=== PATIENT | male | born 1945 | race Caucasian/White ===

== ENCOUNTER 2023-10-05 12:25 | Inpatient (IN) | payer MEDICARE, OTHER, SELFPAY ==
[2023-10-05] VITALS (8 sets, daily range): BP systolic 108–151; BP diastolic 45–80; BMI 32.2; BMI 31.5
--- NOTE | 2023-10-05 08:31 | ED.GENMED ---
History of Present Illness
General
Chief Complaint: Change in Mental Status
Time Seen by Provider: 10/05/23 08:31
Travel History
Have you had any contact with someone who has COVID-19?: No
Do you have any symptoms of coronavirus? Fever > 100 degrees, chills, cough, shortness of breath, sore throat, loss of taste or smell, muscle aches, or headache?: No
Past History
Past History
ED Past Medical History: HTN and Other ( Aortic stenosis)
ED Past Surgical History: None
Social History
Tobacco: Non-smoker
Alcohol: Chronic alcoholic
Drug: None
Personal:
Living: with family
Course
Vital Signs
Initial and Last Documented VS:
Initial Vital Signs
Temp Pulse Resp BP Pulse Ox
99.5 F 107 20 137/71 95
10/05/23 08:26 10/05/23 08:26 10/05/23 08:26 10/05/23 08:26 10/05/23 08:26
Last Documented Vital Signs
Temp Pulse Resp BP Pulse Ox
99.5 F 107 20 137/71 95
10/05/23 08:26 10/05/23 08:26 10/05/23 08:26 10/05/23 08:26 10/05/23 08:26
ED Attending Note
-
Portions of this chart may have been created with voice recognition software.� Occasional wrong word or��sound alike� substitutions may have occurred due to the inherent limitations of voice recognition software.
Discharge Plan
Departure
Prescriptions:
No Action
multivitamin 1 EACH tablet
1 ea PO DAILY
amlodipine 10 MG tablet
10 mg PO DAILY
triamcinolone acetonide [Nasacort] 10.8 ML aerosol,spray
10.8 ml NS PRN PRN (Reason: allergies)
aspirin 81 MG tablet,chewable
81 mg PO DAILY
loratadine 10 MG tablet
10 mg PO PRN PRN (Reason: allergies)
guaifenesin [Mucinex] 1,200 MG tablet extended release 12hr
1,200 mg PO PRN PRN (Reason: congestion)
acetaminophen 325 MG tablet
650 mg PO Q6HPRN PRN (Reason: mild pain, fever, headache) 0RF
clopidogrel 75 MG tablet
75 mg PO DAILY Qty: 30 6RF
ibuprofen 200 MG tablet
200 mg PO Q6HPRN PRN (Reason: joint pain) Qty: 0 0RF
Interventions
Interventions:
*Risk Screen - Suicide Last Done: 10/05/23 08:26
*General Assessment Last Done: 10/05/23 08:26
*Neglect/Abuse Screening Last Done: 10/05/23 08:26
Discharge Date and Time
Print Language: FAROESE
--- NOTE | 2023-10-05 08:51 | ED.GENMED ---
History of Present Illness
General
Chief Complaint: Change in Mental Status
Source: patient and spouse
Exam Limitations: none
Time Seen by Provider: 10/05/23 08:31
Nursing documentation reviewed up to this point in time: agreed with
Travel History
Have you had any contact with someone who has COVID-19?: No
Do you have any symptoms of coronavirus? Fever > 100 degrees, chills, cough, shortness of breath, sore throat, loss of taste or smell, muscle aches, or headache?: No
History of Present Illness
History of Present Illness:
78-year-old male with past medical history of hypertension, hyperlipidemia, aortic stenosis status post TAVR, alcohol abuse who presents to the emergency room with his for evaluation of confusion/speech difficulty. Patient is unable to
meaningfully participate in history as he is having expressive aphasia. His says that he was in his normal state of health, last seen normal at around 3 PM yesterday afternoon. She says that later on the evening while he was watching TV she
noticed that he was having confused speech. She thought that perhaps he had been drinking alcohol but this morning his speech issues continued and he indicated that he had not had a drink in about 2 days; was concerned for an acute stroke and
brought him to the emergency room to be assessed. No reported falls or trauma. No weakness in the extremities. No loss of vision. No headache. No similar symptoms in the past.
Past History
Past History
ED Past Medical History: HTN and Other ( Aortic stenosis)
ED Past Surgical History: None
Social History
Tobacco: Non-smoker
Alcohol: Chronic alcoholic
Drug: None
Personal:
Living: with family
Review of Systems
Review of Systems
Unable to obtain full review of systems at this time due to: other (Aphasia)
All Other Systems: Not applicable
Phy Exam
Physical Exam
Physical Exam:
General: Awake, alert; no acute distress
Head: Normocephalic, atraumatic
Eyes: Conjunctiva normal, EOMI, pupils equal round and reactive to light bilaterally
Throat: Airway intact, handling secretions
Neck: Trachea midline, supple without meningismus
Lungs: Clear to auscultation bilaterally, no wheezing, rales, rhonchi
Heart: Regular rate and rhythm, systolic murmur
Abd: Soft, non distended, nontender
Neuro: Cranial nerves grossly intact 2 through 12, patient is having Warnicke's aphasia with fluent speech no dysarthria but 'word salad,' motor and sensory function intact upper and lower extremities, no limb ataxia
Skin: no rash
Extremities: No edema in extremities, equal pulses in all extremities
Scores
NIH Stroke Score
Level of Consciousness: 0 - Alert
LOC Questions: 0-Answers both correctly
LOC Commands: 0-Performs both correctly
Best Horizontal Gaze: 0-Normal
Visual Bautista: 0=Normal, no visual loss
Facial Palsy: 0=Normal, symmetrical
Motor - Right Arm: 0=No drift 10 seconds
Motor - Left Arm: 0=No drift 10 seconds
Motor - Right Le-No drift 5 seconds
Motor - Left Le-No drift 5 seconds
Limb Ataxia: 0-Absent
Sensation: 0-Normal
Best Language: 2-Severe aphasia
Dysarthria: 0-Normal
Extinction and Inattention: 0-No abnormality
Total Score:: 2
Heart Failure Risk
Heart Failure Risk Score: Not Applicable
Heart Score for Chest Pain Patients
STEMI patient?: Not applicable
Withdrawal Assessment of Alcohol
Withdrawal Assessment Completed?: Not applicable
Course
Orders/Labs/Results
Orders:
Orders
10/05/23 08:37
Alcohol Urgent
Ammonia Urgent
Complete Blood Count/With Diff Urgent
Comprehensive Metabolic Panel Urgent
Magnesium Urgent
10/05/23 08:44
CT Head W/o Cont STROKE ALERT Urgent
Comment:
Reason For Exam: expressive aphasia
Bedside Glucose- Treatment ONCE
Cardiac Monitoring- Treatment ONCE
IV Insert/Care/Rem.- Treatment PRN
Vital Signs- Treatment ONCE
Frequency: Hourly
Thiamine Injection 200 mg IV NOW STA
Pulse Ox/cont/shift [RESP] Stat
Quantity: 1
10/05/23 08:45
Electrocardiogram (*1) Stat
Reason for Study: Other
Other Reason for Exam: neuro symptoms
EKG- Treatment ONCE
Drug Screen, Urine [Urine Drug Abuse Screen] Urgent
10/05/23 08:46
Consult Neurology [NEUROLOGY CONSULT] Urgent
Consulting Provider: Justen Stiles
Was physician already notified: Yes
10/05/23 08:50
CT Head & Neck Angio W/wo IV Urgent
Comment:
Reason For Exam: expressive aphasia
10/05/23 09:28
Aspirin 325 mg PO NOW STA
10/05/23 10:00
FOLic ACID [Folvite] 1 mg 0.9% Sodium Chloride 50 ml [Nss] 50 ml IV ONCE
Abnormal Lab Results
10/05/23
08:37
RBC 3.52 L 10^6/uL
(4.70-6.10)
Hgb 11.5 L g/dL
(13.0-18.0)
Hct 33.0 L %
(39.0-52.0)
MCH 32.7 H pg
(27.0-31.0)
RDW 14.6 H %
(11.5-14.5)
MPV 10.5 H fL
(7.4-10.4)
Absolute Lymphs (auto) 0.7 L 10^3/uL
(1.2-3.4)
Absolute Monos (auto) 0.8 H 10^3/uL
(0.1-0.6)
Neutrophils % 75.7 H %
(42.2-75.2)
Lymphocytes % 10.1 L %
(20.5-51.1)
Monocytes % 12.0 H %
(1.7-9.3)
Creatinine 0.6 L mg/dL
(0.7-1.3)
Glucose 123 H mg/dl
(70-99)
Ammonia < 9 L umol/L
(9-30)
10/05/23 08:37
10/05/23 08:37
Vital Signs
Initial and Last Documented VS:
Initial Vital Signs
Temp Pulse Resp BP Pulse Ox
37.5 C 107 20 137/71 95
10/05/23 08:26 10/05/23 08:26 10/05/23 08:26 10/05/23 08:26 10/05/23 08:26
Last Documented Vital Signs
Temp Pulse Resp BP Pulse Ox
37.5 C 107 20 137/71 95
10/05/23 08:26 10/05/23 08:26 10/05/23 08:26 10/05/23 08:26 10/05/23 08:26
MDM/Problems Addressed
Differential Diagnosis Includes:
Acute CVA, Warnicke's encephalopathy, complex migraine, seizure, brain mass, hemorrhage
MDM/Problems Addressed:
78-year-old male with history as above presents for evaluation of speech difficulty/confused speech�he is exhibiting Warnicke's aphasia here. No other neurologic deficits. Tachycardic but otherwise normal vitals. Exam as above. NIH stroke scale
2. Last normal was 3 PM yesterday�would not be thrombolysis candidate. No stroke alert called for this reason. Will plan to place IV check labs including a CBC and CMP. Can check an ammonia level. Will check an alcohol level and UDS. Sent for
a CT head. Will dose with high-dose thiamine as well as folate. Case discussed with neurology also recommended CTA head and neck. They will evaluate at bedside. Agreed with high-dose thiamine. Reassess after the above.
Labs reviewed: CBC shows mild anemia otherwise unremarkable, CMP no clinically significant abnormalities. Alcohol level negative. CT head negative. Will dose with aspirin. Already treated with high-dose thiamine also gave folate. Case discussed
with hospitalist for admission.
Chronic conditions affecting care:
Alcohol abuse, hypertension, hyperlipidemia
*Radiology
Radiology exam reviewed: radiology read reviewed
*Pulse Oximetry
Patient hypoxic: no
*Critical Care Note
Total Time (30-74mins, 75-104mins- exclusive of procedures): Not Applicable
Data Reviewed
Review of Other/Old Records Reveals: Labs and Records
Source: patient and spouse
Patient Management
Discussion with other providers: Hospitalist (Discussed with hospitalist), Environmental Services Coordinator (Discussed with neurologist) and Radiologist (Discussed with radiologist)
Escalation/DeEscalation of care consider admission/obs:
Admission indicated
ED Attending Note
-
Portions of this chart may have been created with voice recognition software.� Occasional wrong word or��sound alike� substitutions may have occurred due to the inherent limitations of voice recognition software.
Discharge Plan
Departure
Patient Disposition: Admit
Date of Disposition: 10/05/23
Time of Disposition: 09:25
Admit to doctor: Brandon
Presentation/result/management discussed w/ accepting MD/DO: Hospitalist
Discharge Problem:
Wernicke's aphasia
Prescriptions:
No Action
multivitamin 1 EACH tablet
1 ea PO DAILY
amlodipine 10 MG tablet
10 mg PO DAILY
triamcinolone acetonide [Nasacort] 10.8 ML aerosol,spray
10.8 ml NS PRN PRN (Reason: allergies)
aspirin 81 MG tablet,chewable
81 mg PO DAILY
loratadine 10 MG tablet
10 mg PO PRN PRN (Reason: allergies)
guaifenesin [Mucinex] 1,200 MG tablet extended release 12hr
1,200 mg PO PRN PRN (Reason: congestion)
acetaminophen 325 MG tablet
650 mg PO Q6HPRN PRN (Reason: mild pain, fever, headache) 0RF
clopidogrel 75 MG tablet
75 mg PO DAILY Qty: 30 6RF
ibuprofen 200 MG tablet
200 mg PO Q6HPRN PRN (Reason: joint pain) Qty: 0 0RF
Interventions
Interventions:
*Risk Screen - Suicide Last Done: 10/05/23 08:26
*General Assessment Last Done: 10/05/23 08:26
*Neglect/Abuse Screening Last Done: 10/05/23 08:26
ED- Neurological Assessment Last Done: 10/05/23 09:00
Discharge Date and Time
Print Language: GERMAN
[2023-10-05 08:58] LABS: % Basophils 0.8 % (0-2); % Eosinophils 1.1 % (0-6); % Immature Granulocytes 0.3 % (0-0.5); % Lymphocytes 10.1 % (20.5-51.1); % Neutrophils 75.7 % (42.2-75.2); Absolute Basophils 0.1 10^3/uL (0-0.2); Absolute Eosinophils 0.1 10^3/uL (0-0.7); Absolute Lymphocytes 0.7 10^3/uL (1.2-3.4); Absolute Monocytes 0.8 10^3/uL (0.1-0.6); Absolute Neutrophils 4.9 10^3/uL (1.4-6.5); Hemoglobin 11.5 g/dL (13.0-18.0); Mean Corp Hgb Conc. 34.8 g/dL (33.0-37.0); Mean Corpuscular Hgb 32.7 pg (27.0-31.0); Mean Corpuscular Volume 93.8 fL (80.0-94.0); Mean Platelet Volume 10.5 fL (7.4-10.4); Nucleated Red Blood Cells % 0 % (-); Platelet Count 197 10^3/uL (130-400); Red Blood Cell Count 3.52 10^6/uL (4.70-6.10); Red Cell Dist. Width 14.6 % (11.5-14.5); White Blood Cell Count 6.5 10^3/uL (4.8-10.8)
[2023-10-05 09:21] LABS: ALT (SGPT) 11 U/L (0-50); AST (SGOT) 28 U/L (17-59); Albumin 4.5 g/dl (3.5-5.0); Alkaline Phosphatase 103 U/L (38-126); Ammonia < 9 umol/L (9-30); Blood Urea Nitrogen 10 mg/dl (9-20); Calcium 9.4 mg/dl (8.4-10.2); Carbon Dioxide 24 mmol/L (22-30); Chloride 106 mmol/L (98-107); Estimated Creatinine Clearance 118 ml/min; Glucose 123 mg/dl (70-99); Magnesium 1.9 mg/dl (1.6-2.3); Potassium 4.2 mmol/L (3.5-5.1); Sodium 138 mmol/L (135-145); Total Bilirubin 1.1 mg/dl (0.2-1.3); Total Protein 7.4 g/dl (6.3-8.2); eGFR > 60.00
[2023-10-05 09:22] LABS: Alcohol None Detected
[2023-10-05] MEDS: THIAMINE INJECTION 200 MG IV (09:26)
[2023-10-05] MEDS: FOLVITE 50.2 MG IV (09:27)
--- NOTE | 2023-10-05 09:32 | HPS.HSE ---
Family Physician
-
Family Physician: Torito Mccracken
Chief Complaint
-
Slurred speech
History of Present Illness
Patient is 78 years old with this of hypertension, hyperlipidemia, aortic stenosis status post TAVR, alcohol abuse (last use 2 days) who came to the ER with his
With confusion/speech difficult, patient denies any other neurological symptoms, patient seen and examined at bedside, denies any chest pain or shortness of breath, no abdominal pain, no nausea, no vomiting, no diarrhea or constipation.
Patient awake and oriented, no slurred speech on exam but based on the family at bedside has mild confusion not at baseline yet.
Medical History
Past Medical History
Past Medical History: Reports HTN and Hypercholesterolemia
Past Surgical History: Reports Cardiac (TAVR)
Social History
Tobacco: Non-smoker
Alcohol: Daily
Personal:
Living: With Family
Family History
Family History: Not pertinent
Allergies / Home Medications
Allergies reflects when Allergies were last updated in [employer].
Home Medications with original date entered in [employer]
Allergy/Medication List:
Allergies
Allergy/AdvReac Type Severity Reaction Status Date / Time
ENVIRONMENTAL Allergy Intermediate RUNNY NOSE Uncoded 10/05/23 08:26
AND
SNEEZING
Home Medications
amlodipine 10 mg tablet 10 mg PO DAILY 02/13/19
aspirin 81 mg chewable tablet 81 mg PO DAILY 02/13/19
triamcinolone acetonide 55 mcg nasal spray aerosol (Nasacort) 10.8 ml NS DAILYPRN PRN allergies 02/13/19
atorvastatin 10 mg tablet 10 mg PO DAILY 10/05/23
naproxen sodium 220 mg tablet (Aleve) 440 mg PO BIDPRN PRN mild pain 10/05/23
Review of Systems
-
A 12 point ROS was completed and negative except as noted: Yes
Constitutional: Reports See HPI (Confusion); Denies Fever, Weight Gain, Weight Loss, Fatigue or Sleep Disturbance
EENT: Denies Tearing, Sore Throat, Mouth Pain, Mouth Swelling or Runny Nose
Respiratory: Denies Cough, Hemoptysis or Trouble Breathing
Cardiac: Denies Chest Pain, Diaphoresis, Palpitations or Syncope
Abdomen/GI: Denies Abdominal Pain, Nausea, Vomiting, Diarrhea, Constipated, Bloody Stools or Black Stools
: Denies Dysuria, Frequency, Flank Pain, Incontinence, Difficulty Voiding, Urgency, Bleeding or Dark Urine
Musculoskeletal: Denies Joint Pain, Joint Swelling, Muscle Pain, Muscle Stiffness or Edema
Skin: Denies Itching or Rash
Neurological: Reports See HPI and Other (Slurred speech); Denies Dizzy, Headache, Weakness or Numbness
Endocrine: Denies Polyuria, Polydipsia or Temp Intolerance
Hematologic/Lymphatic: Denies Bleeding, Swollen Glands or Bruising
Psych: Reports Calm; Denies Depression, Anxiety or Panic Disorder
Physical Exam
Vital Signs
Vital Signs
Temp Pulse Resp BP Pulse Ox
99.5 F 107 20 137/71 95
10/05/23 08:26 10/05/23 08:26 10/05/23 08:26 10/05/23 08:26 10/05/23 08:26
Physical Exam
General: Well Developed, Well Nourished, No Apparent Distress, Comfortable and Good Appetite; No Pain, Chills or Sweats
HEENT: NormoCephalic, Moist mucous membranes, Atraumatic, Good Dentition, PERRLA, Nose Appears Normal and Ears Appear Normal
Respiratory: Clear
Cardiac: S1/S2 and Regular Rhythm
Breast: Deferred by me
GI: Soft, Non Tender, Non Distended and Normal Bowel Sounds
Genito-urinary: Deferred by me
Musculoskeletal: No Clubbing, No Cyanosis and No Edema
Skin: Warm; No Rash, Jaundice, Ulcers, Lesions or Decubitus Ulcers
Neuro: Awake, Alert, Oriented, AO x 3, No Motor Deficits, Nonfocal/grossly intact and Cranial Nerves Intact
Hematologic/Lymphatic: No Lymphadenopathy
Psych: Calm
Laboratory Results
-
10/05/23 08:37
10/05/23 08:37
Laboratory Results
Total Bilirubin 1.1 mg/dl (0.2-1.3) 10/05/23 08:37
AST 28 U/L (17-59) 10/05/23 08:37
ALT 11 U/L (0-50) 10/05/23 08:37
Alkaline Phosphatase 103 U/L (38-126) 10/05/23 08:37
Data Reviewed
-
Diagnostic Radiology: Report Reviewed by me
CT Scan: Report Reviewed by me
Medical Tests (Nuc Med, Echo, EKG etc): Report Reviewed by me
Lab Data: Labs Reviewed by me
Old Records: Reviewed
Impression/Plan
-
IMPRESSION:
78 years old with a history of hypertension, hyperlipidemia, aortic stenosis status post TAVR presented with mild confusion and slurred speech which resolved, admitted to rule out CVA, MRI brain and neurology consult.
PLAN:
Slurred speech, rule out CVA/TIA. (Wernicke's aphasia)
CT head done in the ER shows:
No acute intracranial abnormalities.
Findings compatible with diffuse cortical atrophy with nonspecific white matter changes as described above.
CTA head and neck shows:
Bilateral carotid bulb and proximal internal carotid artery atherosclerosis, left greater than right, without hemodynamically significant proximal internal carotid artery stenosis.
No findings to suggest internal carotid artery or vertebral artery dissection bilaterally. Dominant right vertebral artery.
No findings to suggest proximal intracranial arterial stenosis bilaterally.
Patient has no other neurological deficit.
Admit under observation status to telemetry bed.
Frequent neurocheck.
Allow permissive hypertension.
Aspirin/Plavix/atorvastatin,
Neurology consult (ordered in the ER).
MRI brain without contrast.
Echocardiogram.
Check hemoglobin A1c, fasting lipid panel.
PT/OT consult.
Social service for discharge.
Alcohol abuse.
Daily alcohol use.
Last used 2 days ago
Patient given thiamine IV in the ER, will continue while in the hospital, then discharge on oral thiamine
Folic acid
No symptoms of withdrawal currently but will order Ativan as needed for withdrawal.
History of hypertension
Hold home amlodipine for now, to allow permissive hypertension.
CODE STATUS: Full code
DVT prophylaxis: Lovenox
Diet: cardiac diet (speech for swallow eval)
[2023-10-05] MEDS: ASPIRIN 325 MG PO (09:35)
[2023-10-05 09:38] LABS: Glucose - Point of Care 108 mg/dl (70-99)
--- NOTE | 2023-10-05 09:43 | CON.NEURO4 ---
Addendum entered and electronically signed by Justen Stiles MD 10/05/23 11:30:
I saw and evaluated the patient reviewed the note by Porsha rooney agree with the findings with following comments:
78 year old man with alcohol abuse, s/p TAVR, hypertension, hyperlipidemia presenting with speech abnormalities, confused nonsensical speech starting yesterday afternoon around 3 PM. No history of stroke, takes aspirin at home. No observation by
patient or family of unilateral weakness. His comprehension is impaired and his words don't make sense. No headache. Last alcoholic drink about 1-2 days ago.
Neurologic examination shows fluent/receptive aphasia (Wernicke's type aphasia) with impaired comprehension to all but the most simple 1 step commands, repetition impaired. Fully awake and alert and attempts communication. No cranial nerve or
motor deficits.
CT head non contrast reviewed no infarcts or ischemic seen, no hemorrhage
CTA head and neck shows no large vessel occlusions in the brain, plaque and calcification at carotids bilaterally with 50% or less stenosis bilaterally.
MRI brain with expected infarcs in the left hemisphere, in the insula and left parietal lobes.
Assessment: Embolic ischemic stroke to left sided hemisphere producing Wernicke's/receptive aphasia. Sources could be a non-hemodynamicalyl severe left carotid artery atherosclerosis, decent possibility of cardiac embolism given severe left atrial
dilation on previous TTE signifying left atriopathy.
Recommendations
-Thiamine and folate supplementation, would not require a Wernicke Encephalopathy type dosing
-Speech, physical occupational therapies
-DAPT therapy, aspirin/clopidogrel plan for 21 days
-Small increase in Atorvastatin to 20 mg daily even though LDL is low would want more aggressive management of atherosclerosis
-Recheck TTE although low yield
-Cardiac telemetry
-Low threshold for cardiac monitoring in outpatient setting
-Monitor for alcohol withdrawal
-Neuro checks and NIH scales
-Can pursue goal normotension at this point
Will follow
Original Note:
Consultation - Neurology 4
-
CONSULTING PHYSICIAN: Gokul Stiles MD
REFERRING PHYSICIAN: Hospitalists/Dr. Jimenez
DICTATED BY: LENARD Chapman
DATE/TIME OF REQUEST: 10/05/23
DATE/TIME OF CONSULTATION: 10/05/23
Reason for Consultation: Aphasia
History of Present Illness:
This is a 78-year-old left-handed male who has presented to the hospital with report of aphasia starting at 1500 on 10/04/23. Patient does not recognize any speech disturbance. Per his family at bedside, he was in his usual state yesterday until
1500 while sitting on the couch watching TV his speech became nonsensical. They initially attributed the speech change to him drinking alcohol that morning, but the patient reports he hasn't had a drink in two days. This morning (10/05/23), his
speech was still abnormal, prompting them to bring him to the ER for evaluation. NIHSS is 5 on our evaluation for inability to answer orientation questions, severe aphasia, and slight RLE drift. CT head and CTA head/neck were obtained and are
negative for any acute abnormalities. He is not a candidate for TNK/IAT due to being outside of the time window and no LVO on imaging. Patient offers no complaints but a complete ROS is challenging to obtain due to aphasia. He is taking aspirin 81mg
daily for cardiac purposes. He denies any history of TIA or stroke in the past. He drinks alcohol daily, last drink was possibly two days ago.
Past Medical History: HTN, aortic stenosis, chronic daily alcohol use, depression, squamous/basal cell carcinoma, diverticulosis
Surgical History: TAVR, b/l cataract removal, eyelid lift
Family History: Reviewed and noncontributory.
Social History: Chronic daily alcohol use. Denies tobacco and illicit drug use.
Allergies: Environmental.
Home Medications: See below.
Review of Symptoms:
Patient denies any fever, headache, chest pain, shortness of breath, GI or symptoms. Unreliable due to aphasia
�Per the HPI.�All systems are reviewed negative except above.
Physical Exam:
The patient is afebrile, abdomen is nondistended, breathing is unlabored, skin is warm and dry, no edema.
NIH Stroke Scale:
I performed the NIH stroke scale on the patient on 10/05/23 at 1015. The patient scored 5 points on the NIH stroke scale assessment, which were assigned as follows: See below.
Neurologic Examination:
The patient is awake, alert and oriented to name. He is able to follow some one-step commands, often repeats the same commands. Can answer some questions appropriately, frequent word salad. There is severe aphasia, receptive>expressive. No
dysarthria. On cranial nerve assessment, pupils are 3 mm bilateral, round and reactive to light and accommodation. Visual bautista are full. Extraocular movements are intact. Facial sensations are intact and bilaterally symmetrical, there is no facial
asymmetry. Hearing is intact bilaterally to normal conversation volume. Tongue palate and uvula are midline. Sternocleidomastoid strengths are full bilaterally. Motor strengths are 5/5 bilateral upper and lower extremities on medical research
[place] scale. There is slight RLE drift. Low amplitude semi rhythmic tremor noted in distal LUE on exertion. SULAIMAN sensation due to aphasia. Coordination is intact by finger to nose bilaterally.
Lab Results: See below.
Neuro Imaging:
1. CT Head 10/05/23: No acute intracranial abnormalities. Findings compatible with diffuse cortical atrophy with nonspecific white matter changes as described above. ASPECTS score: 10.
2. CTA Head/Neck 10/05/23: Bilateral carotid bulb and proximal internal carotid artery atherosclerosis, left greater than right, without hemodynamically significant proximal internal carotid artery stenosis. No findings to suggest internal carotid
artery or vertebral artery dissection bilaterally. Dominant right vertebral artery. No findings to suggest proximal intracranial arterial stenosis bilaterally.
Differentials for the patient's presentation include:
1. Likely a left hemisphere, possibly right hemisphere given left-handedness, ischemic stroke producing receptive>expressive aphasia.
2. Nutritional deficiency associated with alcohol abuse possibly contributing to symptoms.
Patient has the following risk factors for their symptoms: HTN, HLD, age
IV Tenecteplase/IAT candidacy: Not a candidate for TNK/IAT due to outside of time window/no LVO.
Recommendations:
-Continue DAPT with aspirin 81mg and Plavix 75mg daily for 21 days. After 21 days, discontinue Plavix and continue aspirin 81mg daily only, indefinitely.
-Permissive hypertension until 1500 today, then goal normotension.
-MRI brain noncontrast pending.
-Will order TTE if MRI is positive for stroke.
-LDL goal <70. LDL is 36. Continue home atorvastatin 10mg daily as LDL is at goal.
-Goal normoglycemia, hbA1c is pending.
-MSAS protocol. Thiamine/folate replacement.
-NIHSS and neurological checks per unit guidelines.
-Provide patient with a [employer] education packet.
-PT/OT/St evaluations.
-DVT prophylaxis.
-Will follow.
Discussed patient care with: Dr. Stiles, the patient
Vital Signs and Labs
-
Vital Signs and Labs:
Vital Signs
Temp Pulse Resp BP Pulse Ox
99.5 F 107 20 137/71 95
10/05/23 08:26 10/05/23 08:26 10/05/23 08:26 10/05/23 08:26 10/05/23 08:26
Lab Results
10/05/23 08:37
10/05/23 08:37
Sodium 138 mmol/L (135-145) 10/05/23 08:37
Potassium 4.2 mmol/L (3.5-5.1) 10/05/23 08:37
BUN 10 mg/dl (9-20) 10/05/23 08:37
Glucose 123 mg/dl (70-99) H 10/05/23 08:37
Calcium 9.4 mg/dl (8.4-10.2) 10/05/23 08:37
Medications
-
Active Medications
Generic Name Dose Route Start Last Admin
Trade Name Freq PRN Reason Stop Dose Admin
Folic Acid 1 mg/ Sodium 50.2 mls @ 200.8 mls/hr 10/05/23 10:00 10/05/23 09:27
Chloride IV 10/05/23 10:14 50.2 mls
ONCE ONE Administration
Home Medications
�Medication �Instructions �Recorded
amlodipine 10 mg tablet 10 mg PO DAILY 02/13/19
aspirin 81 mg chewable tablet 81 mg PO DAILY 02/13/19
triamcinolone acetonide 55 mcg 10.8 ml NS DAILYPRN PRN allergies 02/13/19
nasal spray aerosol (Nasacort)
atorvastatin 10 mg tablet 10 mg PO DAILY 10/05/23
naproxen sodium 220 mg tablet 440 mg PO BIDPRN PRN mild pain 10/05/23
(Aleve)
NIH Stroke Score
Subsequent NIH Scale
Date of Subsequent NIH Scale: 10/05/23
Time of Subsequent NIH Scale: 10:15
NIH Stroke Score
Level of Consciousness: 0 - Alert
LOC Questions: 2-Neither correct
LOC Commands: 0-Performs both correctly
Best Horizontal Gaze: 0-Normal
Visual Bautista: 0=Normal, no visual loss
Facial Palsy: 0=Normal, symmetrical
Motor - Right Arm: 0=No drift 10 seconds
Motor - Left Arm: 0=No drift 10 seconds
Motor - Right Le-Drift < 5 seconds
Motor - Left Le-No drift 5 seconds
Limb Ataxia: 0-Absent
Sensation: 0-Normal
Best Language: 2-Severe aphasia
Dysarthria: 0-Normal
Extinction and Inattention: 0-No abnormality
Total Score:: 5
Modified Hanson (mRS) Score
Modified Lit Scale (mRS): Moderate disability. Requires some help, able to walk unassisted.
Score: 3
Alteplase Contraindication
Inclusion and Exclusion criteria reviewed: Yes
Reasons for NON-Tx with Thrombolytics ABSOLUTE Exclusions: Greater than 4.5 hrs from onset of sxs
[2023-10-05 10:29] LABS: Amphetamines Negative (Negative); Barbiturates Negative (Negative); Benzodiazepines Negative (Negative); Buprenorphine Negative (Negative); Cocaine Negative (Negative); Marijuana Negative (Negative); Methadone Negative (Negative); Methamphetamines Negative (Negative); Opiates Negative (Negative); Phencyclidine Negative (Negative); Tricyclic Antidepressants Negative (Negative)
[2023-10-05 11:17] LABS: Glycohemoglobin (HgbA1c) 5.3 % (4.0-5.6)
[2023-10-05 11:24] LABS: Urine Albumin Negative (Neg - Trace); Urine Bilirubin Negative (Negative); Urine Character Clear (Clear); Urine Color Yellow; Urine Glucose Negative (Negative); Urine Ketone Negative (Negative); Urine Leukocyte Negative (Negative); Urine Nitrite Negative (Negative); Urine Occult Blood Negative (Negative); Urine Specific Gravity 1.005 (<1.030); Urine Urobilinogen Negative (Neg - 1+)
--- NOTE | 2023-10-05 12:03 | CARDSERVLU ---
Echocardiogram with Lumason completed after protocol screening completed. Allergies verified.
Patent IV site: _Right arm 20 G PC, site clear____
IV site flushed with 0.9% NaCl pre and post administration.
Diluted bolus method utilized to enhance visualization of ventricular nicholson.
Total volume given: __4__ mL
Patient tolerated all procedures well without complications.
--- NOTE | 2023-10-05 14:13 | CON.CAR ---
Addendum entered and electronically signed by Bob Prescott MD 10/05/23 15:48:
Correction to below . aortic regurgitation was difficult to assess on most recent echo and was reported as moderate to severe.
Will assess TAVR and degree of AR with DANYA.
Addendum entered and electronically signed by Bob Prescott MD 10/05/23 15:30:
echo with estimated EF 55% but there appears to be new wall motion abnormalities ( lateral hypokinesis and focal mid inferior). ECG suggest prior IMI and q waves more notable than prior ECGs. Echo also notable for modearate AR, increased TAVR
gradients peak 54 and mean 32mmHg. Prior echo with mean 22mmHG. No chest pain
- check troponins
Original Note:
Consultation
Consultation Request
Date/Time Consultation Requested: 10/05/2023 1230
Date/Time Consultation Performed: 10/05/2023 1230
Requesting Provider: Macario Kline
Performing Provider: Dr. Prescott
Reason for Consultation: CVA
Medical History
-
History of Present Illness:
78-year-old male with a history of TAVR 2019, moderate paravalvular AR, hypertension, alcoholism and nonobstructive coronary disease who is admitted with a CVA
On 10/03/2023 patient was noted to be speaking oddly and not quite making sense but could not discern if this was just related to alcohol the following day it was more clear that this was different than speech issues related to alcohol. Patient
was admitted to [facility] felt to have receptive aphasia with impaired comprehension . Patient has been in sinus rhythm with no evidence of atrial fibrillation. No other recent illness or other symptoms. helps provide history. 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
Patient has a history of alcohol abuse. says he is drinking and he will drink as much as a bottle of vodka in a day and then he will go a couple days without drinking anything. Last alcohol consumption was 2 days ago
No fever or other recent illness. He gets routine dental work including cleanings and takes antibiotic prophylaxis.
Past medical history
TAVR 2019, #[address] JULIANNE S3
Moderate paravalvular AR
Hypertension
Alcohol abuse nonobstructive coronary disease
Diverticulosis
. 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
Family history possible history of coronary disease question whether mother had myocardial infarction based on prior outpatient records.
MRI of brain 10/05/2023 Cluster of small acute, nonhemorrhagic infarcts in the left insula. There is also a tiny acute nonhemorrhagic infarct in the left parietal lobe posteriorly.
Head and neck CTA 10/05/2023 Bilateral carotid bulb and proximal internal carotid artery atherosclerosis, left greater than right, without hemodynamically significant proximal internal carotid artery stenosis.No findings to suggest internal carotid
artery or vertebral artery dissection bilaterally. Dominant right vertebral artery.
No findings to suggest proximal intracranial arterial stenosis bilaterally.
Family History
Family History: Reviewed & Not Pertinent (Patient unable to provide history. History obtained from )
Allergies / Home Medications
Allergy/AdvReac Type Severity Reaction Status Date / Time
ENVIRONMENTAL Allergy Intermediate RUNNY NOSE Uncoded 10/05/23 08:26
AND
SNEEZING
�Medication �Instructions �Recorded �Confirmed �Type
amlodipine 10 mg tablet 10 mg PO DAILY Blood Pressure 02/13/19 10/05/23 History
aspirin 81 mg chewable tablet 81 mg PO DAILY Blood Clot 02/13/19 10/05/23 History
Prevention/Tx
triamcinolone acetonide 55 mcg 10.8 ml NS DAILYPRN PRN allergies 02/13/19 10/05/23 History
nasal spray aerosol (Nasacort)
atorvastatin 10 mg tablet 10 mg PO DAILY High Cholesterol 10/05/23 10/05/23 History
naproxen sodium 220 mg tablet 440 mg PO BIDPRN PRN mild pain 10/05/23 10/05/23 History
(Aleve)
Review of Systems
-
All other systems: Negative unless noted
Physical Exam
Vital Signs
Temp Pulse Resp BP Pulse Ox
99.1 F 105 18 151/80 96
10/05/23 12:31 10/05/23 12:31 10/05/23 12:31 10/05/23 12:31 10/05/23 12:31
Lab Results
10/05/23 08:37
10/05/23 08:37
Physical Exam
General: Well Developed, Well Nourished and No Apparent Distress
HEENT: Normocephalic, Anicteric and Other (Extraocular wounds are intact pupils are equal external ear and oral exam unremarkable)
Respiratory: Clear (Clear with no wheezes rales or rhonchi)
Cardiac: Regular Rhythm (2/6 systolic murmur)
GI: Soft, Non Tender and Normal Bowel Sounds
Genito-urinary: No Costovertebral Tender
Musculoskeletal: No Clubbing, No Cyanosis and No Edema
Skin: Warm, Dry and Rash
Neuro: Awake, Alert and Other (Issues with comprehension asked him to first put arms at his sides and he seemed to do it but then I asked him to lift his right hand and he closed his right eye I asked him to look at me but he looked to the left
side. Periodically would speak and state words that did not make sense.)
Psych: Calm
Impression / Plan
-
.
CVA.Patient with initial symptoms yesterday. He has receptive aphasia and impaired comprehension with brain MRI showing cluster of small acute nonhemorrhagic infarcts in the left insula and also tiny acute nonhemorrhagic infarct in the left
parietal lobe. Exact etiology unclear. Patient currently maintained in sinus rhythm. Neurology following.
Since suspected embolic CVA would evaluate for cardiac causes of CVA
-Telemetry
-Echocardiogram
-If the above are unremarkable then would proceed with DANYA and possible implantable loop monitor tomorrow.
-These issues were reviewed with the patient's who is at the bedside. Patient currently unable to consent. Procedure and risk were reviewed with the patient's who is consented for both DANYA and implantable loop
.
TAVR. History of TAVR with paravalvular AR. Reassess with echo
Data Reviewed
-
EKG: Report Reviewed by me
Radiology: Report Reviewed by me
Medical Tests (Nuc Med, Echo etc): Report Reviewed by me
Labs: Labs Reviewed by me
[2023-10-05 16:54] LABS: Troponin I 0.017 ng/ml
[2023-10-05] MEDS: LIPITOR 40 MG PO (17:09)
[2023-10-05] MEDS: LOVENOX 40 MG SC (17:09)
[2023-10-05 21:51] LABS: Troponin I 0.028 ng/ml
[2023-10-06] VITALS (33 sets, daily range): BP systolic 75–130; BP diastolic 40–86; BMI 31.4
[2023-10-06 06:47] LABS: Hematocrit 32.9 % (39.0-52.0); Hemoglobin 11.2 g/dL (13.0-18.0); Mean Corpuscular Hgb 32.8 pg (27.0-31.0); Mean Corpuscular Volume 96.5 fL (80.0-94.0); Mean Platelet Volume 10.3 fL (7.4-10.4); Platelet Count 182 10^3/uL (130-400); Red Blood Cell Count 3.41 10^6/uL (4.70-6.10); Red Cell Dist. Width 14.4 % (11.5-14.5); White Blood Cell Count 7.2 10^3/uL (4.8-10.8)
[2023-10-06 06:57] LABS: Troponin I 0.026 ng/ml
[2023-10-06 07:24] LABS: Blood Urea Nitrogen 9 mg/dl (9-20); Calcium 9.2 mg/dl (8.4-10.2); Carbon Dioxide 21 mmol/L (22-30); Chloride 106 mmol/L (98-107); Estimated Creatinine Clearance 116 ml/min; Glucose 98 mg/dl (70-99); HDL Cholesterol 38 mg/dl; LDL Cholesterol, Calculated 40 mg/dl; Sodium 138 mmol/L (135-145); Total Cholesterol 93 mg/dl (50-199); Triglyceride 79 mg/dl (10-149); Very Low Density Lipoprotein 15 mg/dl (0-30); eGFR > 60.00
--- NOTE | 2023-10-06 07:59 | W.PN.NEURO.1 ---
Today's Communication / Plan
-
-Continue aspirin and clopidogrel, plan for 21 days total with transition to clopidogrel afterwards
-Atorvastatin
-Planning for transesophageal echocardiogram
-Continue cardiac telemetry monitoring
-Speech therapy evaluations
-Goal normotension
-Continue thiamine and folate monitor for alcohol withdrawal
Neuro Assessment/Plan
Assessment
70-year-old male with a past ministry of hypertension, hyperlipidemia, alcohol abuse, obesity, coronary artery disease presented to hospital with Wernicke's/receptive aphasia.
Brain MRI demonstrated acute infarct in the left temporal/insular lobe as well as left parietal lobe which were embolic appearing.
There is left-sided common carotid and proximal internal carotid artery calcification without severe stenosis.
Transthoracic echocardiogram shows some changes with new regional wall abnormalities and changes in the gradients of the TAVR, aortic regurgitation also seen.
Potential sources of stroke are nonsevere carotid atherosclerosis on the left carotid versus cardiac embolism.
Subjective/Objective
Subjective Data
Date of Service: October 06, 2023
No acute events, unchanged aphasia, patient calm and comfortable with no complaints
Objective Data
Vital Signs
Temp Pulse Resp BP Pulse Ox
98.7 F 81 18 120/53 93
10/06/23 03:05 10/06/23 03:05 10/06/23 03:05 10/06/23 03:05 10/06/23 03:05
Lab Results
10/06/23 06:24
10/06/23 06:24
Sodium 138 mmol/L (135-145) 10/06/23 06:24
Potassium 4.0 mmol/L (3.5-5.1) 10/06/23 06:24
BUN 9 mg/dl (9-20) 10/06/23 06:24
Glucose 98 mg/dl (70-99) 10/06/23 06:24
Calcium 9.2 mg/dl (8.4-10.2) 10/06/23 06:24
LDL Cholesterol, Calc 40 mg/dl 10/06/23 06:24
Ur Buprenorphine Negative (Negative) 10/05/23 09:34
Patient Allergies
ENVIRONMENTAL Allergy (Intermediate, Uncoded 10/05/23 08:26)
RUNNY NOSE AND SNEEZING
Review of Systems
-
Unable to obtain full review of systems at this time due to: Aphasia
Physical Exam
-
General: Well Developed and Well Nourished
Eyes: No Ptosis
HEENT: Normocephalic
Neck: No Bruits Bilaterally
Respiratory: Clear to Auscultation
Cardiac: Regular Rhythm
GI: Normal Bowel Sounds
Skin: Unremarkable
Extremities: No Clubbing
Psych: Unremarkable
Extended Neurological Exam
Mood & Affect: Mood Unremarkable and Affect Unremarkable
Attention Span & Concentration: Awake, Alert, Interactive and Unable to Perform 2 Step Request
Memory: Unable to Assess
Tremor: Hand Tremor Absent
Involuntary Movement: None
Speech: Receptive Aphasia; Negative Dysarthric
Cranial Nerve II: Left Eye: Pupillary Reactivity Unremarkable and Pupillary Size Unremarkable
Cranial Nerve II: Right Eye: Pupillary Reactivity Unremarkable and Pupillary Size Unremarkable
Cranial Nerves III, IV, : Extraocular Movement: Extraocular Movement Full in all Directions
Cranial Nerve VII: Facial Symmetry: Normal Facial Symmetry
Pronator Drift: No Drift in Upper Extremities
Babinski Sign: Absent Bilaterally
Data Reviewed
-
CT-A: Report Reviewed and Image Reviewed
CT Head: Report Reviewed and Image Reviewed
MRI Head: Report Reviewed and Image Reviewed
Labs: Report Reviewed
[2023-10-06] MEDS: THIAMINE INJECTION 100 MG IV (08:00)
[2023-10-06] MEDS: FOLVITE 1 MG PO (08:00)
[2023-10-06] MEDS: PLAVIX 75 MG PO (08:00)
[2023-10-06] MEDS: ASPIR LOW (ENTERIC COATED) 81 MG PO (08:00)
--- NOTE | 2023-10-06 08:06 | PTOTSP ---
Please order Occupational Therapy eval as part of Stroke Order set. Thank you.
--- NOTE | 2023-10-06 08:32 | W.PN.CD ---
Today's Communication / Plan
-
blood cx
ct surgery eval
no ILR today
Impression / Plan
-
.
CVA.Patient with initial symptoms yesterday. He has receptive aphasia and impaired comprehension with brain MRI showing cluster of small acute nonhemorrhagic infarcts in the left insula and also tiny acute nonhemorrhagic infarct in the left
parietal lobe. Exact etiology unclear. Patient currently maintained in sinus rhythm. Neurology following.
Since suspected embolic CVA would evaluate for cardiac causes of CVA
-need to rule out endocarditis as a source of embolism
-will hold off on LINQ today
-continue tele
.
s/p TAVR. History of TAVR with paravalvular AR.
DANYA today with severe paravalvular regurgitation, and c/f aortic root abscess possble small mv veg
will get blood cultures
will c/s CT surgery
Physical Exam
Vital Signs/Labs
Vital Signs
Temp Pulse Resp BP Pulse Ox
98.7 F 81 18 120/53 93
10/06/23 03:05 10/06/23 03:05 10/06/23 03:05 10/06/23 03:05 10/06/23 03:05
10/05/23 10/06/23 10/07/23
06:59 06:59 06:59
Actual Weight 96.797 kg
10/06/23 06:24
10/06/23 06:24
Magnesium 1.9 mg/dl (1.6-2.3) 10/05/23 08:37
Triglycerides 79 mg/dl (10-149) 10/06/23 06:24
LDL Cholesterol, Calc 40 mg/dl 10/06/23 06:24
VLDL Cholesterol, Calc 15 mg/dl (0-30) 10/06/23 06:24
HDL Cholesterol 38 mg/dl 10/06/23 06:24
LAB Results
10/05/23 10/05/23 10/06/23
16:16 21:23 06:24
Troponin I 0.017 0.028 D 0.026
Physical Exam
Constitutional: No acute distress
Cardiovascular: Rhythm & rate is regular, Systolic murmur absent and S1S2 is normal
Respiratory: Respiratory effort normal, Lungs clear to auscul., Wheeze Absent, Crackles Absent and Rhonchi Absent
Neuro/Psych: AO x 3
Data Reviewed
-
Date of Service: October 06, 2023
--- NOTE | 2023-10-06 10:39 | W.PN.HOSP.TC ---
Today's Communication/Plan
-
DANYA today
Assessment / Plan
Assessment / Plan
IMPRESSION:
78 years old with a history of hypertension, hyperlipidemia, aortic stenosis status post TAVR presented with mild confusion and slurred speech which resolved, MRI brain shows acute CVA neurology consulted, vision consulted and plan for DANYA today.
PLAN:
Acute CVA (Wernicke's aphasia)
CT head done in the ER showed:
No acute intracranial abnormalities.
Findings compatible with diffuse cortical atrophy with nonspecific white matter changes as described above.
CTA head and neck showed:
Bilateral carotid bulb and proximal internal carotid artery atherosclerosis, left greater than right, without hemodynamically significant proximal internal carotid artery stenosis.
No findings to suggest internal carotid artery or vertebral artery dissection bilaterally. Dominant right vertebral artery.
No findings to suggest proximal intracranial arterial stenosis bilaterally.
MRI brain showed:
Cluster of small acute, nonhemorrhagic infarcts in the left insula. There is also a tiny acute nonhemorrhagic infarct in the left parietal lobe posteriorly.
Cerebral atrophy along with chronic small vessel ischemia in cerebral white matter
Old lacunar infarcts in the centrum semiovale bilaterally and right frontal subcortical white matter.
Echocardiogram showed:
Overall preserved left ventricular function.
Estimated LV ejection fraction is 55% .
Lateral hypokinesis.
Cardiology consulted, plan for DANYA today
Continue monitoring analyst
Frequent neurocheck.
Allowed permissive hypertension.
continue with Aspirin/Plavix/atorvastatin,
Hemoglobin A1c 5.3, LDL 40.
PT/OT consulted.
Social service for discharge.
Alcohol abuse.
Daily alcohol use.
Last used 2 days ago
Patient given thiamine IV in the ER, will continue while in the hospital, then discharge on oral thiamine
Folic acid
No symptoms of withdrawal currently but ordered Ativan as needed for withdrawal.
History of hypertension
Cont to Hold home amlodipine for now, to allow permissive hypertension.
CODE STATUS: Full code
DVT prophylaxis: Lovenox
Diet: cardiac diet (speech for swallow eval)
Anticipated Discharge: 24 - 48 hours
Subjective/Interval History
-
Date of Service: October 06, 2023
Patient seen and examined at bedside, denies any chest pain or shortness of breath, no abdominal pain, no nausea, no vomiting, no diarrhea or constipation.
Overnight patient was wandering in the hallway requires sitter, plan for DANYA today.
Objective Data
-
Labs:
Laboratory Results
10/06/23
06:24
WBC 7.2
Hgb 11.2 L
Hct 32.9 L
Plt Count 182
Sodium 138
Potassium 4.0
Chloride 106
Carbon Dioxide 21 L
BUN 9
Creatinine 0.6 L
Glucose 98
Calcium 9.2
Vital Signs:
Vital Signs
Temp Pulse Resp BP Pulse Ox
99.8 F 85 16 130/69 94
10/06/23 07:00 10/06/23 07:00 10/06/23 07:00 10/06/23 07:00 10/06/23 08:30
I&O
10/05/23 10/06/23 10/07/23
06:59 06:59 06:59
Intake Total 780 / 780
Balance 780 / 780
Physical Exam
-
General: Well Developed and No Apparent Distress
HEENT: Normocephalic, Atraumatic and Moist Mucous Membranes
Respiratory: Clear to Auscultation
Cardiac: Regular Rhythm and S1/S2; Negative Murmur, Rub or Gallop
GI: Soft, Nontender, Nondistended and Normal Bowel Sounds; Negative Organomegaly
Rectal: Deferred by Provider
Musculoskeletal: No Clubbing, No Cyanosis and No Edema
Skin: Negative Rash
Neuro: Nonfocal/Grossly Intact
Psych: Confused
[2023-10-06] MEDS: ATIVAN 1 MG IV ×2 (11:46→20:34)
--- NOTE | 2023-10-06 13:01 | PTOTSP ---
Speech Therapy Language Assessment
Patient presents with a severe fluent aphasia with both expressive and receptive language deficits that impacts functional communication. His yes/no responses are unreliable due to perseverations and reduced comprehension at sentence level. Verbal
expression is impaired beyond simple automatic responses such as in social greetings.
Recommend
1. Intensive speech therapy at next level of care with initial goal of identifying a reliable means of functional communication.
2. ST will follow in acute care as able.
3. Swallowing assessment if needed - patient currently on diet after passing nursing level swallow screening.
[2023-10-06] MEDS: HALDOL 2 MG IM (13:19)
[2023-10-06] MEDS: ATIVAN 2 MG IV ×2 (13:40→13:53)
--- NOTE | 2023-10-06 13:55 | CON.INTV ---
Consultation
Consultation Request
Date/Time Consultation Requested: 10-06-23
Date/Time Consultation Performed: 10-06-23
Requesting Provider: Hospitalist Jase
Performing Provider: Dr Choudhary
Reason for Consultation: DTs
Medical History
-
Chief Complaint: DTs
History of Present Illness:
Mr Margarito Addison is a 78/M adm 10-04 with acute aphasia starting at 15:00 on d IT DATA ARCHITECT when family noticed nonsensical speech.
As symptom persisted, brought to ER - AM
CT head and CTA H/N negative for acute findings, MRI with cluster of small acute nonhemorrhagic infarct in L insula and tiny nonhem infarct in L parietal lobe. Seen by Neurology, not candidate for TNK/IAT due to being outside of the time window,
continued on outpatient baby ASA/atorvastatin, started clopidogrel, started on ETOH withdrawal protocol.
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
Transferred to ICU early afternoon 10-05 due to worsening agitation requiring 4 point restrains
Past Medical History
Past Medical History: Other (see A&P for PMH/PSH)
Social History
Tobacco: Non-smoker
Alcohol: Chronic Alcoholic
Drug: None
Personal:
Living: With Family
Family History
Family History: Reviewed & Not Pertinent
Allergies / Home Medications
Allergies
Allergy/AdvReac Type Severity Reaction Status Date / Time
ENVIRONMENTAL Allergy Intermediate RUNNY NOSE Uncoded 10/05/23 08:26
AND
SNEEZING
Home Medications
�Medication �Instructions �Recorded �Confirmed �Last Taken �Type
amlodipine 10 mg tablet 10 mg PO DAILY Blood Pressure 02/13/19 10/05/23 03/27/19 07:00 History
aspirin 81 mg chewable tablet 81 mg PO DAILY Blood Clot 02/13/19 10/05/23 03/28/19 04:30 History
Prevention/Tx
triamcinolone acetonide 55 mcg 10.8 ml NS DAILYPRN PRN allergies 02/13/19 10/05/23 03/26/19 17:00 History
nasal spray aerosol (Nasacort)
atorvastatin 10 mg tablet 10 mg PO DAILY High Cholesterol 10/05/23 10/05/23 Unknown History
naproxen sodium 220 mg tablet 440 mg PO BIDPRN PRN mild pain 10/05/23 10/05/23 10/04/23 History
(Aleve)
Review of Systems
-
Unable to Obtain full review of systems at this time due to: Acuity (DTs)
Vitals / Labs / Diagnostic Testing
Vital Signs
Temp Pulse Resp BP Pulse Ox
99.8 F 85 16 130/69 94
10/06/23 07:00 10/06/23 07:00 10/06/23 07:00 10/06/23 07:00 10/06/23 08:30
Lab Data
10/06/23 06:24
10/06/23 06:24
Diagnostic Testing:
Physical Exam
-
HEENT: Normocephalic and Moist Mucous Membranes
Cardiovascular: Regular Rhythm, Peripheral Edema (n) and JVD (n)
Respiratory: Clear and Accessory Resp Muscle Use (mild)
GI: Soft, Non Distended and Tender
Neurology: Other (agitated, on 4 point locked restrains)
Skin: Warm
General: Other (agitated)
Assessment
-
Assessment:
Mr Margarito Addison is a 78/M adm 10-04 with acute aphasia starting at 15:00 on d IT DATA ARCHITECT when family noticed nonsensical speech. Chronic alcoholism, last drink 2 d IT DATA ARCHITECT. As aphasia persisted, brought to ER - AM, CT head and CTA H/N negative for acute
findings, MRI with cluster of small acute nonhemorrhagic infarct in L insula and tiny nonhem infarct in L parietal lobe. Seen by Neurology, not candidate for TNK/IAT due to being outside of the time window, continued on outpatient baby
ASA/atorvastatin, started clopidogrel, started on ETOH withdrawal protocol. 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
severe paravalvular regurgitation, could not rule Ao root abscess or small sessile vegetation at anterior AV leaflet, did not see evidence of LA/KASEY, RA/RAA appendage thrombus. CTSx consulted 10-05, blood cxs ordered, clopidogrel held, following
Transferred to ICU early afternoon 10-05 due to worsening agitation requiring 4 point restrains
Impression:
ETOH withdrawal
Mild anemia
UDS negative
ETOH level not detected on adm
Conditions IT DATA ARCHITECT:
Chronic alcoholism
HTN
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
Depression
Sq/basal cell ca
Diverticulosis
Bilateral cataract surgery, eyelid lift
Nonsmoker
Morbid obesity
Plan:
Adm 10-04 with acute dysphagia
Acute nonhemorrhagic infarcts (L insula, L parietal lobe) on MRI
No candidate for thrombolysis
Neurology following
Cards consulted, TTE with bioprosthetic AV (h/o R-TF-TAVR September 2018) showed severe paravalvular regurgitation, could not rule Ao root abscess or small sessile vegetation at anterior AV leaflet
CTSx consulted 10-05, pending attending recs
Transferred to ICU 10-05 with worsening alcohol withdrawal syndrome, requiring 4 point locked restrains
Supplemental oxygen as needed
Aspiration precautions, keep HOB>=30 degrees
Incentive spirometry when able
Follow MSAS
Alcohol withdrawal treatment protocol will continue
Supplements glucose and thiamine to prevent Wernicke's encephalopathy
Supplement multivitamins and folate
Replete deficiencies and glucose, potassium, magnesium and phosphorus
Benzodiazepines as needed- IV lorazepam
Precedex drip started at ICU, continue
Started phenobarbital taper protocol
Alcohol cessation counseling
Consider psychiatry evaluation
Consider rehabilitation
DVT prophylaxis
GI prophylaxis
Early nutrition
Early mobilization
Critical care time: 35 min
--- NOTE | 2023-10-06 13:59 | CONSULT.CT ---
Documented by User: LENARD Levin 10/06/23 14:35
Consultation
-
Date/Time Consultation Requested: 10/06/23
Date/Time Consultation Performed: 10/06/23
Performing Provider: Becca Feng for Dr Bashir Perry
Patient History
History of Present Illness
78-year-old male was admitted 10/05/2023 with confusion and unintelligible speech noted per . CT of the head was negative for mass or hemorrhage. Neurology evaluated patient and ordered MRI which identified a left parietal ischemic
CVA. Patient with PMH significant for TAVR 2019, moderate paravalvular AR, hypertension, alcoholism (last drink 2 days prior to admission) and nonobstructive coronary disease. TTE on 10/04 reported EF of 55% and mid inferior wall motion
abnormality. ECG consistent with prior inferior wall FL. A DANYA on 10/05 reported a bioprosthetic aortic valve replacement with severe valvular leak. The study was unable to rule out a small vegetation on anterior valve leaflet. There was mild to
moderate mitral regurgitation. Patient became combative and thrashing in bed following procedure. Patient was upgraded to ICU level of care for alcohol withdrawal protocol and close monitoring. All history was gleaned from chart. Review of
systems unable to be completed due to patient confusion. Last cardiac catheterization (02/13/2019) reported 30-40% mid LAD stenosis and 40-50% mid RCA stenosis. Last Plavix dose was 10/06/2023.
Past Medical History
Past Medical History: CAD, HTN, Valvular Disease and Other (ETOH abuse)
Past Surgical History
Past Surgical History: Valve (R TF TAVR #26mm Almaz 3 (09/26/18))
Dental History
patient unable to state
Family History
Mother: N/A
Father: N/A
Social History
Alcohol: Chronic Alcoholic
Drug: None
Tobacco: Non-Smoker
Personal:
Living: With Spouse
Employment: Retired
Allergies
Allergy/AdvReac Type Severity Reaction Status Date / Time
ENVIRONMENTAL Allergy Intermediate RUNNY NOSE Uncoded 10/05/23 08:26
AND
SNEEZING
Home Medications
�Medication �Instructions �Recorded �Confirmed �Type
amlodipine 10 mg tablet 10 mg PO DAILY Blood Pressure 02/13/19 10/05/23 History
aspirin 81 mg chewable tablet 81 mg PO DAILY Blood Clot 02/13/19 10/05/23 History
Prevention/Tx
triamcinolone acetonide 55 mcg 10.8 ml NS DAILYPRN PRN allergies 02/13/19 10/05/23 History
nasal spray aerosol (Nasacort)
atorvastatin 10 mg tablet 10 mg PO DAILY High Cholesterol 10/05/23 10/05/23 History
naproxen sodium 220 mg tablet 440 mg PO BIDPRN PRN mild pain 10/05/23 10/05/23 History
(Aleve)
Review of Systems
-
Unable to obtain full review of systems at this time due to: Other (confused, agitated and combative)
History Source: Other (medical records)
Physical Exam
Vital Signs
Temp 99.8 F 10/06/23 07:00
Temp route: Oral 10/06/23 07:00
Pulse 85 10/06/23 07:00
Rhythm: Normal sinus rhythm 10/06/23 08:30
Resp Rate 16 10/06/23 07:00
Blood pressure 130/69 10/06/23 07:00
Blood pressure extremity used: Left upper arm 10/06/23 07:00
Position: Lying 10/06/23 07:00
MAP ([place] Monitor) 88 10/05/23 10:14
SaO2 94 10/06/23 08:30
Oxygen Mode of Delivery Room air 10/06/23 08:30
Acceptable pain level during hospitalization? 0 10/05/23 08:26
Can the patient verbally communicate their pain? Yes 10/06/23 08:30
Actual Weight 96.797 kg 10/05/23 12:30
Body Mass Index (BMI) 31.5 10/05/23 12:30
Labs
10/06/23 06:24
10/06/23 06:24
Hemoglobin A1c 5.3 % (4.0-5.6) 10/05/23 08:37
Troponin I 0.026 ng/ml 10/06/23 06:24
Urinalysis
Urine Color Cancelled 10/05/23 14:57
Urine Clarity Cancelled 10/05/23 14:57
Urine pH Cancelled 10/05/23 14:57
Ur Specific [place] Cancelled 10/05/23 14:57
Urine Ketones Cancelled 10/05/23 14:57
Ur Occult Blood Reflex Cancelled 10/05/23 14:57
Urine Bilirubin Cancelled 10/05/23 14:57
Leukocyte Esterase Rfl Cancelled 10/05/23 14:57
Urine RBC Cancelled 10/05/23 14:57
Urine WBC (Reflex) Cancelled 10/05/23 14:57
Ur Squamous Epith Cells Cancelled 10/05/23 14:57
Amorphous Crystals Cancelled 10/05/23 14:57
Urine Bacteria (Reflex) Cancelled 10/05/23 14:57
Urine Mucus Cancelled 10/05/23 14:57
Urine Glucose Cancelled 10/05/23 14:57
Urine Albumin (Reflex) Cancelled 10/05/23 14:57
Exam
General: Well Developed, Well Nourished and Other (agitated, thrashing in bed)
HEENT: Normocephalic
Neck: Trachea Midline
Respiratory: Clear
Cardiac: S1/S2 and Regular Rhythm
GI: Normal Bowel Sounds
Rectal: Deferred by Provider
Skin: Warm and Dry
Neuro: Other (oriented to self, agitated)
Lymph: No Lymphadenopathy
Psych: Agitated
Assessment / Plan
-
78-year-old male with prostatic aortic paravalvular leak with possible root abscess and possible aortic valve vegetation with preserved left ventricular ejection fraction, in setting of acute left temporal/insular lobe left parietal lobe infarcts
and acute confusion (ETOH withdrawl vs hospital delirium?)
- blood cultures x 2 ordered
- Plavix discontinued
- Haldol and restraint management per primary team
- will determine last dental exam when patient oriented and conversant
- CT Surgery following
Data Reviewed
-
EKG: Report Reviewed by me and Discussed with Physician
Echo: Report Reviewed by me and Discussed with Physician
Radiology: Report Reviewed by me and Discussed with Physician
CT Scan: Report Reviewed by me and Discussed with Physician
MRI: Report Reviewed by me and Discussed with Physician
Labs: Labs Reviewed by me and Discussed with Physician

Documented by User: Michael Aj PA-C 10/06/23 21:56
Assessment / Plan
-
78-year-old male with prostatic aortic paravalvular leak with possible root abscess and possible aortic valve vegetation with preserved left ventricular ejection fraction, in setting of acute left temporal/insular lobe left parietal lobe infarcts
and acute confusion (ETOH withdrawl vs hospital delirium?)
-Per Dr. Perry, given pt's medical complexity (Acute stroke, ETOH withdrawal, Suspected Endocarditis, etc.) will recommend tertiary facility ([facility])
[2023-10-06] MEDS: NSS (PRESERVATIVE FREE) 1 ML IV ×2 (14:07)
--- NOTE | 2023-10-06 14:45 | PTCARENOTE ---
pt received from previous rn- thrashing in bed, agitated, combative toward staff, unable to orient, leather restraints applied for violence and mitts for protective intervention pulling at nurses scrubs, ivs and wires. ativan given see jun, precedex
initiated. dr. calero at bedside. aware of inability to complete proper neuro assessment and stroke scale. nsr on monitor. on room air. all neurovasc checks wnl. condom cath applied. updated. all education provided to , verbalized
understanding. all safety precautions in place. pt on 1:1.
[2023-10-06] MEDS: PHENOBARBITAL 104 MG IV (15:15)
[2023-10-06] MEDS: THIAMINE INJECTION 200 MG IV (15:20)
[2023-10-06] MEDS: ATIVAN IV (15:20)
[2023-10-06] MEDS: NSS 250 IV (15:40)
[2023-10-06] MEDS: NSS 1000 IV (15:41)
--- NOTE | 2023-10-06 15:50 | PTCARENOTE ---
bp dropped- map 59-62, ivfb infusing, maintenance ivf initiated. pt restless at times, remains on precedex. all safety precautions in place
--- NOTE | 2023-10-06 15:53 | PTCARENOTE ---
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 In [employer] patient was a code purple for being disruptive after waking up from anesthesia IV Ativan given. Patient came back to the [facility] and was very agitated and aggressive towards staff. Pt. would not sit
down in bed or in a chair and would only walk in hallway. Code purple was called. Pt. repeatedly got aggressive towards staff, kicking and punching. Pt. was put into bed and four point restraints were applied. Pt. continuously was aggressive, and
broke two restraints and continuously tried to grab at staff. IM Haldol given and pt, continued to become aggressive. made aware an orders to be transferred to ICU with leather restraints were given. Wheeled pt. up to ICU and gave report to RN
Minal.
[2023-10-06] MEDS: LIPITOR PO (16:05)
[2023-10-06] MEDS: LOVENOX 40 MG SC (16:29)
[2023-10-06] MEDS: PRECEDEX 100 IV (18:06)
--- NOTE | 2023-10-06 18:07 | PTCARENOTE ---
dr. calero updated on pt bp- no further orders at this time
[2023-10-06] MEDS: NSS 500 IV (18:41)
--- NOTE | 2023-10-06 18:53 | W.PN.UPDATE ---
Update Note
Progress Note Update
Cross Coverage Update:
Contacted by nurse staff concern for hypotension MAP 60-65 despite recent IVF bolus 250 cc. Recent precedex gtt, ordered as per ICU for ETOH withdrawal delirium tremens, since placed on hold.
Patient here for stroke complicated with ETOH withdrawal and DANYA concerning for possible Endocarditis/Aortic Root abscess. Afebrile, no leukocytosis, blood cultures drawn results pending. Cardio and CTS on board.
Discussed case with primary attending Dr Jimenez and as per discussion:
-addition IVF bolus 500 cc ordered
-Levophed prn ordered goal MAP 65, if bolus is insufficient
-Empiric abx vanc and zosyn ordered
-ID eval requested
[2023-10-06] MEDS: ZOSYN 50 IV (19:13)
--- NOTE | 2023-10-06 19:45 | PTCARENOTE ---
Received patient at 1900. Pt. being treated for CVA/TIA. Pt. also began experiencing ETOH withdrawal today. Unable to accurately perform NIHSS while patient is having withdrawal symptoms. Following MSAS protocol. Pt. was violent with staff member
earlier today. 1:1 observation is ordered, PCT currently at bedside. Heart rhythm currently sinus kenn. Precedex turned off at 18:20 per previous RN. Blood pressure running on lower side. Patient received a total of 750ml in fluid boluses. Levophed
infusion ordered if MAP falls below 65. Currently on 2L nasal cannula. Lungs sound diminished. Pt. currently NPO. IV fluids infusing. Condom catheter in place, draining without issue. Skin as documented. Vital signs stable at this time.
[2023-10-06] MEDS: VANCOCIN 300 MG IV (19:51)
[2023-10-06] MEDS: VANCOCIN 300 ML IV (19:51)
[2023-10-06] MEDS: PHENOBARBITAL 97.5 MG IV (22:05)
[2023-10-06] MEDS: LEVOPHED 250 IV (22:22)
[2023-10-07] VITALS (47 sets, daily range): BP systolic 92–143; BP diastolic 40–80; BMI 31.6
--- NOTE | 2023-10-07 | PTCARENOTE ---
Pt. started on Levophed infusion to maintain MAP >65. Neuro assessment unchanged. 1:1 remains at bedside per order. Vital signs stable at this time.
[2023-10-07] MEDS: THIAMINE INJECTION 200 MG IV ×3 (00:56→15:38)
[2023-10-07] MEDS: NSS 1000 IV ×2 (01:57→15:38)
[2023-10-07] MEDS: ZOSYN 50 IV ×2 (01:57→07:59)
[2023-10-07 03:54] LABS: % Basophils 0.6 % (0-2); % Eosinophils 1.6 % (0-6); % Immature Granulocytes 0.3 % (0-0.5); % Monocytes 12.6 % (1.7-9.3); % Neutrophils 73.9 % (42.2-75.2); Absolute Basophils 0.1 10^3/uL (0-0.2); Absolute Eosinophils 0.1 10^3/uL (0-0.7); Absolute Lymphocytes 0.9 10^3/uL (1.2-3.4); Absolute Monocytes 1.1 10^3/uL (0.1-0.6); Absolute Neutrophils 6.3 10^3/uL (1.4-6.5); Hematocrit 30.5 % (39.0-52.0); Hemoglobin 10.4 g/dL (13.0-18.0); Mean Corp Hgb Conc. 34.1 g/dL (33.0-37.0); Mean Corpuscular Hgb 32.5 pg (27.0-31.0); Mean Corpuscular Volume 95.3 fL (80.0-94.0); Mean Platelet Volume 10.5 fL (7.4-10.4); Nucleated Red Blood Cells % 0 % (-); Platelet Count 170 10^3/uL (130-400); Red Cell Dist. Width 14.7 % (11.5-14.5); White Blood Cell Count 8.6 10^3/uL (4.8-10.8)
--- NOTE | 2023-10-07 04:00 | PTCARENOTE ---
Pt. assessment unchanged. AM labs drawn. Vital signs stable at this time.
[2023-10-07 04:06] LABS: INR 1.23; PT 15.3 Sec (11.4-14.6)
[2023-10-07 04:07] LABS: APTT 29.9 Sec (23.4-35.0)
[2023-10-07 04:15] LABS: Blood Urea Nitrogen 13 mg/dl (9-20); Calcium 8.8 mg/dl (8.4-10.2); Carbon Dioxide 16 mmol/L (22-30); Chloride 110 mmol/L (98-107); Estimated Creatinine Clearance 116 ml/min; Glucose 96 mg/dl (70-99); Magnesium 2.1 mg/dl (1.6-2.3); Phosphorus 4.5 mg/dl (2.5-4.5); Potassium 4.2 mmol/L (3.5-5.1); Sodium 138 mmol/L (135-145); eGFR > 60.00
[2023-10-07] MEDS: ATIVAN 1 MG IV ×4 (04:36→21:01)
[2023-10-07] MEDS: VANCOCIN 300 ML IV ×2 (05:04→17:03)
[2023-10-07] MEDS: VANCOCIN 300 MG IV ×2 (05:04→17:03)
[2023-10-07] MEDS: PRECEDEX 100 IV ×3 (05:43→22:38)
[2023-10-07] MEDS: PHENOBARBITAL 97.5 MG IV (07:58)
--- NOTE | 2023-10-07 08:00 | W.PN.INTV ---
Today's Communication / Plan
Recommendations
Asp precs
IVFs
Pressor
Precedex
MSAS protocol
Assessment
-
Assessment:
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 As did not see evidence of LA/KASEY, RA/RAA appendage thrombus. CTSx consulted 10-05,
blood cxs ordered, clopidogrel held, following
Transferred to ICU early afternoon 10-05 due to worsening agitation requiring 4 point restrains
Impression:
ETOH withdrawal
Aphasia, stroke
MRI brain 10-04 with cluster of small acute nonhemorrhagic infarct in L insula and tiny nonhem infarct in L parietal lobe
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
Mild anemia
UDS negative
ETOH level not detected on adm
Hypotension
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
Chronic alcoholism
HTN
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
Depression
Sq/basal cell ca
Diverticulosis
Bilateral cataract surgery, eyelid lift
Nonsmoker
Morbid obesity
Plan:
Adm 10-04 with acute dysphagia
Acute nonhemorrhagic infarcts (L insula, L parietal lobe) on MRI
No candidate for thrombolysis
Neurology following
Cards consulted, TTE with bioprosthetic AV (h/o R-TF-TAVR September 2018) showed severe paravalvular regurgitation, could not rule Ao root abscess or small sessile vegetation at anterior AV leaflet
CTSx consulted 10-05
Transferred to ICU 10-05 with worsening alcohol withdrawal syndrome, requiring 4 point locked restrains
Supplemental oxygen as needed
Aspiration precautions, keep HOB>=30 degrees
Incentive spirometry when able
Follow MSAS
Alcohol withdrawal treatment protocol will continue
Supplements glucose and thiamine to prevent Wernicke's encephalopathy
Supplement multivitamins and folate
Replete deficiencies and glucose, potassium, magnesium and phosphorus
Benzodiazepines as needed- IV lorazepam
Precedex drip started at ICU, continue
Started phenobarbital taper protocol
Alcohol cessation counseling
Consider psychiatry evaluation
Consider rehabilitation
Hypotension 10-05
Started IVFs
Blood cxs 10-05 pending
Empiric vanco/zosyn and NE gtt since evening 10-05 by adm svce
CXR 10-06: portable, no gross infiltrates
DVT prophylaxis
GI prophylaxis
Early nutrition
Early mobilization
Critical care time: 35 min
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
Subjective Dataa
Subjective Data
Date of Service:
Date of Service: October 07, 2023
Chief Complaint: Punch Finisher Follow Up
Subjective:
Events noted, transferred to ICU yesterday due to worsening DTs requiring 4 point restraints
Hypotension yesterday afternoon, requiring IVF boluses, this was followed by administration of empiric antibiotics and initiation of pressor
Review of Systems
General: Unobtainable - Sedation
Objective Data
Data Reviewed
Vital Signs / I&O / Oxygen:
Vital Signs
Temp Pulse Resp BP Pulse Ox
98.4 F 60 21 114/52 98
10/07/23 03:06 10/07/23 06:30 10/07/23 06:30 10/07/23 06:30 10/07/23 06:30
Intake and Output
10/06/23 10/07/23 10/08/23
06:59 06:59 06:59
Intake Total 780 / 780 2549.9 / 2549.9
Output Total 150 / 150
Balance 780 / 780 2399.9 / 2399.9
SaO2 98
Nasal Cannula flow liters per 2
minute
Physical Exam
General: Respiratory Distress (trace)
HEENT: Normocephalic
Cardiovascular: Regular Rhythm and Peripheral Edema (n)
Respiratory: Clear, Accessory Resp Muscle Use (trace) and Stridor (n)
GI: Soft and Non Distended
Neurology: Lethargic (4 point restrains)
Skin: Warm
Labs/Micro/Reports
Lab Data
10/07/23 03:46
10/07/23 03:46
Laboratory Results
10/06/23 10/07/23
13:52 03:46
PT Cancelled 15.3 H
INR Cancelled 1.23
APTT Cancelled 29.9
--- NOTE | 2023-10-07 08:24 | W.PN.NEURO.1 ---
Today's Communication / Plan
-
-Recommend blood pressure range in the normotensive range between 120-180 systolic
-Would recommend coming off phenobarbital
-Wean from Precedex
-Remain off clopidogrel given some concern for endocarditis continue on aspirin 81 mg daily
-Should continue NIH and neurologic checks although his sedation will interfere with this currently
-Follow blood cultures
-When off sedation will need emphasis on speech therapy
Will follow
Neuro Assessment/Plan
Assessment
70-year-old male with a past ministry of hypertension, hyperlipidemia, alcohol abuse, obesity, coronary artery disease presented to hospital with Wernicke's/receptive aphasia.
Brain MRI demonstrated acute infarct in the left temporal/insular lobe as well as left parietal lobe which were embolic appearing.
There is left-sided common carotid and proximal internal carotid artery calcification without severe stenosis.
Transthoracic echocardiogram shows some changes with new regional wall abnormalities and changes in the gradients of the TAVR, aortic regurgitation also seen.
Transesophageal echocardiogram raised concern for potential aortic root abscess or aortic valve vegetation
MRI brain showed ischemic stroke to the left insular area which is what is causing the Wernicke's encephalopathy, also small infarct in the left parietal lobe areas of stroke are overall small
Potential sources of stroke are nonsevere carotid atherosclerosis on the left carotid versus cardiac embolism.
Transesophageal echocardiogram raised concern for potential aortic root abscess or aortic valve vegetation
I would feel confident that the patient will show improvement from the aphasia with time probably will show the most improvement in the first 1 to 3 months after the initial stroke, areas of stroke in the brain are overall small so I do not see any
reason that weakness should not be helpful for improvement from the stroke.
Patient with Wernicke's aphasia undergoing procedure is not entirely surprising to me that he would have significant agitation as a Wernicke's aphasia means that the patient cannot comprehend language in any significant way. Additionally a stroke
to the insula could also produce behavioral abnormalities as a post stroke side effect.
Seems less likely that he would have had a paradoxical reaction to benzodiazepines as he had had these medications before presumably from previous cardiac procedures of cardiac catheterization and TAVR.
My suspicion for alcohol withdrawal is significant contributor here is low given patient did not have any signs of tremor or diaphoresis or hypertension.
Subjective/Objective
Subjective Data
Date of Service: October 07, 2023
Agitated yesterday with procedure, code mack called, started on phenobarbital, Precedex, this morning non verbal as sedated on precedex
Objective Data
Vital Signs
Temp Pulse Resp BP Pulse Ox
98.9 F 60 23 124/45 97
10/07/23 08:03 10/07/23 08:00 10/07/23 08:00 10/07/23 08:00 10/07/23 08:03
Lab Results
10/07/23 03:46
10/07/23 03:46
PT 15.3 Sec (11.4-14.6) H 10/07/23 03:46
INR 1.23 10/07/23 03:46
APTT 29.9 Sec (23.4-35.0) 10/07/23 03:46
Sodium 138 mmol/L (135-145) 10/07/23 03:46
Potassium 4.2 mmol/L (3.5-5.1) 10/07/23 03:46
BUN 13 mg/dl (9-20) 10/07/23 03:46
Glucose 96 mg/dl (70-99) 10/07/23 03:46
Calcium 8.8 mg/dl (8.4-10.2) 10/07/23 03:46
Phosphorus 4.5 mg/dl (2.5-4.5) 10/07/23 03:46
LDL Cholesterol, Calc 40 mg/dl 10/06/23 06:24
Ur Buprenorphine Negative (Negative) 10/05/23 09:34
Patient Allergies
pollen extracts Allergy (Verified 10/06/23 18:39)
RUNNY NOSE AND SNEEZING
Review of Systems
-
Unable to obtain full review of systems at this time due to: Lethargy
Physical Exam
-
General: Other (Sedated )
HEENT: Atraumatic
Respiratory: No Dyspnea
GI: Soft
Skin: Warm and Dry; Negative Rash
Extremities: No Edema
Extended Neurological Exam
Mood & Affect: Unable to Assess
Attention Span & Concentration: Other (Sedated, withdraws to pain, no words, grimaces to pain)
Memory: Unable to Assess
Tremor: Hand Tremor Absent
Involuntary Movement: None
Speech: Mute
Cranial Nerve II: Left Eye: Other
Cranial Nerve II: Right Eye: Other (Pupils miotic 2 mm with no appreciable reaction to light)
Cranial Nerves III, IV, : Extraocular Movement: Other ( resting gaze midline, Vestibular ocular reflex intact)
Muscle Strength, Overall: Other (Withdraws and symmetric manner 3/5 in both arms and legs bilaterally some)
Data Reviewed
-
CT-A: Report Reviewed and Image Reviewed
CT Head: Report Reviewed and Image Reviewed
MRI Head: Report Reviewed and Image Reviewed
Labs: Report Reviewed
--- NOTE | 2023-10-07 08:37 | PHA.VAN.IN ---
Assessment
- Assessment
Renal Function: Unknown baseline
Renal Function may be Overestimated due to: Obesity. BMI = 31.6
Maximum Temperature: 98.9
Minimum Temperature: 97.9
Concomitant Antimicrobials: Piperacillin-tazobactam
AUC Dosing Plan
- Dosing Variables
Dosing Weight (kg): 97
Dosing CrCl (ml/min): 116
Vd coefficient (L/kg): 0.6
- Empiric Dosing
Initial / Loading Dose: Vanc 1500mg 10/05 at 1951
Maintenance Regimen: Vanc 1500mg IV q12H
Estimated AUC (mcg*h/mL): 551
Estimated Peak (mcg*h/mL): 36.8
Estimated Trough (mcg/ml): 12.8
Estimated Half Life (H): 6.9
- Monitoring
No levels ordered at this time: Consider levels after 10/07 1800 dose
Pharmacokinetics Vancomycin I
- -
Patient Age: 78
Patient Sex: Male
Vancomycin Day #: 1
Indication: Endocarditis
Requesting Provider: Katharina
Height / Weight:
Height 5 ft 9 in
Actual Weight 96.978 kg
IBW in k.7
Adjusted BW in k.2
Pertinent Past Medical History: BMI = 31.6
- Vital Signs / Lab Results
Temp Pulse Resp BP Pulse Ox
98.9 F 60 23 124/45 97
10/07/23 08:03 10/07/23 08:00 10/07/23 08:00 10/07/23 08:00 10/07/23 08:03
Lab Results - Hematology
10/05/23 10/06/23 10/07/23
08:37 06:24 03:46
WBC 6.5 7.2 8.6
Lab Results - Chemistry
10/05/23 10/06/23 10/07/23
08:37 06:24 03:46
BUN 10 9 13
Creatinine 0.6 L 0.6 L 0.6 L
Estimated Creat Clear 118 116 116
Albumin 4.5
Lab Results - Urine
10/05/23 10/05/23
09:34 14:57
Urine Nitrite (Reflex) Negative Cancelled
Leukocyte Esterase Rfl Negative Cancelled
Urine WBC (Reflex) Cancelled
Ur Squamous Epith Cells Cancelled
Urine Bacteria (Reflex) Cancelled
[2023-10-07] MEDS: MIRALAX TUBE (08:50)
[2023-10-07] MEDS: FOLVITE PO (08:50)
[2023-10-07] MEDS: ASPIR LOW (ENTERIC COATED) PO (08:50)
--- NOTE | 2023-10-07 09:09 | CON.ID ---
Consultation
-
Date/Time Consultation Requested: 10/06/23 19:07
Date/Time Consultation Performed: 10/07/23 9:09
Requesting Provider: Dr Posadas
Performing Provider: Dr Mayes
Reason for Consultation: suspected aortic root abscess, endocarditis
Chief Complaint / Past History
Chief Complaint
Slurred speech
History of Present Illness
Mr Addison is a 78 year old male with history of s/p TAVR, etoch abuse who presented here 10/04 for confusion and aphasia. No chest pain, shortness of breath, abdominal pain, nausea, vomiting, diarrhea or constipation. Last drink was two days
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 History obtained from chart review.
Since arrival here Tmax 100.4 - x1 orally, hypotensive requiring pressors to norepi at 4 mcg/min, wbc on arrival 6.5 now 8.6, hgb 10.4, plt 170, L shift was noted on arrival and is not present today, cr 0.6, t bili 1.1, ast 28, alt 11, alk phos 103,
ammonia <9, troponing normal, 10/04 UA no pyuria and no evidence of glomerulonephritis, on arrival no EtOH detected, UDS neg, CXR today my read: suggestion of slight volume overload, small possible new infiltrate - probable aspiration pneumonitis,
10/04 Brain MRI: small acute, nonhemorrhagic infarcts in the left insula. There is also a tiny acute nonhemorrhagic infarct in the left parietal lobe posteriorly. head/neck CTA: PAD, CT head no acute abnormalities. Currently on vancomycin/zosyn.
blood cultures x2 done at the same time 10/05 15:19, both were prior to first doses of vancomycin and zosyn. He has developed withdrawal and started on MSAS protocol. ID is consulted for assistance with management.
Past History
Additional Past Medical History:
HTN and Hypercholesterolemia
Depression
Sq/basal cell ca
Diverticulosis
obesity
Additional Past Surgical History:
as per hpi
Bilateral cataract surgery, eyelid lift
Allergy History:
pollen extracts Allergy (Verified 10/06/23 18:39)
RUNNY NOSE AND SNEEZING
Medications Reviewed: Yes
Social History
Tobacco: Non-Smoker
Alcohol: Daily
Personal:
Family History
Family History: Not Pertinent
Review of Systems
Review of Systems
General: Negative Fever or Chills
Unable to obtain ROS due to the condition of the patient.
Vital Signs
Temp Pulse Resp BP Pulse Ox
98.9 F 60 23 124/45 97
10/07/23 08:03 10/07/23 08:00 10/07/23 08:00 10/07/23 08:00 10/07/23 08:03
Physical Exam
Physical Exam
Constitutional: No Acute Distress
Cardiovascular: Regular Rate, S1/S2 and Murmur (RUSB); Negative Rub
Pulmonary: Clear and Symmetric; Negative Wheezes, Rales or Rhonchi
Gastrointestinal: Soft, Non Tender, Non Distended and Normal Bowel Sounds
Skin: Warm and Dry; Negative Rash or Jaundice
Neurological: Negative Awake
Lab / Diagnostic Study Results
10/07/23 03:46
10/07/23 03:46
Abs Immat Gran (auto) 0.0 10^3/uL (0-0.05) 10/07/23 03:46
Absolute Neuts (auto) 6.3 10^3/uL (1.4-6.5) 10/07/23 03:46
Absolute Lymphs (auto) 0.9 10^3/uL (1.2-3.4) L 10/07/23 03:46
Absolute Monos (auto) 1.1 10^3/uL (0.1-0.6) H 10/07/23 03:46
Absolute Basos (auto) 0.1 10^3/uL (0-0.2) 10/07/23 03:46
Immature Gran % 0.3 % (0-0.5) 10/07/23 03:46
Neutrophils % 73.9 % (42.2-75.2) 10/07/23 03:46
Lymphocytes % 11.0 % (20.5-51.1) L 10/07/23 03:46
Monocytes % 12.6 % (1.7-9.3) H 10/07/23 03:46
Eosinophils % 1.6 % (0-6) 10/07/23 03:46
Basophils % 0.6 % (0-2) 10/07/23 03:46
PT 15.3 Sec (11.4-14.6) H 10/07/23 03:46
INR 1.23 10/07/23 03:46
Ur Squamous Epith Cells Cancelled 10/05/23 14:57
Microbiology Results
Micro:
10/06/23 15:19 Blood Culture - Pending
Blood/Venous
10/06/23 15:19 Blood Culture - Pending
Blood/Venous
Assessment / Plan
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
AVR - bioprosthetic
CVA: L partietal - ischemic
Chronic Alcoholism
- DANYA 10/05: AVR with severe valvular leak, could not rule out small vegetation on anterior leaflet, mild-mod MR
- blood cultures x2 are obtained prior to antibiotics. Note that these were done at the same time - cannot confirm separate draw.
- first line empiric Rx for PV endocarditis is vancomycin
- stop zosyn - gram negative endocarditis quite unusual especially outside of IVDU
- follow clinically; patient is critically ill
Possible Aspiration Pneumonitis
- I appreciate small new infiltrate on CXR today; most likely aspiration pneumonitis which would not require treatment at this time
- follow clinically, if patient develops signs of pneumonia antibiotics can be broadened.
Transfer to tertiary care center recommended by CT surgery service and I would agree.
--- NOTE | 2023-10-07 09:10 | PTCARENOTE ---
Rec'd pt at 0700, pt sedate on Precedex gtts, difficult to assess NIHSS. Speech garbled, sleeps when undisturbed. Monitor SBR/SR. Levophed gtts to keep MAP >65. Lungs CTA, pox 97% 3LNC. +BS, abd soft/round/nt. Incont for urine, friedman placed per
orders. 1:1 at bedside, safe environment maintained.
--- NOTE | 2023-10-07 11:22 | W.PN.CD ---
Today's Communication / Plan
-
- await cultures. abx per ID
- would favor reducing sedation ( reviewed with both neurolgoy and industrial hygiene engineer)
- aspiration precautions
Impression / Plan
-
.
CVA.Patient with initial symptoms yesterday. He has receptive aphasia and impaired comprehension with brain MRI showing cluster of small acute nonhemorrhagic infarcts in the left insula and also tiny acute nonhemorrhagic infarct in the left
parietal lobe. Exact etiology unclear. Patient currently maintained in sinus rhythm. Neurology following.
Patient was trying to wander halls and was difficult to redirect and then apparently became more physical 10/06/23 requiring sedationa dn transfer to [facility].
BP running lower so placed on levophed
- etiolgy unclear but with TAVR, increased AR and one temp of 100 patient cover for endocarditis
- await cultures. abx per ID
- would favor reducing sedation ( reviewed with both neurolgoy and industrial hygiene engineer)
- aspiration precautions
- avoid hypotension. As sedation weaned I think levo can be weaned as well.
.
TAVR- severe AR . History of TAVR with paravalvular AR.
- severe AR now
- - increased AR and one temp of 100 patient cover for endocarditis
- - await cultures. abx per ID
- moniror foor signs of HF
-Ct surgery consulted
Physical Exam
Vital Signs/Labs
Vital Signs
Temp Pulse Resp BP Pulse Ox
98.1 F 60 23 124/45 97
10/07/23 11:03 10/07/23 08:00 10/07/23 08:00 10/07/23 08:00 10/07/23 08:03
10/06/23 10/07/23 10/08/23
06:59 06:59 06:59
Actual Weight 96.797 kg 96.978 kg
10/07/23 03:46
10/07/23 03:46
PT 15.3 Sec (11.4-14.6) H 10/07/23 03:46
INR 1.23 10/07/23 03:46
APTT 29.9 Sec (23.4-35.0) 10/07/23 03:46
Magnesium 2.1 mg/dl (1.6-2.3) 10/07/23 03:46
Triglycerides 79 mg/dl (10-149) 10/06/23 06:24
LDL Cholesterol, Calc 40 mg/dl 10/06/23 06:24
VLDL Cholesterol, Calc 15 mg/dl (0-30) 10/06/23 06:24
HDL Cholesterol 38 mg/dl 10/06/23 06:24
LAB Results
10/05/23 10/05/23 10/06/23
16:16 21:23 06:24
Troponin I 0.017 0.028 D 0.026
Physical Exam
EENT: Anicteric
Cardiovascular: Rhythm & rate is regular
Respiratory: Wheeze Absent and Other (transmitted upper airway sounds)
GI: Soft
Neuro/Psych: Alert
Data Reviewed
-
Date of Service: October 07, 2023
Medical Decision Making: Reviewed Test Results
Medical Tests (PFT, Pathology etc): Report Reviewed by me
Labs: Labs Reviewed by me
--- NOTE | 2023-10-07 12:00 | PTCARENOTE ---
at bedside updated by RN and multiple physicians. Titrating Precedex gtts down, pt waking up more, restless and confused when awake. Repositioned, 1:1 sitter at bedside.
--- NOTE | 2023-10-07 13:19 | W.PN.HOSP.TC ---
Today's Communication/Plan
-
IV vancomycin
stop phenobarb
Continue Precedex
IVF Started
Assessment / Plan
Assessment / Plan
CTA head and neck showed:
Bilateral carotid bulb and proximal internal carotid artery atherosclerosis, left greater than right, without hemodynamically significant proximal internal carotid artery stenosis.
No findings to suggest internal carotid artery or vertebral artery dissection bilaterally. Dominant right vertebral artery.
No findings to suggest proximal intracranial arterial stenosis bilaterally.
MRI brain showed:
Cluster of small acute, nonhemorrhagic infarcts in the left insula. There is also a tiny acute nonhemorrhagic infarct in the left parietal lobe posteriorly.
Cerebral atrophy along with chronic small vessel ischemia in cerebral white matter
Old lacunar infarcts in the centrum semiovale bilaterally and right frontal subcortical white matter.
IMPRESSION:
78 years old with a history of hypertension, hyperlipidemia, aortic stenosis status post TAVR presented with mild confusion and slurred speech which resolved, MRI brain shows acute CVA neurology consulted, vision consulted and plan for DANYA today.
PLAN:
Acute CVA (Wernicke's aphasia)
CT head done in the ER showed: No acute abnormality.
MRI of the brain was positive for acute infarcts
CTA was negative for acute stenosis
Echo was performed Overall preserved left ventricular function. Estimated LV ejection fraction is 55% . Lateral hypokinesis.
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
Frequent neurocheck.
continue with Aspirin/Plavix/atorvastatin,
Hemoglobin A1c 5.3, LDL 40.
PT/OT consulted.
DANYA with normal biventricular size and systolic function without regional wall motion abnormality. Bioprosthetic aortic valve with severe paravalvular regurgitation. Aortic root thickening cannot rule out aortic root abscess. Cannot rule out the
presence of small sessile vegetation on the anterior leaflet. Mild to moderate regurgitation mitral. No evidence of left atrial appendage, right atrial appendage thrombus.
TAVR with severe AI
Suspected endocarditis
Await culture data
Antibiotics as per infectious disease
Continue vancomycin. Zosyn discontinued.
May eventually need intervention for aortic valve pending stabilization of mentation. Cardiology recs.
Appreciate ID recs.
Hypotension likely secondary to sedation and decreased p.o. intake
Discontinue phenobarbital
Hopefully will able to wean off Levophed
Toxic metabolic encephalopathy likely multifactorial due to acute CVA, alcohol withdrawals and suspected delirium with behavioral disturbances
Alcohol abuse.
Daily alcohol use.
Last used 2 days ago prior to arrival
Patient given thiamine IV in the ER, will continue while in the hospital, then discharge on oral thiamine
Folic acid
No symptoms of withdrawal currently but ordered Ativan as needed for withdrawal.
Continue with Precedex drip
If needed additional severe agitation may need additional antipsychotic meds
Discussed with neurology commissions analyst will plan to DC phenobarbital
History of hypertension
Cont to Hold home amlodipine for now
CODE STATUS: Full code
DVT prophylaxis: Lovenox
Diet: cardiac diet (speech for swallow eval)
Discussed with cardiology, neurology and commissions analyst
Cussed with patient spouse at bedside in details for prolonged period of time.
Anticipated Discharge: > 48 hours
Subjective/Interval History
-
Date of Service: October 07, 2023
Events of yesterday noted
Patient currently in restraints on one-to-one
Patient is currently in deep sleep
Received phenobarbital earlier today
Objective Data
-
Labs:
Laboratory Results
10/07/23
03:46
WBC 8.6
Hgb 10.4 L
Hct 30.5 L
Plt Count 170
PT 15.3 H
INR 1.23
APTT 29.9
Sodium 138
Potassium 4.2
Chloride 110 H
Carbon Dioxide 16 L
BUN 13
Creatinine 0.6 L
Glucose 96
Calcium 8.8
Vital Signs:
Vital Signs
Temp Pulse Resp BP Pulse Ox
98.6 F 59 27 121/45 99
10/07/23 12:31 10/07/23 12:00 10/07/23 12:00 10/07/23 12:00 10/07/23 12:00
I&O
10/06/23 10/07/23 10/08/23
06:59 06:59 06:59
Intake Total 780 / 780 2549.9 / 2657.0 521.1 / 521.1
Output Total 150 / 150 700 / 700
Balance 780 / 780 2399.9 / 2507.0 -178.9 / -178.9
[2023-10-07] MEDS: NSS (PRESERVATIVE FREE) 1 ML IV (15:51)
--- NOTE | 2023-10-07 16:05 | PTCARENOTE ---
Pt with increased agitation, kicking legs in bed and pulling at friedman. MSAS-7, PRN Ativan given.
[2023-10-07] MEDS: LOVENOX 40 MG SC (17:03)
[2023-10-07] MEDS: LIPITOR PO (18:14)
--- NOTE | 2023-10-07 19:15 | PTCARENOTE ---
Received patient at 1900. Pt. currently in bed. Pt. goes between periods of restlessness to periods of lethargy. Arousable but confused. Unable to accurately perform NIHSS due to patient ETOH withdrawal. Afebrile. Heart rhythm sinus. Levophed gtt
infusing per order. Pt. currently on 2L nasal cannula. Lungs sound diminished. Currently NPO. Maintenance IV fluids infusing. Boyd catheter in place per order, draining without issue. Skin as documented. Discussed plan of care with patient. Vital
signs stable at this time.
[2023-10-07] MEDS: LEVOPHED 250 IV (22:41)
[2023-10-08] VITALS (42 sets, daily range): BP systolic 98–135; BP diastolic 44–112; BMI 32.0
--- NOTE | 2023-10-08 | PTCARENOTE ---
Pt. assessment unchanged. Remains on Precedex gtt. IV Ativan only given once so far this shift per MSAS. Pt. with periods of restlessness and impulsiveness, verbally redirected. Vital signs stable at this time.
[2023-10-08] MEDS: ATIVAN 1 MG IV ×8 (00:29→18:10)
[2023-10-08] MEDS: THIAMINE INJECTION 200 MG IV ×3 (00:30→15:11)
[2023-10-08 03:49] LABS: Hematocrit 30.8 % (39.0-52.0); Hemoglobin 10.8 g/dL (13.0-18.0); Mean Corp Hgb Conc. 35.1 g/dL (33.0-37.0); Mean Corpuscular Hgb 33.2 pg (27.0-31.0); Mean Corpuscular Volume 94.8 fL (80.0-94.0); Mean Platelet Volume 10.4 fL (7.4-10.4); Platelet Count 169 10^3/uL (130-400); Red Blood Cell Count 3.25 10^6/uL (4.70-6.10); Red Cell Dist. Width 14.4 % (11.5-14.5); White Blood Cell Count 7.6 10^3/uL (4.8-10.8)
[2023-10-08 04:22] LABS: ALT (SGPT) < 10 U/L (0-50); AST (SGOT) 32 U/L (17-59); Albumin 3.3 g/dl (3.5-5.0); Alkaline Phosphatase 62 U/L (38-126); Blood Urea Nitrogen 8 mg/dl (9-20); Calcium 8.3 mg/dl (8.4-10.2); Carbon Dioxide 20 mmol/L (22-30); Chloride 111 mmol/L (98-107); Estimated Creatinine Clearance 117 ml/min; Glucose 84 mg/dl (70-99); Potassium 4.5 mmol/L (3.5-5.1); Sodium 139 mmol/L (135-145); Total Bilirubin 0.9 mg/dl (0.2-1.3); Total Protein 5.8 g/dl (6.3-8.2); eGFR > 60.00
[2023-10-08] MEDS: NSS 1000 IV ×2 (04:42→17:12)
[2023-10-08] MEDS: VANCOCIN 300 MG IV ×2 (05:19→17:12)
[2023-10-08] MEDS: VANCOCIN 300 ML IV ×2 (05:19→17:12)
--- NOTE | 2023-10-08 07:58 | W.PN.INTV ---
Today's Communication / Plan
Recommendations
Asp precs
Precedex gtt as needed
prn ativan IV
Vanco IV
Assessment
-
Assessment:
Mr Margarito Addison is a 78/M adm 10-04 with acute aphasia starting at 15:00 on d COSMETICS PRESSER when family noticed nonsensical speech. Chronic alcoholism, last drink 2 d [employer] PRESSER. As did not see evidence of LA/KASEY, RA/RAA appendage thrombus. CTSx consulted 10-05,
blood cxs ordered, clopidogrel held, following
Transferred to ICU early afternoon 10-05 due to worsening agitation requiring 4 point restrains
Impression:
Aphasia, stroke
Symptoms started on d COSMETICS PRESSER
MRI brain 10-04 with cluster of small acute nonhemorrhagic infarct in L insula and tiny nonhem infarct in L parietal lobe
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
Low level of suspicion for ETOH withdrawal per Cards and Neurology
Mild anemia
UDS negative
ETOH level not detected on adm
Hypotension
Conditions COSMETICS PRESSER:
Chronic alcoholism
HTN
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
Depression
Sq/basal cell ca
Diverticulosis
Bilateral cataract surgery, eyelid lift
Nonsmoker
Morbid obesity
Plan:
Adm 10-04 with acute dysphagia
Acute nonhemorrhagic infarcts (L insula, L parietal lobe) on MRI
No candidate for thrombolysis
Neurology following
Transferred to ICU 10-05 with worsening alcohol withdrawal syndrome, requiring 4 point locked restrains
Cards consulted, TTE with bioprosthetic AV (h/o R-TF-TAVR September 2018) showed severe paravalvular regurgitation, could not rule Ao root abscess or small sessile vegetation at anterior AV leaflet
Per Dr Prescott who knows the patient well, low suspicion for ETOH w/d, agreed by Neurology obiee consultant
CTSx consulted 10-05. D/w Dr Perry 10-06, rec continue med mgmt to stabilize and then transfer to [facility] for cardiac surgery
Supplemental oxygen as needed
Aspiration precautions, keep HOB>=30 degrees
Incentive spirometry when able
Low level of suspicion for ETOH withdrawal by Cards (Dr Prescott knows the patient well) and Neurology
Continue benzodiazepine as needed- IV lorazepam
Precedex drip started at ICU, continue as needed
D/c'ed phenobarbital taper protocol on 10-06
Continue FA, thiamine
Hypotension 10-05
IVFs
Blood cxs 10-05 so far negative
Empiric vanco/zosyn and NE gtt since evening 10-05 by adm svce
CXR 10-06: portable, no gross infiltrates
Seen by ID 10-06, low level of suspicion for asp pneumonia
Continue vancomycin for suspected IE, d/c zosyn
DVT prophylaxis
GI prophylaxis
Early nutrition
Early mobilization
Critical care time: 35 min
D/w [employer] WORKER
Subjective Dataa
Subjective Data
Date of Service:
Date of Service: October 08, 2023
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
Subjective:
No major events reported overnight
Continues on dexmedetomidine
Less agitated than at time of transfer to ICU
Remains on restraints
Review of Systems
General: Unobtainable - Sedation
Objective Data
Data Reviewed
Vital Signs / I&O / Oxygen:
Vital Signs
Temp Pulse Resp BP Pulse Ox
98 F 75 22 117/55 96
10/08/23 07:32 10/08/23 06:30 10/08/23 06:30 10/08/23 06:30 10/08/23 06:30
Intake and Output
06/22/24 06/23/24 06/24/24
06:59 06:59 06:59
Intake Total 2549.9 / 2657.0 2303.0 / 2303.0
Output Total 150 / 150 1750 / 1750
Balance 2399.9 / 2507.0 553.0 / 553.0
SaO2 96
Nasal Cannula flow liters per 2
minute
Physical Exam
General: Respiratory Distress (trace)
HEENT: Normocephalic
Cardiovascular: Regular Rhythm and Peripheral Edema (n)
Respiratory: Clear, Accessory Resp Muscle Use (trace) and Stridor (n)
GI: Soft and Non Distended
Neurology: Lethargic (4 point restrains)
Skin: Warm
Labs/Micro/Reports
Lab Data
10/08/23 03:31
10/08/23 03:31
Microbiology
10/06/23 15:19 Blood/Venous Blood Culture - Preliminary
No Growth in 24 hours- Final report to follow
10/06/23 15:19 Blood/Venous Blood Culture - Preliminary
No Growth in 24 hours- Final report to follow
[2023-10-08] MEDS: MIRALAX TUBE (08:03)
[2023-10-08] MEDS: ASPIR LOW (ENTERIC COATED) 81 MG PO (08:18)
[2023-10-08] MEDS: FOLVITE 1 MG PO (08:18)
--- NOTE | 2023-10-08 08:19 | W.PN.CD ---
Today's Communication / Plan
-
More awake today. Blood pressure improved and off Levophed.
Continue post stroke management directed by neurology and primary team
Await blood cultures
Impression / Plan
-
.
CVA.Patient with initial symptoms yesterday. He has receptive aphasia and impaired comprehension with brain MRI showing cluster of small acute nonhemorrhagic infarcts in the left insula and also tiny acute nonhemorrhagic infarct in the left
parietal lobe. Exact etiology unclear. Patient currently maintained in sinus rhythm. Neurology following.
Patient was trying to wander halls and was difficult to redirect and then apparently became more physical 10/06/23 requiring sedationa dn transfer to [facility].
BP running lower so placed on levophed which has since been weaned. Patient now off phenobarbital and Precedex. Just getting as needed Ativan. More awake. Still with aphasia and cognitive impairment.
-Continued management directed by neurology and primary team
.
Hypotension. Resolved
.
TAVR- severe AR . History of TAVR with paravalvular AR.
- severe AR now
- - increased AR and one temp of 100 patient cover for endocarditis
- - await cultures. abx per ID
- moniror foor signs of HF
-Ct surgery consulted
Physical Exam
Vital Signs/Labs
Vital Signs
Temp Pulse Resp BP Pulse Ox
98 F 75 22 117/55 96
10/08/23 07:32 10/08/23 06:30 10/08/23 06:30 10/08/23 06:30 10/08/23 06:30
10/07/23 10/08/23 10/09/23
06:59 06:59 06:59
Actual Weight 96.978 kg 98.3 kg
10/08/23 03:31
10/08/23 03:31
PT 15.3 Sec (11.4-14.6) H 10/07/23 03:46
INR 1.23 10/07/23 03:46
APTT 29.9 Sec (23.4-35.0) 10/07/23 03:46
Magnesium 2.1 mg/dl (1.6-2.3) 10/07/23 03:46
Triglycerides 79 mg/dl (10-149) 10/06/23 06:24
LDL Cholesterol, Calc 40 mg/dl 10/06/23 06:24
VLDL Cholesterol, Calc 15 mg/dl (0-30) 10/06/23 06:24
HDL Cholesterol 38 mg/dl 10/06/23 06:24
LAB Results
10/05/23 10/05/23 10/06/23
16:16 21:23 06:24
Troponin I 0.017 0.028 D 0.026
Physical Exam
Constitutional: No acute distress
Cardiovascular: Rhythm & rate is regular
Respiratory: Wheeze Absent and Rhonchi Absent
GI: Soft
Neuro/Psych: Other (Awake. Periodically trying to say words but not making sense. Not currently following commands)
Data Reviewed
-
Date of Service: October 08, 2023
Medical Decision Making: Reviewed Test Results
Medical Tests (PFT, Pathology etc): Report Reviewed by me
Labs: Labs Reviewed by me
--- NOTE | 2023-10-08 08:19 | W.PN.ID1 ---
Date of Service
Date of Service: October 08, 2023
Today's Communication
- culture negative endocarditis also a possibility, follow blood cultures another day and if negative will broaden workup
- first line empiric Rx for PV endocarditis is vancomycin - continue
- follow clinically
Assessment / Plan
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
AVR - bioprosthetic
CVA: L partietal - ischemic
Chronic Alcoholism
- DANYA 10/05: AVR with severe valvular leak, could not rule out small vegetation on anterior leaflet, mild-mod MR
- blood cultures x2 are obtained prior to antibiotics. Note that these were done at the same time - cannot confirm separate draw.
- culture negative endocarditis also a possibility, follow blood cultures to 72 hours and if negative will broaden workup
- first line empiric Rx for PV endocarditis is vancomycin - continue
- follow clinically
Transfer to tertiary care center recommended by CT surgery service and I would agree.
Chief Complaint
-: Other (endocarditis - possible)
Subjective / Review of Systems
no further fevers
bp remains stable now off of pressors
without leukocytosis
cr 0.5
blood cultures x2 no growth at 24 hours
CXR 10/06 radiology read: no ashtyn infiltrates
Vital Signs / Physical Exam
Vital Signs
Vital Signs
Temp Pulse Resp BP Pulse Ox
98 F 75 22 117/55 96
10/08/23 07:32 10/08/23 06:30 10/08/23 06:30 10/08/23 06:30 10/08/23 06:30
Physical Exam
Constitutional: No Acute Distress and Chronically Ill
Cardiovascular: Regular Rate and S1/S2; Negative Murmur or Rub
Pulmonary: Clear and Symmetric; Negative Wheezes or Rales
Gastrointestinal: Soft, Non Tender, Non Distended and Normal Bowel Sounds
Skin: Warm and Dry; Negative Rash or Jaundice
Objective Data
Lab Data
Lab Results
10/08/23 03:31
10/08/23 03:31
PT 15.3 Sec (11.4-14.6) H 10/07/23 03:46
INR 1.23 10/07/23 03:46
APTT 29.9 Sec (23.4-35.0) 10/07/23 03:46
Estimated Creat Clear 117 ml/min 10/08/23 03:31
Total Bilirubin 0.9 mg/dl (0.2-1.3) 10/08/23 03:31
AST 32 U/L (17-59) 10/08/23 03:31
ALT < 10 U/L (0-50) 10/08/23 03:31
Alkaline Phosphatase 62 U/L (38-126) 10/08/23 03:31
Most recent labs reviewed.
Micro Results:
10/06/23 15:19 Blood Culture - Preliminary
Blood/Venous No Growth in 24 hours- Final report to follow
10/06/23 15:19 Blood Culture - Preliminary
Blood/Venous No Growth in 24 hours- Final report to follow
Care Review
Plan reviewed with: Physician (Dr Taylor and Dr Perry - transfer)
--- NOTE | 2023-10-08 08:23 | W.PN.NEURO.1 ---
Today's Communication / Plan
-
-As needed lorazepam monitoring for alcohol withdrawal
-Continue aspirin alone for ischemic stroke
-Follow blood cultures
-Continue cardiac telemetry
-Neurologic checks NIH stroke scale
-Goal normotensive range between 05/07/1979 acceptable post stroke
-Thiamine and folate
Neuro Assessment/Plan
Assessment
70-year-old male with a past ministry of hypertension, hyperlipidemia, alcohol abuse, obesity, coronary artery disease presented to hospital with Wernicke's/receptive aphasia.
Brain MRI demonstrated acute infarct in the left temporal/insular lobe as well as left parietal lobe which were embolic appearing.
There is left-sided common carotid and proximal internal carotid artery calcification without severe stenosis.
Transthoracic echocardiogram shows some changes with new regional wall abnormalities and changes in the gradients of the TAVR, aortic regurgitation also seen.
Transesophageal echocardiogram raised concern for potential aortic root abscess or aortic valve vegetation
MRI brain showed ischemic stroke to the left insular area which is what is causing the Wernicke's encephalopathy, also small infarct in the left parietal lobe areas of stroke are overall small
Potential sources of stroke are nonsevere carotid atherosclerosis on the left carotid versus cardiac embolism.
Transesophageal echocardiogram raised concern for potential aortic root abscess or aortic valve vegetation
I would feel confident that the patient will show improvement from the aphasia with time probably will show the most improvement in the first 1 to 3 months after the initial stroke, areas of stroke in the brain are overall small so I do not see any
reason that weakness should not be helpful for improvement from the stroke.
Patient with Wernicke's aphasia undergoing procedure is not entirely surprising to me that he would have significant agitation as a Wernicke's aphasia means that the patient cannot comprehend language in any significant way. Additionally a stroke
to the insula could also produce behavioral abnormalities as a post stroke side effect.
Seems less likely that he would have had a paradoxical reaction to benzodiazepines as he had had these medications before presumably from previous cardiac procedures of cardiac catheterization and TAVR.
Possibility for alcohol withdrawal exists although patient did not have any significant vital sign change diaphoresis or tremor on the morning of my examination from on 6/21
Subjective/Objective
Subjective Data
Date of Service: October 08, 2023
No acute events, has been getting IV lorazepam PRN, patient awake, aphasic, in restraints
Objective Data
Vital Signs
Temp Pulse Resp BP Pulse Ox
98 F 82 27 129/58 96
10/08/23 07:32 10/08/23 08:00 10/08/23 08:00 10/08/23 08:00 10/08/23 06:30
Lab Results
10/08/23 03:31
10/08/23 03:31
PT 15.3 Sec (11.4-14.6) H 10/07/23 03:46
INR 1.23 10/07/23 03:46
APTT 29.9 Sec (23.4-35.0) 10/07/23 03:46
Sodium 139 mmol/L (135-145) 10/08/23 03:31
Potassium 4.5 mmol/L (3.5-5.1) 10/08/23 03:31
BUN 8 mg/dl (9-20) L 10/08/23 03:31
Glucose 84 mg/dl (70-99) 10/08/23 03:31
Calcium 8.3 mg/dl (8.4-10.2) L 10/08/23 03:31
Phosphorus 4.5 mg/dl (2.5-4.5) 10/07/23 03:46
LDL Cholesterol, Calc 40 mg/dl 10/06/23 06:24
Ur Buprenorphine Negative (Negative) 10/05/23 09:34
Patient Allergies
pollen extracts Allergy (Verified 10/06/23 18:39)
RUNNY NOSE AND SNEEZING
Review of Systems
-
Unable to obtain full review of systems at this time due to: Aphasia
Physical Exam
-
General: No Apparent Distress and Comfortable
Eyes: No Ptosis
HEENT: Normocephalic
Neck: No Bruits Bilaterally
Respiratory: Clear to Auscultation
Cardiac: Regular Rhythm
GI: Normal Bowel Sounds
Extremities: No Clubbing
Psych: Negative Agitated or Intact Judgement/Insight
Extended Neurological Exam
Attention Span & Concentration: Awake, Alert and Interactive
Memory: Unable to Assess
Tremor: Hand Tremor Absent
Involuntary Movement: None
Speech: Receptive Aphasia
Cranial Nerve II: Left Eye: Pupillary Reactivity Unremarkable and Pupillary Size Unremarkable
Cranial Nerve II: Right Eye: Pupillary Reactivity Unremarkable and Pupillary Size Unremarkable
Cranial Nerves III, IV, : Extraocular Movement: Extraocular Movement Full in all Directions
Muscle Strength, Overall: Full Throughout
--- NOTE | 2023-10-08 08:52 | PHA.VAN.FU ---
Addendum entered and electronically signed by Jolene Acuña [facility] 10/08/23 23:20:
Nursing called regarding peak that was not drawn.
Accuracy of calculations would be significantly decreased if drawn now. Will cancel both peak and trough and can consider re-ordering the levels following tomorrow evening dose.
Original Note:
Vancomycin Assessment / Plan
- Assessment
Renal Function: Stable
WBC's are: Stable
In the past 24 hrs, patient has been: Afebrile
- Dosing Plan
Continue: Vanc 1500mg IV q12H
- Monitoring Plan
Peak Level: 10/07 at 2100
Trough Level: 10/08 at 0530
- Follow Up
Pharmacy will continue to follow.
Vancomycin Follow UP
- -
Patient Age: 78
Patient Sex: Male
Vancomycin Day #: 2
Indication: Endocarditis
Requesting Provider: Katharina
Height / Weight:
Height 5 ft 9 in
Actual Weight 98.3 kg
IBW in k.7
Adjusted BW in k.2
Pertinent Past Medical History: BMI = 31.6
- Vital Signs / Lab Results
Temp Pulse Resp BP Pulse Ox
98 F 82 27 129/58 96
10/08/23 07:32 10/08/23 08:00 10/08/23 08:00 10/08/23 08:00 10/08/23 06:30
Lab Results - Hematology
10/05/23 10/06/23 10/07/23
08:37 06:24 03:46
WBC 6.5 7.2 8.6
10/08/23
03:31
WBC 7.6
Lab Results - Chemistry
10/05/23 10/06/23 10/07/23
08:37 06:24 03:46
BUN 10 9 13
Creatinine 0.6 L 0.6 L 0.6 L
Estimated Creat Clear 118 116 116
Albumin 4.5
10/08/23
03:31
BUN 8 L
Creatinine 0.5 L
Estimated Creat Clear 117
Albumin 3.3 L
Microbiology Results
10/06/23 15:19 Blood Culture - Preliminary
Blood/Venous No Growth in 24 hours- Final report to follow
10/06/23 15:19 Blood Culture - Preliminary
Blood/Venous No Growth in 24 hours- Final report to follow
[2023-10-08] MEDS: NSS (PRESERVATIVE FREE) 1 ML IV ×7 (09:05→15:11)
--- NOTE | 2023-10-08 10:27 | PTCARENOTE ---
Rec'd pt at 0700. Pt alert and awake, garbled speech. Inappropriate words or confused conversation to questions, talking to himself at times. CHAPA with equal strength. Pt calm at times, other times restless and kicking around in bed. Unable to
redirect pt, MSAS 7-8, PRN Ativan utilized. Monitor SR. Lungs dim, O2 removed, pox 96% RA. +BS, abd soft/round. Boyd draining yellow urine. CHG bath completed. in to visit, updated.
--- NOTE | 2023-10-08 11:21 | W.PN.HOSP.TC ---
Today's Communication/Plan
-
Psych recs
IVF
Speech eval as awake
Assessment / Plan
Assessment / Plan
CTA head and neck showed:
Bilateral carotid bulb and proximal internal carotid artery atherosclerosis, left greater than right, without hemodynamically significant proximal internal carotid artery stenosis.
No findings to suggest internal carotid artery or vertebral artery dissection bilaterally. Dominant right vertebral artery.
No findings to suggest proximal intracranial arterial stenosis bilaterally.
MRI brain showed:
Cluster of small acute, nonhemorrhagic infarcts in the left insula. There is also a tiny acute nonhemorrhagic infarct in the left parietal lobe posteriorly.
Cerebral atrophy along with chronic small vessel ischemia in cerebral white matter
Old lacunar infarcts in the centrum semiovale bilaterally and right frontal subcortical white matter.
IMPRESSION:
78 years old with a history of hypertension, hyperlipidemia, aortic stenosis status post TAVR presented with mild confusion and slurred speech which resolved, MRI brain shows acute CVA neurology consulted, vision consulted and plan for DANYA today.
PLAN:
Acute CVA (Wernicke's aphasia)
CT head done in the ER showed: No acute abnormality.
MRI of the brain was positive for acute infarcts
CTA was negative for acute stenosis
Echo was performed Overall preserved left ventricular function. Estimated LV ejection fraction is 55% . Lateral hypokinesis.
Continue laboratory monitor
Frequent neurocheck.
continue with Aspirin/Plavix/atorvastatin,
Hemoglobin A1c 5.3, LDL 40.
PT/OT consulted.
DANYA with normal biventricular size and systolic function without regional wall motion abnormality. Bioprosthetic aortic valve with severe paravalvular regurgitation. Aortic root thickening cannot rule out aortic root abscess. Cannot rule out the
presence of small sessile vegetation on the anterior leaflet. Mild to moderate regurgitation mitral. No evidence of left atrial appendage, right atrial appendage thrombus.
Toxic metabolic encephalopathy likely multifactorial due to acute CVA, alcohol withdrawals and suspected delirium with behavioral disturbances
Alcohol abuse.
Daily alcohol use.
Last used 2 days ago prior to arrival
Patient given thiamine IV in the ER, will continue while in the hospital, then discharge on oral thiamine
Folic acid
No symptoms of withdrawal currently but ordered Ativan as needed for withdrawal.
Continue with Precedex drip
If needed additional severe agitation may need additional antipsychotic meds
Discussed with neurology vice president of software engineering will plan to DC phenobarbital
Can consider low dose librium for withdrawal
Will ask psych for further input
TAVR with severe AI
Suspected endocarditis
Await culture data
Antibiotics as per infectious disease
Continue vancomycin. Zosyn discontinued.
May eventually need intervention for aortic valve pending stabilization of mentation. Cardiology recs.
Would appreciate [facility] recs for counterpart at [facility] surgical service for assistance if and when transfer needed.
Appreciate ID recs.
Hypotension likely secondary to sedation and decreased p.o. intake
Discontinue phenobarbital
BP improved
History of hypertension
Cont to Hold home amlodipine for now
CODE STATUS: Full code
DVT prophylaxis: Lovenox
Diet: cardiac diet (speech for swallow eval)
Discussed with cardiology
Cussed with patient spouse at bedside in details for prolonged period of time.
Anticipated Discharge: > 48 hours
Subjective/Interval History
-
Date of Service: October 08, 2023
awake off levophed
intermittent need of precedex
remains confused and trying to get oob
Objective Data
-
Labs:
Laboratory Results
10/08/23
03:31
WBC 7.6
Hgb 10.8 L
Hct 30.8 L
Plt Count 169
Sodium 139
Potassium 4.5
Chloride 111 H
Carbon Dioxide 20 L
BUN 8 L
Creatinine 0.5 L
Glucose 84
Calcium 8.3 L
Total Bilirubin 0.9
AST 32
ALT < 10
Alkaline Phosphatase 62
Vital Signs:
Vital Signs
Temp Pulse Resp BP Pulse Ox
99.8 F 100 29 121/87 95
10/08/23 11:05 10/08/23 10:30 10/08/23 10:30 10/08/23 10:30 10/08/23 10:30
I&O
10/07/23 10/08/23 10/09/23
06:59 06:59 06:59
Intake Total 2549.9 / 2657.0 2303.0 / 2383.0 240 / 240
Output Total 150 / 150 1750 / 1825 150 / 150
Balance 2399.9 / 2507.0 553.0 / 558.0 90 / 90
Physical Exam
-
General: Well Developed and No Apparent Distress
HEENT: Normocephalic, Atraumatic and Moist Mucous Membranes
Respiratory: Clear to Auscultation
Cardiac: Regular Rhythm and S1/S2; Negative Rub or Gallop
GI: Soft, Nontender, Nondistended and Normal Bowel Sounds; Negative Organomegaly
Rectal: Deferred by Provider
Musculoskeletal: No Clubbing, No Cyanosis, No Edema and Edema, Right Upper Extrem
Skin: Negative Rash
Neuro: Awake and Nonfocal/Grossly Intact
Psych: Confused and Agitated
Data Reviewed
-
Total Time Spent with Patient (in minutes): 55
--- NOTE | 2023-10-08 12:06 | CS.PSYCHR ---
Consult Summary - Psychiatry
-
Psychiatry consult for severe agitation/delirium and alcohol withdrawal. too sedated yesterday on phenobarbital so it was discontinued per primary team. Chart reviewed. 78 yo male with severe alcohol use disorder admitted 10/04 for slurred speech and
determined to have had ischemic stroke causing Wernicke's aphasia. Last drink two days prior to admission. At this time patient has been receiving Ativan regularly per MSAS protocol and presents agitated, confused and restless. BP/HR has been
elevated.
CT head showed diffuse cortical atrophy; MRI showed ischemic stroke
Qtc 440 on 10/04
UDS negative
PMH- HTN, HLD, aortic stenosis s/p TAVR, acute CVA causing wernicke's aphasia
Social- , lives with
D&A- daily alcohol use up to 1/5 vodka a day. last drink two days prior to admission. UDS negative
Past psych- none per chart
A/P- 78 yo male with severe alcohol use disorder admitted with Wernicke's aphasia after ischemic stroke, now agitated with presentation consistent with alcohol withdrawal. He needs something standing to control withdrawal. Since phenobarb was
stopped, will start trial of standing Ativan 2mg IV q4 hours (hold for sedation) and continue MSAS. Once vitals are stable for 24 hours can reduce ativan by 20% and so forth until taper is complete. Case discussed with nursing. Psychiatry will
follow.
--- NOTE | 2023-10-08 12:32 | PTCARENOTE ---
Pt with increased agitation throughout morning, receiving PRN Ativan hourly. MSAS-10, Precedex gtts restarted.
[2023-10-08] MEDS: ATIVAN 2 MG IV ×2 (13:57→17:55)
--- NOTE | 2023-10-08 14:06 | PTCARENOTE ---
MSAS remains 9-10, standing dose of 2mg IV Ativan given at this time. Precedex titrated. at bedside, updated on pt condition and plan of care.
[2023-10-08] MEDS: PRECEDEX 100 IV ×2 (14:53→21:16)
[2023-10-08] MEDS: LOVENOX 40 MG SC (17:11)
[2023-10-08] MEDS: LIPITOR PO (17:11)
--- NOTE | 2023-10-08 18:58 | PTCARENOTE ---
175-IV team in to place midline, standing dose of 2mg IV Ativan given prior to starting procedure. 1809-Pt with increased agitation, PRN 1mg Ativan given for MSAS-7. Precedex infusing at 0.7mcg/kg/hr. Pt remained agitated, kicking legs in bed
requiring additional staff to restraint pt for safety while midline completed. Midline in place at this time, pt resting quietly at this time.
--- NOTE | 2023-10-08 20:40 | PTCARENOTE ---
assumed care of patient approx. 1900.
On precedex, iv fluids.
Sinus kenn, sleeping, BP stable, see vitals flowsheet/assessment for further details.
--- NOTE | 2023-10-08 22:49 | PTCARENOTE ---
presenting difficulty to assess NIH scale objectively due to sedation effects of precedex resulting in inability to perform commands.
Precedex gtt weaned down, ativan dose held.
[2023-10-08] MEDS: ATIVAN IV (22:56)
[2023-10-09] VITALS (22 sets, daily range): BP systolic 124–149; BP diastolic 42–88; BMI 31.9
[2023-10-09] MEDS: THIAMINE INJECTION 200 MG IV ×2 (00:40→08:26)
--- NOTE | 2023-10-09 00:45 | PTCARENOTE ---
Pt remains lethargic, able to open eyes upon light sternal rub and follow simple commands.
Expressive aphasia limiting to neuro/nih assessment.
Remaining sinus kenn w/o ectopy, normotensive, normothermic, adequate urine output.
[2023-10-09] MEDS: ATIVAN IV (02:48)
--- NOTE | 2023-10-09 04:04 | PTCARENOTE ---
Precedex titrated, off due to low RASS parameters. Pt. still lethargic, bradycardic w/o ectopy.
Ativan doses held due to sedation.
Assessment unchanged, see flowsheet for further details.
[2023-10-09 04:48] LABS: % Basophils 0.6 % (0-2); % Eosinophils 3.9 % (0-6); % Immature Granulocytes 0.3 % (0-0.5); % Lymphocytes 14.8 % (20.5-51.1); % Monocytes 15.8 % (1.7-9.3); % Neutrophils 64.6 % (42.2-75.2); Absolute Eosinophils 0.3 10^3/uL (0-0.7); Absolute Neutrophils 4.1 10^3/uL (1.4-6.5); Hematocrit 31.4 % (39.0-52.0); Hemoglobin 10.5 g/dL (13.0-18.0); Mean Corp Hgb Conc. 33.4 g/dL (33.0-37.0); Mean Corpuscular Hgb 32.7 pg (27.0-31.0); Mean Corpuscular Volume 97.8 fL (80.0-94.0); Mean Platelet Volume 11.1 fL (7.4-10.4); Nucleated Red Blood Cells % 0 % (-); Platelet Count 135 10^3/uL (130-400); Red Blood Cell Count 3.21 10^6/uL (4.70-6.10); Red Cell Dist. Width 14.1 % (11.5-14.5); White Blood Cell Count 6.4 10^3/uL (4.8-10.8)
[2023-10-09 04:58] LABS: ALT (SGPT) < 10 U/L (0-50); AST (SGOT) 29 U/L (17-59); Albumin 3.2 g/dl (3.5-5.0); Alkaline Phosphatase 75 U/L (38-126); Blood Urea Nitrogen 7 mg/dl (9-20); Calcium 8.3 mg/dl (8.4-10.2); Carbon Dioxide 16 mmol/L (22-30); Chloride 113 mmol/L (98-107); Estimated Creatinine Clearance 117 ml/min; Glucose 69 mg/dl (70-99); Sodium 139 mmol/L (135-145); Total Bilirubin 0.8 mg/dl (0.2-1.3); Total Protein 5.5 g/dl (6.3-8.2); eGFR > 60.00
[2023-10-09] MEDS: ATIVAN 2 MG IV (05:04)
[2023-10-09 05:52] LABS: Glucose - Point of Care 71 mg/dl (70-99)
[2023-10-09] MEDS: NSS 1000 IV ×2 (06:19→18:29)
[2023-10-09] MEDS: VANCOCIN 300 ML IV ×2 (06:20→18:21)
[2023-10-09] MEDS: VANCOCIN 300 MG IV ×2 (06:20→18:21)
--- NOTE | 2023-10-09 06:27 | W.PN.NEURO.1 ---
Today's Communication / Plan
-
-Continue on aspirin 81 mg daily alone
-Goal BP between 120-160 post stroke
-Neuro checks and NIH scales
-Cardiac telemetry
-Monitoring and treating for alcohol withdrawal, PRN ativan, thiamine and folate,
-Following blood cultures
-Speech therapy when cooperative for the aphasia
Neuro Assessment/Plan
Assessment
70-year-old male with a past ministry of hypertension, hyperlipidemia, alcohol abuse, obesity, coronary artery disease presented to hospital with Wernicke's/receptive aphasia.
Brain MRI demonstrated acute infarct in the left temporal/insular lobe as well as left parietal lobe which were embolic appearing.
There is left-sided common carotid and proximal internal carotid artery calcification without severe stenosis.
Transthoracic echocardiogram shows some changes with new regional wall abnormalities and changes in the gradients of the TAVR, aortic regurgitation also seen.
Transesophageal echocardiogram raised concern for potential aortic root abscess or aortic valve vegetation
MRI brain showed ischemic stroke to the left insular area which is what is causing the Wernicke's encephalopathy, also small infarct in the left parietal lobe areas of stroke are overall small
Potential sources of stroke are nonsevere carotid atherosclerosis on the left carotid versus cardiac embolism.
Transesophageal echocardiogram raised concern for potential aortic root abscess or aortic valve vegetation
I would feel confident that the patient will show improvement from the aphasia with time probably will show the most improvement in the first 1 to 3 months after the initial stroke, areas of stroke in the brain are overall small so I do not see any
reason that weakness should not be helpful for improvement from the stroke.
Patient with Wernicke's aphasia undergoing procedure is not entirely surprising to me that he would have significant agitation as a Wernicke's aphasia means that the patient cannot comprehend language in any significant way. Additionally a stroke
to the insula could also produce behavioral abnormalities as a post stroke side effect.
Seems less likely that he would have had a paradoxical reaction to benzodiazepines as he had had these medications before presumably from previous cardiac procedures of cardiac catheterization and TAVR.
Possibility for alcohol withdrawal exists although patient did not have any significant vital sign change diaphoresis or tremor on the morning of my examination from on 10/05
Subjective/Objective
Subjective Data
Date of Service: October 09, 2023
No acute events, patient remains aphasic, restrained, calm currently
Objective Data
Vital Signs
Temp Pulse Resp BP Pulse Ox
98.8 F 69 29 140/60 97
10/09/23 03:12 10/09/23 04:30 10/09/23 04:30 10/09/23 04:00 10/09/23 04:30
Lab Results
10/09/23 04:21
10/09/23 04:21
PT 15.3 Sec (11.4-14.6) H 10/07/23 03:46
INR 1.23 10/07/23 03:46
APTT 29.9 Sec (23.4-35.0) 10/07/23 03:46
Sodium 139 mmol/L (135-145) 10/09/23 04:21
Potassium 4.0 mmol/L (3.5-5.1) 10/09/23 04:21
BUN 7 mg/dl (9-20) L 10/09/23 04:21
Glucose 69 mg/dl (70-99) L 10/09/23 04:21
Calcium 8.3 mg/dl (8.4-10.2) L 10/09/23 04:21
Phosphorus 4.5 mg/dl (2.5-4.5) 10/07/23 03:46
LDL Cholesterol, Calc 40 mg/dl 10/06/23 06:24
Ur Buprenorphine Negative (Negative) 10/05/23 09:34
Patient Allergies
pollen extracts Allergy (Verified 10/06/23 18:39)
RUNNY NOSE AND SNEEZING
Review of Systems
-
Unable to obtain full review of systems at this time due to: Aphasia
Physical Exam
-
General: No Apparent Distress and Obese
Eyes: No Ptosis
HEENT: Atraumatic
Respiratory: No Dyspnea
Cardiac: No Murmur
GI: Soft and Non-tender
Skin: Warm and Dry; Negative Rash
Extremities: No Cyanosis
Psych: Negative Agitated or Intact Judgement/Insight
Extended Neurological Exam
Attention Span & Concentration: Other (Awake, tracks interacts, speaks with me but limited with aphasia, obeys simple commands with repeated prompting)
Memory: Unable to Assess
Speech: Receptive Aphasia and Dysarthric
Cranial Nerve II: Left Eye: Pupillary Reactivity Unremarkable and Pupillary Size Unremarkable
Cranial Nerve II: Right Eye: Pupillary Reactivity Unremarkable and Pupillary Size Unremarkable
Cranial Nerves III, IV, : Extraocular Movement: Extraocular Movement Full in all Directions
Muscle Strength, Overall: Full Throughout
--- NOTE | 2023-10-09 07:09 | W.PN.INTV ---
Addendum entered and electronically signed by Jacque Bone, DO 10/09/23 15:39:
Doing well, ok with team for transfer
Will transfer to IMU, we will sign off
Original Note:
Today's Communication / Plan
Recommendations
Off precedex, continue MSAS PRN
Ongoing confusion, wernicke's encephalopathy, continue thiamine/folate
Neuro following
Speech eval
If remains calm off sedation, can evaluate transfer to floors later today
Assessment
-
Mr Margarito Addison is a 78/M adm 10-04 with acute aphasia starting at 15:00 on d [place] when family noticed nonsensical speech. Chronic alcoholism, last drink 2 d [place]. As did not see evidence of LA/KASEY, RA/RAA appendage thrombus. CTSx consulted 10-05,
blood cxs ordered, clopidogrel held, following
Transferred to ICU early afternoon 10-05 due to worsening agitation requiring 4 point restrains
Impression:
Aphasia, stroke
Symptoms started on d [place]
MRI brain 10-04 with cluster of small acute nonhemorrhagic infarct in L insula and tiny nonhem infarct in L parietal lobe
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
Low level of suspicion for ETOH withdrawal per Cards and Neurology
Mild anemia
UDS negative
ETOH level not detected on adm
Hypotension
Conditions [place] [place]:
Chronic alcoholism
HTN
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
Depression
Sq/basal cell ca
Diverticulosis
Bilateral cataract surgery, eyelid lift
Nonsmoker
Morbid obesity
Plan:
Adm 10-04 with acute dysphagia
Acute nonhemorrhagic infarcts (L insula, L parietal lobe) on MRI
No candidate for thrombolysis
Neurology following
Transferred to ICU 10-05 with worsening alcohol withdrawal syndrome, requiring 4 point locked restraints
Improved, now off precedex
Continue MSAS
Cards consulted, TTE with bioprosthetic AV (h/o R-TF-TAVR September 2018) showed severe paravalvular regurgitation, could not rule Ao root abscess or small sessile vegetation at anterior AV leaflet
Per Dr Prescott who knows the patient well, low suspicion for ETOH w/d, agreed by Neurology leasing sales consultant
CTSx consulted 10-05. D/w Dr Perry 10-06, rec continue med mgmt to stabilize and then transfer to [facility] for cardiac surgery
Supplemental oxygen as needed
Aspiration precautions, keep HOB>=30 degrees
Incentive spirometry when able
Low level of suspicion for ETOH withdrawal by Cards (Dr Prescott knows the patient well) and Neurology
Continue benzodiazepine as needed- IV lorazepam
Precedex drip started at ICU, continue as needed
D/c'ed phenobarbital taper protocol on 10-06
Continue FA, thiamine
Hypotension 10-05
IVFs
Blood cxs 10-05 so far negative
Empiric vanco/zosyn and NE gtt since evening 10-05 by adm svce
CXR 10-06: portable, no gross infiltrates
Seen by ID 10-06, low level of suspicion for asp pneumonia
Continue vancomycin for suspected IE, d/c zosyn
DVT prophylaxis
GI prophylaxis
Early nutrition
Early mobilization
-----
Critical Care time 35 mins -- The patient is admitted for acute critical illness for the treatment of vital organ failure and/or prevention of further life-threatening conditions. Total care includes time spent in review of history, physical exam,
medications, hemodynamic/ventilator parameters, laboratory data, imaging and discussion with house staff, pharmacy, respiratory therapy, metal solderer, and nursing.
Subjective Dataa
Subjective Data
Date of Service:
Date of Service: October 09, 2023
Chief Complaint: Marketing Communications Associate Follow Up
Subjective:
Stable, remains confused
Off precedex
Objective Data
Data Reviewed
Vital Signs / I&O / Oxygen:
Vital Signs
Temp Pulse Resp BP Pulse Ox
98.8 F 69 29 140/60 97
10/09/23 03:12 10/09/23 04:30 10/09/23 04:30 10/09/23 04:00 10/09/23 04:30
Intake and Output
10/08/23 10/09/23 10/10/23
06:59 06:59 06:59
Intake Total 2303.0 / 2383.0 2153.4 / 2153.4
Output Total 1750 / 1825 1747 / 1747
Balance 553.0 / 558.0 406.4 / 406.4
SaO2 97
Nasal Cannula flow liters per 2
minute
Physical Exam
General: Comfortable, Poor Appetite and Other (NAD)
HEENT: Normocephalic, Anicteric and Moist Mucous Membranes
Cardiovascular: S1-S2, Regular Rhythm and Peripheral Edema (n)
Respiratory: Clear, Non-Labored Respirations, Accessory Resp Muscle Use (trace) and Stridor (n)
GI: Soft, Non Distended and Non Tender
Neurology: Awake, Alert and Other (confused, not answering appropriately, not oriented to self/place)
Skin: Warm and Dry
Labs/Micro/Reports
Lab Data
10/09/23 04:21
10/09/23 04:21
Microbiology
10/06/23 15:19 Blood/Venous Blood Culture - Preliminary
No Growth in 48 hours- Final report to follow
10/06/23 15:19 Blood/Venous Blood Culture - Preliminary
No Growth in 48 hours- Final report to follow
[2023-10-09] MEDS: MIRALAX TUBE (08:27)
--- NOTE | 2023-10-09 08:51 | W.PN.ID1 ---
Date of Service
Date of Service: October 09, 2023
Today's Communication
see plan
Assessment / Plan
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
AVR - bioprosthetic
CVA: L partietal - ischemic
Chronic Alcoholism
- spoke with Jun Monahan - family, other contacts were not answering the phone
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
- fevers via core route defined as over 101.0 - has not had ashtyn fevers so far this admission; note borderline level of 100.4 in the context of acute stroke which was not persistent
- with stroke and possible root abscess patient would be possible endocarditis
- coxiella, bartonella, serologies to be sent today
- RF
- noninfectious causes of progression of paravalvular leak (IE mechanical) also possible
- DANYA 10/05: AVR with severe valvular leak, could not rule out small vegetation on anterior leaflet, mild-mod MR
- blood cultures x2 are obtained prior to antibiotics - follow to completion. Note that these were done at the same time - cannot confirm separate draw.
- continue vancomycin at this time
- follow clinically
Transfer to tertiary care center recommended by CT surgery service and I would agree.
Chief Complaint
-: Other (endocarditis - possible)
Subjective / Review of Systems
Ts 100.6 on core T overnight
bp stable off of pressors
without leukocytosis
cr 0.4
blood cultures remain no growth
Vital Signs / Physical Exam
Vital Signs
Vital Signs
Temp Pulse Resp BP Pulse Ox
98.4 F 69 29 140/60 97
10/09/23 07:00 10/09/23 04:30 10/09/23 04:30 10/09/23 04:00 10/09/23 04:30
Physical Exam
Constitutional: No Acute Distress
Cardiovascular: Regular Rate and S1/S2; Negative Murmur or Rub
Pulmonary: Clear and Symmetric; Negative Wheezes or Rales
Gastrointestinal: Soft, Non Tender, Non Distended and Normal Bowel Sounds
Skin: Warm and Dry; Negative Rash or Jaundice
Psychological: Confused
Objective Data
Lab Data
Lab Results
10/09/23 04:21
10/09/23 04:21
PT 15.3 Sec (11.4-14.6) H 10/07/23 03:46
INR 1.23 10/07/23 03:46
APTT 29.9 Sec (23.4-35.0) 10/07/23 03:46
Estimated Creat Clear 117 ml/min 10/09/23 04:21
Total Bilirubin 0.8 mg/dl (0.2-1.3) 10/09/23 04:21
AST 29 U/L (17-59) 10/09/23 04:21
ALT < 10 U/L (0-50) 10/09/23 04:21
Alkaline Phosphatase 75 U/L (38-126) 10/09/23 04:21
Most recent labs reviewed.
Micro Results:
10/06/23 15:19 Blood Culture - Preliminary
Blood/Venous No Growth in 48 hours- Final report to follow
10/06/23 15:19 Blood Culture - Preliminary
Blood/Venous No Growth in 48 hours- Final report to follow
[2023-10-09] MEDS: ASPIR LOW (ENTERIC COATED) 81 MG PO (09:01)
[2023-10-09] MEDS: FOLVITE 1 MG PO (09:02)
--- NOTE | 2023-10-09 09:16 | W.PN.CD ---
Today's Communication / Plan
-
continue efforts to wean off sedatives
tx of CVA per neuro
await final BC
abx per primary team
Impression / Plan
-
.
CVA.Patient with initial symptoms yesterday. He has receptive aphasia and impaired comprehension with brain MRI showing cluster of small acute nonhemorrhagic infarcts in the left insula and also tiny acute nonhemorrhagic infarct in the left
parietal lobe. Exact etiology unclear. Patient currently maintained in sinus rhythm. Neurology following.
Patient was trying to wander halls earlier this admit and was difficult to redirect and then apparently became more physical 10/06/23 requiring sedation aand transfer to [facility].
BP running lower so placed on levophed which has since been weaned. Patient now off phenobarbital and Precedex. Just getting as needed Ativan. More awake. Still with aphasia and cognitive impairment.
-Continued management directed by neurology and primary team
.
TAVR- severe AR . History of TAVR with paravalvular AR. Despite severe AR he has not had issues with heart failure at this point. Patient had previously been known to have moderate paravalvular AR unclear of the exact time course of progression
to severe.
-Considering all the issues she has had this admission patient's been covered with antibiotics to cover endocarditis. Awaiting final cultures.
- - await cultures. abx per ID
- monitor for signs of HF
-Ct surgery consulted
Physical Exam
Vital Signs/Labs
Vital Signs
Temp Pulse Resp BP Pulse Ox
98.4 F 69 29 140/60 97
10/09/23 07:00 10/09/23 04:30 10/09/23 04:30 10/09/23 04:00 10/09/23 04:30
10/08/23 10/09/23 10/10/23
06:59 06:59 06:59
Actual Weight 98.3 kg 98 kg
10/09/23 04:21
10/09/23 04:21
PT 15.3 Sec (11.4-14.6) H 10/07/23 03:46
INR 1.23 10/07/23 03:46
APTT 29.9 Sec (23.4-35.0) 10/07/23 03:46
Magnesium 2.1 mg/dl (1.6-2.3) 10/07/23 03:46
Triglycerides 79 mg/dl (10-149) 10/06/23 06:24
LDL Cholesterol, Calc 40 mg/dl 10/06/23 06:24
VLDL Cholesterol, Calc 15 mg/dl (0-30) 10/06/23 06:24
HDL Cholesterol 38 mg/dl 10/06/23 06:24
Physical Exam
Constitutional: No acute distress
Cardiovascular: Rhythm & rate is regular
Respiratory: Respiratory effort normal
GI: Soft
Neuro/Psych: Other (aphasia. not properly following commands )
Data Reviewed
-
Date of Service: October 09, 2023
Medical Decision Making: Reviewed Test Results
EKG: Report Reviewed by me
Medical Tests (PFT, Pathology etc): Report Reviewed by me
--- NOTE | 2023-10-09 10:04 | PHA.VAN.FU ---
Vancomycin Assessment / Plan
- Assessment
Renal Function: Stable
WBC's are: WNL
In the past 24 hrs, patient has been: Febrile
- Monitoring Plan
Peak Level: 10/08 @2100
Trough Level: 10/09 @0530
- Follow Up
Pharmacy will continue to follow.
Vancomycin Follow UP
- -
Patient Age: 78
Patient Sex: Male
Vancomycin Day #: 3
Indication: Endocarditis
Requesting Provider: Katharina
Height / Weight:
Height 5 ft 9 in
Actual Weight 98 kg
IBW in k.7
Adjusted BW in k.2
Pertinent Past Medical History: BMI = 31.6
- Vital Signs / Lab Results
Temp Pulse Resp BP Pulse Ox
98.4 F 69 29 140/60 97
10/09/23 07:00 10/09/23 04:30 10/09/23 04:30 10/09/23 04:00 10/09/23 04:30
Lab Results - Hematology
10/07/23 10/08/23 10/09/23
03:46 03:31 04:21
WBC 8.6 7.6 6.4
Lab Results - Chemistry
10/07/23 10/08/23 10/09/23
03:46 03:31 04:21
BUN 13 8 L 7 L
Creatinine 0.6 L 0.5 L 0.4 L
Estimated Creat Clear 116 117 117
Albumin 3.3 L 3.2 L
Microbiology Results
10/06/23 15:19 Blood Culture - Preliminary
Blood/Venous No Growth in 48 hours- Final report to follow
10/06/23 15:19 Blood Culture - Preliminary
Blood/Venous No Growth in 48 hours- Final report to follow
Therapeutic Drug Monitoring
Vancomycin Peak Cancelled 10/08/23 21:00
--- NOTE | 2023-10-09 10:12 | W.PN.CT ---
Today's Communication / Plan
-
Per Dr. amezquita, patient's continued medical complexity we are recommending transfer to a tertiary center, like [facility] / [facility]. Transfer to be coordinated by primary team and [facility] transfer center.
Assessment / Plan
-
CVA
S/p TAVR with paravalvar AR
possible Endocarditis and aortic root abscess
>cont Abx per ID
Rest of care per primary team
Subjective
-
Date of Service: October 09, 2023
Objective Data
-
Lab Results
10/09/23 04:21
10/09/23 04:21
PT 15.3 Sec (11.4-14.6) H 10/07/23 03:46
INR 1.23 10/07/23 03:46
APTT 29.9 Sec (23.4-35.0) 10/07/23 03:46
Vital Signs
Vital Signs
Temp Pulse Resp BP Pulse Ox
98.4 F 69 29 140/60 97
10/09/23 07:00 10/09/23 04:30 10/09/23 04:30 10/09/23 04:00 10/09/23 04:30
CT Intake/Output/Weight
10/08/23 10/09/23 10/09/23
18:59 06:59 18:59
Intake Total 1047.0 / 2233.4 1106.4 / 2233.4 160 / 160
Output Total 1060 / 1747 687 / 1747 350 / 350
Balance -13.0 / 486.4 419.4 / 486.4 -190 / -190
SaO2: 97
--- NOTE | 2023-10-09 10:26 | PTOTSP ---
Dysphagia Evaluation
Patient is a 78 year old male with TME (alcohol withdrawal) and CVA who presents with acute at least mild oral/pharyngeal dysphagia.
Recommend:
1. IDDSI Level 4 Puree, IDDSI Level 0 Thin Liquids
2. Medications - as best tolerated
3. Full supervision/assistance
4. Strategies: PO only when awake/alert and upright, small single sips/bites, check for oral residue
5. Dysphagia tx at the acute care level. Video swallow study not appropriate at this time.
--- NOTE | 2023-10-09 10:51 | PN.CDI ---
CDI
- -
CDI:
Physician Documentation Request
Admit Date: 10/05/23 12:25
Dear Doctor Brandon,
Please review the following and provide your response in the progress notes.
Current documentation includes a diagnosis of hypotension.
Clinical Indicators:
- Patient admit for CVA with suspected endocarditis and aortic root abscess
- 10/07 PN 'Hypotension likely secondary to sedation and decreased p.o. intake'
- MAPs 50-60's, systolic BP 70-80's
- 10/06-10/07 Levophed
- 10/07 Tmax 100.6, HR 100's, RR 20-30's
- IV abx and IVF given
Please clarify which of the following is the most likely etiology of the above symptoms and treatment rendered:
Septic shock
Cardiogenic shock
Hypovolemic shock - indicate if due to surgery, trauma or other etiology
Hypotension - indicate type/etiology, such as idiopathic, neurogenic or orthostatic, post-procedural, postoperative, due to hemodialysis, chronic, drug induced (indicate drug), etc.
Other
Use of terms such as suspected, likely, concern for, or probable (associated with a specific diagnosis that is being evaluated, monitored, or treated as if it exists) are acceptable and can be coded in the inpatient setting, when documented at the
time of discharge.
Thank you,
Corina Polanco RN
CDI Specialist
Please use your independent medical judgment in providing your response.
--- NOTE | 2023-10-09 11:27 | PTCARENOTE ---
Assumed care of patient. VSS. Following some simple commands. Oriented to self only. Word salad, visual hallucinations. Restraints continue due to pulling at friedman cath and ECG leads. Non violent but restlessness continues. Precedex remains off.
MSAS 5. NIHSS 11. Assessment as noted.
--- NOTE | 2023-10-09 11:42 | W.PN.HOSP.TC ---
Addendum entered and electronically signed by Stan Taylor MD 10/09/23 15:06:
RUE with superficial vein thrombosis
Original Note:
Today's Communication/Plan
-
Start pur�ed diet
Psych recommendation
Monitor off Precedex
IV antibiotics
IVF
Assessment / Plan
Assessment / Plan
CTA head and neck showed:
Bilateral carotid bulb and proximal internal carotid artery atherosclerosis, left greater than right, without hemodynamically significant proximal internal carotid artery stenosis.
No findings to suggest internal carotid artery or vertebral artery dissection bilaterally. Dominant right vertebral artery.
No findings to suggest proximal intracranial arterial stenosis bilaterally.
MRI brain showed:
Cluster of small acute, nonhemorrhagic infarcts in the left insula. There is also a tiny acute nonhemorrhagic infarct in the left parietal lobe posteriorly.
Cerebral atrophy along with chronic small vessel ischemia in cerebral white matter
Old lacunar infarcts in the centrum semiovale bilaterally and right frontal subcortical white matter.
IMPRESSION:
78 years old with a history of hypertension, hyperlipidemia, aortic stenosis status post TAVR presented with mild confusion and slurred speech which resolved, MRI brain shows acute CVA neurology consulted, vision consulted and plan for DANYA today.
PLAN:
Acute CVA (Wernicke's aphasia)
CT head done in the ER showed: No acute abnormality.
MRI of the brain was positive for acute infarcts
CTA was negative for acute stenosis
Echo was performed Overall preserved left ventricular function. Estimated LV ejection fraction is 55% . Lateral hypokinesis.
Continue environmental monitoring technician
Frequent neurocheck.
continue with Aspirin/atorvastatin,
Hemoglobin A1c 5.3, LDL 40.
PT/OT consulted.
DANYA with normal biventricular size and systolic function without regional wall motion abnormality. Bioprosthetic aortic valve with severe paravalvular regurgitation. Aortic root thickening cannot rule out aortic root abscess. Cannot rule out the
presence of small sessile vegetation on the anterior leaflet. Mild to moderate regurgitation mitral. No evidence of left atrial appendage, right atrial appendage thrombus.
Toxic metabolic encephalopathy likely multifactorial due to acute CVA, alcohol withdrawals and suspected delirium with behavioral disturbances
Alcohol abuse.
Daily alcohol use.
Last used 2 days ago prior to arrival
Patient given thiamine IV in the ER, will continue while in the hospital, then discharge on oral thiamine
Folic acid
No symptoms of withdrawal currently but ordered Ativan as needed for withdrawal.
Precedex drip intermittent use for agitation.
Discussed with neurology auto transmission technician will plan to DC phenobarbital
Ativan standing was started on 10/07 and discontinued further
Continue with prn ativan
Psych recs
TAVR with severe AI was moderate before unclear timeline
Suspected endocarditis
Await culture data blood cultures are negative x 48 hours
Antibiotics as per infectious disease
Continue vancomycin. Zosyn discontinued.
Additional blood work ordered with Bartonella and Q fever and rheumatoid
May eventually need intervention for aortic valve pending stabilization of mentation. Cardiology recs.
Difficult situation as patient with significant confusion/agitation and with suspected endocarditis blood cultures remain negative. Discussed with Dr. Prescott in details about timing of surgery requirement. Prefer patient mentation to
significantly improve. Cardiology to discuss with CT surgery further.
Appreciate ID recs.
Dysphagia
Started on pur�ed diet
Cont with IVF in the interim
Shock likely secondary to sedation and decreased p.o. intake versus low likelihood of related to infection/sepsis
Discontinue phenobarbital
BP improved
See individual problem as above
Off Levophed
History of hypertension
Cont to Hold home amlodipine for now
CODE STATUS: Full code
DVT prophylaxis: Lovenox
Diet: cardiac diet (speech for swallow eval)
Discussed with cardiology
Anticipated Discharge: > 48 hours
Subjective/Interval History
-
Date of Service: October 09, 2023
Remains agitated
Remains confused
Blood pressure stable
Was eval by speech earlier today
Objective Data
-
Labs:
Laboratory Results
10/09/23
04:21
WBC 6.4
Hgb 10.5 L
Hct 31.4 L
Plt Count 135 D
Sodium 139
Potassium 4.0
Chloride 113 H
Carbon Dioxide 16 L
BUN 7 L
Creatinine 0.4 L
Glucose 69 L
Calcium 8.3 L
Total Bilirubin 0.8
AST 29
ALT < 10
Alkaline Phosphatase 75
Vital Signs:
Vital Signs
Temp Pulse Resp BP Pulse Ox
99.2 F 81 29 134/59 95
10/09/23 11:00 10/09/23 11:00 10/09/23 11:00 10/09/23 11:00 10/09/23 11:00
I&O
10/08/23 10/09/23 10/10/23
06:59 06:59 06:59
Intake Total 2303.0 / 2383.0 2153.4 / 2233.4 400 / 400
Output Total 1750 / 1825 1747 / 1747 550 / 550
Balance 553.0 / 558.0 406.4 / 486.4 -150 / -150
Physical Exam
-
General: Well Developed and Appears Chronically Ill
HEENT: Normocephalic, Atraumatic and Moist Mucous Membranes
Respiratory: Clear to Auscultation (Continue healthy)
Cardiac: Regular Rhythm and S1/S2; Negative Rub or Gallop
GI: Soft, Nontender, Nondistended and Normal Bowel Sounds; Negative Organomegaly
Rectal: Deferred by Provider
Musculoskeletal: No Clubbing, No Cyanosis, No Edema and Edema, Right Upper Extrem
Skin: Negative Rash
Neuro: Awake and Nonfocal/Grossly Intact
Psych: Confused and Agitated
Data Reviewed
-
Total Time Spent with Patient (in minutes): 60
--- NOTE | 2023-10-09 12:14 | PTCARENOTE ---
Assessment unchanged. Speech Tx consulted and okayed purred diet. Remains calm but pulling at gown, leads.
--- NOTE | 2023-10-09 13:43 | CM ---
CM following re: discharge planning.
Discussed in rounds, reviewed pt's chart, met with pt and pt's spouse at beside.
Pt is a 78 year old male, admitted with primary dx of Acute CVA.
Pt is not a great historian, lethargic, drowsy, requires 2 points restraints, information obtained from pt's spouse. Pt lives with spouse in a 2SH, 2 steps to enter, has supportive daughter. Pt's spouse described the pt as independent in al, areas
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 No DME, VN or SNF history.
PT and OT will evaluate the pt when clinically appropriate. ST recommends skilled services.
CM discussed a next level of care with pt's spouse and pt's spouse stated she hopes to get the pt to [facility] acute rehab or [facility] acute rehab. CM explained criteria for an acute level of rehab and an alternative SNF level of care has been discussed.
Pt's spouse stated if acute rehab will not be an options then she preferred as an alternative following SNFs: [facility], [facility] or [facility].
CM will make a referral to requested acte ads sub acute facilities when appropriate.
PCP: Torito Mccracken
Pharmacy: [facility]
d/C hedrick: Plan A: Acute rehab - [facility] or [facility]. Plan B: preferred SNF.
CM will follow with discharge plan updates as hospitalization progresses
--- NOTE | 2023-10-09 14:35 | W.PN.UPDATE ---
Update Note
Progress Note Update
Pt seen, resting calmly in soft wrist restraints. Pt tries to answer when spoken to, continues to evidence significant aphasia due to Left temporal and parietal CVA's. Pt also disoriented, stated date is July 15. Pt unable to name the facility,
stated 'buzz...' Phenobarb and routinge Ativan 2mg were stopped due to excess sedation and lack of signs of acute alcohol withdrawal. Pt is on Ativan 1 mg prn, received doses yesterday, not thus far today. Pt given one dose of Haldol 2 mg IM on
09/29, not since. Pt has no known psychiatric history, not on psychotropic medications.
Imp/Rec- Alcohol use disorder, severe; Wernicke's aphasia after Left temporal and parietal strokes
Agree with Ativan on prn basis/MSAS protocol. Will follow peripherally
[2023-10-09 15:09] LABS: Rheumatoid Agglutinin Less Than 10 IU (<10 IU)
[2023-10-09] MEDS: LOVENOX 40 MG SC (18:21)
[2023-10-09] MEDS: LIPITOR 40 MG PO (18:21)
[2023-10-09] MEDS: VITAMIN B1 100 MG PO (19:50)
[2023-10-09] MEDS: ATIVAN 1 MG IV ×2 (19:50→22:03)
--- NOTE | 2023-10-09 20:30 | PTCARENOTE ---
rec'd patient. Following some simple commands. Word salad, visual hallucinations. b/l soft wrist Restraints continue due to pulling leads/IV. Non violent but restlessness continues. MSAS 8, PRN ativan given, see MAR. NIHSS 11. Assessment as
documented. SR/ST on monitor. on RA. CHG bath, moderate BM noted, linens changed, brief placed. IVF infusing. IMU level of care. care ongoing.
[2023-10-09 21:38] LABS: Vancomycin Peak 23.2 ug/ml (18-26)
[2023-10-10] VITALS (12 sets, daily range): BP systolic 121–145; BP diastolic 56–71; BMI 31.7
[2023-10-10] MEDS: ATIVAN 1 MG IV ×2 (01:02→03:38)
[2023-10-10 04:40] LABS: % Basophils 0.8 % (0-2); % Eosinophils 5.6 % (0-6); % Immature Granulocytes 1.2 % (0-0.5); % Lymphocytes 15.8 % (20.5-51.1); % Monocytes 18.9 % (1.7-9.3); % Neutrophils 57.7 % (42.2-75.2); Absolute Eosinophils 0.3 10^3/uL (0-0.7); Absolute Immature Granulocytes 0.1 10^3/uL (0-0.05); Absolute Lymphocytes 0.8 10^3/uL (1.2-3.4); Absolute Monocytes 0.9 10^3/uL (0.1-0.6); Absolute Neutrophils 2.8 10^3/uL (1.4-6.5); Hemoglobin 10.6 g/dL (13.0-18.0); Mean Corp Hgb Conc. 34.2 g/dL (33.0-37.0); Mean Corpuscular Hgb 32.6 pg (27.0-31.0); Mean Corpuscular Volume 95.4 fL (80.0-94.0); Mean Platelet Volume 10.1 fL (7.4-10.4); Nucleated Red Blood Cells % 0 % (-); Platelet Count 166 10^3/uL (130-400); Red Blood Cell Count 3.25 10^6/uL (4.70-6.10); Red Cell Dist. Width 14.1 % (11.5-14.5); White Blood Cell Count 4.8 10^3/uL (4.8-10.8)
--- NOTE | 2023-10-10 04:43 | PTCARENOTE ---
AM labs sent. b/l soft wrist restraints continue. PRN ativan given overnight per MSAS protocol, see MAR. pt changed multiple times due to incontinence. care ongoing.
[2023-10-10 05:11] LABS: Vancomycin Trough 12.8 ug/ml (5-20)
[2023-10-10 05:15] LABS: ALT (SGPT) 11 U/L (0-50); AST (SGOT) 39 U/L (17-59); Albumin 3.6 g/dl (3.5-5.0); Alkaline Phosphatase 80 U/L (38-126); Blood Urea Nitrogen 4 mg/dl (9-20); Calcium 8.6 mg/dl (8.4-10.2); Carbon Dioxide 21 mmol/L (22-30); Chloride 109 mmol/L (98-107); Estimated Creatinine Clearance 117 ml/min; Glucose 87 mg/dl (70-99); Potassium 3.5 mmol/L (3.5-5.1); Sodium 139 mmol/L (135-145); Total Bilirubin 1.1 mg/dl (0.2-1.3); eGFR > 60.00
[2023-10-10] MEDS: VANCOCIN 300 MG IV ×2 (05:26→17:28)
[2023-10-10] MEDS: VANCOCIN 300 ML IV ×2 (05:26→17:28)
[2023-10-10] MEDS: NSS 1000 IV ×2 (05:27→17:28)
[2023-10-10] MEDS: MIRALAX TUBE (08:34)
[2023-10-10] MEDS: ASPIR LOW (ENTERIC COATED) 81 MG PO (08:34)
[2023-10-10] MEDS: FOLVITE 1 MG PO (08:34)
[2023-10-10] MEDS: VITAMIN B1 100 MG PO ×2 (08:34→19:59)
--- NOTE | 2023-10-10 09:18 | W.PN.ID1 ---
Date of Service
Date of Service: October 10, 2023
Today's Communication
- continue vancomycin until blood cultures finalized
Assessment / Plan
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
AVR - bioprosthetic
CVA: L partietal - ischemic
Chronic Alcoholism
- fevers via core route defined as over 101.0 - has not had ashtyn fevers so far this admission; note borderline level of 100.4 in the context of acute stroke which was not persistent
- with stroke and possible root abscess patient would be possible endocarditis
- coxiella, bartonella, serologies pending
- RF negative
- noninfectious causes of progression of paravalvular leak (IE mechanical) also possible
- DANYA 10/05: AVR with severe valvular leak, could not rule out small vegetation on anterior leaflet, mild-mod MR
- blood cultures x2 are obtained prior to antibiotics - follow to completion. Note that these were done at the same time - cannot confirm separate draw.
- continue vancomycin until blood cultures finalized
- follow clinically
Transfer to tertiary care center recommended by CT surgery service and I would agree.
Chief Complaint
-: Other (endocarditis - possible)
Subjective / Review of Systems
remains afebrile
bp stable
without leukocytosis
cr 0.5
blood cultures remain ngtd
SVT RUE in context of needed restrain use for several days
confirmed yesterday not typically consuming soft/imported cheeses
Vital Signs / Physical Exam
Vital Signs
Vital Signs
Temp Pulse Resp BP Pulse Ox
99.3 F 93 29 141/60 97
10/10/23 07:29 10/10/23 06:00 10/10/23 06:00 10/10/23 06:00 10/10/23 06:00
Physical Exam
Constitutional: No Acute Distress and Chronically Ill
Cardiovascular: Regular Rate and S1/S2; Negative Murmur or Rub
Pulmonary: Clear and Symmetric; Negative Wheezes or Rales
Gastrointestinal: Soft, Non Tender, Non Distended and Normal Bowel Sounds
Skin: Warm and Dry; Negative Rash or Jaundice
Objective Data
Lab Data
Lab Results
10/10/23 04:25
10/10/23 04:25
PT 15.3 Sec (11.4-14.6) H 10/07/23 03:46
INR 1.23 10/07/23 03:46
APTT 29.9 Sec (23.4-35.0) 10/07/23 03:46
Estimated Creat Clear 117 ml/min 10/10/23 04:25
Total Bilirubin 1.1 mg/dl (0.2-1.3) 10/10/23 04:25
AST 39 U/L (17-59) 10/10/23 04:25
ALT 11 U/L (0-50) 10/10/23 04:25
Alkaline Phosphatase 80 U/L (38-126) 10/10/23 04:25
Most recent labs reviewed.
Micro Results:
10/06/23 15:19 Blood Culture - Preliminary
Blood/Venous No Growth in 72 hours- Final report to follow
10/06/23 15:19 Blood Culture - Preliminary
Blood/Venous No Growth in 72 hours- Final report to follow
--- NOTE | 2023-10-10 09:49 | PHA.VAN.FU ---
Vancomycin Assessment / Plan
- Assessment
Renal Function: Stable
WBC's are: WNL
In the past 24 hrs, patient has been: Afebrile
- Assessment - Therapeutic Drug Monitoring
Extrapolated Cmax (mcg/mL): 26
Peak level was drawn: Appropriately (drawn ~1.4H after end of previous infusion)
Extrapolated Cmin (mcg/mL): 10.9
Trough Drawn: Appropriately
Levels were drawn: At steady state (levels drawn after 5th maintenance dose)
Calculated AUC (mcg*h/mL): 420
Calculated ke: 0.0826
Calculated half life (H): 8.4
Calculated Vd (L): 86 (~0.89 L/kg)
Calculated Vanc CL (ml/min): 119
- Dosing Plan
Continue: Vanc 1500mg Q12H
- Monitoring Plan
Level(s) appropriate: Recheck trough at minimum of weekly intervals, Repeat sooner for changes in renal function or clinical status
Next Level Due (Date): ~10/16, may consider sooner
- Follow Up
Pharmacy will continue to follow.
Vancomycin Follow UP
- -
Patient Age: 78
Patient Sex: Male
Vancomycin Day #: 4
Indication: Endocarditis
Requesting Provider: Dr Posadas / Sugey
Pertinent Antimicrobial Allergies:
no pertinent antibiotic allergies
Height / Weight:
Height 5 ft 9 in
Actual Weight 97.4 kg
IBW in k.7
Adjusted BW in k.2
Pertinent Past Medical History: BMI ~32
- Vital Signs / Lab Results
Temp Pulse Resp BP Pulse Ox
99.3 F 93 29 141/60 97
10/10/23 07:29 10/10/23 06:00 10/10/23 06:00 10/10/23 06:00 10/10/23 06:00
Lab Results - Hematology
10/08/23 10/09/23 10/10/23
03:31 04:21 04:25
WBC 7.6 6.4 4.8
Lab Results - Chemistry
10/08/23 10/09/23 10/10/23
03:31 04:21 04:25
BUN 8 L 7 L 4 L
Creatinine 0.5 L 0.4 L 0.5 L
Estimated Creat Clear 117 117 117
Albumin 3.3 L 3.2 L 3.6
Microbiology Results
10/06/23 15:19 Blood Culture - Preliminary
Blood/Venous No Growth in 72 hours- Final report to follow
10/06/23 15:19 Blood Culture - Preliminary
Blood/Venous No Growth in 72 hours- Final report to follow
Therapeutic Drug Monitoring
Vancomycin Peak 23.2 ug/ml (18-26) 10/09/23 21:13
Vancomycin Trough 12.8 ug/ml (5-20) 10/10/23 04:25
--- NOTE | 2023-10-10 10:51 | PTCARENOTE ---
rec'd patient. Following some simple commands. Word salad. b/l soft wrist Restraints continue due to pulling leads/IV. Non violent but restlessness continues. MSAS 5. NIHSS 11 but difficult to assess r/t DTs. Assessment as documented. SR on
monitor. on RA. brief in place. IVF infusing. IMU level of care. care ongoing.
--- NOTE | 2023-10-10 11:47 | W.PN.HOSP.TC ---
Today's Communication/Plan
-
Monitor mentation
Continue with MSAS protocol
Encourage p.o. intake
Continue with IV fluids
Transfer to telemetry
Assessment / Plan
Assessment / Plan
CTA head and neck showed:
Bilateral carotid bulb and proximal internal carotid artery atherosclerosis, left greater than right, without hemodynamically significant proximal internal carotid artery stenosis.
No findings to suggest internal carotid artery or vertebral artery dissection bilaterally. Dominant right vertebral artery.
No findings to suggest proximal intracranial arterial stenosis bilaterally.
MRI brain showed:
Cluster of small acute, nonhemorrhagic infarcts in the left insula. There is also a tiny acute nonhemorrhagic infarct in the left parietal lobe posteriorly.
Cerebral atrophy along with chronic small vessel ischemia in cerebral white matter
Old lacunar infarcts in the centrum semiovale bilaterally and right frontal subcortical white matter.
IMPRESSION:
78 years old with a history of hypertension, hyperlipidemia, aortic stenosis status post TAVR presented with mild confusion and slurred speech which resolved, MRI brain shows acute CVA neurology consulted, vision consulted and plan for DANYA today.
PLAN:
Acute CVA (Wernicke's aphasia)
CT head done in the ER showed: No acute abnormality.
MRI of the brain was positive for acute infarcts
CTA was negative for acute stenosis
Echo was performed Overall preserved left ventricular function. Estimated LV ejection fraction is 55% . Lateral hypokinesis.
Continue social media assistant
Frequent neurocheck.
continue with Aspirin/atorvastatin,
Hemoglobin A1c 5.3, LDL 40.
PT/OT consulted.
DANYA with normal biventricular size and systolic function without regional wall motion abnormality. Bioprosthetic aortic valve with severe paravalvular regurgitation. Aortic root thickening cannot rule out aortic root abscess. Cannot rule out the
presence of small sessile vegetation on the anterior leaflet. Mild to moderate regurgitation mitral. No evidence of left atrial appendage, right atrial appendage thrombus.
Toxic metabolic encephalopathy likely multifactorial due to acute CVA, alcohol withdrawals and suspected delirium with behavioral disturbances
Alcohol abuse.
Daily alcohol use.
Last used 2 days ago prior to arrival
Patient given thiamine IV in the ER, will continue while in the hospital, then discharge on oral thiamine
Folic acid
Precedex drip intermittent use for agitation. Now off.
Discussed with neurology merchandising manager will plan to DC phenobarbital
Ativan standing was started on 10/07 and discontinued further
Continue with prn ativan
Psych recs
TAVR with severe AI was moderate before unclear timeline
Suspected endocarditis
blood cultures are negative x 72hours
Antibiotics as per infectious disease
Continue vancomycin. Zosyn discontinued.
Additional blood work ordered with Bartonella and Q fever and rheumatoid
May eventually need intervention for aortic valve pending stabilization of mentation. Cardiology recs.
Difficult situation as patient with significant confusion/agitation and with suspected endocarditis/aortic root abscess blood cultures remain negative. Discussed with Dr. Prescott in details about timing of surgery requirement on 10/08. Prefer
patient mentation to significantly improve. Cardiology to discuss with CT surgery further. This was also discussed with patient's spouse who is a RN and she also verbalized understanding that mentation needs to be significantly improve
Appreciate ID recs.
Dysphagia
Started on pur�ed diet
Cont with IVF in the interim
Shock likely secondary to sedation and decreased p.o. intake versus low likelihood of related to infection/sepsis
Discontinue phenobarbital
BP improved
See individual problem as above
Off Levophed
RUE with superficial vein thrombosis
IV removed
History of hypertension
Cont to Hold home amlodipine for now
CODE STATUS: Full code
DVT prophylaxis: Lovenox
Diet: cardiac diet (speech for swallow eval)
Discussed with patient's spouse in details.
Anticipated Discharge: > 48 hours
Subjective/Interval History
-
Date of Service: October 10, 2023
remains confused/agitated
speaking but not coherently
BP stable
on room air
Objective Data
-
Labs:
Laboratory Results
10/10/23
04:25
WBC 4.8
Hgb 10.6 L
Hct 31.0 L
Plt Count 166 D
Sodium 139
Potassium 3.5
Chloride 109 H
Carbon Dioxide 21 L
BUN 4 L
Creatinine 0.5 L
Glucose 87
Calcium 8.6
Total Bilirubin 1.1
AST 39
ALT 11
Alkaline Phosphatase 80
Vital Signs:
Vital Signs
Temp Pulse Resp BP Pulse Ox
98.9 F 86 24 125/57 97
10/10/23 11:21 10/10/23 10:00 10/10/23 10:00 10/10/23 10:00 10/10/23 10:00
I&O
10/09/23 10/10/23 10/11/23
06:59 06:59 06:59
Intake Total 2153.4 / 2233.4 2540 / 2540 640 / 640
Output Total 1747 / 1747 550 / 550
Balance 406.4 / 486.4 1989 640 / 640
Data Reviewed
-
Total Time Spent with Patient (in minutes): 55
--- NOTE | 2023-10-10 13:07 | W.PN.CD ---
Today's Communication / Plan
-
-Acute CVA with receptive aphasia and impaired comprehension with brain MRI showing cluster of small acute nonhemorrhagic infarcts in the left insula and also tiny acute nonhemorrhagic infarct in the left parietal lobe.
-History of TAVR, now with severe paravalvular AR.
-Possible endocarditis; will need surgical replacement, if deemed an appropriate candidate.
-ID following; on vancomycin.
Impression / Plan
-
.
Acute CVA.
-Acute CVA with receptive aphasia and impaired comprehension with brain MRI showing cluster of small acute nonhemorrhagic infarcts in the left insula and also tiny acute nonhemorrhagic infarct in the left parietal lobe.
-Patient currently maintained in sinus rhythm.
-Neurology following.
-Patient was trying to wander halls earlier this admit and was difficult to redirect and then apparently became more physical 10/06/23 requiring sedation and transfer to [facility].
-BP running lower so placed on levophed which has since been weaned. Just getting as needed Ativan.
-Still with aphasia and cognitive impairment.
-Continued management directed by Neurology and primary team.
- and son-in-law at bedside today.
.
TAVR/Possible endocarditis with severe AR .
-History of TAVR, now with severe paravalvular AR.
-Possible endocarditis; will need surgical replacement, if deemed an appropriate candidate.
-ID following; on vancomycin.
Physical Exam
Vital Signs/Labs
Vital Signs
Temp Pulse Resp BP Pulse Ox
98.9 F 86 24 125/57 97
10/10/23 11:21 10/10/23 10:00 10/10/23 10:00 10/10/23 10:00 10/10/23 10:00
10/09/23 10/10/23 10/11/23
06:59 06:59 06:59
Actual Weight 98 kg 97.4 kg
06/25/24 04:25
10/10/23 04:25
PT 15.3 Sec (11.4-14.6) H 10/07/23 03:46
INR 1.23 10/07/23 03:46
APTT 29.9 Sec (23.4-35.0) 10/07/23 03:46
Magnesium 2.1 mg/dl (1.6-2.3) 10/07/23 03:46
Triglycerides 79 mg/dl (10-149) 10/06/23 06:24
LDL Cholesterol, Calc 40 mg/dl 10/06/23 06:24
VLDL Cholesterol, Calc 15 mg/dl (0-30) 10/06/23 06:24
HDL Cholesterol 38 mg/dl 10/06/23 06:24
Physical Exam
Constitutional: No acute distress and Confusion
EENT: Anicteric
Cardiovascular: Rhythm & rate is regular, Pedal edema is absent, Systolic murmur present (2-3/6), Diastolic murmur present (2/4) and S1S2 is normal
Respiratory: Respiratory effort normal and Lungs clear to auscul.
GI: Soft
Neuro/Psych: Other (Incoherent/somnolent)
Other: Skin (Warm, dry)
Data Reviewed
-
Date of Service: October 10, 2023
EKG: Tracing Personally Visualized and interpreted (EKG: Sinus rhythm)
Medical Tests (PFT, Pathology etc): Discussed with Physician (Cardiology team) and Discussed with Family ( and son-in-law at bedside)
Labs: Labs Reviewed by me
Critical Care Time (in minutes): 46
--- NOTE | 2023-10-10 13:25 | W.PN.UPDATE ---
Addendum entered and electronically signed by Bashir Perry MD 10/10/23 17:20:
I saw and examined the patient.
The FOREIGN LANGUAGE INTERPRETER's note was reviewed and I agree with the note.
Comment:
I met with Mrs. Addison and her son-in-law. We discussed his situation as well as the possible treatment options. I also discussed his case with Dr. Prescott. He does not appear to be in heart failure. I suspect his AI has been going on for quite
some time. Cultures remain negative for now. His neurological status is most concerning at this time. If he is safe for discharge in the near future to rehab, ideally he would have some time to recover from his acute CVA and ETOH withdrawal,
followed but work up outpt for elective TAVR explant and likely root replacement. However, should he fail to progress or decompensates, would advise transferring him to a tertiary care center for both medical and surgical management. For now, there
are no plans for surgery on this admission with me.
Thank you for involving me in the care of this patient. Please feel free to contact me with any questions or concerns.
Bashir Perry MD, MS
Cardiothoracic Surgeon
[facility]
This dictation was created using the [employer] management dictation system. Please excuse any grammatical, typographical, or 'sound alike' errors.
Original Note:
Update Note
Progress Note Update
Patient was seen this afternoon with Dr. Perry. His and son-in-law were at bedside. He discussed at length about the disease process and the risk of a procedure in his current state with his family. Patient at that time was minimally
interactive. It was emphasized during this conversation that in his current state Mr. Addison will be at extremely high risk for a prolonged hospitalization. Therefore, we recommended that if he began to decompensate or had another stoke, we
would continue to recommend transfer to [facility] for his surgical needs. However, it was also discussed that if the patient was able to recover from his acute phase and regain strength while in rehab he can follow-up with
Dr. Perry outpatient, where he can be a part of the conversation to have another surgery. It was also stressed that the patient should discontinue his alcohol consumption. The family expressed understanding.
[2023-10-10] MEDS: LIPITOR 40 MG PO (17:28)
[2023-10-10] MEDS: LOVENOX 40 MG SC (17:28)
--- NOTE | 2023-10-10 18:23 | TRANSFER ---
pt arrives in hospital bed with b/l soft wrist restraints and side rails up x 4 from ICU accompanied by spouse, daughter and LINING SEWER x 2 with fluids and vanco infusing into left arm PIV without issue. pt is awake and alert however is with confused
conversation, waxes and wanes per spouse and reports from ICU R; at times following directions and responding appropriately while at other instances the conversation does not make sense or follow the subject matter. Vitals stable upon arrival. pt
is on RA. pt repositioned, family updated, pt connected to this floors threat monitoring analyst. care plan continues to be followed.
[2023-10-10] MEDS: TYLENOL 650 MG PO (20:12)
[2023-10-11] VITALS (8 sets, daily range): BP systolic 123–160; BP diastolic 61–82; PULSE 96; O2SAT 93; BMI 31.4
[2023-10-11] MEDS: VANCOCIN 300 MG IV (05:32)
[2023-10-11] MEDS: VANCOCIN 300 ML IV (05:32)
[2023-10-11] MEDS: NSS 1000 IV (05:36)
[2023-10-11 06:15] LABS: % Basophils 0.7 % (0-2); % Immature Granulocytes 0.2 % (0-0.5); % Lymphocytes 14.8 % (20.5-51.1); % Monocytes 17.6 % (1.7-9.3); % Neutrophils 59.7 % (42.2-75.2); Absolute Eosinophils 0.3 10^3/uL (0-0.7); Absolute Lymphocytes 0.6 10^3/uL (1.2-3.4); Absolute Monocytes 0.8 10^3/uL (0.1-0.6); Absolute Neutrophils 2.6 10^3/uL (1.4-6.5); Hematocrit 27.9 % (39.0-52.0); Hemoglobin 9.8 g/dL (13.0-18.0); Mean Corp Hgb Conc. 35.1 g/dL (33.0-37.0); Mean Corpuscular Hgb 32.6 pg (27.0-31.0); Mean Corpuscular Volume 92.7 fL (80.0-94.0); Mean Platelet Volume 10.1 fL (7.4-10.4); Nucleated Red Blood Cells % 0 % (-); Platelet Count 179 10^3/uL (130-400); Red Blood Cell Count 3.01 10^6/uL (4.70-6.10); Red Cell Dist. Width 14.2 % (11.5-14.5); White Blood Cell Count 4.3 10^3/uL (4.8-10.8)
[2023-10-11 06:47] LABS: ALT (SGPT) < 10 U/L (0-50); AST (SGOT) 29 U/L (17-59); Albumin 2.8 g/dl (3.5-5.0); Alkaline Phosphatase 64 U/L (38-126); Blood Urea Nitrogen 3 mg/dl (9-20); Calcium 7.4 mg/dl (8.4-10.2); Carbon Dioxide 20 mmol/L (22-30); Chloride 113 mmol/L (98-107); Estimated Creatinine Clearance 116 ml/min; Glucose 89 mg/dl (70-99); Sodium 138 mmol/L (135-145); Total Bilirubin 0.9 mg/dl (0.2-1.3); eGFR > 60.00
[2023-10-11] MEDS: FOLVITE 1 MG PO (07:45)
[2023-10-11] MEDS: MIRALAX 17 GRAMS TUBE (07:45)
[2023-10-11] MEDS: VITAMIN B1 100 MG PO ×2 (07:45→19:46)
[2023-10-11] MEDS: ASPIR LOW (ENTERIC COATED) 81 MG PO (07:45)
--- NOTE | 2023-10-11 08:45 | PHA.VAN.FU ---
Vancomycin Assessment / Plan
- Assessment
Renal Function: Stable
WBC's are: WNL
In the past 24 hrs, patient has been: Afebrile
- Dosing Plan
Continue: Vanc 1500mg Q12H
- Monitoring Plan
Level(s) appropriate: Recheck trough at minimum of weekly intervals, Repeat sooner for changes in renal function or clinical status
Next Level Due (Date): ~10/16, may consider sooner
- Follow Up
Pharmacy will continue to follow.
Vancomycin Follow UP
- -
Patient Age: 78
Patient Sex: Male
Vancomycin Day #: 5
Indication: Endocarditis
Requesting Provider: Dr Posadas / Sugey
Pertinent Antimicrobial Allergies:
no pertinent antibiotic allergies
Height / Weight:
Height 5 ft 9 in
Actual Weight 96.3 kg
IBW in k.7
Adjusted BW in k.2
Pertinent Past Medical History: BMI ~32
- Vital Signs / Lab Results
Temp Pulse Resp BP Pulse Ox
98.6 F 92 16 144/69 95
10/11/23 07:36 10/11/23 07:36 10/11/23 07:36 10/11/23 07:36 10/11/23 07:36
Lab Results - Hematology
10/09/23 10/10/23 10/11/23
04:21 04:25 05:59
WBC 6.4 4.8 4.3 L
Lab Results - Chemistry
10/09/23 10/10/23 10/11/23
04:21 04:25 05:59
BUN 7 L 4 L 3 L
Creatinine 0.4 L 0.5 L 0.4 L
Estimated Creat Clear 117 117 116
Albumin 3.2 L 3.6 2.8 L
Microbiology Results
10/06/23 15:19 Blood Culture - Preliminary
Blood/Venous No Growth in 4 days- Final report to follow
10/06/23 15:19 Blood Culture - Preliminary
Blood/Venous No Growth in 4 days- Final report to follow
Therapeutic Drug Monitoring
Vancomycin Peak 23.2 ug/ml (18-26) 10/09/23 21:13
Vancomycin Trough 12.8 ug/ml (5-20) 10/10/23 04:25
--- NOTE | 2023-10-11 08:58 | PTOTSP ---
Speech Therapy
Language: Patient remains with no reliable means of communication, with jargon speech, occasional appropriate automatic phrases and unreliable yes/no responses.
Swallowing: Patient tolerated solid trials today, but given fluctuating level of alertness day to day, will not advance diet just yet.
Recommend
1. Continuation of IDDSI 4 (pureed) diet
2. If level of alertness is maintained would then recommend advancing to regular solids.
3. Continue thin liquids
4. Meds administered as best tolerated.
--- NOTE | 2023-10-11 12:26 | W.PN.UPDATE ---
Update Note
Progress Note Update
patient seen chart reviewed. discussed w nursing. at bedside. the patient remains confused but he has been generally cooperative. he is not in restraints. told nursing she would be at bedside and hopefully that would keep him cooperative.
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 she said he would be horrified to see himself. empathized with the sadness of this situation. offered support. is trying to also take care of herself.
no changes made in meds. there has been concern patient over sedated. he did not appear sedated today . he is using ativan as per amsas.
--- NOTE | 2023-10-11 12:40 | W.PN.CD ---
Today's Communication / Plan
-
Continue IV abx
Follow up with CTS as outpatient
Impression / Plan
-
.
Acute CVA.
-Acute CVA with receptive aphasia and impaired comprehension with brain MRI showing cluster of small acute nonhemorrhagic infarcts in the left insula and also tiny acute nonhemorrhagic infarct in the left parietal lobe.
-Patient currently maintained in sinus rhythm.
-Neurology following.
-Patient was trying to wander halls earlier this admit and was difficult to redirect and then apparently became more physical 10/06/23 requiring sedation and transfer to ICU.
-Now off Levophed and Ativan
-Still with aphasia and cognitive impairment.
-Continued management directed by Neurology and primary team.
- and son-in-law at bedside today.
.
TAVR/Possible endocarditis with severe AR .
-History of TAVR, now with severe paravalvular AR.
-Possible endocarditis; will need surgical replacement, if deemed an appropriate candidate.
-ID following; on vancomycin.
- DANYA below
Subjective: sleeping this AM
DANYA:
CONCLUSIONS
Normal biventricular size and systolic function without regional wall motion
abnormality.
Bioprosthetic aortic valve (history of TAVR) with severe paravalvular
regurgitation.
Aortic root thickening, cannot rule out aortic root abscess.
Cannot rule out the presence of a small sessile vegetation (view 37) on the
anterior leaflet.
Mild to moderate mitral regurgitation.
No evidence of left atrial, left atrial appendage, right atrial right atrial
appendage thrombus.
No prior study available for comparison.
Physical Exam
Vital Signs/Labs
Vital Signs
Temp Pulse Resp BP Pulse Ox
98.8 F 101 18 129/71 95
10/11/23 11:43 10/11/23 11:43 10/11/23 11:43 10/11/23 11:43 10/11/23 11:43
10/10/23 10/11/23 10/12/23
06:59 06:59 06:59
Actual Weight 214 lb 11.684 oz 212 lb 4.882 oz
10/11/23 05:59
10/11/23 05:59
PT 15.3 Sec (11.4-14.6) H 10/07/23 03:46
INR 1.23 10/07/23 03:46
APTT 29.9 Sec (23.4-35.0) 10/07/23 03:46
Magnesium 2.1 mg/dl (1.6-2.3) 10/07/23 03:46
Triglycerides 79 mg/dl (10-149) 10/06/23 06:24
LDL Cholesterol, Calc 40 mg/dl 10/06/23 06:24
VLDL Cholesterol, Calc 15 mg/dl (0-30) 10/06/23 06:24
HDL Cholesterol 38 mg/dl 10/06/23 06:24
Physical Exam
Constitutional: No acute distress and Comfortable
Cardiovascular: Rhythm & rate is regular and Pedal edema is absent
Respiratory: Respiratory effort normal and Lungs clear to auscul.
GI: Soft
Neuro/Psych: Alert and Oriented
Data Reviewed
-
Date of Service: October 11, 2023
Echo: Report Reviewed by me
Labs: Labs Reviewed by me
[2023-10-11] MEDS: TYLENOL 650 MG PO (15:28)
--- NOTE | 2023-10-11 16:28 | W.PN.ID1 ---
Date of Service
Date of Service: October 11, 2023
Today's Communication
stopped vancomycin
avoid further core (rectal) Ts
will follow up serologies (low suspicion)
Assessment / Plan
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
AVR - bioprosthetic
CVA: L partietal - ischemic
Chronic Alcoholism
- fevers via core route defined as over 101.0 - has not had ashtyn fevers so far this admission; note borderline level of 100.4 in the context of acute stroke which was not persistent; no further core Ts (IE rectal Ts)
- with stroke and possible root abscess patient would be possible endocarditis
- coxiella, bartonella, serologies pending - unlikely
- RF negative
- noninfectious causes of progression of paravalvular leak (IE mechanical) also possible
- DANYA 10/05: AVR with severe valvular leak, could not rule out small vegetation on anterior leaflet, mild-mod MR
- blood cultures x2 are obtained prior to antibiotics - follow to completion - no typical causes of bacterial endocarditis identified
- blood cultures finalized stopped vancomycin
- follow clinically
Transfer to tertiary care center recommended by CT surgery service and I would agree.
Chief Complaint
-: Other (endocarditis - possible)
Subjective / Review of Systems
remains afebrile
bp stable
minimal leukopenia today
hgb 9.8
plt 119
cr 0.4
blood cultures finalized negative
Vital Signs / Physical Exam
Vital Signs
Vital Signs
Temp Pulse Resp BP Pulse Ox
99.9 F 106 16 160/82 96
10/11/23 15:39 10/11/23 15:39 10/11/23 15:39 10/11/23 15:39 10/11/23 15:39
Physical Exam
Constitutional: No Acute Distress
Cardiovascular: Regular Rate and S1/S2; Negative Murmur or Rub
Pulmonary: Clear and Symmetric; Negative Wheezes or Rales
Gastrointestinal: Soft, Non Tender, Non Distended and Normal Bowel Sounds
Skin: Warm and Dry; Negative Rash or Jaundice
Objective Data
Lab Data
Lab Results
10/11/23 05:59
10/11/23 05:59
PT 15.3 Sec (11.4-14.6) H 10/07/23 03:46
INR 1.23 10/07/23 03:46
APTT 29.9 Sec (23.4-35.0) 10/07/23 03:46
Estimated Creat Clear 116 ml/min 10/11/23 05:59
Total Bilirubin 0.9 mg/dl (0.2-1.3) 10/11/23 05:59
AST 29 U/L (17-59) 10/11/23 05:59
ALT < 10 U/L (0-50) 10/11/23 05:59
Alkaline Phosphatase 64 U/L (38-126) 10/11/23 05:59
Most recent labs reviewed.
Micro Results:
10/06/23 15:19 Blood Culture - Final
Blood/Venous No Growth - Final Report
10/06/23 15:19 Blood Culture - Final
Blood/Venous No Growth - Final Report
Care Review
Plan reviewed with: Physician (Dr Gold - stopped antibiotics)
--- NOTE | 2023-10-11 17:54 | W.PN.HOSP.TC ---
Today's Communication/Plan
-
Observe off antibiotics
Continue neurological assessment.
Haldol/lorazepam as needed for agitation
Monitor oral intake
Observe off IV fluids
Assessment / Plan
Assessment / Plan
CTA head and neck showed:
Bilateral carotid bulb and proximal internal carotid artery atherosclerosis, left greater than right, without hemodynamically significant proximal internal carotid artery stenosis.
No findings to suggest internal carotid artery or vertebral artery dissection bilaterally. Dominant right vertebral artery.
No findings to suggest proximal intracranial arterial stenosis bilaterally.
MRI brain showed:
Cluster of small acute, nonhemorrhagic infarcts in the left insula. There is also a tiny acute nonhemorrhagic infarct in the left parietal lobe posteriorly.
Cerebral atrophy along with chronic small vessel ischemia in cerebral white matter
Old lacunar infarcts in the centrum semiovale bilaterally and right frontal subcortical white matter.
IMPRESSION:
78 years old with a history of hypertension, hyperlipidemia, aortic stenosis status post TAVR presented with mild confusion and slurred speech which resolved, MRI brain shows acute CVA neurology consulted, vision consulted and plan for DANYA today.
PLAN:
Acute CVA (Wernicke's aphasia)
CT head done in the ER showed: No acute abnormality.
MRI of the brain was positive for acute infarcts
CTA was negative for acute stenosis
Echo was performed Overall preserved left ventricular function. Estimated LV ejection fraction is 55% . Lateral hypokinesis.
Continue laboratory monitor
Frequent neurocheck.
continue with Aspirin/atorvastatin,
Hemoglobin A1c 5.3, LDL 40.
PT/OT consulted.
DANYA with normal biventricular size and systolic function without regional wall motion abnormality. Bioprosthetic aortic valve with severe paravalvular regurgitation. Aortic root thickening cannot rule out aortic root abscess. Cannot rule out the
presence of small sessile vegetation on the anterior leaflet. Mild to moderate regurgitation mitral. No evidence of left atrial appendage, right atrial appendage thrombus.
Toxic metabolic encephalopathy likely multifactorial due to acute CVA, alcohol withdrawals and suspected delirium with behavioral disturbances
Alcohol abuse.
Daily alcohol use.
Last used 2 days ago prior to arrival
Patient given thiamine IV in the ER, will continue while in the hospital, then discharge on oral thiamine
Folic acid
Precedex drip intermittent use for agitation. Now off.
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
Ativan standing was started on 10/07 and discontinued further
Continue with prn ativan
Psych recs
TAVR with severe AI was moderate before unclear timeline
Suspected endocarditis
blood cultures are negative x 72hours
Antibiotics as per infectious disease
Continue vancomycin. Zosyn discontinued.
Additional blood work ordered with Bartonella and Q fever and rheumatoid
Discussed with infectious service
Given negative cultures, and patient being afebrile antibiotic/vancomycin has been discontinued on 10/10. Monitor closely.
Dysphagia
Started on pur�ed diet
Cont with IVF in the interim
Shock likely secondary to sedation and decreased p.o. intake versus low likelihood of related to infection/sepsis
Discontinue phenobarbital
BP improved
See individual problem as above
Off Levophed
RUE with superficial vein thrombosis
IV removed
History of hypertension
Cont to Hold home amlodipine for now
CODE STATUS: Full code
DVT prophylaxis: Lovenox
Diet: cardiac diet (speech for swallow eval)
Discussed with patient's spouse in details.
Anticipated Discharge: 24 - 48 hours
Subjective/Interval History
-
Date of Service: October 11, 2023
Objective Data
-
Labs:
Laboratory Results
10/11/23
05:59
WBC 4.3 L
Hgb 9.8 L
Hct 27.9 L
Plt Count 179
Sodium 138
Potassium 3.0 L
Chloride 113 H
Carbon Dioxide 20 L
BUN 3 L
Creatinine 0.4 L
Glucose 89
Calcium 7.4 L
Total Bilirubin 0.9
AST 29
ALT < 10
Alkaline Phosphatase 64
Vital Signs:
Vital Signs
Temp Pulse Resp BP Pulse Ox
99.9 F 106 16 160/82 96
10/11/23 15:39 10/11/23 15:39 10/11/23 15:39 10/11/23 15:39 10/11/23 15:39
I&O
10/10/23 10/11/23 10/12/23
06:59 06:59 06:59
Intake Total 2540 / 2540 2290 / 2290
Output Total 550 / 550
Balance 1989 2290 / 2290
Physical Exam
-
General: Well Developed and Appears Chronically Ill
HEENT: Normocephalic, Atraumatic and Moist Mucous Membranes
Respiratory: Clear to Auscultation (Continue healthy)
Cardiac: Regular Rhythm and S1/S2; Negative Rub or Gallop
GI: Soft, Nontender, Nondistended and Normal Bowel Sounds; Negative Organomegaly
Rectal: Deferred by Provider
Musculoskeletal: No Clubbing, No Cyanosis, No Edema and Edema, Right Upper Extrem
Skin: Negative Rash
Neuro: Awake and Nonfocal/Grossly Intact
Psych: Confused and Agitated
[2023-10-11] MEDS: LOVENOX 40 MG SC (18:34)
[2023-10-11] MEDS: LIPITOR 40 MG PO (18:35)
[2023-10-12] VITALS (8 sets, daily range): BP systolic 113–155; BP diastolic 52–89; PULSE 115; O2SAT 94; BMI 31.1
[2023-10-12] MEDS: TYLENOL 650 MG PO (00:16)
[2023-10-12] MEDS: ATIVAN 1 MG IV (00:57)
--- NOTE | 2023-10-12 01:00 | PTCARENOTE ---
msas 6. pt attempting to get oob despite redirection. 1mg Ativan given. will monitor.
[2023-10-12 03:20] LABS: Bartonella henselae IgG <1:64; Bartonella henselae IgM < 1:16
[2023-10-12 06:26] LABS: % Basophils 0.9 % (0-2); % Eosinophils 6.2 % (0-6); % Immature Granulocytes 0.5 % (0-0.5); % Lymphocytes 15.1 % (20.5-51.1); % Monocytes 17.4 % (1.7-9.3); % Neutrophils 59.9 % (42.2-75.2); Absolute Eosinophils 0.3 10^3/uL (0-0.7); Absolute Lymphocytes 0.7 10^3/uL (1.2-3.4); Absolute Monocytes 0.8 10^3/uL (0.1-0.6); Absolute Neutrophils 2.6 10^3/uL (1.4-6.5); Hematocrit 30.2 % (39.0-52.0); Hemoglobin 10.1 g/dL (13.0-18.0); Mean Corp Hgb Conc. 33.4 g/dL (33.0-37.0); Mean Corpuscular Hgb 32.1 pg (27.0-31.0); Mean Corpuscular Volume 95.9 fL (80.0-94.0); Mean Platelet Volume 10.5 fL (7.4-10.4); Nucleated Red Blood Cells % 0 % (-); Platelet Count 192 10^3/uL (130-400); Red Blood Cell Count 3.15 10^6/uL (4.70-6.10); Red Cell Dist. Width 14.4 % (11.5-14.5); White Blood Cell Count 4.4 10^3/uL (4.8-10.8)
[2023-10-12 07:20] LABS: ALT (SGPT) 13 U/L (0-50); AST (SGOT) 35 U/L (17-59); Albumin 3.5 g/dl (3.5-5.0); Alkaline Phosphatase 77 U/L (38-126); Blood Urea Nitrogen 5 mg/dl (9-20); Calcium 8.9 mg/dl (8.4-10.2); Carbon Dioxide 25 mmol/L (22-30); Chloride 107 mmol/L (98-107); Estimated Creatinine Clearance 116 ml/min; Glucose 92 mg/dl (70-99); Potassium 3.5 mmol/L (3.5-5.1); Sodium 139 mmol/L (135-145); Total Bilirubin 0.9 mg/dl (0.2-1.3); Total Protein 5.8 g/dl (6.3-8.2); eGFR > 60.00
[2023-10-12] MEDS: MIRALAX 17 GRAMS TUBE (07:39)
[2023-10-12] MEDS: ASPIR LOW (ENTERIC COATED) 81 MG PO (07:39)
[2023-10-12] MEDS: FOLVITE 1 MG PO (07:39)
[2023-10-12] MEDS: VITAMIN B1 100 MG PO ×2 (07:39→20:13)
--- NOTE | 2023-10-12 08:50 | W.PN.UPDATE ---
Update Note
Progress Note Update
Discussed with Dr. Perry and CT Surgery office
Patient scheduled for follow up on 11/29/23 at 1:[address] Vicky MD.
Patient is working toward being medically cleared for discharge, +/- but will ideally need placement in rehab.
CT Surgery will sign off
Follow up appointment placed in discharge instructions
Please call with any questions or concerns
--- NOTE | 2023-10-12 09:17 | CM ---
PT recommended [facility] when stable for discharge
Contacted Attending and requested PM&R; and sent referrals to [facility] and [facility]
--- NOTE | 2023-10-12 09:50 | W.PN.CD ---
Today's Communication / Plan
-
Patient sitting up and getting therapy. patient is calm still with speech and cognitive issues.
Continue current therapy
See updated CT surgery note form Dr Perry
Impression / Plan
-
.
Acute CVA.
-Acute CVA with receptive aphasia and impaired comprehension with brain MRI showing cluster of small acute nonhemorrhagic infarcts in the left insula and also tiny acute nonhemorrhagic infarct in the left parietal lobe.
-Patient currently maintained in sinus rhythm.
-Neurology following.
-Patient was trying to wander halls earlier this admit and was difficult to redirect and then apparently became more physical 10/06/23 requiring sedation and transfer to ICU.
-Now off Levophed and Ativan
-Still with aphasia and cognitive impairment.
-Continued management directed by Neurology and primary team.
.
TAVR/Possible endocarditis with severe AR .
-History of TAVR, and history of moderate paravalvular AR. now with severe paravalvular AR.
-Possible endocarditis; . CT surgery consulted and assessing need and timing of surgery.
-ID following; on vancomycin.
-- CT surgery has seen in consultation
Subjective: sleeping this AM
DANYA:
CONCLUSIONS
Normal biventricular size and systolic function without regional wall motion
abnormality.
Bioprosthetic aortic valve (history of TAVR) with severe paravalvular
regurgitation.
Aortic root thickening, cannot rule out aortic root abscess.
Cannot rule out the presence of a small sessile vegetation (view 37) on the
anterior leaflet.
Mild to moderate mitral regurgitation.
No evidence of left atrial, left atrial appendage, right atrial right atrial
appendage thrombus.
No prior study available for comparison.
Physical Exam
Vital Signs/Labs
Vital Signs
Temp Pulse Resp BP Pulse Ox
98.2 F 94 18 143/73 94
10/12/23 07:00 10/12/23 07:00 10/12/23 07:00 10/12/23 07:00 10/12/23 07:00
10/11/23 10/12/23 10/13/23
06:59 06:59 06:59
Actual Weight 96.3 kg 95.436 kg
10/12/23 06:12
10/12/23 06:12
PT 15.3 Sec (11.4-14.6) H 10/07/23 03:46
INR 1.23 10/07/23 03:46
APTT 29.9 Sec (23.4-35.0) 10/07/23 03:46
Magnesium 2.1 mg/dl (1.6-2.3) 10/07/23 03:46
Triglycerides 79 mg/dl (10-149) 10/06/23 06:24
LDL Cholesterol, Calc 40 mg/dl 10/06/23 06:24
VLDL Cholesterol, Calc 15 mg/dl (0-30) 10/06/23 06:24
HDL Cholesterol 38 mg/dl 10/06/23 06:24
Physical Exam
Constitutional: No acute distress
Cardiovascular: Rhythm & rate is regular
Respiratory: Respiratory effort normal
GI: Soft
Neuro/Psych: Alert and Other (still with aphasia. Still with issues with cognition. asked to lift arms and he atlease was trying to do something with ars in response. asked to wiggle fingers and did not do it. )
Data Reviewed
-
Date of Service: October 12, 2023
Medical Decision Making: Reviewed Test Results
Medical Tests (PFT, Pathology etc): Report Reviewed by me
Labs: Labs Reviewed by me
--- NOTE | 2023-10-12 12:48 | W.PN.UPDATE ---
Update Note
Progress Note Update
patient seen chart reviewed. discussed with nursing. at bedside. the patient was resting quietly. i could not really carry on a conversation with him as he appeared to be rather sedated and of course he is aphasic. . reports she sees
him as improving although he has not really communicated with her either. suggested to nursing that perhaps a letter board could help . he did receive ativan today. will dc the msas order as wd unlikely to be an issue at this point and rewrite
the prn of lorazepam for anxiety /agitation and reduce to o.5 mg he came in on 10.05. psych will sign off at this point. please call us if you need us to return.
--- NOTE | 2023-10-12 14:26 | W.PN.HOSP.TC ---
Today's Communication/Plan
-
Mental status slowly improving, patient with less agitation, oriented to name but not place and time.
Continue physical therapy
Physiatry consultation.
Disposition efforts hopefully to acute rehab.
Monitor off antibiotics
Patient's updated over the phone.
Assessment / Plan
Assessment / Plan
CTA head and neck showed:
Bilateral carotid bulb and proximal internal carotid artery atherosclerosis, left greater than right, without hemodynamically significant proximal internal carotid artery stenosis.
No findings to suggest internal carotid artery or vertebral artery dissection bilaterally. Dominant right vertebral artery.
No findings to suggest proximal intracranial arterial stenosis bilaterally.
MRI brain showed:
Cluster of small acute, nonhemorrhagic infarcts in the left insula. There is also a tiny acute nonhemorrhagic infarct in the left parietal lobe posteriorly.
Cerebral atrophy along with chronic small vessel ischemia in cerebral white matter
Old lacunar infarcts in the centrum semiovale bilaterally and right frontal subcortical white matter.
IMPRESSION:
78 years old with a history of hypertension, hyperlipidemia, aortic stenosis status post TAVR presented with mild confusion and slurred speech which resolved, MRI brain shows acute CVA neurology consulted, vision consulted and plan for DANYA today.
PLAN:
Acute CVA (Wernicke's aphasia)
CT head done in the ER showed: No acute abnormality.
MRI of the brain was positive for acute infarcts
CTA was negative for acute stenosis
Echo was performed Overall preserved left ventricular function. Estimated LV ejection fraction is 55% . Lateral hypokinesis.
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
Frequent neurocheck.
continue with Aspirin/atorvastatin,
Hemoglobin A1c 5.3, LDL 40.
PT/OT consulted.
DANYA with normal biventricular size and systolic function without regional wall motion abnormality. Bioprosthetic aortic valve with severe paravalvular regurgitation. Aortic root thickening cannot rule out aortic root abscess. Cannot rule out the
presence of small sessile vegetation on the anterior leaflet. Mild to moderate regurgitation mitral. No evidence of left atrial appendage, right atrial appendage thrombus.
Toxic metabolic encephalopathy likely multifactorial due to acute CVA, alcohol withdrawals and suspected delirium with behavioral disturbances
Alcohol abuse.
Daily alcohol use.
Last used 2 days ago prior to arrival
Patient given thiamine IV in the ER, will continue while in the hospital, then discharge on oral thiamine
Folic acid
Precedex drip intermittent use for agitation. Now off.
Discussed with neurology medical staffing coordinator will plan to DC phenobarbital
Ativan standing was started on 10/07 and discontinued further
Continue with prn ativan
Psych recs
TAVR with severe AI was moderate before unclear timeline
Suspected endocarditis
blood cultures are negative x 72hours
Antibiotics as per infectious disease
Continue vancomycin. Zosyn discontinued.
Additional blood work ordered with Bartonella and Q fever and rheumatoid
Discussed with infectious service
Given negative cultures, and patient being afebrile antibiotic/vancomycin has been discontinued on 10/10. Monitor closely.
Dysphagia
Started on pur�ed diet
Cont with IVF in the interim
Shock likely secondary to sedation and decreased p.o. intake versus low likelihood of related to infection/sepsis
Discontinue phenobarbital
BP improved
See individual problem as above
Off Levophed
RUE with superficial vein thrombosis
IV removed
History of hypertension
Cont to Hold home amlodipine for now
CODE STATUS: Full code
DVT prophylaxis: Lovenox
Diet: cardiac diet (speech for swallow eval)
Discussed with patient's spouse in details.
Anticipated Discharge: 24 - 48 hours
Subjective/Interval History
-
Date of Service: October 12, 2023
Objective Data
-
Labs:
Laboratory Results
10/12/23
06:12
WBC 4.4 L
Hgb 10.1 L
Hct 30.2 L
Plt Count 192
Sodium 139
Potassium 3.5
Chloride 107
Carbon Dioxide 25
BUN 5 L
Creatinine 0.5 L
Glucose 92
Calcium 8.9 D
Total Bilirubin 0.9
AST 35
ALT 13
Alkaline Phosphatase 77
Vital Signs:
Vital Signs
Temp Pulse Resp BP Pulse Ox
98.1 F 98 18 113/52 95
10/12/23 11:00 10/12/23 11:00 10/12/23 11:00 10/12/23 11:00 10/12/23 11:50
I&O
10/11/23 10/12/23 10/13/23
06:59 06:59 06:59
Intake Total 2290 / 2290 480 / 480
Balance 2290 / 2290 480 / 480
Physical Exam
-
General: Well Developed and Appears Chronically Ill
HEENT: Normocephalic, Atraumatic and Moist Mucous Membranes
Respiratory: Clear to Auscultation (Continue healthy)
Cardiac: Regular Rhythm and S1/S2; Negative Rub or Gallop
GI: Soft, Nontender, Nondistended and Normal Bowel Sounds; Negative Organomegaly
Rectal: Deferred by Provider
Musculoskeletal: No Clubbing, No Cyanosis, No Edema and Edema, Right Upper Extrem
Skin: Negative Rash
Neuro: Awake, Alert, Oriented (Name only.) and Nonfocal/Grossly Intact
Psych: Confused
--- NOTE | 2023-10-12 15:14 | CON.MD ---
Documented by User: Sera Stewart PA-C 10/12/23 17:04
Consultation - Medical
-
Referring Provider: Leonidas Hernandez
Chief Complaint: CVA
History of Present Illness: 78 years old with a history of hypertension, hyperlipidemia, aortic stenosis status post TAVR presented to the ED on 10/05/2023 with mild confusion and slurred speech,CT head done in the ER with no acute abnormality. CTA
negative for acute stenosis. He is with receptive aphasia and impaired comprehension with brain MRI showing cluster of small acute nonhemorrhagic infarcts in the left insula and also tiny acute nonhemorrhagic infarct in the left parietal lobe. DANYA
with normal biventricular size and systolic function without regional wall motion abnormality. Bioprosthetic aortic valve with severe paravalvular regurgitation. Aortic root thickening cannot rule out aortic root abscess. Cannot rule out the
presence of small sessile vegetation on the anterior leaflet. Mild to moderate regurgitation mitral. Blood cultures - were negative and vancomycin was stopped.
CT surgery consulted and assessing need and timing of surgery. Per CY surgery- Ideally he would have some time to recover from his acute CVA and ETOH withdrawal, followed but work up outpatient for elective TAVR explant and likely root replacement.
However, should he fail to progress or decompensates, would advise transferring him to a tertiary care center for both medical and surgical management. For now, there are no plans for surgery on this admission.
Patient was transferred to ICU due to agitation and alcohol withdraw on 10/05 then [facility] Seen by psychiatry this morning but was too sedated.
CT head done in the ER: No acute abnormality.
MRI of the brain was positive for acute infarcts
CTA was negative for acute stenosis
Echo was performed Overall preserved left ventricular function. Estimated LV ejection fraction is 55% . Lateral hypokinesis.
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
CTA head and neck showed:
Bilateral carotid bulb and proximal internal carotid artery atherosclerosis, left greater than right, without hemodynamically significant proximal internal carotid artery stenosis.
No findings to suggest internal carotid artery or vertebral artery dissection bilaterally. Dominant right vertebral artery.
No findings to suggest proximal intracranial arterial stenosis bilaterally.
MRI brain showed:
Cluster of small acute, nonhemorrhagic infarcts in the left insula. There is also a tiny acute nonhemorrhagic infarct in the left parietal lobe posteriorly.
Cerebral atrophy along with chronic small vessel ischemia in cerebral white matter
Old lacunar infarcts in the centrum semiovale bilaterally and right frontal subcortical white matter.
DANYA with normal biventricular size and systolic function without regional wall motion abnormality. Bioprosthetic aortic valve with severe paravalvular regurgitation. Aortic root thickening cannot rule out aortic root abscess. Cannot rule out the
presence of small sessile vegetation on the anterior leaflet. Mild to moderate regurgitation mitral. No evidence of left atrial appendage, right atrial appendage thrombus.
Past Medical History: hypertension, hyperlipidemia, aortic stenosis status post TAVR
Procedure History: TAVR,
Family History: not contributory
Social History:
Functional Level Premorbidly: Independent with all activities
Functional Level Currently: bed mobility- Max assist, Transfer-dependent, ambulation- attempted few times with patient screaming out loud and unable to put weight on leg.
Tobacco: Denies
Alcohol: daily use. Last one day of admit
Drug use: Denies
Lives with: spouse
24-hour assistance available:
Number of floors: multi-level
# steps to enter: 2
# steps to second floor:
Potential First floor set up:
Driving: ?
Occupation: retired
�
Allergies:
Allergy/AdvReac Type Severity Reaction Status Date / Time
pollen extracts Allergy RUNNY NOSE Verified 10/06/23 18:39
AND
SNEEZING
Review of Systems:
Constitutional: (x) Normal _
Eye: (x) Normal _
Ear/Nose/Throat: (x) Normal _
Respiratory: (x) Normal _
Cardiovascular: (x) AR, tavr
Gastrointestinal: (x) Normal _
Genitourinary: (x) Normal _
Musculoskeletal: (x) Normal _
Integumentary: (x) Normal _
Neurologic: (x) cva, receptive aphasia
Psychiatric: (x) delirium, agitation
Endocrine: (x) Normal _
Hematologic/Lymphatic: (x) Normal _
Allergic/Immunologic: (x) Normal _
Medications:
Active Current Visit Medication List
Category Date Time Status
0.9% Sodium Chloride [Nss (Preservative Free)] Med 10/06/23 14:00 Active
See Protocol IV PRN PRN
Acetaminophen [Tylenol] Med 10/05/23 12:24 Active
650 mg PO Q4HPRN PRN
Aspirin Low Dose EC [Aspir Low (Enteric Coated)] Med 10/06/23 08:00 Active
81 mg PO DAILY
Atorvastatin [Lipitor] Med 10/05/23 18:00 Active
40 mg PO QPM
Bisacodyl [Dulcolax] Med 10/05/23 12:24 Active
10 mg RECTAL [id number] PRN
Docusate W/Senna [Senokot-S] Med 10/05/23 12:24 Active
1 tablet PO BIDPRN PRN
Enoxaparin Sodium [Lovenox] Med 10/05/23 18:00 Active
40 mg SC QPM
FOLic ACID [Folvite] Med 10/06/23 08:00 Active
1 mg PO DAILY
FOLic ACID [Folvite] 1 mg Med 10/06/23 14:00 Active
0.9% Sodium Chloride 50 ml [Nss] 50 ml
IV DAILYPRN
Flush (0.9% Sodium Chloride) [Flush (Nss)] Med 10/05/23 11:00 Active
See Dose Instructions IV PER PROTOCOL
Haloperidol Lactate [Haldol] Med 10/06/23 12:43 Active
2 mg IM Q4HPRN PRN
Lorazepam [Ativan] Med 10/12/23 12:53 Active
0.5 mg IV Q8HPRN PRN
Polyethylene Glycol Powder [Miralax] Med 10/05/23 12:24 Active
17 grams PO DAILYPRN PRN
Polyethylene Glycol Powder [Miralax] Med 10/07/23 08:00 Active
17 grams TUBE DAILY
Thiamine HCl [Vitamin B1] Med 10/09/23 20:00 Active
100 mg PO BID
Vitals:
Temp Pulse Resp BP Pulse Ox
98.1 F 98 18 113/52 95
10/12/23 11:00 10/12/23 11:00 10/12/23 11:00 10/12/23 11:00 10/12/23 11:50
Height 5 ft 9 in
Actual Weight 95.436 kg
Body Mass Index (BMI) 31.1
Physical Exam:
General Appearance/Observation: Well-developed, well-nourished individual in no apparent distress, but starting to get agitated.
Pain/Comfort Assessment: unable to assess. Patient starting to get agitated, delirious,
Mood/Affect: Appropriate
Integumentary/Operative Site:
�� Pressure Ulcer Evaluation: not visualized
��
�� Other Type of Wound: ecchymosis
��
��
Eyes: Conjunctiva/Lids: ptosis more on right than left ��� Pupils: pupils equal round and reactive to light and Accommodation
Ears/Nose/Throat: oral mucosa moist,� throat clear.������������ Lips/Teeth/Gums: normal
Neck: No muscle spasm or tenderness
Cardiovascular: Heart: regular, murmur
Pulses: dorsalis pedis
Respiratory: Respiratory Effort/Chest Expansion: normal ������� Auscultation: Clear to auscultation bilaterally
Gastrointestinal: abdomen not tender, no distension, normal abdominal bowel sounds
Genitourinary: No Boyd
Extremities: Edema: None Cyanosis: None Trophic changes: None
Neurology Exam:
Orientation: starting to get agitated, talking but does not make sense
Memory: impaired
Higher cortical function
Repetition: impaired
Comprehension: Impaired
Two step command: impaired
Naming: impaired
Cranial Nerves:
�� CNII: Pupillary light reflex: Intact��� Visual Field: Intact
�� CN III, IV, : Extraocular muscles: unable to assess due to receptive ahasia and mentation
�� CN V: Facial Sensation at Forehead:, Maxilla: , Mandible: unable to assess
�� CN VII: Facial movement: some asymmetry
�� CN VIII: Hearing: Normal
�� CN IX/X: Speech & swallow: dysarthric Position of Uvula: Midline
�� CN XI: Shoulder shrug: unable to assess
�� CN XII: Tongue protrusion:
Sensory:
�� Light touch: not assess
��
Reflexes:not assess
��
�� Bárbara: Negative bilaterally
Cerebellar: Dysmetria/Ataxia: unable to assess
Musculoskeletal:
Motor: unable to assess getting agitated . Able to move all four limbs
Tone: Normal in all extremities
Lab Results
Labs
WBC 4.4 10^3/uL (4.8-10.8) L 10/12/23 06:12
RBC 3.15 10^6/uL (4.70-6.10) L 10/12/23 06:12
Hgb 10.1 g/dL (13.0-18.0) L 10/12/23 06:12
Hct 30.2 % (39.0-52.0) L 10/12/23 06:12
MCV 95.9 fL (80.0-94.0) H 10/12/23 06:12
MCH 32.1 pg (27.0-31.0) H 10/12/23 06:12
MCHC 33.4 g/dL (33.0-37.0) 10/12/23 06:12
RDW 14.4 % (11.5-14.5) 10/12/23 06:12
Plt Count 192 10^3/uL (130-400) 10/12/23 06:12
MPV 10.5 fL (7.4-10.4) H 10/12/23 06:12
Abs Immat Gran (auto) 0.0 10^3/uL (0-0.05) 10/12/23 06:12
Absolute Neuts (auto) 2.6 10^3/uL (1.4-6.5) 10/12/23 06:12
Absolute Lymphs (auto) 0.7 10^3/uL (1.2-3.4) L 10/12/23 06:12
Absolute Monos (auto) 0.8 10^3/uL (0.1-0.6) H 10/12/23 06:12
Absolute Eos (auto) 0.3 10^3/uL (0-0.7) 10/12/23 06:12
Absolute Basos (auto) 0.0 10^3/uL (0-0.2) 10/12/23 06:12
Immature Gran % 0.5 % (0-0.5) 10/12/23 06:12
Neutrophils % 59.9 % (42.2-75.2) 10/12/23 06:12
Lymphocytes % 15.1 % (20.5-51.1) L 10/12/23 06:12
Monocytes % 17.4 % (1.7-9.3) H 10/12/23 06:12
Eosinophils % 6.2 % (0-6) H 10/12/23 06:12
Basophils % 0.9 % (0-2) 10/12/23 06:12
Nucleated RBC % 0 % (-) 10/12/23 06:12
PT 15.3 Sec (11.4-14.6) H 10/07/23 03:46
INR 1.23 10/07/23 03:46
APTT 29.9 Sec (23.4-35.0) 10/07/23 03:46
Sodium 139 mmol/L (135-145) 10/12/23 06:12
Potassium 3.5 mmol/L (3.5-5.1) 10/12/23 06:12
Chloride 107 mmol/L (98-107) 10/12/23 06:12
Carbon Dioxide 25 mmol/L (22-30) 10/12/23 06:12
BUN 5 mg/dl (9-20) L 10/12/23 06:12
Creatinine 0.5 mg/dL (0.7-1.3) L 10/12/23 06:12
Estimated Creat Clear 116 ml/min 10/12/23 06:12
eGFR > 60.00 10/12/23 06:12
Glucose 92 mg/dl (70-99) 10/12/23 06:12
Hemoglobin A1c 5.3 % (4.0-5.6) 10/05/23 08:37
Calcium 8.9 mg/dl (8.4-10.2) D 10/12/23 06:12
Phosphorus 4.5 mg/dl (2.5-4.5) 10/07/23 03:46
Magnesium 2.1 mg/dl (1.6-2.3) 10/07/23 03:46
Total Bilirubin 0.9 mg/dl (0.2-1.3) 10/12/23 06:12
AST 35 U/L (17-59) 10/12/23 06:12
ALT 13 U/L (0-50) 10/12/23 06:12
Alkaline Phosphatase 77 U/L (38-126) 10/12/23 06:12
Ammonia < 9 umol/L (9-30) L 10/05/23 08:37
Troponin I 0.026 ng/ml 10/06/23 06:24
Total Protein 5.8 g/dl (6.3-8.2) L 10/12/23 06:12
Albumin 3.5 g/dl (3.5-5.0) 10/12/23 06:12
Triglycerides 79 mg/dl (10-149) 10/06/23 06:24
Total Cholesterol 93 mg/dl (50-199) 10/06/23 06:24
LDL Cholesterol, Calc 40 mg/dl 10/06/23 06:24
VLDL Cholesterol, Calc 15 mg/dl (0-30) 10/06/23 06:24
HDL Cholesterol 38 mg/dl 10/06/23 06:24
Urine Color Cancelled 10/05/23 14:57
Urine Clarity Cancelled 10/05/23 14:57
Urine pH Cancelled 10/05/23 14:57
Ur Specific [place] Cancelled 10/05/23 14:57
Urine Ketones Cancelled 10/05/23 14:57
Ur Occult Blood Reflex Cancelled 10/05/23 14:57
Urine Nitrite (Reflex) Cancelled 10/05/23 14:57
Urine Bilirubin Cancelled 10/05/23 14:57
Urine Urobilinogen Cancelled 10/05/23 14:57
Leukocyte Esterase Rfl Cancelled 10/05/23 14:57
Urine RBC Cancelled 10/05/23 14:57
Urine WBC (Reflex) Cancelled 10/05/23 14:57
Ur Squamous Epith Cells Cancelled 10/05/23 14:57
Ur Urothelial Cells Cancelled 10/05/23 14:57
Calcium Oxalate Crystal Cancelled 10/05/23 14:57
Cystine Crystals Cancelled 10/05/23 14:57
Uric Acid Crystals Cancelled 10/05/23 14:57
Triple Phos Crystals Cancelled 10/05/23 14:57
Amorphous Crystals Cancelled 10/05/23 14:57
Urine Bacteria (Reflex) Cancelled 10/05/23 14:57
Epithelial Casts Cancelled 10/05/23 14:57
Fatty Casts Cancelled 10/05/23 14:57
Hyaline Casts Cancelled 10/05/23 14:57
Granular Casts Cancelled 10/05/23 14:57
Waxy Casts Cancelled 10/05/23 14:57
RBC Casts Cancelled 10/05/23 14:57
WBC Casts Cancelled 10/05/23 14:57
Urine Mucus Cancelled 10/05/23 14:57
Urine Trichomonas Cancelled 10/05/23 14:57
Urine Yeast Cancelled 10/05/23 14:57
Urine Sperm Cancelled 10/05/23 14:57
Urinalysis Comment Cancelled 10/05/23 14:57
Urine Glucose Cancelled 10/05/23 14:57
Urine Albumin (Reflex) Cancelled 10/05/23 14:57
Vancomycin Peak 23.2 ug/ml (18-26) 10/09/23 21:13
Vancomycin Trough 12.8 ug/ml (5-20) 10/10/23 04:25
Urine Opiates Screen Negative (Negative) 10/05/23 09:34
Ur Buprenorphine Negative (Negative) 10/05/23 09:34
Ur Oxycodone Screen Negative (Negative) 10/05/23 09:34
Urine Methadone Screen Negative (Negative) 10/05/23 09:34
Ur Barbiturates Screen Negative (Negative) 10/05/23 09:34
Ur Tricyclics Screen Negative (Negative) 10/05/23 09:34
Ur Phencyclidine Scrn Negative (Negative) 10/05/23 09:34
Ur Amphetamines Screen Negative (Negative) 10/05/23 09:34
U Methamphetamines Scrn Negative (Negative) 10/05/23 09:34
U Benzodiazepines Scrn Negative (Negative) 10/05/23 09:34
Urine Cocaine Screen Negative (Negative) 10/05/23 09:34
U Marijuana (THC) Screen Negative (Negative) 10/05/23 09:34
Alcohol, Quantitative Cancelled 10/05/23 08:45
Rheumatoid Factor Less than 10 iu (<10 IU) 10/09/23 04:21
Bartonella henselae IgG <1:64 10/09/23 11:39
Bartonella henselae IgM < 1:16 10/09/23 11:39
Q Fever Phase I IgG Ab Negative (Negative) 10/09/23 11:39
Q Fever Phase II IgG Ab Negative (Negative) 10/09/23 11:39
POC Glucose 71 mg/dl (70-99) 10/09/23 05:41
�
Diagnostic Results: as per HPI
Assessment 78 years old with a history of hypertension, hyperlipidemia, aortic stenosis status post TAVR presented to the ED on 10/05/2023 with mild confusion and slurred speech.brain MRI showing cluster of small acute nonhemorrhagic infarcts in the
left insula and also tiny acute nonhemorrhagic infarct in the left parietal lobe.
Plan
PT/OT to increase independence with ADLs, improve balance, coordination, endurance, strength, mobility, community reintegration, decreased burden of care on others and family education.
CVA: Secondary prophylaxis with aspirin, statin, and blood pressure control (SBP less than 180 and diastolic less than 100 to participate with therapy for ischemic stroke). Continue to monitor neurologic status.
Toxic metabolic encephalopathy : multifactorial due to acute CVA, alcohol withdrawals and suspected delirium with behavioral disturbances. Daily alcohol use. Last used 2 days ago prior to arrival. Given thiamine IV in the ER, will continue while in
the hospital, then discharge on oral thiamine. Folic acid
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 blood cultures and Bartonella, Q fever and rheumatoid -negative Vancomycin d/zbigniew 10/10
RUE with superficial vein thrombosis :IV removed
Hypertension: Cont to Hold home amlodipine for now
Dysphagia: speech evaluation, oral care protocol, aspiration precautions.�Started on pur�ed diet. Cont with IVF in the interim. Advance diet as tolerated.
Dysarthria: speech evaluation
Aphasia: Receptive. speech evaluation
HLD: Atorvastatin 20mg qd
Psych/delirium/agitation/: Psychology consult.� Haloperidol 2mg IM q 4 prn, Lorazepam IV
Skin: monitor for pressure sores/rashes/lesions.
Pain: acetaminophen as needed.
Bowel: Senna, Miralax
Bladder: Time void, PVRs, PRN straight cath.
Alcohol Abuse: Alcohol cessation education, offering of outpatient alcohol abuse program
GI Prophylaxis: Pantoprazole 40mg
DVT Prophylaxis: Lovenox SC
Pulmonary: Incentive spirometry
Safety: Continue to reinforce assistance with all transfers.
Code Status:� Full code
Functional and Medical Goals: Modified Independent with ADL�s, ambulation, transfers
- Discharge Destination: SNF or shelter - unable to participate in Acute inpatient rehab at this time. Patient too agitated and delirious. May reconsult when mentation, encephalopathy improves
Summary of recommendations: Patient with CVA and questionable receptive aphasia complicated by alcohol withdraw, and ongoing agitation and mental status change on Haloperidol and Lorazepam. Currently not ideal for acute inpatient rehabilitation. He
would benefit from Skilled Nurse Facility for PT/OT/Speech of 1-2 hours with medical management. Currently not able to follow commands, or fully participate in therapy. May reconsult when mentation is much improved.
CVA: Secondary prophylaxis with aspirin, statin, and blood pressure control (SBP less than 180 and diastolic less than 100 to participate with therapy for ischemic stroke). Continue to monitor neurologic status.
Hypertension: Home amlodipine on hold.
Dysphagia: speech evaluation, oral care protocol, aspiration precautions.�Started on pur�ed diet. Cont with IVF in the interim. Advance diet as tolerated.
Aphasia: Receptive. speech evaluation
Skin: monitor for pressure sores/rashes/lesions.
Pain: acetaminophen as needed.
Bowel: Senna, Miralax
Bladder: Time void, PVRs, PRN straight cath.
Alcohol Abuse: Alcohol cessation education, offering of outpatient alcohol abuse program
GI Prophylaxis: would recommend Pantoprazole 40mg
DVT Prophylaxis: mechanical and Lovenox SC
Pulmonary: Incentive spirometry
Safety: Continue to reinforce assistance with all transfers.
Thank you for allowing me to care for your patient. Please contact me with any questions or concerns.
This note was dictated using a voice recognition system. Please excuse any typographical errors from lurer. If you believe there are any discrepancies, please notify our office.

Documented by User: Torito Valle MD 10/12/23 17:09
Consultation - Medical
-
Referring Provider: Leonidas Hernandez
Chief Complaint: CVA
History of Present Illness: 78 years old with a history of hypertension, hyperlipidemia, aortic stenosis status post TAVR presented to the ED on 10/05/2023 with mild confusion and slurred speech,CT head done in the ER with no acute abnormality. CTA
negative for acute stenosis. He is with receptive aphasia and impaired comprehension with brain MRI showing cluster of small acute nonhemorrhagic infarcts in the left insula and also tiny acute nonhemorrhagic infarct in the left parietal lobe. DANYA
with normal biventricular size and systolic function without regional wall motion abnormality. Bioprosthetic aortic valve with severe paravalvular regurgitation. Aortic root thickening cannot rule out aortic root abscess. Cannot rule out the
presence of small sessile vegetation on the anterior leaflet. Mild to moderate regurgitation mitral. Blood cultures - were negative and vancomycin was stopped.
CT surgery consulted and assessing need and timing of surgery. Per CY surgery- Ideally he would have some time to recover from his acute CVA and ETOH withdrawal, followed but work up outpatient for elective TAVR explant and likely root replacement.
However, should he fail to progress or decompensates, would advise transferring him to a tertiary care center for both medical and surgical management. For now, there are no plans for surgery on this admission.
Patient was transferred to ICU due to agitation and alcohol withdraw on 10/05 then [facility] Seen by psychiatry this morning but was too sedated.
CT head done in the ER: No acute abnormality.
MRI of the brain was positive for acute infarcts
CTA was negative for acute stenosis
Echo was performed Overall preserved left ventricular function. Estimated LV ejection fraction is 55% . Lateral hypokinesis.
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
CTA head and neck showed:
Bilateral carotid bulb and proximal internal carotid artery atherosclerosis, left greater than right, without hemodynamically significant proximal internal carotid artery stenosis.
No findings to suggest internal carotid artery or vertebral artery dissection bilaterally. Dominant right vertebral artery.
No findings to suggest proximal intracranial arterial stenosis bilaterally.
MRI brain showed:
Cluster of small acute, nonhemorrhagic infarcts in the left insula. There is also a tiny acute nonhemorrhagic infarct in the left parietal lobe posteriorly.
Cerebral atrophy along with chronic small vessel ischemia in cerebral white matter
Old lacunar infarcts in the centrum semiovale bilaterally and right frontal subcortical white matter.
DANYA with normal biventricular size and systolic function without regional wall motion abnormality. Bioprosthetic aortic valve with severe paravalvular regurgitation. Aortic root thickening cannot rule out aortic root abscess. Cannot rule out the
presence of small sessile vegetation on the anterior leaflet. Mild to moderate regurgitation mitral. No evidence of left atrial appendage, right atrial appendage thrombus.
Past Medical History: hypertension, hyperlipidemia, aortic stenosis status post TAVR
Procedure History: TAVR,
Family History: not contributory
Social History:
Functional Level Premorbidly: Independent with all activities
Functional Level Currently: bed mobility- Max assist, Transfer-dependent, ambulation- attempted few times with patient screaming out loud and unable to put weight on leg.
Tobacco: Denies
Alcohol: daily use. Last one day of admit
Drug use: Denies
Lives with: spouse
24-hour assistance available:
Number of floors: multi-level
# steps to enter: 2
# steps to second floor:
Potential First floor set up:
Driving: ?
Occupation: retired
�
Allergies:
Allergy/AdvReac Type Severity Reaction Status Date / Time
pollen extracts Allergy RUNNY NOSE Verified 10/06/23 18:39
AND
SNEEZING
Review of Systems:
Constitutional: (x) Normal _
Eye: (x) Normal _
Ear/Nose/Throat: (x) Normal _
Respiratory: (x) Normal _
Cardiovascular: (x) AR, tavr
Gastrointestinal: (x) Normal _
Genitourinary: (x) Normal _
Musculoskeletal: (x) Normal _
Integumentary: (x) Normal _
Neurologic: (x) cva, receptive aphasia
Psychiatric: (x) delirium, agitation
Endocrine: (x) Normal _
Hematologic/Lymphatic: (x) Normal _
Allergic/Immunologic: (x) Normal _
Medications:
Active Current Visit Medication List
Category Date Time Status
0.9% Sodium Chloride [Nss (Preservative Free)] Med 10/06/23 14:00 Active
See Protocol IV PRN PRN
Acetaminophen [Tylenol] Med 10/05/23 12:24 Active
650 mg PO Q4HPRN PRN
Aspirin Low Dose EC [Aspir Low (Enteric Coated)] Med 10/06/23 08:00 Active
81 mg PO DAILY
Atorvastatin [Lipitor] Med 10/05/23 18:00 Active
40 mg PO QPM
Bisacodyl [Dulcolax] Med 10/05/23 12:24 Active
10 mg RECTAL [id number] PRN
Docusate W/Senna [Senokot-S] Med 10/05/23 12:24 Active
1 tablet PO BIDPRN PRN
Enoxaparin Sodium [Lovenox] Med 10/05/23 18:00 Active
40 mg SC QPM
FOLic ACID [Folvite] Med 10/06/23 08:00 Active
1 mg PO DAILY
FOLic ACID [Folvite] 1 mg Med 10/06/23 14:00 Active
0.9% Sodium Chloride 50 ml [Nss] 50 ml
IV DAILYPRN
Flush (0.9% Sodium Chloride) [Flush (Nss)] Med 10/05/23 11:00 Active
See Dose Instructions IV PER PROTOCOL
Haloperidol Lactate [Haldol] Med 10/06/23 12:43 Active
2 mg IM Q4HPRN PRN
Lorazepam [Ativan] Med 10/12/23 12:53 Active
0.5 mg IV Q8HPRN PRN
Polyethylene Glycol Powder [Miralax] Med 10/05/23 12:24 Active
17 grams PO DAILYPRN PRN
Polyethylene Glycol Powder [Miralax] Med 10/07/23 08:00 Active
17 grams TUBE DAILY
Thiamine HCl [Vitamin B1] Med 10/09/23 20:00 Active
100 mg PO BID
Vitals:
Temp Pulse Resp BP Pulse Ox
98.1 F 98 18 113/52 95
10/12/23 11:00 10/12/23 11:00 10/12/23 11:00 10/12/23 11:00 10/12/23 11:50
Height 5 ft 9 in
Actual Weight 95.436 kg
Body Mass Index (BMI) 31.1
Physical Exam:
General Appearance/Observation: Well-developed, well-nourished individual in no apparent distress, but starting to get agitated.
Pain/Comfort Assessment: unable to assess. Patient starting to get agitated, delirious,
Mood/Affect: Appropriate
Integumentary/Operative Site:
�� Pressure Ulcer Evaluation: not visualized
��
�� Other Type of Wound: ecchymosis
��
��
Eyes: Conjunctiva/Lids: ptosis more on right than left ��� Pupils: pupils equal round and reactive to light and Accommodation
Ears/Nose/Throat: oral mucosa moist,� throat clear.������������ Lips/Teeth/Gums: normal
Neck: No muscle spasm or tenderness
Cardiovascular: Heart: regular, murmur
Pulses: dorsalis pedis
Respiratory: Respiratory Effort/Chest Expansion: normal ������� Auscultation: Clear to auscultation bilaterally
Gastrointestinal: abdomen not tender, no distension, normal abdominal bowel sounds
Genitourinary: No Boyd
Extremities: Edema: None Cyanosis: None Trophic changes: None
Neurology Exam:
Orientation: starting to get agitated, talking but does not make sense
Memory: impaired
Higher cortical function
Repetition: impaired
Comprehension: Impaired
Two step command: impaired
Naming: impaired
Cranial Nerves:
�� CNII: Pupillary light reflex: Intact��� Visual Field: Intact
�� CN III, IV, : Extraocular muscles: unable to assess due to receptive ahasia and mentation
�� CN V: Facial Sensation at Forehead:, Maxilla: , Mandible: unable to assess
�� CN VII: Facial movement: some asymmetry
�� CN VIII: Hearing: Normal
�� CN IX/X: Speech & swallow: dysarthric Position of Uvula: Midline
�� CN XI: Shoulder shrug: unable to assess
�� CN XII: Tongue protrusion:
Sensory:
�� Light touch: not assess
��
Reflexes:not assess
��
�� Bárbara: Negative bilaterally
Cerebellar: Dysmetria/Ataxia: unable to assess
Musculoskeletal:
Motor: unable to assess getting agitated . Able to move all four limbs
Tone: Normal in all extremities
Lab Results
Labs
WBC 4.4 10^3/uL (4.8-10.8) L 10/12/23 06:12
RBC 3.15 10^6/uL (4.70-6.10) L 10/12/23 06:12
Hgb 10.1 g/dL (13.0-18.0) L 10/12/23 06:12
Hct 30.2 % (39.0-52.0) L 10/12/23 06:12
MCV 95.9 fL (80.0-94.0) H 10/12/23 06:12
MCH 32.1 pg (27.0-31.0) H 10/12/23 06:12
MCHC 33.4 g/dL (33.0-37.0) 10/12/23 06:12
RDW 14.4 % (11.5-14.5) 10/12/23 06:12
Plt Count 192 10^3/uL (130-400) 10/12/23 06:12
MPV 10.5 fL (7.4-10.4) H 10/12/23 06:12
Abs Immat Gran (auto) 0.0 10^3/uL (0-0.05) 10/12/23 06:12
Absolute Neuts (auto) 2.6 10^3/uL (1.4-6.5) 10/12/23 06:12
Absolute Lymphs (auto) 0.7 10^3/uL (1.2-3.4) L 10/12/23 06:12
Absolute Monos (auto) 0.8 10^3/uL (0.1-0.6) H 10/12/23 06:12
Absolute Eos (auto) 0.3 10^3/uL (0-0.7) 10/12/23 06:12
Absolute Basos (auto) 0.0 10^3/uL (0-0.2) 10/12/23 06:12
Immature Gran % 0.5 % (0-0.5) 10/12/23 06:12
Neutrophils % 59.9 % (42.2-75.2) 10/12/23 06:12
Lymphocytes % 15.1 % (20.5-51.1) L 10/12/23 06:12
Monocytes % 17.4 % (1.7-9.3) H 10/12/23 06:12
Eosinophils % 6.2 % (0-6) H 10/12/23 06:12
Basophils % 0.9 % (0-2) 10/12/23 06:12
Nucleated RBC % 0 % (-) 10/12/23 06:12
PT 15.3 Sec (11.4-14.6) H 10/07/23 03:46
INR 1.23 10/07/23 03:46
APTT 29.9 Sec (23.4-35.0) 10/07/23 03:46
Sodium 139 mmol/L (135-145) 10/12/23 06:12
Potassium 3.5 mmol/L (3.5-5.1) 10/12/23 06:12
Chloride 107 mmol/L (98-107) 10/12/23 06:12
Carbon Dioxide 25 mmol/L (22-30) 10/12/23 06:12
BUN 5 mg/dl (9-20) L 10/12/23 06:12
Creatinine 0.5 mg/dL (0.7-1.3) L 10/12/23 06:12
Estimated Creat Clear 116 ml/min 10/12/23 06:12
eGFR > 60.00 10/12/23 06:12
Glucose 92 mg/dl (70-99) 10/12/23 06:12
Hemoglobin A1c 5.3 % (4.0-5.6) 10/05/23 08:37
Calcium 8.9 mg/dl (8.4-10.2) D 10/12/23 06:12
Phosphorus 4.5 mg/dl (2.5-4.5) 10/07/23 03:46
Magnesium 2.1 mg/dl (1.6-2.3) 10/07/23 03:46
Total Bilirubin 0.9 mg/dl (0.2-1.3) 10/12/23 06:12
AST 35 U/L (17-59) 10/12/23 06:12
ALT 13 U/L (0-50) 10/12/23 06:12
Alkaline Phosphatase 77 U/L (38-126) 10/12/23 06:12
Ammonia < 9 umol/L (9-30) L 10/05/23 08:37
Troponin I 0.026 ng/ml 10/06/23 06:24
Total Protein 5.8 g/dl (6.3-8.2) L 10/12/23 06:12
Albumin 3.5 g/dl (3.5-5.0) 10/12/23 06:12
Triglycerides 79 mg/dl (10-149) 10/06/23 06:24
Total Cholesterol 93 mg/dl (50-199) 10/06/23 06:24
LDL Cholesterol, Calc 40 mg/dl 10/06/23 06:24
VLDL Cholesterol, Calc 15 mg/dl (0-30) 10/06/23 06:24
HDL Cholesterol 38 mg/dl 10/06/23 06:24
Urine Color Cancelled 10/05/23 14:57
Urine Clarity Cancelled 10/05/23 14:57
Urine pH Cancelled 10/05/23 14:57
Ur Specific [place] Cancelled 10/05/23 14:57
Urine Ketones Cancelled 10/05/23 14:57
Ur Occult Blood Reflex Cancelled 10/05/23 14:57
Urine Nitrite (Reflex) Cancelled 10/05/23 14:57
Urine Bilirubin Cancelled 10/05/23 14:57
Urine Urobilinogen Cancelled 10/05/23 14:57
Leukocyte Esterase Rfl Cancelled 10/05/23 14:57
Urine RBC Cancelled 10/05/23 14:57
Urine WBC (Reflex) Cancelled 10/05/23 14:57
Ur Squamous Epith Cells Cancelled 10/05/23 14:57
Ur Urothelial Cells Cancelled 10/05/23 14:57
Calcium Oxalate Crystal Cancelled 10/05/23 14:57
Cystine Crystals Cancelled 10/05/23 14:57
Uric Acid Crystals Cancelled 10/05/23 14:57
Triple Phos Crystals Cancelled 10/05/23 14:57
Amorphous Crystals Cancelled 10/05/23 14:57
Urine Bacteria (Reflex) Cancelled 10/05/23 14:57
Epithelial Casts Cancelled 10/05/23 14:57
Fatty Casts Cancelled 10/05/23 14:57
Hyaline Casts Cancelled 10/05/23 14:57
Granular Casts Cancelled 10/05/23 14:57
Waxy Casts Cancelled 10/05/23 14:57
RBC Casts Cancelled 10/05/23 14:57
WBC Casts Cancelled 10/05/23 14:57
Urine Mucus Cancelled 10/05/23 14:57
Urine Trichomonas Cancelled 10/05/23 14:57
Urine Yeast Cancelled 10/05/23 14:57
Urine Sperm Cancelled 10/05/23 14:57
Urinalysis Comment Cancelled 10/05/23 14:57
Urine Glucose Cancelled 10/05/23 14:57
Urine Albumin (Reflex) Cancelled 10/05/23 14:57
Vancomycin Peak 23.2 ug/ml (18-26) 10/09/23 21:13
Vancomycin Trough 12.8 ug/ml (5-20) 10/10/23 04:25
Urine Opiates Screen Negative (Negative) 10/05/23 09:34
Ur Buprenorphine Negative (Negative) 10/05/23 09:34
Ur Oxycodone Screen Negative (Negative) 10/05/23 09:34
Urine Methadone Screen Negative (Negative) 10/05/23 09:34
Ur Barbiturates Screen Negative (Negative) 10/05/23 09:34
Ur Tricyclics Screen Negative (Negative) 10/05/23 09:34
Ur Phencyclidine Scrn Negative (Negative) 10/05/23 09:34
Ur Amphetamines Screen Negative (Negative) 10/05/23 09:34
U Methamphetamines Scrn Negative (Negative) 10/05/23 09:34
U Benzodiazepines Scrn Negative (Negative) 10/05/23 09:34
Urine Cocaine Screen Negative (Negative) 10/05/23 09:34
U Marijuana (THC) Screen Negative (Negative) 10/05/23 09:34
Alcohol, Quantitative Cancelled 10/05/23 08:45
Rheumatoid Factor Less than 10 iu (<10 IU) 10/09/23 04:21
Bartonella henselae IgG <1:64 10/09/23 11:39
Bartonella henselae IgM < 1:16 10/09/23 11:39
Q Fever Phase I IgG Ab Negative (Negative) 10/09/23 11:39
Q Fever Phase II IgG Ab Negative (Negative) 10/09/23 11:39
POC Glucose 71 mg/dl (70-99) 10/09/23 05:41
�
Diagnostic Results: as per HPI
Assessment 78 years old with a history of hypertension, hyperlipidemia, aortic stenosis status post TAVR presented to the ED on 10/05/2023 with mild confusion and slurred speech.brain MRI showing cluster of small acute nonhemorrhagic infarcts in the
left insula and also tiny acute nonhemorrhagic infarct in the left parietal lobe.
Plan
PT/OT to increase independence with ADLs, improve balance, coordination, endurance, strength, mobility, community reintegration, decreased burden of care on others and family education.
CVA: Secondary prophylaxis with aspirin, statin, and blood pressure control (SBP less than 180 and diastolic less than 100 to participate with therapy for ischemic stroke). Continue to monitor neurologic status.
Toxic metabolic encephalopathy : multifactorial due to acute CVA, alcohol withdrawals and suspected delirium with behavioral disturbances. Daily alcohol use. Last used 2 days ago prior to arrival. Given thiamine IV in the ER, will continue while in
the hospital, then discharge on oral thiamine. Folic acid
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 blood cultures and Bartonella, Q fever and rheumatoid -negative Vancomycin d/zbigniew 10/10
RUE with superficial vein thrombosis :IV removed
Hypertension: Cont to Hold home amlodipine for now
Dysphagia: speech evaluation, oral care protocol, aspiration precautions.�Started on pur�ed diet. Cont with IVF in the interim. Advance diet as tolerated.
Dysarthria: speech evaluation
Aphasia: Receptive. speech evaluation
HLD: Atorvastatin 20mg qd
Psych/delirium/agitation/: Psychology consult.� Haloperidol 2mg IM q 4 prn, Lorazepam IV
Skin: monitor for pressure sores/rashes/lesions.
Pain: acetaminophen as needed.
Bowel: Senna, Miralax
Bladder: Time void, PVRs, PRN straight cath.
Alcohol Abuse: Alcohol cessation education, offering of outpatient alcohol abuse program
GI Prophylaxis: Pantoprazole 40mg
DVT Prophylaxis: Lovenox SC
Pulmonary: Incentive spirometry
Safety: Continue to reinforce assistance with all transfers.
Code Status:� Full code
Functional and Medical Goals: Modified Independent with ADL�s, ambulation, transfers
- Discharge Destination: SNF or shelter - unable to participate in Acute inpatient rehab at this time. Patient too agitated and delirious. May reconsult when mentation, encephalopathy improves
Summary of recommendations: Patient with CVA and questionable receptive aphasia complicated by alcohol withdraw, and ongoing agitation and mental status change on Haloperidol and Lorazepam. Currently not ideal for acute inpatient rehabilitation. He
would benefit from Skilled Nurse Facility for PT/OT/Speech of 1-2 hours with medical management. Currently not able to follow commands, or fully participate in therapy. May reconsult when mentation is much improved.
CVA: Secondary prophylaxis with aspirin, statin, and blood pressure control (SBP less than 180 and diastolic less than 100 to participate with therapy for ischemic stroke). Continue to monitor neurologic status.
Hypertension: Home amlodipine on hold.
Dysphagia: speech evaluation, oral care protocol, aspiration precautions.�Started on pur�ed diet. Cont with IVF in the interim. Advance diet as tolerated.
Aphasia: Receptive. speech evaluation
Skin: monitor for pressure sores/rashes/lesions.
Pain: acetaminophen as needed.
Bowel: Senna, Miralax
Bladder: Time void, PVRs, PRN straight cath.
Alcohol Abuse: Alcohol cessation education, offering of outpatient alcohol abuse program
GI Prophylaxis: would recommend Pantoprazole 40mg
DVT Prophylaxis: mechanical and Lovenox SC
Pulmonary: Incentive spirometry
Safety: Continue to reinforce assistance with all transfers.
Thank you for allowing me to care for your patient. Please contact me with any questions or concerns.
Attending note:
Patient was seen and examined by me this afternoon in his room. Discussed with Sera Stewart PA-C and agree with above note, examination and plan as outlined. Patient still with significant confusion, agitation, delirium - seems possibly even
hallucinating with talking to no one in room. Not able to participate currently in rehab and therapies. Possibly some aphasia but speech seems clear, and seems like more confusion than aphasia. Not a candidate at this time for acute level
rehabilitation post stroke. Could consider further rehab at assisted level or SNF level if becomes more participatory in therapies. Please reconsult if patient improves to a level to consider further rehabilitation options.
This note was dictated using a voice recognition system. Please excuse any typographical errors from lurer. If you believe there are any discrepancies, please notify our office.
[2023-10-12] MEDS: ATIVAN 0.5 MG IV (16:09)
[2023-10-12] MEDS: LIPITOR 40 MG PO (16:12)
[2023-10-12] MEDS: LOVENOX 40 MG SC (16:12)
--- NOTE | 2023-10-12 16:21 | PTCARENOTE ---
Pt continued to be confused through the shift, not following commands, resisting care, becoming more agitated as day went on. PT/OT attempted to stand pt but he was unable. PT continues to attempt to get OOB, grabbing at staff at times when
agitated. 0.5mg IV Ativan given at this time to due increasing agitation. Will continue to monitor.
--- NOTE | 2023-10-12 16:26 | W.PN.ID1 ---
Date of Service
Date of Service: October 12, 2023
Today's Communication
- remains afebrile off of antibiotics
- coxiella, bartonella, serologies negative
- no infectious cause of progression of valvular leak identified, unlikely culture negative endocarditis or endocarditis without other supportive symptoms/data; could there be a mechanical cause? Blood cultures were obtained prior to starting
antibiotics.
- will follow patient off antibiotics another day
Assessment / Plan
Ruled out Endocarditis and Aortic Root Abscess
AVR - bioprosthetic
CVA: L partietal - ischemic
Chronic Alcoholism
- remains afebrile off of antibiotics
- coxiella, bartonella, serologies negative
- no infectious cause of progression of valvular leak identified, unlikely culture negative endocarditis or endocarditis without other supportive symptoms/data; could there be a mechanical cause? Blood cultures were obtained prior to starting
antibiotics.
- will follow patient off antibiotics another day
Chief Complaint
-: Other (endocarditis - possible)
Subjective / Review of Systems
remains afebrile
bp stable
minimal leukopenia
cr stable
serologies back
Vital Signs / Physical Exam
Vital Signs
Vital Signs
Temp Pulse Resp BP Pulse Ox
97.1 F 100 18 155/89 94
10/12/23 15:00 10/12/23 15:00 10/12/23 15:00 10/12/23 15:00 10/12/23 15:00
Physical Exam
Constitutional: No Acute Distress
Cardiovascular: Regular Rate
Pulmonary: Symmetric and Non Labored
Gastrointestinal: Non Distended
Skin: Dry; Negative Rash or Jaundice
Neurological: Awake
Psychological: Agitated
Objective Data
Lab Data
Lab Results
10/12/23 06:12
10/12/23 06:12
PT 15.3 Sec (11.4-14.6) H 10/07/23 03:46
INR 1.23 10/07/23 03:46
APTT 29.9 Sec (23.4-35.0) 10/07/23 03:46
Estimated Creat Clear 116 ml/min 10/12/23 06:12
Total Bilirubin 0.9 mg/dl (0.2-1.3) 10/12/23 06:12
AST 35 U/L (17-59) 10/12/23 06:12
ALT 13 U/L (0-50) 10/12/23 06:12
Alkaline Phosphatase 77 U/L (38-126) 10/12/23 06:12
Most recent labs reviewed.
Micro Results:
10/06/23 15:19 Blood Culture - Final
Blood/Venous No Growth - Final Report
10/06/23 15:19 Blood Culture - Final
Blood/Venous No Growth - Final Report
[2023-10-13 03:26] VITALS: BP 156/84
[2023-10-13 06:15] VITALS: BMI 31.0
[2023-10-13 07:00] VITALS: BP 147/64
[2023-10-13] MEDS: VITAMIN B1 100 MG PO ×2 (07:47→22:01)
[2023-10-13] MEDS: ASPIR LOW (ENTERIC COATED) 81 MG PO (07:47)
[2023-10-13] MEDS: MIRALAX 17 GRAMS TUBE (07:48)
[2023-10-13] MEDS: FOLVITE 1 MG PO (07:48)
--- NOTE | 2023-10-13 09:02 | W.PN.CD ---
Today's Communication / Plan
-
-Patient still with poor mental status; unable to answer questions appropriately (AAO x 0), and still in arm restraints.
-Possible endocarditis; CT Surgery consulted--patient is a poor candidate for intervention at this time, especially given mental status.
-Patient can be reevaluated as an outpatient to see if he ever becomes appropriate for surgical intervention.
-No further cardiac recommendations at this time; patient will need to be transferred to a care facility for rehabilitation.
Impression / Plan
-
.
Acute CVA.
-Acute CVA with receptive aphasia and impaired comprehension with brain MRI showing cluster of small acute nonhemorrhagic infarcts in the left insula and also tiny acute nonhemorrhagic infarct in the left parietal lobe.
-Patient maintaining sinus rhythm.
-Patient still with poor mental status; unable to answer questions appropriately (AAO x 0), and still in arm restraints.
-Patient was trying to wander halls earlier this admit and was difficult to redirect and then apparently became more physical 10/06/23 requiring sedation and transferred to ICU.
-Continued management directed by Neurology and primary team.
.
TAVR/Possible endocarditis with severe AR .
-History of TAVR, and history of moderate paravalvular AR; now with severe paravalvular AR.
-Possible endocarditis; CT Surgery consulted--patient is a poor candidate for intervention at this time, especially given mental status.
-Patient can be reevaluated as an outpatient to see if he ever becomes appropriate for surgical intervention.
-ID following; now off of antibiotics.
Subjective: No major events overnight. Arousable, but answers questions inappropriately (AAO x 0).
DANYA:
CONCLUSIONS
Normal biventricular size and systolic function without regional wall motion
abnormality.
Bioprosthetic aortic valve (history of TAVR) with severe paravalvular
regurgitation.
Aortic root thickening, cannot rule out aortic root abscess.
Cannot rule out the presence of a small sessile vegetation (view 37) on the
anterior leaflet.
Mild to moderate mitral regurgitation.
No evidence of left atrial, left atrial appendage, right atrial right atrial
appendage thrombus.
No prior study available for comparison.
Physical Exam
Vital Signs/Labs
Vital Signs
Temp Pulse Resp BP Pulse Ox
98.5 F 94 16 156/84 96
10/13/23 03:26 10/13/23 03:26 10/13/23 03:26 10/13/23 03:26 10/13/23 03:26
10/12/23 10/13/23 10/14/23
06:59 06:59 06:59
Actual Weight 95.436 kg 95.028 kg
10/12/23 06:12
10/12/23 06:12
PT 15.3 Sec (11.4-14.6) H 10/07/23 03:46
INR 1.23 10/07/23 03:46
APTT 29.9 Sec (23.4-35.0) 10/07/23 03:46
Magnesium 2.1 mg/dl (1.6-2.3) 10/07/23 03:46
Triglycerides 79 mg/dl (10-149) 10/06/23 06:24
LDL Cholesterol, Calc 40 mg/dl 10/06/23 06:24
VLDL Cholesterol, Calc 15 mg/dl (0-30) 10/06/23 06:24
HDL Cholesterol 38 mg/dl 10/06/23 06:24
Physical Exam
Constitutional: No acute distress
EENT: Anicteric
Cardiovascular: Rhythm & rate is regular, Pedal edema is absent, Systolic murmur present (/) and S1S2 is normal
Respiratory: Respiratory effort normal and Lungs clear to auscul. ((Although patient was unable to fully cooperate with examination))
GI: Soft
Neuro/Psych: Other (Arousable, but unable to answer questions appropriately)
Other: Skin (Warm, dry, intact)
Data Reviewed
-
Date of Service: October 13, 2023
EKG: Tracing Personally Visualized and interpreted (Telemetry: Sinus rhythm)
Medical Tests (PFT, Pathology etc): Discussed with Nurse
Labs: Labs Reviewed by me
--- NOTE | 2023-10-13 10:49 | CM ---
Reviewed chart, spoke with attending. Patient still suffering from behaviors that interfere with his ability to be placed to either skilled or acute. Will continue to review patient progress and send updated clinicals to facilities once patient can
participate in therapy.
Plan: Case management will continue to follow and assist with discharge planning. Acute vrs. Skilled.
[2023-10-13 12:19] VITALS: BP 129/76; PULSE 89
[2023-10-13 12:20] VITALS: BP 129/76; PULSE 89
--- NOTE | 2023-10-13 14:27 | W.PN.HOSP.TC ---
Today's Communication/Plan
-
Remains delirious with periods of agitation.
No focal findings on exam
Minimize Ativan only for severe agitation and in order to avoid oversedation.
Stop Haldol.
Start low-dose of Risperdal 0.5 mg at bedtime.
Restraints with attempt to wean off daily.
Monitor oral intake.
Physical therapy if cognitive status allows.
[facility] to [facility] facility.
Discussed with patient's at the bedside.
Assessment / Plan
Assessment / Plan
CTA head and neck showed:
Bilateral carotid bulb and proximal internal carotid artery atherosclerosis, left greater than right, without hemodynamically significant proximal internal carotid artery stenosis.
No findings to suggest internal carotid artery or vertebral artery dissection bilaterally. Dominant right vertebral artery.
No findings to suggest proximal intracranial arterial stenosis bilaterally.
MRI brain showed:
Cluster of small acute, nonhemorrhagic infarcts in the left insula. There is also a tiny acute nonhemorrhagic infarct in the left parietal lobe posteriorly.
Cerebral atrophy along with chronic small vessel ischemia in cerebral white matter
Old lacunar infarcts in the centrum semiovale bilaterally and right frontal subcortical white matter.
IMPRESSION:
78 years old with a history of hypertension, hyperlipidemia, aortic stenosis status post TAVR presented with mild confusion and slurred speech which resolved, MRI brain shows acute CVA neurology consulted, vision consulted and plan for DANYA today.
PLAN:
Acute CVA (Wernicke's aphasia)
CT head done in the ER showed: No acute abnormality.
MRI of the brain was positive for acute infarcts
CTA was negative for acute stenosis
Echo was performed Overall preserved left ventricular function. Estimated LV ejection fraction is 55% . Lateral hypokinesis.
continue with Aspirin/atorvastatin,
Hemoglobin A1c 5.3, LDL 40.
PT/OT consulted.
DANYA with normal biventricular size and systolic function without regional wall motion abnormality. Bioprosthetic aortic valve with severe paravalvular regurgitation. Aortic root thickening cannot rule out aortic root abscess. Cannot rule out the
presence of small sessile vegetation on the anterior leaflet. Mild to moderate regurgitation mitral. No evidence of left atrial appendage, right atrial appendage thrombus.
Overall his neurologic exam with no focal findings. Confusion and agitation likely represent delirium with underlying and possibly alcohol-related toxic metabolic encephalopathy.
Toxic metabolic encephalopathy likely multifactorial due to acute CVA, alcohol withdrawals and suspected delirium with behavioral disturbances
Delirium multifactorial secondary to DT and possibly chronic cognitive deficit
Alcohol abuse.
Daily alcohol use.
Last used 2 days ago prior to arrival
Patient given thiamine IV in the ER, will continue while in the hospital, then discharge on oral thiamine
Folic acid
Precedex drip intermittent use for agitation. Now off.
Stop Haldol
Minimize Ativan only for severe agitation
Initiate Risperdal 0.5 mg at bedtime on 10/12.
TAVR with severe AI was moderate before unclear timeline
Suspected endocarditis
blood cultures are negative x 72hours
Antibiotics as per infectious disease
Continue vancomycin. Zosyn discontinued.
Additional blood work ordered with Bartonella and Q fever and rheumatoid
Discussed with infectious service
Given negative cultures, and patient being afebrile antibiotic/vancomycin has been discontinued on 10/10. Monitor closely.
Dysphagia
Started on pur�ed diet
Cont with IVF in the interim
Shock likely secondary to sedation and decreased p.o. intake versus low likelihood of related to infection/sepsis
Discontinue phenobarbital
BP improved
See individual problem as above
Off Levophed
RUE with superficial vein thrombosis
IV removed
History of hypertension
Cont to Hold home amlodipine for now
CODE STATUS: Full code
DVT prophylaxis: Lovenox
Diet: cardiac diet (speech for swallow eval)
Discussed with patient's spouse in details.
Anticipated Discharge: 24 - 48 hours
Subjective/Interval History
-
Date of Service: October 13, 2023
Objective Data
-
Vital Signs:
Vital Signs
Temp Pulse Resp BP Pulse Ox
98.0 F 81 17 147/64 94
10/13/23 07:00 10/13/23 07:00 10/13/23 07:00 10/13/23 07:00 10/13/23 07:00
I&O
10/12/23 10/13/23 10/14/23
06:59 06:59 06:59
Intake Total 480 / 480 600 / 600
Balance 480 / 480 600 / 600
Physical Exam
-
General: Well Developed and Appears Chronically Ill
HEENT: Normocephalic, Atraumatic and Moist Mucous Membranes
Respiratory: Clear to Auscultation (Continue healthy)
Cardiac: Regular Rhythm and S1/S2; Negative Rub or Gallop
GI: Soft, Nontender, Nondistended and Normal Bowel Sounds; Negative Organomegaly
Rectal: Deferred by Provider
Musculoskeletal: No Clubbing, No Cyanosis, No Edema and Edema, Right Upper Extrem
Skin: Negative Rash
Neuro: Awake, Alert, Oriented (Name only.) and Nonfocal/Grossly Intact
Psych: Confused
--- NOTE | 2023-10-13 14:31 | PTCARENOTE ---
Pt [facility] dc'd per Dr Gold. Removed from worklist. Pt also had brief period out of restraints during lunch, present in room, returned to restraints upon shoving his tray into and displaying belligerent body language, foul language. New
soft restraint order obtained at 13:16 today. @ pt, 4 rail.
--- NOTE | 2023-10-13 14:38 | PTOTSP ---
Speech Therapy
Tolerated regular solids but supervision needed due to cognitive factors. Remains with no reliable means to communicate given severe aphasia.
Recommend
Advance to IDDSI 6 (soft bite-sized solids) and continue thin liquids.
Meds whole in applesauce.
Upright with intake - in chair if possible.
Supervision and assist to feed.
Limit talking by patient as much as possible. Reduce external distractions during meals.
Aspiration precautions due to cognitive status.
[2023-10-13 15:00] VITALS: BP 145/75
--- NOTE | 2023-10-13 15:56 | W.PN.ID1 ---
Date of Service
Date of Service: October 13, 2023
Today's Communication
ruled out endocarditis
- ID service will no longer actively follow this patient please recall for further questions
Assessment / Plan
Ruled out Endocarditis and Aortic Root Abscess
AVR - bioprosthetic
CVA: L parietal - ischemic
Chronic Alcoholism
- remains afebrile off of antibiotics
- coxiella, bartonella, serologies negative
- no infectious cause of progression of valvular leak identified, unlikely culture negative endocarditis or endocarditis without other supportive symptoms/data; could there be a mechanical cause? Blood cultures were obtained prior to starting
antibiotics.
- ID service will no longer actively follow this patient please recall for further questions
Chief Complaint
-: Other (endocarditis - possible)
Subjective / Review of Systems
afebrile
bp stable
hgb 10
delirium ongoing
Vital Signs / Physical Exam
Vital Signs
Vital Signs
Temp Pulse Resp BP Pulse Ox
98.0 F 81 17 147/64 94
10/13/23 07:00 10/13/23 07:00 10/13/23 07:00 10/13/23 07:00 10/13/23 07:00
Physical Exam
Constitutional: No Acute Distress
Cardiovascular: Regular Rate
Pulmonary: Symmetric
Gastrointestinal: Non Distended
Skin: Dry; Negative Rash or Jaundice
Neurological: Negative Awake
Objective Data
Lab Data
Lab Results
10/12/23 06:12
10/12/23 06:12
PT 15.3 Sec (11.4-14.6) H 10/07/23 03:46
INR 1.23 10/07/23 03:46
APTT 29.9 Sec (23.4-35.0) 10/07/23 03:46
Estimated Creat Clear 116 ml/min 10/12/23 06:12
Total Bilirubin 0.9 mg/dl (0.2-1.3) 10/12/23 06:12
AST 35 U/L (17-59) 10/12/23 06:12
ALT 13 U/L (0-50) 10/12/23 06:12
Alkaline Phosphatase 77 U/L (38-126) 10/12/23 06:12
Most recent labs reviewed.
Micro Results:
10/06/23 15:19 Blood Culture - Final
Blood/Venous No Growth - Final Report
10/06/23 15:19 Blood Culture - Final
Blood/Venous No Growth - Final Report
[2023-10-13] MEDS: LOVENOX 40 MG SC (18:22)
[2023-10-13] MEDS: LIPITOR 40 MG PO (18:22)
[2023-10-13] MEDS: RISPERDAL 0.5 MG PO (22:01)
[2023-10-13 22:52] VITALS: BP 137/74
[2023-10-14 06:00] VITALS: BMI 30.1
[2023-10-14 07:00] VITALS: BP 144/80
[2023-10-14] MEDS: ASPIR LOW (ENTERIC COATED) 81 MG PO (08:55)
[2023-10-14] MEDS: MIRALAX 17 GRAMS TUBE (08:55)
[2023-10-14] MEDS: VITAMIN B1 100 MG PO ×2 (08:55→20:14)
[2023-10-14] MEDS: FOLVITE 1 MG PO (08:55)
--- NOTE | 2023-10-14 11:15 | W.PN.HOSP.TC ---
Today's Communication/Plan
-
Continue current care
Assessment / Plan
Assessment / Plan
Gen-awake, alert, confused, NAD, obese
HEENT-NC, AT, anicteric, clear oral mm
Neck-supple
CV-reg, no M, +S1/S2
Lungs-clear B/L
Abd-soft, NT, ND
Ext-no edema
Musculoskeletal-no cyanosis, clubbing
Skin-warm and dry
Neuro-grossly non-focal
CTA head and neck showed:
Bilateral carotid bulb and proximal internal carotid artery atherosclerosis, left greater than right, without hemodynamically significant proximal internal carotid artery stenosis.
No findings to suggest internal carotid artery or vertebral artery dissection bilaterally. Dominant right vertebral artery.
No findings to suggest proximal intracranial arterial stenosis bilaterally.
MRI brain showed:
Cluster of small acute, nonhemorrhagic infarcts in the left insula. There is also a tiny acute nonhemorrhagic infarct in the left parietal lobe posteriorly.
Cerebral atrophy along with chronic small vessel ischemia in cerebral white matter
Old lacunar infarcts in the centrum semiovale bilaterally and right frontal subcortical white matter.
IMPRESSION:
78 years old with a history of hypertension, hyperlipidemia, aortic stenosis status post TAVR presented with mild confusion and slurred speech which resolved, MRI brain shows acute CVA neurology consulted, vision consulted and plan for DANYA today.
PLAN:
Acute CVA (Wernicke's aphasia)
CT head done in the ER showed: No acute abnormality.
MRI of the brain was positive for acute infarcts
CTA was negative for acute stenosis
Echo was performed Overall preserved left ventricular function. Estimated LV ejection fraction is 55% . Lateral hypokinesis.
continue with Aspirin/atorvastatin,
Hemoglobin A1c 5.3, LDL 40.
PT/OT consulted.
DANYA with normal biventricular size and systolic function without regional wall motion abnormality. Bioprosthetic aortic valve with severe paravalvular regurgitation. Aortic root thickening cannot rule out aortic root abscess. Cannot rule out the
presence of small sessile vegetation on the anterior leaflet. Mild to moderate regurgitation mitral. No evidence of left atrial appendage, right atrial appendage thrombus.
Overall his neurologic exam with no focal findings. Confusion and agitation likely represent delirium with underlying and possibly alcohol-related toxic metabolic encephalopathy.
Toxic metabolic encephalopathy likely multifactorial due to acute CVA, alcohol withdrawals and suspected delirium with behavioral disturbances
Delirium multifactorial secondary to DT and possibly chronic cognitive deficit
Alcohol abuse.
Daily alcohol use.
Last used 2 days prior to arrival
Patient given thiamine IV in the ER, will continue while in the hospital, then discharge on oral thiamine
Folic acid
Precedex drip intermittent use for agitation. Now off.
Stop Haldol
Minimize Ativan only for severe agitation
Initiate Risperdal 0.5 mg at bedtime on 10/12.
TAVR with severe AI was moderate before unclear timeline
Suspected endocarditis
blood cultures are negative x 72hours
Antibiotics as per infectious disease
Continue vancomycin. Zosyn discontinued.
Additional blood work ordered with Bartonella and Q fever and rheumatoid
Discussed with infectious service
Given negative cultures, and patient being afebrile antibiotic/vancomycin has been discontinued on 10/10. Monitor closely.
Dysphagia
Started on pur�ed diet
Cont with IVF in the interim
Shock likely secondary to sedation and decreased p.o. intake versus low likelihood of related to infection/sepsis
Discontinue phenobarbital
BP improved
See individual problem as above
Off Levophed, shock resolved.
RUE with superficial vein thrombosis
IV removed
History of hypertension
Cont to Hold home amlodipine for now
Chronic low back pain -try to set up bed into a chair to help alleviate his back pain. Discussed with nursing.
CODE STATUS: Full code
Dispo -await SNF placement. Updated at the bedside.
Anticipated Discharge: 24 - 48 hours
Subjective/Interval History
-
Date of Service: October 14, 2023
Patient seen and examined. Remains confused. No complaints. at the bedside.
Objective Data
-
Vital Signs:
Vital Signs
Temp Pulse Resp BP Pulse Ox
98.8 F 117 17 144/80 96
10/14/23 07:00 10/14/23 07:00 10/14/23 07:00 10/14/23 07:00 10/14/23 07:00
I&O
10/13/23 10/14/23 10/15/23
06:59 06:59 06:59
Intake Total 600 / 600 200 / 200
Balance 600 / 600 200 / 200
Review of Systems
-
History Source: Patient
All other systems: Reviewed and negative
[2023-10-14] MEDS: SENOKOT-S 1 TABLET PO (11:22)
[2023-10-14] MEDS: TYLENOL 650 MG PO (11:22)
--- NOTE | 2023-10-14 13:44 | PTCARENOTE ---
removed restraints at 1200 to prevent agitation after discussion with doc and at bedside as well as trying to get him to sit up to eat.
[2023-10-14 14:22] VITALS: BP 105/59; PULSE 78; O2SAT 94
[2023-10-14 14:23] VITALS: BP 105/59; PULSE 74; O2SAT 95
[2023-10-14 15:00] VITALS: BP 109/52
[2023-10-14] MEDS: ATIVAN 0.5 MG PO (17:13)
[2023-10-14] MEDS: LIPITOR 40 MG PO (17:14)
[2023-10-14] MEDS: LOVENOX 40 MG SC (18:28)
[2023-10-14] MEDS: RISPERDAL 0.5 MG PO (20:18)
[2023-10-14 23:00] VITALS: BP 129/65
[2023-10-15] MEDS: ATIVAN 0.5 MG PO ×3 (01:37→20:53)
[2023-10-15 06:00] VITALS: BMI 30.2
[2023-10-15 07:00] VITALS: BP 134/62
[2023-10-15 07:09] LABS: ALT (SGPT) 22 U/L (0-50); AST (SGOT) 44 U/L (17-59); Albumin 3.7 g/dl (3.5-5.0); Alkaline Phosphatase 81 U/L (38-126); Blood Urea Nitrogen 10 mg/dl (9-20); Calcium 8.9 mg/dl (8.4-10.2); Carbon Dioxide 23 mmol/L (22-30); Chloride 107 mmol/L (98-107); Estimated Creatinine Clearance 114 ml/min; Glucose 93 mg/dl (70-99); Potassium 3.4 mmol/L (3.5-5.1); Sodium 140 mmol/L (135-145); Total Bilirubin 0.9 mg/dl (0.2-1.3); eGFR > 60.00
[2023-10-15] MEDS: FOLVITE 1 MG PO (08:06)
[2023-10-15] MEDS: ASPIR LOW (ENTERIC COATED) 81 MG PO (08:06)
[2023-10-15] MEDS: MIRALAX 17 GRAMS TUBE (08:06)
[2023-10-15] MEDS: VITAMIN B1 100 MG PO ×2 (08:06→20:53)
--- NOTE | 2023-10-15 09:52 | CM ---
Reviewed chart, PT/OT. Patient not near baseline. Will have to have discuss with therapy and family if indication is still for acute rehab. Will obtain skilled facilities in the event that patient not appropriate for acute rehab. Patient still
continues with behaviors and agitation as well as confusion.
Plan: Case management will continue to follow and assist with discharge planning. Skilled vrs acute care when patient stable and behaviors subside.
[2023-10-15] MEDS: TYLENOL 650 MG PO (11:07)
--- NOTE | 2023-10-15 12:20 | W.PN.HOSP.TC ---
Today's Communication/Plan
-
Replete potassium
Assessment / Plan
Assessment / Plan
Gen-awake, alert, confused, NAD, obese
HEENT-NC, AT, anicteric, clear oral mm
Neck-supple
CV-reg, no M, +S1/S2
Lungs-clear B/L
Abd-soft, NT, ND
Ext-no edema
Musculoskeletal-no cyanosis, clubbing
Skin-warm and dry
Neuro-grossly non-focal
CTA head and neck showed:
Bilateral carotid bulb and proximal internal carotid artery atherosclerosis, left greater than right, without hemodynamically significant proximal internal carotid artery stenosis.
No findings to suggest internal carotid artery or vertebral artery dissection bilaterally. Dominant right vertebral artery.
No findings to suggest proximal intracranial arterial stenosis bilaterally.
MRI brain showed:
Cluster of small acute, nonhemorrhagic infarcts in the left insula. There is also a tiny acute nonhemorrhagic infarct in the left parietal lobe posteriorly.
Cerebral atrophy along with chronic small vessel ischemia in cerebral white matter
Old lacunar infarcts in the centrum semiovale bilaterally and right frontal subcortical white matter.
IMPRESSION:
78 years old with a history of hypertension, hyperlipidemia, aortic stenosis status post TAVR presented with mild confusion and slurred speech which resolved, MRI brain shows acute CVA neurology consulted, vision consulted and plan for DANYA today.
PLAN:
Acute CVA (Wernicke's aphasia)
CT head done in the ER showed: No acute abnormality.
MRI of the brain was positive for acute infarcts
CTA was negative for acute stenosis
Echo was performed Overall preserved left ventricular function. Estimated LV ejection fraction is 55% . Lateral hypokinesis.
continue with Aspirin/atorvastatin,
Hemoglobin A1c 5.3, LDL 40.
PT/OT consulted.
DANYA with normal biventricular size and systolic function without regional wall motion abnormality. Bioprosthetic aortic valve with severe paravalvular regurgitation. Aortic root thickening cannot rule out aortic root abscess. Cannot rule out the
presence of small sessile vegetation on the anterior leaflet. Mild to moderate regurgitation mitral. No evidence of left atrial appendage, right atrial appendage thrombus.
Overall his neurologic exam with no focal findings. Confusion and agitation likely represent delirium with underlying and possibly alcohol-related toxic metabolic encephalopathy.
Toxic metabolic encephalopathy likely multifactorial due to acute CVA, alcohol withdrawals and suspected delirium with behavioral disturbances
Delirium multifactorial secondary to DT and possibly chronic cognitive deficit
Alcohol abuse.
Daily alcohol use.
Last used 2 days prior to arrival
Patient given thiamine IV in the ER, will continue while in the hospital, then discharge on oral thiamine
Folic acid
Precedex drip intermittent use for agitation. Now off.
Stop Haldol
Minimize Ativan only for severe agitation
Initiate Risperdal 0.5 mg at bedtime on 10/12.
TAVR with severe AI was moderate before unclear timeline
Suspected endocarditis
blood cultures are negative x 72hours
Antibiotics as per infectious disease
Continue vancomycin. Zosyn discontinued.
Additional blood work ordered with Bartonella and Q fever and rheumatoid
Discussed with infectious service
Given negative cultures, and patient being afebrile antibiotic/vancomycin has been discontinued on 10/10. Monitor closely.
Dysphagia
Started on pur�ed diet
Cont with IVF in the interim
Shock likely secondary to sedation and decreased p.o. intake versus low likelihood of related to infection/sepsis
Discontinue phenobarbital
BP improved
See individual problem as above
Off Levophed, shock resolved.
RUE with superficial vein thrombosis
IV removed
History of hypertension
Cont to Hold home amlodipine for now
Chronic low back pain -try to set up bed into a chair to help alleviate his back pain. Discussed with nursing.
Hypokalemia -will replete.
CODE STATUS: Full code
Dispo -await SNF placement. Updated at the bedside.
Anticipated Discharge: Within 24 hours
Subjective/Interval History
-
Date of Service: October 15, 2023
Patient seen and examined. at the bedside. He remains confused.
Objective Data
-
Labs:
Laboratory Results
10/15/23
05:58
Sodium 140
Potassium 3.4 L
Chloride 107
Carbon Dioxide 23
BUN 10
Creatinine 0.6 L
Glucose 93
Calcium 8.9
Total Bilirubin 0.9
AST 44
ALT 22
Alkaline Phosphatase 81
Vital Signs:
Vital Signs
Temp Pulse Resp BP Pulse Ox
98.4 F 82 16 134/62 93
10/15/23 07:00 10/15/23 07:00 10/15/23 07:00 10/15/23 07:00 10/15/23 07:00
I&O
10/14/23 10/15/23 10/16/23
06:59 06:59 06:59
Intake Total 200 / 200 1170 / 1170
Balance 200 / 200 1170 / 1170
Review of Systems
-
Unable to obtain full review of systems at this time due to: Acuity
[2023-10-15] MEDS: KCL ELIXIR 40 MEQ PO (13:16)
[2023-10-15 16:06] VITALS: BP 98/59
[2023-10-15] MEDS: LOVENOX 40 MG SC (17:35)
[2023-10-15] MEDS: LIPITOR 40 MG PO (17:35)
[2023-10-15] MEDS: RISPERDAL 0.5 MG PO (20:53)
[2023-10-15 23:19] VITALS: BP 118/64
--- NOTE | 2023-10-16 03:41 | PTCARENOTE ---
Earlier around 2100 pt became agitated and was trying to get up oob despite having a 1:1 present. Pt no longer on med sitter because there is a 1:1 present in the room. Pt was swinging at nurse and the tech and required 2pt soft wrist restraints.
Order was placed by VISUAL ASSOCIATE. Eventually pt calmed down after a couple hours and restraints were removed. Pt is currently lying in bed comfortable with the 1:1 present and not trying to get up. Documentation up until 2 am was entered on the restraints.
[2023-10-16] MEDS: ATIVAN 0.5 MG PO (05:55)
[2023-10-16 06:11] VITALS: BMI 29.9
[2023-10-16 07:00] VITALS: BP 105/53
[2023-10-16 07:13] LABS: Blood Urea Nitrogen 9 mg/dl (9-20); Calcium 9.1 mg/dl (8.4-10.2); Carbon Dioxide 22 mmol/L (22-30); Chloride 109 mmol/L (98-107); Estimated Creatinine Clearance 101 ml/min; Glucose 109 mg/dl (70-99); Potassium 3.9 mmol/L (3.5-5.1); Sodium 141 mmol/L (135-145); eGFR > 60.00
[2023-10-16] MEDS: ASPIR LOW (ENTERIC COATED) 81 MG PO (07:42)
[2023-10-16] MEDS: FOLVITE 1 MG PO (07:42)
[2023-10-16] MEDS: MIRALAX 17 GRAMS TUBE (07:42)
[2023-10-16] MEDS: VITAMIN B1 100 MG PO ×2 (07:42→20:47)
[2023-10-16] MEDS: KCL ELIXIR 40 MEQ PO (07:42)
[2023-10-16 15:00] VITALS: BP 116/69
--- NOTE | 2023-10-16 15:48 | W.PN.HOSP.TC ---
Today's Communication/Plan
-
Stop lorazepam to avoid oversedation
Continue Risperdal titration
Continue supportive care
Monitor oral intake
Assessment / Plan
Assessment / Plan
CTA head and neck showed:
Bilateral carotid bulb and proximal internal carotid artery atherosclerosis, left greater than right, without hemodynamically significant proximal internal carotid artery stenosis.
No findings to suggest internal carotid artery or vertebral artery dissection bilaterally. Dominant right vertebral artery.
No findings to suggest proximal intracranial arterial stenosis bilaterally.
MRI brain showed:
Cluster of small acute, nonhemorrhagic infarcts in the left insula. There is also a tiny acute nonhemorrhagic infarct in the left parietal lobe posteriorly.
Cerebral atrophy along with chronic small vessel ischemia in cerebral white matter
Old lacunar infarcts in the centrum semiovale bilaterally and right frontal subcortical white matter.
IMPRESSION:
78 years old with a history of hypertension, hyperlipidemia, aortic stenosis status post TAVR presented with mild confusion and slurred speech which resolved, MRI brain shows acute CVA neurology consulted, vision consulted and plan for DANYA today.
PLAN:
Acute CVA (Wernicke's aphasia)
CT head done in the ER showed: No acute abnormality.
MRI of the brain was positive for acute infarcts
CTA was negative for acute stenosis
Echo was performed Overall preserved left ventricular function. Estimated LV ejection fraction is 55% . Lateral hypokinesis.
continue with Aspirin/atorvastatin,
Hemoglobin A1c 5.3, LDL 40.
PT/OT consulted.
DANYA with normal biventricular size and systolic function without regional wall motion abnormality. Bioprosthetic aortic valve with severe paravalvular regurgitation. Aortic root thickening cannot rule out aortic root abscess. Cannot rule out the
presence of small sessile vegetation on the anterior leaflet. Mild to moderate regurgitation mitral. No evidence of left atrial appendage, right atrial appendage thrombus.
Overall his neurologic exam with no focal findings. Confusion and agitation likely represent delirium with underlying and possibly alcohol-related toxic metabolic encephalopathy.
Toxic metabolic encephalopathy likely multifactorial due to acute CVA, alcohol withdrawals and suspected delirium with behavioral disturbances
Delirium multifactorial secondary to DT and possibly chronic cognitive deficit
Alcohol abuse.
Daily alcohol use.
Last used 2 days prior to arrival
Patient given thiamine IV in the ER, will continue while in the hospital, then discharge on oral thiamine
Folic acid
Precedex drip intermittent use for agitation. Now off.
Haldol has been discontinued
Patient remains lethargic after administered lorazepam
Stop lorazepam add Risperdal 0.25 mg every 8 hours as needed for agitation
Continue Risperdal 0.5 mg at bedtime.
TAVR with severe AI was moderate before unclear timeline
Suspected endocarditis
blood cultures are negative x 72hours
Antibiotics as per infectious disease
Continue vancomycin. Zosyn discontinued.
Additional blood work ordered with Bartonella and Q fever and rheumatoid
Discussed with infectious service
Given negative cultures, and patient being afebrile antibiotic/vancomycin has been discontinued on 10/10. Monitor closely.
Dysphagia
Started on pur�ed diet
Cont with IVF in the interim
Shock likely secondary to sedation and decreased p.o. intake versus low likelihood of related to infection/sepsis
Discontinue phenobarbital
BP improved
See individual problem as above
Off Levophed, shock resolved.
RUE with superficial vein thrombosis
IV removed
History of hypertension
Cont to Hold home amlodipine for now
Chronic low back pain -try to set up bed into a chair to help alleviate his back pain. Discussed with nursing.
Hypokalemia -will replete.
CODE STATUS: Full code
Dispo -await SNF placement. Updated at the bedside.
Anticipated Discharge: 24 - 48 hours
Subjective/Interval History
-
Date of Service: October 16, 2023
Objective Data
-
Labs:
Laboratory Results
10/16/23
06:17
Sodium 141
Potassium 3.9
Chloride 109 H
Carbon Dioxide 22
BUN 9
Creatinine 0.6 L
Glucose 109 H
Calcium 9.1
Vital Signs:
Vital Signs
Temp Pulse Resp BP Pulse Ox
98.2 F 86 16 105/53 96
10/16/23 07:00 10/16/23 07:00 10/16/23 07:00 10/16/23 07:00 10/16/23 07:00
I&O
10/15/23 10/16/23 10/17/23
06:59 06:59 06:59
Intake Total 1170 / 1170 170 / 170 220 / 220
Output Total 200 / 200
Balance 1170 / 1170 170 / 170 20 / 20
Physical Exam
-
General: Well Developed and Appears Chronically Ill
HEENT: Normocephalic, Atraumatic and Moist Mucous Membranes
Respiratory: Clear to Auscultation (Continue healthy)
Cardiac: Regular Rhythm and S1/S2; Negative Rub or Gallop
GI: Soft, Nontender, Nondistended and Normal Bowel Sounds; Negative Organomegaly
Rectal: Deferred by Provider
Musculoskeletal: No Clubbing, No Cyanosis, No Edema and Edema, Right Upper Extrem
Skin: Negative Rash
Neuro: Awake, Alert, Oriented (Name only.) and Nonfocal/Grossly Intact
Psych: Confused
[2023-10-16] MEDS: LOVENOX 40 MG SC (18:21)
[2023-10-16] MEDS: LIPITOR 40 MG PO (18:21)
[2023-10-16] MEDS: RISPERDAL 0.5 MG PO (20:47)
[2023-10-16 23:20] VITALS: BP 121/72
[2023-10-17 06:00] VITALS: BMI 29.4
[2023-10-17 07:05] VITALS: BP 145/74
[2023-10-17] MEDS: VITAMIN B1 100 MG PO ×2 (09:27→19:38)
[2023-10-17] MEDS: MIRALAX 17 GRAMS PO (09:27)
[2023-10-17] MEDS: KCL ELIXIR 40 MEQ PO (09:27)
[2023-10-17] MEDS: ASPIR LOW (ENTERIC COATED) 81 MG PO (09:28)
[2023-10-17] MEDS: FOLVITE 1 MG PO (09:29)
[2023-10-17] MEDS: RISPERDAL 0.25 MG PO (09:35)
--- NOTE | 2023-10-17 10:56 | CM ---
Patient remains on 1:1 today. CM will continue to follow for discharge planning needs.
PLan SNF vs Acute Rehab
[2023-10-17 14:44] VITALS: BP 119/59
[2023-10-17] MEDS: LIPITOR 40 MG PO (17:34)
[2023-10-17] MEDS: LOVENOX 40 MG SC (17:34)
--- NOTE | 2023-10-17 17:52 | PTCARENOTE ---
While transferring pt from chair to bed, pt was standing, but resisting nursings attempts to help with his gait. he became more upset and proceeded to bit me in the distal, inner, left forearm. After pulling my arm away, I proceeded to get the pt
safely into the bed without incident. skin on the forearm is intact, however there is an area of erythema visible
--- NOTE | 2023-10-17 17:56 | W.PN.HOSP.TC ---
Today's Communication/Plan
-
Mental status overall improved with decreased agitation. He remains with expressive aphasia.
Continue Risperdal at the current regimen.
Continue physical therapy.
At this point medically optimized for placement to [facility] for further [facility].
Assessment / Plan
Assessment / Plan
CTA head and neck showed:
Bilateral carotid bulb and proximal internal carotid artery atherosclerosis, left greater than right, without hemodynamically significant proximal internal carotid artery stenosis.
No findings to suggest internal carotid artery or vertebral artery dissection bilaterally. Dominant right vertebral artery.
No findings to suggest proximal intracranial arterial stenosis bilaterally.
MRI brain showed:
Cluster of small acute, nonhemorrhagic infarcts in the left insula. There is also a tiny acute nonhemorrhagic infarct in the left parietal lobe posteriorly.
Cerebral atrophy along with chronic small vessel ischemia in cerebral white matter
Old lacunar infarcts in the centrum semiovale bilaterally and right frontal subcortical white matter.
IMPRESSION:
78 years old with a history of hypertension, hyperlipidemia, aortic stenosis status post TAVR presented with mild confusion and slurred speech which resolved, MRI brain shows acute CVA neurology consulted, vision consulted and plan for DANYA today.
PLAN:
Acute CVA (Wernicke's aphasia)
CT head done in the ER showed: No acute abnormality.
MRI of the brain was positive for acute infarcts
CTA was negative for acute stenosis
Echo was performed Overall preserved left ventricular function. Estimated LV ejection fraction is 55% . Lateral hypokinesis.
continue with Aspirin/atorvastatin,
Hemoglobin A1c 5.3, LDL 40.
PT/OT consulted.
DANYA with normal biventricular size and systolic function without regional wall motion abnormality. Bioprosthetic aortic valve with severe paravalvular regurgitation. Aortic root thickening cannot rule out aortic root abscess. Cannot rule out the
presence of small sessile vegetation on the anterior leaflet. Mild to moderate regurgitation mitral. No evidence of left atrial appendage, right atrial appendage thrombus.
Overall his neurologic exam with no focal findings. Confusion and agitation likely represent delirium with underlying and possibly alcohol-related toxic metabolic encephalopathy.
Toxic metabolic encephalopathy likely multifactorial due to acute CVA, alcohol withdrawals and suspected delirium with behavioral disturbances
Delirium multifactorial secondary to DT and possibly chronic cognitive deficit
Alcohol abuse.
Daily alcohol use.
Last used 2 days prior to arrival
Patient given thiamine IV in the ER, will continue while in the hospital, then discharge on oral thiamine
Folic acid
Precedex drip intermittent use for agitation. Now off.
Haldol has been discontinued
Patient remains lethargic after administered lorazepam
Stop lorazepam add Risperdal 0.25 mg every 8 hours as needed for agitation
Continue Risperdal 0.5 mg at bedtime.
TAVR with severe AI was moderate before unclear timeline
Suspected endocarditis
blood cultures are negative x 72hours
Antibiotics as per infectious disease
Continue vancomycin. Zosyn discontinued.
Additional blood work ordered with Bartonella and Q fever and rheumatoid
Discussed with infectious service
Given negative cultures, and patient being afebrile antibiotic/vancomycin has been discontinued on 10/10. Monitor closely.
Dysphagia
Started on pur�ed diet
Cont with IVF in the interim
Shock likely secondary to sedation and decreased p.o. intake versus low likelihood of related to infection/sepsis
Discontinue phenobarbital
BP improved
See individual problem as above
Off Levophed, shock resolved.
RUE with superficial vein thrombosis
IV removed
History of hypertension
Cont to Hold home amlodipine for now
Chronic low back pain -try to set up bed into a chair to help alleviate his back pain. Discussed with nursing.
Hypokalemia -will replete.
CODE STATUS: Full code
Dispo -await SNF placement. Updated at the bedside.
Anticipated Discharge: 24 - 48 hours
Subjective/Interval History
-
Date of Service: October 17, 2023
Objective Data
-
Vital Signs:
Vital Signs
Temp Pulse Resp BP Pulse Ox
97.9 F 102 18 119/59 97
10/17/23 14:44 10/17/23 14:44 10/17/23 14:44 10/17/23 14:44 10/17/23 14:44
I&O
10/16/23 10/17/23 10/18/23
06:59 06:59 06:59
Intake Total 170 / 170 460 / 460 480 / 480
Output Total 200 / 200
Balance 170 / 170 260 / 260 480 / 480
Physical Exam
-
General: Well Developed and No Apparent Distress
HEENT: Normocephalic, Atraumatic and Moist Mucous Membranes
Respiratory: Clear to Auscultation
Cardiac: Regular Rhythm and S1/S2; Negative Murmur, Rub or Gallop
GI: Soft, Nontender, Nondistended and Normal Bowel Sounds; Negative Organomegaly
Rectal: Deferred by Provider
Musculoskeletal: No Clubbing, No Cyanosis and No Edema
Skin: Negative Rash
Neuro: Nonfocal/Grossly Intact
[2023-10-17] MEDS: RISPERDAL 0.5 MG PO (19:39)
[2023-10-17 23:53] VITALS: BP 127/68
[2023-10-18] MEDS: RISPERDAL 0.25 MG PO (00:25)
[2023-10-18 05:29] VITALS: BMI 29.6
[2023-10-18 07:10] VITALS: BP 139/74
[2023-10-18] MEDS: ASPIR LOW (ENTERIC COATED) 81 MG PO (08:38)
[2023-10-18] MEDS: VITAMIN B1 100 MG PO ×2 (08:38→20:23)
[2023-10-18] MEDS: FOLVITE 1 MG PO (08:38)
[2023-10-18] MEDS: MIRALAX 17 GRAMS PO (08:38)
[2023-10-18] MEDS: KCL ELIXIR 40 MEQ PO (08:38)
[2023-10-18] MEDS: TYLENOL 650 MG PO (11:27)
--- NOTE | 2023-10-18 12:27 | CM ---
Reviewed chart, spoke with attending who stated that patient is medically cleared for discharge. Patient still exhibiting behaviors that would surpass what is manageable at a SNF or acute care. Attending updated. Will make referrals once patient's
behaviors are improved.
Plan: Case management will continue to follow and assist with discharge planning. SNF vrs. Acute Care.
[2023-10-18 15:26] VITALS: BP 137/72
[2023-10-18] MEDS: LIPITOR 40 MG PO (17:14)
[2023-10-18] MEDS: LOVENOX 40 MG SC (17:15)
--- NOTE | 2023-10-18 18:58 | W.PN.HOSP.TC ---
Today's Communication/Plan
-
While initiated on Risperdal 0.5 mg at bedtime remains with periodic agitation. Will increase Risperdal dose 2.2 5 AM and 1.5 at bedtime.
Assessment / Plan
Assessment / Plan
CTA head and neck showed:
Bilateral carotid bulb and proximal internal carotid artery atherosclerosis, left greater than right, without hemodynamically significant proximal internal carotid artery stenosis.
No findings to suggest internal carotid artery or vertebral artery dissection bilaterally. Dominant right vertebral artery.
No findings to suggest proximal intracranial arterial stenosis bilaterally.
MRI brain showed:
Cluster of small acute, nonhemorrhagic infarcts in the left insula. There is also a tiny acute nonhemorrhagic infarct in the left parietal lobe posteriorly.
Cerebral atrophy along with chronic small vessel ischemia in cerebral white matter
Old lacunar infarcts in the centrum semiovale bilaterally and right frontal subcortical white matter.
IMPRESSION:
78 years old with a history of hypertension, hyperlipidemia, aortic stenosis status post TAVR presented with mild confusion and slurred speech which resolved, MRI brain shows acute CVA neurology consulted, vision consulted and plan for DANYA today.
PLAN:
Acute CVA (Wernicke's aphasia)
CT head done in the ER showed: No acute abnormality.
MRI of the brain was positive for acute infarcts
CTA was negative for acute stenosis
Echo was performed Overall preserved left ventricular function. Estimated LV ejection fraction is 55% . Lateral hypokinesis.
continue with Aspirin/atorvastatin,
Hemoglobin A1c 5.3, LDL 40.
PT/OT consulted.
DANYA with normal biventricular size and systolic function without regional wall motion abnormality. Bioprosthetic aortic valve with severe paravalvular regurgitation. Aortic root thickening cannot rule out aortic root abscess. Cannot rule out the
presence of small sessile vegetation on the anterior leaflet. Mild to moderate regurgitation mitral. No evidence of left atrial appendage, right atrial appendage thrombus.
Overall his neurologic exam with no focal findings. Confusion and agitation likely represent delirium with underlying and possibly alcohol-related toxic metabolic encephalopathy.
Toxic metabolic encephalopathy likely multifactorial due to acute CVA, alcohol withdrawals and suspected delirium with behavioral disturbances
Delirium multifactorial secondary to DT and possibly chronic cognitive deficit
Alcohol abuse.
Daily alcohol use.
Last used 2 days prior to arrival
Patient given thiamine IV in the ER, will continue while in the hospital, then discharge on oral thiamine
Folic acid
Precedex drip intermittent use for agitation. Now off.
Haldol has been discontinued
Patient remains lethargic after administered lorazepam
While initiated on Risperdal 0.5 mg at bedtime remains with periodic agitation. Will increase Risperdal dose 2.2 5 AM and 1.5 at bedtime.
TAVR with severe AI was moderate before unclear timeline
Suspected endocarditis
blood cultures are negative x 72hours
Antibiotics as per infectious disease
Continue vancomycin. Zosyn discontinued.
Additional blood work ordered with Bartonella and Q fever and rheumatoid
Discussed with infectious service
Given negative cultures, and patient being afebrile antibiotic/vancomycin has been discontinued on 10/10. Monitor closely.
Dysphagia
Started on pur�ed diet
Cont with IVF in the interim
Shock likely secondary to sedation and decreased p.o. intake versus low likelihood of related to infection/sepsis
Discontinue phenobarbital
BP improved
See individual problem as above
Off Levophed, shock resolved.
RUE with superficial vein thrombosis
IV removed
History of hypertension
Cont to Hold home amlodipine for now
Chronic low back pain -try to set up bed into a chair to help alleviate his back pain. Discussed with nursing.
Hypokalemia -will replete.
CODE STATUS: Full code
Dispo -await SNF placement. Updated at the bedside.
Anticipated Discharge: 24 - 48 hours
Subjective/Interval History
-
Date of Service: October 18, 2023
Objective Data
-
Vital Signs:
Vital Signs
Temp Pulse Resp BP Pulse Ox
98.0 F 94 18 137/72 96
10/18/23 15:26 10/18/23 15:26 10/18/23 15:26 10/18/23 15:26 10/18/23 15:26
I&O
10/17/23 10/18/23 10/19/23
06:59 06:59 06:59
Intake Total 460 / 460 1200 / 1200 180 / 180
Output Total 200 / 200 275 / 275
Balance 260 / 260 925 / 925 180 / 180
Physical Exam
-
General: Well Developed and No Apparent Distress
HEENT: Normocephalic, Atraumatic and Moist Mucous Membranes
Respiratory: Clear to Auscultation
Cardiac: Regular Rhythm and S1/S2; Negative Murmur, Rub or Gallop
GI: Soft, Nontender, Nondistended and Normal Bowel Sounds; Negative Organomegaly
Rectal: Deferred by Provider
Musculoskeletal: No Clubbing, No Cyanosis and No Edema
Skin: Negative Rash
Neuro: Nonfocal/Grossly Intact
[2023-10-18] MEDS: RISPERDAL 1 MG PO (20:23)
[2023-10-18] MEDS: RISPERDAL 0.5 MG PO (20:24)
[2023-10-18 23:29] VITALS: BP 143/78
[2023-10-19 07:18] VITALS: BP 139/70
[2023-10-19] MEDS: VITAMIN B1 100 MG PO ×2 (08:13→20:19)
[2023-10-19] MEDS: ASPIR LOW (ENTERIC COATED) 81 MG PO (08:13)
[2023-10-19] MEDS: KCL ELIXIR 40 MEQ PO (08:14)
[2023-10-19] MEDS: FOLVITE 1 MG PO (08:14)
[2023-10-19] MEDS: RISPERDAL 0.25 MG PO (08:14)
[2023-10-19] MEDS: MIRALAX 17 GRAMS PO (08:14)
[2023-10-19 09:21] LABS: Blood Urea Nitrogen 7 mg/dl (9-20); Calcium 9.4 mg/dl (8.4-10.2); Carbon Dioxide 24 mmol/L (22-30); Chloride 105 mmol/L (98-107); Estimated Creatinine Clearance 101 ml/min; Glucose 104 mg/dl (70-99); Potassium 4.7 mmol/L (3.5-5.1); Sodium 138 mmol/L (135-145); eGFR > 60.00
--- NOTE | 2023-10-19 11:43 | W.PN.HOSP.TC ---
Today's Communication/Plan
-
encourage po intake
Psych recs for meds
may need uptitration of risperidal
Assessment / Plan
Assessment / Plan
General: Well Developed and No Apparent Distress
HEENT: Normocephalic, Atraumatic and Moist Mucous Membranes
Respiratory: Clear to Auscultation
Cardiac: Regular Rhythm and S1/S2; Negative Murmur, Rub or Gallop
GI: Soft, Nontender, Nondistended and Normal Bowel Sounds; Negative Organomegaly
Rectal: Deferred by Provider
Musculoskeletal: No Clubbing, No Cyanosis and No Edema
Psych confused.
Skin: Negative Rash
Neuro: Nonfocal/Grossly Intact
CTA head and neck showed:
Bilateral carotid bulb and proximal internal carotid artery atherosclerosis, left greater than right, without hemodynamically significant proximal internal carotid artery stenosis.
No findings to suggest internal carotid artery or vertebral artery dissection bilaterally. Dominant right vertebral artery.
No findings to suggest proximal intracranial arterial stenosis bilaterally.
MRI brain showed:
Cluster of small acute, nonhemorrhagic infarcts in the left insula. There is also a tiny acute nonhemorrhagic infarct in the left parietal lobe posteriorly.
Cerebral atrophy along with chronic small vessel ischemia in cerebral white matter
Old lacunar infarcts in the centrum semiovale bilaterally and right frontal subcortical white matter.
IMPRESSION:
78 years old with a history of hypertension, hyperlipidemia, aortic stenosis status post TAVR presented with mild confusion and slurred speech which resolved, MRI brain shows acute CVA neurology consulted, vision consulted and plan for DANYA today.
PLAN:
Acute CVA (Wernicke's aphasia)
CT head done in the ER showed: No acute abnormality.
MRI of the brain was positive for acute infarcts
CTA was negative for acute stenosis
Echo was performed Overall preserved left ventricular function. Estimated LV ejection fraction is 55% . Lateral hypokinesis.
continue with Aspirin/atorvastatin,
Hemoglobin A1c 5.3, LDL 40.
PT/OT consulted.
DANYA with normal biventricular size and systolic function without regional wall motion abnormality. Bioprosthetic aortic valve with severe paravalvular regurgitation. Aortic root thickening cannot rule out aortic root abscess. Cannot rule out the
presence of small sessile vegetation on the anterior leaflet. Mild to moderate regurgitation mitral. No evidence of left atrial appendage, right atrial appendage thrombus.
Overall his neurologic exam with no focal findings. Confusion and agitation likely represent delirium with underlying and possibly alcohol-related toxic metabolic encephalopathy.
Toxic metabolic encephalopathy likely multifactorial due to acute CVA, alcohol withdrawals and suspected delirium with behavioral disturbances
Delirium multifactorial secondary to DT and possibly chronic cognitive deficit
Alcohol abuse.
Daily alcohol use.
Last used 2 days prior to arrival
Patient given thiamine IV in the ER, will continue while in the hospital, then discharge on oral thiamine
Folic acid
Precedex drip intermittent use for agitation. Now off.
Haldol has been discontinued
Patient remains lethargic after administered lorazepam
Remains on Risperidal 0,25 AM and additional 1.5mg QHS and still wtih agitation. May need additional dose in afternoon or amd dose adjustment.
Will Psych to come back for further meds adjustment
remains on sitter
TAVR with severe AI was moderate before unclear timeline
Suspected endocarditis
blood cultures are negative x 72hours
Antibiotics as per infectious disease
Continue vancomycin. Zosyn discontinued.
Additional blood work ordered with Bartonella and Q fever and rheumatoid
Discussed with infectious service
Given negative cultures, and patient being afebrile antibiotic/vancomycin has been discontinued on 10/10. Monitor closely.
Dysphagia
Started on pur�ed diet
Cont with IVF in the interim
Shock likely secondary to sedation and decreased p.o. intake versus low likelihood of related to infection/sepsis
Discontinue phenobarbital
BP improved
See individual problem as above
Off Levophed, shock resolved.
RUE with superficial vein thrombosis
IV removed
History of hypertension
Cont to Hold home amlodipine for now
Chronic low back pain -try to set up bed into a chair to help alleviate his back pain.
Hypokalemia -will replete.
CODE STATUS: Full code
Dispo -await SNF placement. 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
Anticipated Discharge: > 48 hours
Subjective/Interval History
-
Date of Service: October 19, 2023
Remains agitated and confused
sitter and telesitter at bedside
risperdial dose adjusted yesterday
Objective Data
-
Labs:
Laboratory Results
10/19/23
08:51
Sodium 138
Potassium 4.7
Chloride 105
Carbon Dioxide 24
BUN 7 L
Creatinine 0.6 L
Glucose 104 H
Calcium 9.4
Vital Signs:
Vital Signs
Temp Pulse Resp BP Pulse Ox
98.6 F 86 20 139/70 96
10/19/23 07:18 10/19/23 07:18 10/19/23 07:18 10/19/23 07:18 10/19/23 08:17
I&O
10/18/23 10/19/23 10/20/23
06:59 06:59 06:59
Intake Total 1200 / 1200 180 / 180
Output Total 275 / 275 75 / 75
Balance 925 / 925 105 / 105
[2023-10-19 15:50] VITALS: BP 96/57
--- NOTE | 2023-10-19 16:59 | W.PN.UPDATE ---
Update Note
Progress Note Update
Pt seen & evaluated - has been increasingly more agitated despite current dose of risperidone. Pt was sitting up sleeping on evaluation, spoke to 1:1 who reported that prior to falling asleep he had been agitated and difficult to redirect. Did not
sleep much of the night and difficult to manage behaviorally.
Increase risperidone to 0.5mg AM & 2mg HS + 0.25mg BIDPRN, suspect if sleep improves overall agitation will likely improve
will follow for response
[2023-10-19] MEDS: LOVENOX 40 MG SC (20:16)
[2023-10-19] MEDS: LIPITOR 40 MG PO (20:19)
[2023-10-19] MEDS: RISPERDAL 2 MG PO (20:20)
[2023-10-19 23:02] VITALS: BP 105/65
[2023-10-20 06:21] LABS: % Eosinophils 4.8 % (0-6); % Immature Granulocytes 0.3 % (0-0.5); % Lymphocytes 15.4 % (20.5-51.1); % Monocytes 16.1 % (1.7-9.3); % Neutrophils 62.4 % (42.2-75.2); Absolute Basophils 0.1 10^3/uL (0-0.2); Absolute Eosinophils 0.3 10^3/uL (0-0.7); Absolute Lymphocytes 0.9 10^3/uL (1.2-3.4); Absolute Monocytes 0.9 10^3/uL (0.1-0.6); Absolute Neutrophils 3.6 10^3/uL (1.4-6.5); Hematocrit 34.3 % (39.0-52.0); Hemoglobin 11.8 g/dL (13.0-18.0); Mean Corp Hgb Conc. 34.4 g/dL (33.0-37.0); Mean Corpuscular Hgb 32.6 pg (27.0-31.0); Mean Corpuscular Volume 94.8 fL (80.0-94.0); Mean Platelet Volume 10.7 fL (7.4-10.4); Nucleated Red Blood Cells % 0 % (-); Platelet Count 261 10^3/uL (130-400); Red Blood Cell Count 3.62 10^6/uL (4.70-6.10); Red Cell Dist. Width 14.3 % (11.5-14.5); White Blood Cell Count 5.8 10^3/uL (4.8-10.8)
[2023-10-20 07:06] VITALS: BP 109/61
[2023-10-20] MEDS: MIRALAX 17 GRAMS PO (08:19)
[2023-10-20] MEDS: VITAMIN B1 100 MG PO ×2 (08:20→20:47)
[2023-10-20] MEDS: KCL ELIXIR 40 MEQ PO (08:20)
[2023-10-20] MEDS: FOLVITE 1 MG PO (08:20)
[2023-10-20] MEDS: ASPIR LOW (ENTERIC COATED) 81 MG PO (08:20)
[2023-10-20] MEDS: RISPERDAL 0.5 MG PO (08:20)
[2023-10-20 09:12] VITALS: BP 127/61; PULSE 81; O2SAT 98
[2023-10-20 09:13] VITALS: BP 127/61; PULSE 80; O2SAT 98
--- NOTE | 2023-10-20 11:19 | W.PN.HOSP.TC ---
Today's Communication/Plan
-
Continue with Risperdal
Monitor mentation
wean off 1:1
Assessment / Plan
Assessment / Plan
General: Well Developed and No Apparent Distress
HEENT: Normocephalic, Atraumatic and Moist Mucous Membranes
Respiratory: Clear to Auscultation
Cardiac: Regular Rhythm and S1/S2; Negative Murmur, Rub or Gallop
GI: Soft, Nontender, Nondistended and Normal Bowel Sounds; Negative Organomegaly
Rectal: Deferred by Provider
Musculoskeletal: No Clubbing, No Cyanosis and No Edema
Psych confused.
Skin: Negative Rash
Neuro: Nonfocal/Grossly Intact
CTA head and neck showed:
Bilateral carotid bulb and proximal internal carotid artery atherosclerosis, left greater than right, without hemodynamically significant proximal internal carotid artery stenosis.
No findings to suggest internal carotid artery or vertebral artery dissection bilaterally. Dominant right vertebral artery.
No findings to suggest proximal intracranial arterial stenosis bilaterally.
MRI brain showed:
Cluster of small acute, nonhemorrhagic infarcts in the left insula. There is also a tiny acute nonhemorrhagic infarct in the left parietal lobe posteriorly.
Cerebral atrophy along with chronic small vessel ischemia in cerebral white matter
Old lacunar infarcts in the centrum semiovale bilaterally and right frontal subcortical white matter.
IMPRESSION:
78 years old with a history of hypertension, hyperlipidemia, aortic stenosis status post TAVR presented with mild confusion and slurred speech which resolved, MRI brain shows acute CVA neurology consulted, vision consulted and plan for DANYA today.
PLAN:
Acute CVA (Wernicke's aphasia)
CT head done in the ER showed: No acute abnormality.
MRI of the brain was positive for acute infarcts
CTA was negative for acute stenosis
Echo was performed Overall preserved left ventricular function. Estimated LV ejection fraction is 55% . Lateral hypokinesis.
continue with Aspirin/atorvastatin,
Hemoglobin A1c 5.3, LDL 40.
PT/OT consulted.
DANYA with normal biventricular size and systolic function without regional wall motion abnormality. Bioprosthetic aortic valve with severe paravalvular regurgitation. Aortic root thickening cannot rule out aortic root abscess. Cannot rule out the
presence of small sessile vegetation on the anterior leaflet. Mild to moderate regurgitation mitral. No evidence of left atrial appendage, right atrial appendage thrombus.
Overall his neurologic exam with no focal findings. Confusion and agitation likely represent delirium with underlying and possibly alcohol-related toxic metabolic encephalopathy.
Toxic metabolic encephalopathy likely multifactorial due to acute CVA, alcohol withdrawals and suspected delirium with behavioral disturbances
Delirium multifactorial secondary to DT and possibly chronic cognitive deficit
Alcohol abuse.
Daily alcohol use.
Last used 2 days prior to arrival
Patient given thiamine IV in the ER, will continue while in the hospital, then discharge on oral thiamine
Folic acid
Precedex drip intermittent use for agitation. Now off.
Haldol has been discontinued
Patient remains lethargic after administered lorazepam
Improvement in mentation. Continue current dose of Risperdal 2 mg nightly with 0.5 mg daily
Wean off one-to-one
Appreciate psych recs
TAVR with severe AI was moderate before unclear timeline
Suspected endocarditis
blood cultures are negative x 72hours
Antibiotics as per infectious disease
Continue vancomycin. Zosyn discontinued.
Additional blood work ordered with Bartonella and Q fever and rheumatoid
Discussed with infectious service
Given negative cultures, and patient being afebrile antibiotic/vancomycin has been discontinued on 10/10. Monitor closely.
Dysphagia
Started on pur�ed diet
Shock likely secondary to sedation and decreased p.o. intake versus low likelihood of related to infection/sepsis
Discontinue phenobarbital
BP improved
See individual problem as above
Off Levophed, shock resolved.
RUE with superficial vein thrombosis
IV removed
History of hypertension
Cont to Hold home amlodipine for now
Chronic low back pain -try to set up bed into a chair to help alleviate his back pain.
Hypokalemia -will replete.
CODE STATUS: Full code
Discussed with spouse at bedside in detail
Dispo -probably will require placement once off one-to-one for 24 hours
Anticipated Discharge: > 48 hours
Subjective/Interval History
-
Date of Service: October 20, 2023
More awake this morning
improvement in mentation
coherent
performing ADLs with assistance
tolerated breakfast
Objective Data
-
Labs:
Laboratory Results
10/20/23
05:20
WBC 5.8
Hgb 11.8 L
Hct 34.3 L
Plt Count 261
Vital Signs:
Vital Signs
Temp Pulse Resp BP Pulse Ox
98.1 F 73 14 109/61 73
10/19/23 23:02 10/20/23 07:06 10/20/23 07:06 10/20/23 07:06 10/20/23 07:06
I&O
10/19/23 10/20/23 10/21/23
06:59 06:59 06:59
Intake Total 180 / 180 1570 / 1570
Output Total 75 / 75 600 / 600
Balance 105 / 105 970 / 970
[2023-10-20 14:33] VITALS: BP 111/61
--- NOTE | 2023-10-20 16:24 | CM ---
Case management following for d/c planning
Reviewed chart
Pt remains on 1:1
Patient is medically cleared for discharge
Patient still exhibiting behaviors that would surpass what is manageable at a SNF or acute care
Referral made in [facility] for rehab
Plan: Case management will continue to follow and assist with discharge planning. SNF vs Acute Care.
[2023-10-20] MEDS: LIPITOR 40 MG PO (18:22)
[2023-10-20] MEDS: LOVENOX 40 MG SC (18:24)
--- NOTE | 2023-10-20 18:28 | W.PN.UPDATE ---
Update Note
Progress Note Update
Pt seen & evaluated at bedside with 1:1 present. Reviewed chart & spoke to pt. It seems that pt slept better with the higher evening risperidone dose, has remained calm thus far today. Is unable to participate in meaningful conversation, is not
oriented, seems to believe he is at a train station or something to that effect. A bit paranoid, but redirectable. Difficult to make sense of his speech as many words either do not make sense in the context or sound made-up. Despite this he does
remain calm, with no significant episodes of agitation since yesterday.
Continue risperidone 0.5mg AM/2mg HS + 0.25mg PRN
[2023-10-20] MEDS: RISPERDAL 2 MG PO (22:29)
[2023-10-20 23:35] VITALS: BP 110/68
[2023-10-21 07:00] VITALS: BP 120/61
[2023-10-21] MEDS: VITAMIN B1 100 MG PO ×2 (08:16→20:58)
[2023-10-21] MEDS: MIRALAX 17 GRAMS PO (08:16)
[2023-10-21] MEDS: RISPERDAL 0.5 MG PO (08:16)
[2023-10-21] MEDS: ASPIR LOW (ENTERIC COATED) 81 MG PO (08:17)
[2023-10-21] MEDS: FOLVITE 1 MG PO (08:17)
--- NOTE | 2023-10-21 10:19 | W.PN.HOSP.TC ---
Today's Communication/Plan
-
encourage po intake
wean of tele sitter
cont risperdial
psych recs
Assessment / Plan
Assessment / Plan
General: Well Developed and No Apparent Distress
HEENT: Normocephalic, Atraumatic and Moist Mucous Membranes
Respiratory: Clear to Auscultation
Cardiac: Regular Rhythm and S1/S2; Negative Murmur, Rub or Gallop
GI: Soft, Nontender, Nondistended and Normal Bowel Sounds; Negative Organomegaly
Rectal: Deferred by Provider
Musculoskeletal: No Clubbing, No Cyanosis and No Edema
Psych confused.
Skin: Negative Rash
Neuro: Nonfocal/Grossly Intact
CTA head and neck showed:
Bilateral carotid bulb and proximal internal carotid artery atherosclerosis, left greater than right, without hemodynamically significant proximal internal carotid artery stenosis.
No findings to suggest internal carotid artery or vertebral artery dissection bilaterally. Dominant right vertebral artery.
No findings to suggest proximal intracranial arterial stenosis bilaterally.
MRI brain showed:
Cluster of small acute, nonhemorrhagic infarcts in the left insula. There is also a tiny acute nonhemorrhagic infarct in the left parietal lobe posteriorly.
Cerebral atrophy along with chronic small vessel ischemia in cerebral white matter
Old lacunar infarcts in the centrum semiovale bilaterally and right frontal subcortical white matter.
IMPRESSION:
78 years old with a history of hypertension, hyperlipidemia, aortic stenosis status post TAVR presented with mild confusion and slurred speech which resolved, MRI brain shows acute CVA neurology consulted, vision consulted and plan for DANYA today.
PLAN:
Acute CVA (Wernicke's aphasia)
CT head done in the ER showed: No acute abnormality.
MRI of the brain was positive for acute infarcts
CTA was negative for acute stenosis
Echo was performed Overall preserved left ventricular function. Estimated LV ejection fraction is 55% . Lateral hypokinesis.
continue with Aspirin/atorvastatin,
Hemoglobin A1c 5.3, LDL 40.
PT/OT consulted.
DANYA with normal biventricular size and systolic function without regional wall motion abnormality. Bioprosthetic aortic valve with severe paravalvular regurgitation. Aortic root thickening cannot rule out aortic root abscess. Cannot rule out the
presence of small sessile vegetation on the anterior leaflet. Mild to moderate regurgitation mitral. No evidence of left atrial appendage, right atrial appendage thrombus.
Overall his neurologic exam with no focal findings. Confusion and agitation likely represent delirium with underlying and possibly alcohol-related toxic metabolic encephalopathy.
Toxic metabolic encephalopathy likely multifactorial due to acute CVA, alcohol withdrawals and suspected delirium with behavioral disturbances
Delirium multifactorial secondary to DT and possibly chronic cognitive deficit
Alcohol abuse.
Daily alcohol use.
Last used 2 days prior to arrival
Patient given thiamine IV in the ER, will continue while in the hospital, then discharge on oral thiamine
Folic acid
Precedex drip intermittent use for agitation. Now off.
Haldol has been discontinued
Patient remains lethargic after administered lorazepam
Improvement in mentation. Continue current dose of Risperdal 2 mg nightly with 0.5 mg daily
off one-to-one
slowly wean off telesitter
Appreciate psych recs
TAVR with severe AI was moderate before unclear timeline
Suspected endocarditis
blood cultures are negative x 72hours
Antibiotics as per infectious disease
Continue vancomycin. Zosyn discontinued.
Additional blood work ordered with Bartonella and Q fever and rheumatoid
Discussed with infectious service
Given negative cultures, and patient being afebrile antibiotic/vancomycin has been discontinued on 10/10. Monitor closely.
Dysphagia
Started on pur�ed diet
Shock likely secondary to sedation and decreased p.o. intake versus low likelihood of related to infection/sepsis
Discontinue phenobarbital
BP improved
See individual problem as above
Off Levophed, shock resolved.
RUE with superficial vein thrombosis
IV removed
History of hypertension
Cont to Hold home amlodipine for now
Chronic low back pain -try to set up bed into a chair to help alleviate his back pain.
Hypokalemia -will replete.
CODE STATUS: Full code
Discussed with spouse at bedside in detail
Dispo -probably will require placement once off telesitter for 24 hours
Anticipated Discharge: > 48 hours
Subjective/Interval History
-
Date of Service: October 21, 2023
awake watching tv
remains confused
off sitter
Objective Data
-
Vital Signs:
Vital Signs
Temp Pulse Resp BP Pulse Ox
97.6 F 80 14 120/61 97
10/21/23 07:00 10/21/23 07:00 10/21/23 07:00 10/21/23 07:00 10/21/23 07:00
I&O
10/20/23 10/21/23 10/22/23
06:59 06:59 06:59
Intake Total 1570 / 1570 540 / 540
Output Total 600 / 600 400 / 400
Balance 970 / 970 140 / 140
[2023-10-21 15:00] VITALS: BP 114/63
--- NOTE | 2023-10-21 16:32 | W.PN.UPDATE ---
Update Note
Progress Note Update
Pt seen at bedside - is sitting up in chair next to bed, appears to be talking to himself. Remains a bit paranoid as yesterday and speech remains difficult to make sense of, however has continued to be calm and redirectable. No significant agitation
reported.
Continue risperidone 0.5mg AM/2mg HS + 0.25mg PRN
--- NOTE | 2023-10-21 17:21 | PTCARENOTE ---
Pt remains on medsitter. OOB to chair for most of day. Fair-good appetite for meals with encouragement from . Pt able to ambulate with walker and assist x 2 to bathroom, moved bowels. Mildly agitated when frustrated, easily redirectable.
[2023-10-21] MEDS: LIPITOR 40 MG PO (17:36)
[2023-10-21] MEDS: LOVENOX 40 MG SC (17:36)
[2023-10-21] MEDS: RISPERDAL M-TAB (ORALLY DISINTEGRATING) 0.25 MG PO ×2 (17:38)
[2023-10-21] MEDS: RISPERDAL 2 MG PO (20:59)
[2023-10-22 03:35] VITALS: BP 131/59
[2023-10-22] MEDS: VITAMIN B1 100 MG PO ×2 (07:16→21:03)
[2023-10-22] MEDS: RISPERDAL 0.5 MG PO (07:16)
[2023-10-22] MEDS: ASPIR LOW (ENTERIC COATED) 81 MG PO (07:16)
[2023-10-22] MEDS: MIRALAX 17 GRAMS PO (07:16)
[2023-10-22] MEDS: FOLVITE 1 MG PO (07:16)
[2023-10-22 07:30] VITALS: BP 94/65
--- NOTE | 2023-10-22 11:29 | W.PN.HOSP.TC ---
Today's Communication/Plan
-
Plan to wean off TeleSitter today
Continue with current psych meds
Psych recommendation
Placement once off sitter
Assessment / Plan
Assessment / Plan
General: Well Developed and No Apparent Distress, sitting in chair
HEENT: Normocephalic, Atraumatic and Moist Mucous Membranes
Respiratory: Clear to Auscultation
Cardiac: Regular Rhythm and S1/S2; Negative Murmur, Rub or Gallop
GI: Soft, Nontender, Nondistended and Normal Bowel Sounds; Negative Organomegaly
Rectal: Deferred by Provider
Musculoskeletal: No Clubbing, No Cyanosis and No Edema
Psych confused.
Skin: Negative Rash
Neuro: Nonfocal/Grossly Intact
CTA head and neck showed:
Bilateral carotid bulb and proximal internal carotid artery atherosclerosis, left greater than right, without hemodynamically significant proximal internal carotid artery stenosis.
No findings to suggest internal carotid artery or vertebral artery dissection bilaterally. Dominant right vertebral artery.
No findings to suggest proximal intracranial arterial stenosis bilaterally.
MRI brain showed:
Cluster of small acute, nonhemorrhagic infarcts in the left insula. There is also a tiny acute nonhemorrhagic infarct in the left parietal lobe posteriorly.
Cerebral atrophy along with chronic small vessel ischemia in cerebral white matter
Old lacunar infarcts in the centrum semiovale bilaterally and right frontal subcortical white matter.
IMPRESSION:
78 years old with a history of hypertension, hyperlipidemia, aortic stenosis status post TAVR presented with mild confusion and slurred speech which resolved, MRI brain shows acute CVA neurology consulted, vision consulted and plan for DANYA today.
PLAN:
Acute CVA (Wernicke's aphasia)
CT head done in the ER showed: No acute abnormality.
MRI of the brain was positive for acute infarcts
CTA was negative for acute stenosis
Echo was performed Overall preserved left ventricular function. Estimated LV ejection fraction is 55% . Lateral hypokinesis.
continue with Aspirin/atorvastatin,
Hemoglobin A1c 5.3, LDL 40.
PT/OT consulted.
DANYA with normal biventricular size and systolic function without regional wall motion abnormality. Bioprosthetic aortic valve with severe paravalvular regurgitation. Aortic root thickening cannot rule out aortic root abscess. Cannot rule out the
presence of small sessile vegetation on the anterior leaflet. Mild to moderate regurgitation mitral. No evidence of left atrial appendage, right atrial appendage thrombus.
Overall his neurologic exam with no focal findings. Confusion and agitation likely represent delirium with underlying and possibly alcohol-related toxic metabolic encephalopathy.
Toxic metabolic encephalopathy likely multifactorial due to acute CVA, alcohol withdrawals and suspected delirium with behavioral disturbances
Delirium multifactorial secondary to DT and possibly chronic cognitive deficit
Alcohol abuse.
Daily alcohol use.
Last used 2 days prior to arrival
Patient given thiamine IV in the ER, will continue while in the hospital, then discharge on oral thiamine
Folic acid
Precedex drip intermittent use for agitation. Now off.
Haldol has been discontinued
Patient remains lethargic after administered lorazepam
Improvement in behavioral disturbances. Continue current dose of Risperdal 2 mg nightly with 0.5 mg daily and 0.25mg PRN
off one-to-one
slowly wean off telesitter
Appreciate psych recs
TAVR with severe AI was moderate before unclear timeline
Suspected endocarditis
blood cultures are negative x 72hours
Antibiotics as per infectious disease
Continue vancomycin. Zosyn discontinued.
Additional blood work ordered with Bartonella and Q fever and rheumatoid
Discussed with infectious service
Given negative cultures, and patient being afebrile antibiotic/vancomycin has been discontinued on 10/10. Monitor closely.
Dysphagia
Started on pur�ed diet
Shock likely secondary to sedation and decreased p.o. intake versus low likelihood of related to infection/sepsis
Discontinue phenobarbital
BP improved
See individual problem as above
Off Levophed, shock resolved.
RUE with superficial vein thrombosis
IV removed
History of hypertension
Cont to Hold home amlodipine for now
Chronic low back pain -try to set up bed into a chair to help alleviate his back pain.
Hypokalemia -will replete.
CODE STATUS: Full code
Discussed with spouse at bedside in detail
Dispo -probably will require placement once off telesitter for 24 hours
Anticipated Discharge: > 48 hours
Subjective/Interval History
-
Date of Service: October 22, 2023
sitting in chair
walked around
ate breakfast
remains confused but not agitated
Objective Data
-
Vital Signs:
Vital Signs
Temp Pulse Resp BP Pulse Ox
97.4 F 94 18 94/65 98
10/22/23 07:30 10/22/23 07:30 10/22/23 07:30 10/22/23 07:30 10/22/23 07:30
I&O
10/21/23 10/22/23 10/23/23
06:59 06:59 06:59
Intake Total 540 / 540 480 / 480
Output Total 400 / 400 425 / 425
Balance 140 / 140 55 / 55
[2023-10-22 15:50] VITALS: BP 119/60
[2023-10-22] MEDS: LIPITOR 40 MG PO (17:10)
[2023-10-22] MEDS: LOVENOX 40 MG SC (17:10)
--- NOTE | 2023-10-22 18:59 | PTCARENOTE ---
Medsitter removed from room at 1030 this morning. Patient OOB to chair and ambulating w/ walker and assist x 1 throughout the shift. Good appetite, eating 100% of meals independently. Cooperative most of time, or easily redirectable. Remains
confused, expressive aphasia. No agitation this shift.
[2023-10-22] MEDS: RISPERDAL 2 MG PO (21:03)
[2023-10-22 23:00] VITALS: BP 126/63
[2023-10-23 07:30] VITALS: BP 110/61
[2023-10-23] MEDS: FOLVITE 1 MG PO (07:44)
[2023-10-23] MEDS: ASPIR LOW (ENTERIC COATED) 81 MG PO (07:44)
[2023-10-23] MEDS: VITAMIN B1 100 MG PO ×2 (07:44→19:29)
[2023-10-23] MEDS: MIRALAX 17 GRAMS PO (07:44)
[2023-10-23] MEDS: RISPERDAL 0.5 MG PO (07:44)
[2023-10-23 08:55] VITALS: BP 91/59; PULSE 88; O2SAT 97
[2023-10-23 09:00] VITALS: BP 91/59; PULSE 88; O2SAT 97
--- NOTE | 2023-10-23 10:18 | W.PN.HOSP.TC ---
Today's Communication/Plan
-
Continue with aspirin and statin
Monitor blood pressure
Start Dispo effort
Assessment / Plan
Assessment / Plan
General: Well Developed and No Apparent Distress, sitting in chair
HEENT: Normocephalic, Atraumatic and Moist Mucous Membranes
Respiratory: Clear to Auscultation
Cardiac: Regular Rhythm and S1/S2; Negative Murmur, Rub or Gallop
GI: Soft, Nontender, Nondistended and Normal Bowel Sounds; Negative Organomegaly
Rectal: Deferred by Provider
Musculoskeletal: No Clubbing, No Cyanosis and No Edema
Psych confused.
Skin: Negative Rash
Neuro: Nonfocal/Grossly Intact
CTA head and neck showed:
Bilateral carotid bulb and proximal internal carotid artery atherosclerosis, left greater than right, without hemodynamically significant proximal internal carotid artery stenosis.
No findings to suggest internal carotid artery or vertebral artery dissection bilaterally. Dominant right vertebral artery.
No findings to suggest proximal intracranial arterial stenosis bilaterally.
MRI brain showed:
Cluster of small acute, nonhemorrhagic infarcts in the left insula. There is also a tiny acute nonhemorrhagic infarct in the left parietal lobe posteriorly.
Cerebral atrophy along with chronic small vessel ischemia in cerebral white matter
Old lacunar infarcts in the centrum semiovale bilaterally and right frontal subcortical white matter.
IMPRESSION:
78 years old with a history of hypertension, hyperlipidemia, aortic stenosis status post TAVR presented with mild confusion and slurred speech which resolved, MRI brain shows acute CVA neurology consulted, vision consulted and plan for DANYA today.
PLAN:
Acute CVA (Wernicke's aphasia)
CT head done in the ER showed: No acute abnormality.
MRI of the brain was positive for acute infarcts
CTA was negative for acute stenosis
Echo was performed Overall preserved left ventricular function. Estimated LV ejection fraction is 55% . Lateral hypokinesis.
continue with Aspirin/atorvastatin,
Hemoglobin A1c 5.3, LDL 40.
PT/OT consulted.
DANYA with normal biventricular size and systolic function without regional wall motion abnormality. Bioprosthetic aortic valve with severe paravalvular regurgitation. Aortic root thickening cannot rule out aortic root abscess. Cannot rule out the
presence of small sessile vegetation on the anterior leaflet. Mild to moderate regurgitation mitral. No evidence of left atrial appendage, right atrial appendage thrombus.
Overall his neurologic exam with no focal findings. Confusion and agitation likely represent delirium with underlying and possibly alcohol-related toxic metabolic encephalopathy.
Toxic metabolic encephalopathy likely multifactorial due to acute CVA, alcohol withdrawals and suspected delirium with behavioral disturbances
Delirium multifactorial secondary to DT and possibly chronic cognitive deficit
Alcohol abuse.
Daily alcohol use.
Last used 2 days prior to arrival
Patient given thiamine IV in the ER, will continue while in the hospital, then discharge on oral thiamine
Folic acid
Precedex drip intermittent use for agitation. Now off.
Haldol has been discontinued
Patient remains lethargic after administered lorazepam
Not agitated. Significant improvement in behavioral disturbances
continue current dose of Risperdal 2 mg nightly with 0.5 mg daily and 0.25mg PRN
Patient is off one-to-one and TeleSitter
Appreciate psych recs
TAVR with severe AI was moderate before unclear timeline
Suspected endocarditis
blood cultures are negative x 72hours
Antibiotics as per infectious disease
Continue vancomycin. Zosyn discontinued.
Additional blood work ordered with Bartonella and Q fever and rheumatoid
Discussed with infectious service
Given negative cultures, and patient being afebrile antibiotic/vancomycin has been discontinued on 10/10. Monitor closely.
Dysphagia
Initially on pur�ed diet and now on soft and bite-size diet
Shock likely secondary to sedation and decreased p.o. intake versus low likelihood of related to infection/sepsis
Discontinue phenobarbital
BP improved
See individual problem as above
Off Levophed, shock resolved.
RUE with superficial vein thrombosis
IV removed
Primary hypertension
Cont to Hold home amlodipine for now
Well-controlled off medication
Chronic low back pain -try to set up bed into a chair to help alleviate his back pain.
Hypokalemia -will replete.
CODE STATUS: Full code
Discussed with spouse at bedside in detail
PT/OT acute rehab. Case management for dispo.
Anticipated Discharge: 24 - 48 hours
Subjective/Interval History
-
Date of Service: October 23, 2023
Sitting in chair
Tolerating diet
Off TeleSitter
Objective Data
-
Vital Signs:
Vital Signs
Temp Pulse Resp BP Pulse Ox
98.6 F 94 18 110/61 97
10/23/23 07:30 10/23/23 07:30 10/23/23 07:30 10/23/23 07:30 10/23/23 07:30
I&O
10/22/23 10/23/23 10/24/23
06:59 06:59 06:59
Intake Total 480 / 480 540 / 540
Output Total 425 / 425 250 / 250
Balance 55 / 55 290 / 290
--- NOTE | 2023-10-23 15:42 | CM ---
CM spoke with patient and she requested referrals to [facility] and [facility]. Patient also asking about [facility]. CM requested updated assessment with PM&R, last assessment is 10/11. CM will send referrals and follow for discharge planning
needs.
Plan; SNF vs Acute Rehab.
[2023-10-23 16:00] VITALS: BP 124/65
[2023-10-23] MEDS: LIPITOR 40 MG PO (16:40)
[2023-10-23] MEDS: TYLENOL 650 MG PO (16:40)
[2023-10-23] MEDS: LOVENOX 40 MG SC (16:59)
[2023-10-23] MEDS: RISPERDAL 2 MG PO (21:26)
[2023-10-23 23:00] VITALS: BP 125/68
[2023-10-24 07:00] VITALS: BP 116/62
[2023-10-24] MEDS: ASPIR LOW (ENTERIC COATED) 81 MG PO (08:02)
[2023-10-24] MEDS: VITAMIN B1 100 MG PO ×2 (08:02→21:01)
[2023-10-24] MEDS: MIRALAX 17 GRAMS PO (08:02)
[2023-10-24] MEDS: RISPERDAL 0.5 MG PO (08:02)
[2023-10-24] MEDS: FOLVITE 1 MG PO (08:02)
--- NOTE | 2023-10-24 08:43 | W.PN.REHAB ---
Addendum entered and electronically signed by Sohail Flores MD 10/24/23 11:09:
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
Original Note:
Today's Communication / Plan
-
Summary of recommendations: Patient with CVA and receptive aphasia complicated by alcohol withdraw. At this point patient would benefit from an acute inpatient rehabilitation program.
CVA: Secondary prophylaxis with aspirin, statin, and blood pressure control (SBP less than 180 and diastolic less than 100 to participate with therapy for ischemic stroke). Continue to monitor neurologic status.
Discharge Destination: Acute inpatient rehabilitation
Toxic metabolic encephalopathy: multifactorial due to acute CVA, alcohol withdrawals and suspected delirium with behavioral disturbances. Daily alcohol use at home.
-thiamine. Folic acid
-Alcohol withdrawal symptoms resolved, cognition improved, agitation improved
RUE with superficial vein thrombosis :IV removed, on Lovenox
Psych/delirium/agitation: Psychology consult.� On risperidone 0.5 mg daily and 2 mg at night with 0.25 mg as needed
Assessment/Function
-
Assessment:
General Appearance/Observation: Well-developed, well-nourished male in no apparent distress. Exam limited by receptive aphasia.
Mood/Affect: Appropriate
Integumentary/Operative Site:
�� Pressure Ulcer Evaluation: absent over heels.
Eyes: Conjunctiva/Lids: normal ��� Pupils: pupils equal round and reactive to light and Accommodation
Ears/Nose/Throat: oral mucosa moist,� throat clear.������������ Lips/Teeth/Gums: normal
Cardiovascular: Heart: regular, no murmur
Pulses: dorsalis pedis 2+ bilaterally
Respiratory: Respiratory Effort/Chest Expansion: normal ������ Auscultation: Clear to auscultation bilaterally
Gastrointestinal: abdomen not tender, no distension, normal abdominal bowel sounds
Genitourinary: No Boyd
Extremities: Edema: None Cyanosis: None Trophic changes: None
Neurology Exam:
Orientation: Alert, Oriented to self only, limited by receptive aphasia.
Memory: limited by receptive aphasia.
Repetition: Impaired, limited by receptive aphasia.
Comprehension: Impaired, limited by receptive aphasia.
Two step command: Impaired, limited by receptive aphasia.
Cranial Nerves:
�� CNII: Pupillary light reflex: Intact��� Visual Field: limited by receptive aphasia.
�� CN III, IV, : Extraocular muscles: Intact
�� CN V: Facial Sensation limited by receptive aphasia.
�� CN VII: Facial movement: Symmetric
�� CN VIII: Hearing: Normal
�� CN IX/X: Speech & swallow: Receptive more than expressive aphasia, perseverative speech Position of Uvula: Midline
�� CN XI: Shoulder shrug: limited by receptive aphasia.
�� CN XII: Tongue protrusion: Midline
Sensory:
�� Light touch: limited by receptive aphasia.
Reflexes:
�� Biceps: 0 bilaterally
�� Brachioradialis: 0 bilaterally
�� Triceps: 0 bilaterally
�� Patellar: 0 bilaterally
�� Achilles: 0 bilaterally
�� Babinski: Down going bilaterally
�� Clonus: None
�� Bárbara: Negative bilaterally
Cerebellar: Dysmetria/Ataxia: limited by receptive aphasia.
Musculoskeletal:Motor: (Manual muscle scale 0-5) Able to lift arms above head and straighten knee out with 5/5 strength.
Tone: Normal in all extremities
Range of Motion: Passively within functional limits in all extremities
Function:
Bed Mobility: Supervision to mod assist x 2
Transfers: Mod assist
Ambulation: Ambulate 3 feet with rolling walker and mod assist of 2
Steps:
ADL's: Min assist lower extremity self-care
Patient with expressive and receptive aphasia limiting activities.
Plan
-
Assessment 78 years old M [facility] (hypertension, hyperlipidemia, aortic stenosis status post TAVR presented to the ED on 10/05/2023 with mild confusion and slurred speech.brain MRI showing cluster of small acute nonhemorrhagic infarcts in the left insula
and also tiny acute nonhemorrhagic infarct in the left parietal lobe and alcohol withdrawal resulting in ADL, ambulatory, and speech dysfunction..
Plan
PM&R: PT/OT to increase independence with ADLs, improve balance, coordination, endurance, strength, mobility, community reintegration, decreased burden of care on others and family education.
CVA: Secondary prophylaxis with aspirin, statin, and blood pressure control (SBP less than 180 and diastolic less than 100 to participate with therapy for ischemic stroke). Continue to monitor neurologic status.
Toxic metabolic encephalopathy: multifactorial due to acute CVA, alcohol withdrawals and suspected delirium with behavioral disturbances. Daily alcohol use at home.
-thiamine. Folic acid
-Alcohol withdrawal symptoms resolved, cognition improved, agitation improved
TAVR with severe AI/ Suspected endocarditis: blood cultures and Bartonella, Q fever and rheumatoid -negative Vancomycin discontinued 10/10
RUE with superficial vein thrombosis :IV removed, on Lovenox
Hypertension: Not on medication
Dysphagia: speech, oral care protocol, aspiration precautions. Advance to soft and bite-size diet as tolerated.
Dysarthria: speech
Aphasia: Receptive. speech
HLD: Atorvastatin 40 mg daily
Psych/delirium/agitation: Psychology consult.� On risperidone 0.5 mg daily and 2 mg at night with 0.25 mg as needed
Skin: monitor for pressure sores/rashes/lesions.
Pain: acetaminophen as needed.
Bowel: Senna, Miralax
Bladder: Time void, PVRs, PRN straight cath.
Alcohol Abuse: Alcohol cessation education, offering of outpatient alcohol abuse program
DVT Prophylaxis: Mechanical and Lovenox SC
Pulmonary: Incentive spirometry
Safety: Continue to reinforce assistance with all transfers.
Code Status:� Full code
Functional and Medical Goals: Modified Independent with ADL�s, ambulation, transfers
Discharge Destination: Acute inpatient rehabilitation
Thank you for allowing me to care for your patient. Please contact me with any questions or concerns.
Subjective
-
Patient seen and examined today. Still significant limited from his significant receptive aphasia. Review of systems unreliable. Per notes no longer agitated. Tolerating therapy.
Lives with: spouse
24-hour assistance available: point
Number of floors: multi-level
# steps to enter: 2
# steps to second floor: Full flight
Potential First floor set up:
Driving: Yes
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
Vital Signs / Labs
-
Vital Signs and Labs:
Temp Pulse Resp BP Pulse Ox
99.0 F 94 17 116/62 97
10/24/23 07:00 10/24/23 07:00 10/24/23 07:00 10/24/23 07:00 10/24/23 07:00
[2023-10-24 09:10] LABS: % Basophils 0.7 % (0-2); % Eosinophils 1.2 % (0-6); % Immature Granulocytes 0.5 % (0-0.5); % Lymphocytes 7.8 % (20.5-51.1); % Monocytes 12.6 % (1.7-9.3); % Neutrophils 77.2 % (42.2-75.2); Absolute Basophils 0.1 10^3/uL (0-0.2); Absolute Eosinophils 0.1 10^3/uL (0-0.7); Absolute Immature Granulocytes 0.1 10^3/uL (0-0.05); Absolute Lymphocytes 0.8 10^3/uL (1.2-3.4); Absolute Monocytes 1.2 10^3/uL (0.1-0.6); Absolute Neutrophils 7.6 10^3/uL (1.4-6.5); Hematocrit 32.7 % (39.0-52.0); Hemoglobin 10.9 g/dL (13.0-18.0); Mean Corp Hgb Conc. 33.3 g/dL (33.0-37.0); Mean Corpuscular Hgb 32.4 pg (27.0-31.0); Mean Corpuscular Volume 97.3 fL (80.0-94.0); Mean Platelet Volume 10.4 fL (7.4-10.4); Nucleated Red Blood Cells % 0 % (-); Platelet Count 249 10^3/uL (130-400); Red Blood Cell Count 3.36 10^6/uL (4.70-6.10); Red Cell Dist. Width 14.2 % (11.5-14.5); White Blood Cell Count 9.8 10^3/uL (4.8-10.8)
[2023-10-24 09:39] LABS: Blood Urea Nitrogen 15 mg/dl (9-20); Calcium 9.5 mg/dl (8.4-10.2); Carbon Dioxide 24 mmol/L (22-30); Chloride 102 mmol/L (98-107); Estimated Creatinine Clearance 87 ml/min; Glucose 118 mg/dl (70-99); Potassium 4.2 mmol/L (3.5-5.1); Sodium 137 mmol/L (135-145); eGFR > 60.00
[2023-10-24 10:10] VITALS: BP 131/64; BP 94/59; PULSE 98; O2SAT 96
[2023-10-24 10:11] VITALS: BP 131/64; BP 94/59; PULSE 98; O2SAT 96
--- NOTE | 2023-10-24 10:59 | W.PN.HOSP.TC ---
Addendum entered and electronically signed by Stan Taylor MD 10/24/23 12:31:
Mild protein calorie malnutrition
Original Note:
Today's Communication/Plan
-
Check UA
PM&R eval
cont risperidal
Assessment / Plan
Assessment / Plan
General: Well Developed and No Apparent Distress, sitting in chair
HEENT: Normocephalic, Atraumatic and Moist Mucous Membranes
Respiratory: Clear to Auscultation
Cardiac: Regular Rhythm and S1/S2; Negative Murmur, Rub or Gallop
GI: Soft, Nontender, Nondistended and Normal Bowel Sounds; Negative Organomegaly
Rectal: Deferred by Provider
Musculoskeletal: No Clubbing, No Cyanosis and No Edema
Psych confused.
Skin: Negative Rash
Neuro: Nonfocal/Grossly Intact
CTA head and neck showed:
Bilateral carotid bulb and proximal internal carotid artery atherosclerosis, left greater than right, without hemodynamically significant proximal internal carotid artery stenosis.
No findings to suggest internal carotid artery or vertebral artery dissection bilaterally. Dominant right vertebral artery.
No findings to suggest proximal intracranial arterial stenosis bilaterally.
MRI brain showed:
Cluster of small acute, nonhemorrhagic infarcts in the left insula. There is also a tiny acute nonhemorrhagic infarct in the left parietal lobe posteriorly.
Cerebral atrophy along with chronic small vessel ischemia in cerebral white matter
Old lacunar infarcts in the centrum semiovale bilaterally and right frontal subcortical white matter.
IMPRESSION:
78 years old with a history of hypertension, hyperlipidemia, aortic stenosis status post TAVR presented with mild confusion and slurred speech which resolved, MRI brain shows acute CVA neurology consulted, vision consulted and plan for DANYA today.
PLAN:
Acute CVA (Wernicke's aphasia)
CT head done in the ER showed: No acute abnormality.
MRI of the brain was positive for acute infarcts
CTA was negative for acute stenosis
Echo was performed Overall preserved left ventricular function. Estimated LV ejection fraction is 55% . Lateral hypokinesis.
continue with Aspirin/atorvastatin,
Hemoglobin A1c 5.3, LDL 40.
PT/OT consulted.
DANYA with normal biventricular size and systolic function without regional wall motion abnormality. Bioprosthetic aortic valve with severe paravalvular regurgitation. Aortic root thickening cannot rule out aortic root abscess. Cannot rule out the
presence of small sessile vegetation on the anterior leaflet. Mild to moderate regurgitation mitral. No evidence of left atrial appendage, right atrial appendage thrombus.
Overall his neurologic exam with no focal findings. Confusion and agitation likely represent delirium with underlying and possibly alcohol-related toxic metabolic encephalopathy.
Toxic metabolic encephalopathy likely multifactorial due to acute CVA, alcohol withdrawals and suspected delirium with behavioral disturbances
Delirium multifactorial secondary to DT and possibly chronic cognitive deficit
Alcohol abuse.
Daily alcohol use.
Last used 2 days prior to arrival
Patient given thiamine IV in the ER, will continue while in the hospital, then discharge on oral thiamine
Folic acid
Precedex drip intermittent use for agitation. Now off.
Haldol has been discontinued
Patient remains lethargic after administered lorazepam
Not agitated. Significant improvement in behavioral disturbances
continue current dose of Risperdal 2 mg nightly with 0.5 mg daily and 0.25mg PRN
Patient is off one-to-one and TeleSitter
Appreciate psych recs
Fever
Lungs clears. wbc wnl.
Check UA.
If repeat episode check CXR and repeat speech eval
TAVR with severe AI was moderate before unclear timeline
Suspected endocarditis
blood cultures are negative x 72hours
Antibiotics as per infectious disease
Continue vancomycin. Zosyn discontinued.
Additional blood work ordered with Bartonella and Q fever and rheumatoid
Discussed with infectious service
Given negative cultures, and patient being afebrile antibiotic/vancomycin has been discontinued on 10/10. Monitor closely.
Dysphagia
Initially on pur�ed diet and now on soft and bite-size diet
Shock likely secondary to sedation and decreased p.o. intake versus low likelihood of related to infection/sepsis
Discontinue phenobarbital
BP improved
See individual problem as above
Off Levophed, shock resolved.
RUE with superficial vein thrombosis
IV removed
Primary hypertension
Cont to Hold home amlodipine for now
Well-controlled off medication
Chronic low back pain -try to set up bed into a chair to help alleviate his back pain.
Hypokalemia -will replete.
CODE STATUS: Full code
Discussed with spouse at bedside in detail.
PT/OT acute rehab. PM&R re-consulted for eval on 10/22.
Anticipated Discharge: > 48 hours
Subjective/Interval History
-
Date of Service: October 24, 2023
spiked fever yesterday
WBc wnl
d/w with spouse
tolerating diet
remains confused
talks gibberish at times
Objective Data
-
Labs:
Laboratory Results
10/24/23
08:45
WBC 9.8
Hgb 10.9 L
Hct 32.7 L
Plt Count 249
Sodium 137
Potassium 4.2
Chloride 102
Carbon Dioxide 24
BUN 15
Creatinine 0.7
Glucose 118 H
Calcium 9.5
Vital Signs:
Vital Signs
Temp Pulse Resp BP Pulse Ox
98.6 F 94 17 116/62 97
10/24/23 09:45 10/24/23 07:00 10/24/23 07:00 10/24/23 07:00 10/24/23 07:00
I&O
10/23/23 10/24/23 10/25/23
06:59 06:59 06:59
Intake Total 540 / 540 720 / 720 0 / 0
Output Total 250 / 250 100 / 100
Balance 290 / 290 720 / 720 -100 / -100
--- NOTE | 2023-10-24 11:05 | W.PN.UPDATE ---
Update Note
Progress Note Update
Patient seen with at bedside, chart reviewed, discussed with Hospitalist. Mr. Hope is doing well overall related to intermittent agitation with Risperdal. No daytime sedation noted. Patient did spike fever overnight and UA will be checked.
No other issues or concerns at this time. is looking forward to rehab for patient so he can rebuild strength and continue to work on his overall recovery.
Impression/Plan: Alcohol use disorder, severe; Wernicke's aphasia s/p left temporal and parietal strokes with noted intermittent agitation - Continue with Risperdal 0.5mg AM, 2mg HS, and PRN doses available. Psych will sign off, call or reconsult
with any new or immediate concerns.
--- NOTE | 2023-10-24 12:21 | PN.CDI ---
CDI
- -
CDI:
Physician Documentation Request
Admit Date: 10/05/23 12:25
Dear Doctor Brandon,
Please review the following and provide your response in the progress notes.
Clinical Indicators:
- 10/22 Die Presser note indicates mild protein calorie malnutrition
- Unintentional weight loss during hospital stay or just prior to admit- 13lbs (6%) <1 month
- Sudden poor nutrient intake prior to/during admit </= 75% for >/= 5 days
- Mild increase in fluid accumulation
Based on the above information and your assessment, which of the following most accurately represents the patient's nutritional status?
Mild protein calorie malnutrition
Other (please specify)
[place] Criteria ([facility] Hospitalist 2017)
2 or more criteria must be present for either
non severe or severe malnutrition
Note that the criteria differs related to the
presence of an acute or chronic illness
Acute Illness Chronic Illness
Energy Intake Non Severe: <75% for >7 days Non Severe: <75% for >1 month
Severe: <50% for >5 days Severe: <75% for >1 month
Weight Loss Non Severe: 1-2% over 1 week Non Severe: 5% over 1 month
5% over 1 month 7.5% over 3 months
7.5% over 3 months 10% over 6 months
1 year N/A 20% over 1 year
Severe: >2% over 1 week Severe: >5% over 1 month
>5% over 1 month >7.5% over 3 months
>7.5% over 3 months >10% over 6 months
1 year N/A >20% over 1 year
Body Fat Non Severe: Mild Decrease Non Severe: Mild Loss
Severe: Moderate Decrease Severe: Severe Loss
Muscle Mass Non Severe: Mild Decrease Non Severe: Mild Loss
Severe: Moderate Decrease Severe: Severe Loss
Fluid Accumulation Non Severe: Mild Accumulation Non Severe: Mild Accumulation
Severe: Moderate to severe Severe: Moderate to severe
accumulation accumulation
Reduced Receiving Checker Strength Non Severe: N/A Non Severe: N/A
Severe: Measurably reduced Severe: Measurably reduced
Additional criteria that can be used to Determine if Mild or Moderate Malnutrition ([employer] Manual 2018)
Mild Moderate Severe
Albumin gm/dl <3.0 gm/dl <2.5 gm/dl <2.0 gm/dl
Pre Albumin mg/dl <15 gm/dl <10 mg/dl <5.0 mg/dl
BMI <18.5 <17 <16
Use of terms such as suspected, likely, concern for, or probable (associated with a specific diagnosis that is being evaluated, monitored, or treated as if it exists) are acceptable and can be coded in the inpatient setting, when documented at the
time of discharge.
Thank you,
Corina Polanco RN
CDI Specialist
Please use your independent medical judgment in providing your response.
[2023-10-24] MEDS: RISPERDAL M-TAB (ORALLY DISINTEGRATING) 0.25 MG PO ×2 (14:39→19:48)
--- NOTE | 2023-10-24 16:37 | PTCARENOTE ---
[id number] Pt transferred to [address] [place] [address].
[2023-10-24 16:48] VITALS: BP 121/58
--- NOTE | 2023-10-24 17:14 | PTCARENOTE ---
Received pt from 3rd floor with two ironworker helper shop at bedside. Pt ambulated with assistance of 1 and RW to bed. Pt resting comfortably in bed with bed alarm, VSS.
[2023-10-24 17:16] VITALS: BMI 30.4
--- NOTE | 2023-10-24 17:30 | CM ---
Spoke with Marilee [facility] She requested Referral to be placed.
Pt had fever.
UA sent.
Pt transferred to [id number].
PLAN Will depend on PT OT and Saji acevedo
[2023-10-24] MEDS: LIPITOR 40 MG PO (17:42)
[2023-10-24] MEDS: LOVENOX 40 MG SC (17:45)
[2023-10-24] MEDS: TYLENOL 650 MG PO (19:47)
[2023-10-24] MEDS: RISPERDAL 2 MG PO (21:00)
[2023-10-24 23:01] VITALS: BP 117/67
[2023-10-25 00:03] LABS: Urine Albumin Negative (Neg - Trace); Urine Bilirubin Negative (Negative); Urine Character Clear (Clear); Urine Color Yellow; Urine Glucose Negative (Negative); Urine Ketone Negative (Negative); Urine Leukocyte 2+ (Negative); Urine Nitrite Negative (Negative); Urine Occult Blood Trace (Negative); Urine Urobilinogen Negative (Neg - 1+)
[2023-10-25 00:46] LABS: Urine Bacteria Many (Negative); Urine White Cell >100 /HPF (0-5)
[2023-10-25 00:47] LABS: Urine Squamous Cell >30 /LPF (Few)
--- NOTE | 2023-10-25 02:23 | PTCARENOTE ---
Pt remains confused and forgetful, however easily redirected, PRN risperidal given with good effect.
[2023-10-25 07:20] VITALS: BP 123/63
[2023-10-25] MEDS: MIRALAX 17 GRAMS PO (09:47)
[2023-10-25] MEDS: RISPERDAL 0.5 MG PO (09:47)
[2023-10-25] MEDS: ASPIR LOW (ENTERIC COATED) 81 MG PO (09:47)
[2023-10-25] MEDS: FOLVITE 1 MG PO (09:47)
[2023-10-25] MEDS: VITAMIN B1 100 MG PO ×2 (09:47→20:47)
[2023-10-25 12:16] VITALS: BP 101/62; PULSE 95
--- NOTE | 2023-10-25 14:58 | PTOTSP ---
ST Follow-Up
Pt continues to present with fairly functional oropharyngeal parameters for safe ingestion of all solids, liquids, and meds, but is at an increased aspiration risk due to reduced insight to deficits and impulsivity.
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 Pt would benefit from continued intensive FUEL CONVERSION TECHNICIAN tx at the acute care level of rehab upon discharge.
Recommendations:
- Continue with soft bite sized solids, thin liquids, meds whole in puree.
- General aspiration precautions: 1:1 supervision during meals for rate control and safety precaution implementation.
- FUEL CONVERSION TECHNICIAN to trial regular solids diet tray during next session.
- FUEL CONVERSION TECHNICIAN to continue to provide dysphagia, speech, language, and cognitive linguistic tx while admitted to acute care as well as upon d/c at the acute rehab level of care.
[2023-10-25 15:20] VITALS: BP 110/59
--- NOTE | 2023-10-25 15:21 | CM ---
Discharge Plan of Care: Therapy and PM&R consult recommending acute rehab for patient. [facility] has accepted patient. Liaison spoke with today. Will call for bed availability on day of discharge.
[2023-10-25] MEDS: LIPITOR 40 MG PO (17:12)
[2023-10-25] MEDS: LOVENOX 40 MG SC (17:13)
--- NOTE | 2023-10-25 17:20 | W.PN.HOSP.TC ---
Today's Communication/Plan
-
Fever
Lungs clears. wbc wnl.
UA abnormal pending cultures
Blood cultures ordered and pending
Monitor temperature curve
Monitor closely off antibiotic
Assessment / Plan
Assessment / Plan
CTA head and neck showed:
Bilateral carotid bulb and proximal internal carotid artery atherosclerosis, left greater than right, without hemodynamically significant proximal internal carotid artery stenosis.
No findings to suggest internal carotid artery or vertebral artery dissection bilaterally. Dominant right vertebral artery.
No findings to suggest proximal intracranial arterial stenosis bilaterally.
MRI brain showed:
Cluster of small acute, nonhemorrhagic infarcts in the left insula. There is also a tiny acute nonhemorrhagic infarct in the left parietal lobe posteriorly.
Cerebral atrophy along with chronic small vessel ischemia in cerebral white matter
Old lacunar infarcts in the centrum semiovale bilaterally and right frontal subcortical white matter.
IMPRESSION:
78 years old with a history of hypertension, hyperlipidemia, aortic stenosis status post TAVR presented with mild confusion and slurred speech which resolved, MRI brain shows acute CVA neurology consulted, vision consulted and plan for DANYA today.
PLAN:
Acute CVA (Wernicke's aphasia)
CT head done in the ER showed: No acute abnormality.
MRI of the brain was positive for acute infarcts
CTA was negative for acute stenosis
Echo was performed Overall preserved left ventricular function. Estimated LV ejection fraction is 55% . Lateral hypokinesis.
continue with Aspirin/atorvastatin,
Hemoglobin A1c 5.3, LDL 40.
PT/OT consulted.
DANYA with normal biventricular size and systolic function without regional wall motion abnormality. Bioprosthetic aortic valve with severe paravalvular regurgitation. Aortic root thickening cannot rule out aortic root abscess. Cannot rule out the
presence of small sessile vegetation on the anterior leaflet. Mild to moderate regurgitation mitral. No evidence of left atrial appendage, right atrial appendage thrombus.
Overall his neurologic exam with no focal findings. Confusion and agitation likely represent delirium with underlying and possibly alcohol-related toxic metabolic encephalopathy.
Toxic metabolic encephalopathy likely multifactorial due to acute CVA, alcohol withdrawals and suspected delirium with behavioral disturbances
Delirium multifactorial secondary to DT and possibly chronic cognitive deficit
Alcohol abuse.
Daily alcohol use.
Last used 2 days prior to arrival
Patient given thiamine IV in the ER, will continue while in the hospital, then discharge on oral thiamine
Folic acid
Precedex drip intermittent use for agitation. Now off.
Haldol has been discontinued
Patient remains lethargic after administered lorazepam
Not agitated. Significant improvement in behavioral disturbances
continue current dose of Risperdal 2 mg nightly with 0.5 mg daily and 0.25mg PRN
Patient is off one-to-one and TeleSitter
Appreciate psych recs
Fever
Lungs clears. wbc wnl.
UA abnormal pending cultures
Blood cultures ordered and pending
Monitor temperature curve
Monitor closely off antibiotic
TAVR with severe AI was moderate before unclear timeline
Suspected endocarditis
blood cultures are negative x 72hours
Antibiotics as per infectious disease
Continue vancomycin. Zosyn discontinued.
Additional blood work ordered with Bartonella and Q fever and rheumatoid
Discussed with infectious service
Given negative cultures, and patient being afebrile antibiotic/vancomycin has been discontinued on 10/10. Monitor closely.
Dysphagia
Initially on pur�ed diet and now on soft and bite-size diet
Shock likely secondary to sedation and decreased p.o. intake versus low likelihood of related to infection/sepsis
Discontinue phenobarbital
BP improved
See individual problem as above
Off Levophed, shock resolved.
RUE with superficial vein thrombosis
IV removed
Primary hypertension
Cont to Hold home amlodipine for now
Well-controlled off medication
Chronic low back pain -try to set up bed into a chair to help alleviate his back pain.
Hypokalemia -will replete.
CODE STATUS: Full code
Discussed with spouse at bedside in detail.
PT/OT acute rehab. PM&R re-consulted for eval on 10/22.
Anticipated Discharge: 24 - 48 hours
Subjective/Interval History
-
Date of Service: October 25, 2023
Objective Data
-
Vital Signs:
Vital Signs
Temp Pulse Resp BP Pulse Ox
99.0 F 86 16 123/63 95
10/25/23 07:20 10/25/23 07:20 10/25/23 07:20 10/25/23 07:20 10/25/23 08:00
I&O
10/24/23 10/25/23 10/26/23
06:59 06:59 06:59
Intake Total 720 / 720 0 / 0
Output Total 1150 / 1150
Balance 720 / 720 -1150 / -1150
Physical Exam
-
General: Well Developed and No Apparent Distress
HEENT: Normocephalic, Atraumatic and Moist Mucous Membranes
Respiratory: Clear to Auscultation
Cardiac: Regular Rhythm and S1/S2; Negative Murmur, Rub or Gallop
GI: Soft, Nontender, Nondistended and Normal Bowel Sounds; Negative Organomegaly
Rectal: Deferred by Provider
Musculoskeletal: No Clubbing, No Cyanosis and No Edema
Skin: Negative Rash
Neuro: Nonfocal/Grossly Intact
[2023-10-25] MEDS: RISPERDAL 2 MG PO (21:05)
[2023-10-26 07:20] VITALS: BP 106/64
[2023-10-26] MEDS: ASPIR LOW (ENTERIC COATED) 81 MG PO (09:23)
[2023-10-26] MEDS: FOLVITE 1 MG PO (09:23)
[2023-10-26] MEDS: MIRALAX 17 GRAMS PO (09:23)
[2023-10-26] MEDS: VITAMIN B1 100 MG PO ×2 (09:23→21:49)
[2023-10-26] MEDS: RISPERDAL 0.5 MG PO (09:24)
[2023-10-26 09:31] VITALS: BP 106/64
--- NOTE | 2023-10-26 13:22 | PTOTSP ---
Dysphagia Therapy
Patient with functional oral/pharyngeal swallow to advance diet to regular, thin liquids but requires supervision given cognitive changes (i.e., impulsivity, decreased inhibition) to use precautions below.
Recommendations:
1. Regular, thin liquids, medications whole in puree.
2. 1:1 supervision during meals to ensure appropriate bolus size/rate
3. Dysphagia, language, and cognitive linguistic tx at acute care and upon d/c at the acute rehab level of care.
--- NOTE | 2023-10-26 13:49 | CM ---
Temp 101.2 on 10/22. U/A abnormal and await C/S, blood C/S, monitor temperature curve. Discharge Plan of Care: Accepted to [facility] when medically cleared. No auth required.
[2023-10-26 15:03] VITALS: BP 109/59; PULSE 103; O2SAT 96
[2023-10-26 15:06] VITALS: BP 109/59; PULSE 103; O2SAT 96
[2023-10-26 15:20] VITALS: BP 93/49
[2023-10-26] MEDS: LIPITOR 40 MG PO (17:01)
[2023-10-26] MEDS: LOVENOX 40 MG SC (17:01)
[2023-10-26] MEDS: STERILE WATER FOR INJECTION 10 ML IV (17:02)
[2023-10-26] MEDS: ROCEPHIN 1000 MG IV (17:03)
--- NOTE | 2023-10-26 18:33 | W.PN.HOSP.TC ---
Today's Communication/Plan
-
Antibiotics/ceftriaxone for UTI.
Follow final cultures with hope to transition to oral antibiotics over the next 24 hours
Assessment / Plan
Assessment / Plan
CTA head and neck showed:
Bilateral carotid bulb and proximal internal carotid artery atherosclerosis, left greater than right, without hemodynamically significant proximal internal carotid artery stenosis.
No findings to suggest internal carotid artery or vertebral artery dissection bilaterally. Dominant right vertebral artery.
No findings to suggest proximal intracranial arterial stenosis bilaterally.
MRI brain showed:
Cluster of small acute, nonhemorrhagic infarcts in the left insula. There is also a tiny acute nonhemorrhagic infarct in the left parietal lobe posteriorly.
Cerebral atrophy along with chronic small vessel ischemia in cerebral white matter
Old lacunar infarcts in the centrum semiovale bilaterally and right frontal subcortical white matter.
IMPRESSION:
78 years old with a history of hypertension, hyperlipidemia, aortic stenosis status post TAVR presented with mild confusion and slurred speech which resolved, MRI brain shows acute CVA neurology consulted, vision consulted and plan for DANYA today.
PLAN:
Acute CVA (Wernicke's aphasia)
CT head done in the ER showed: No acute abnormality.
MRI of the brain was positive for acute infarcts
CTA was negative for acute stenosis
Echo was performed Overall preserved left ventricular function. Estimated LV ejection fraction is 55% . Lateral hypokinesis.
continue with Aspirin/atorvastatin,
Hemoglobin A1c 5.3, LDL 40.
PT/OT consulted.
DANYA with normal biventricular size and systolic function without regional wall motion abnormality. Bioprosthetic aortic valve with severe paravalvular regurgitation. Aortic root thickening cannot rule out aortic root abscess. Cannot rule out the
presence of small sessile vegetation on the anterior leaflet. Mild to moderate regurgitation mitral. No evidence of left atrial appendage, right atrial appendage thrombus.
Overall his neurologic exam with no focal findings. Confusion and agitation likely represent delirium with underlying and possibly alcohol-related toxic metabolic encephalopathy.
Toxic metabolic encephalopathy likely multifactorial due to acute CVA, alcohol withdrawals and suspected delirium with behavioral disturbances
Delirium multifactorial secondary to DT and possibly chronic cognitive deficit
Alcohol abuse.
Daily alcohol use.
Last used 2 days prior to arrival
Patient given thiamine IV in the ER, will continue while in the hospital, then discharge on oral thiamine
Folic acid
Precedex drip intermittent use for agitation. Now off.
Haldol has been discontinued
Patient remains lethargic after administered lorazepam
Not agitated. Significant improvement in behavioral disturbances
continue current dose of Risperdal 2 mg nightly with 0.5 mg daily and 0.25mg PRN
Patient is off one-to-one and TeleSitter
Appreciate psych recs
Fever
Lungs clears. wbc wnl.
UA abnormal pending cultures.
Urine culture with gram-negative pending final notification
Start ceftriaxone
Blood cultures ordered and pending
Monitor temperature curve
TAVR with severe AI was moderate before unclear timeline
Suspected endocarditis
blood cultures are negative x 72hours
Antibiotics as per infectious disease
Continue vancomycin. Zosyn discontinued.
Additional blood work ordered with Bartonella and Q fever and rheumatoid
Discussed with infectious service
Given negative cultures, and patient being afebrile antibiotic/vancomycin has been discontinued on 10/10. Monitor closely.
Dysphagia
Initially on pur�ed diet and now on soft and bite-size diet
Shock likely secondary to sedation and decreased p.o. intake versus low likelihood of related to infection/sepsis
Discontinue phenobarbital
BP improved
See individual problem as above
Off Levophed, shock resolved.
RUE with superficial vein thrombosis
IV removed
Primary hypertension
Cont to Hold home amlodipine for now
Well-controlled off medication
Chronic low back pain -try to set up bed into a chair to help alleviate his back pain.
Hypokalemia -will replete.
CODE STATUS: Full code
Discussed with spouse at bedside in detail.
PT/OT acute rehab. PM&R re-consulted for eval on 10/22.
Anticipated Discharge: 24 - 48 hours
Subjective/Interval History
-
Date of Service: October 26, 2023
Objective Data
-
Vital Signs:
Vital Signs
Temp Pulse Resp BP Pulse Ox
98.9 F 93 18 93/49 96
10/26/23 15:20 10/26/23 15:20 10/26/23 15:20 10/26/23 15:20 10/26/23 15:20
I&O
10/25/23 10/26/23 10/27/23
06:59 06:59 06:59
Intake Total 0 / 0 570 / 570 540 / 540
Output Total 1150 / 1150 980 / 980 250 / 250
Balance -1150 / -1150 -410 / -410 290 / 290
Physical Exam
-
General: Well Developed and No Apparent Distress
HEENT: Normocephalic, Atraumatic and Moist Mucous Membranes
Respiratory: Clear to Auscultation
Cardiac: Regular Rhythm and S1/S2; Negative Murmur, Rub or Gallop
GI: Soft, Nontender, Nondistended and Normal Bowel Sounds; Negative Organomegaly
Rectal: Deferred by Provider
Musculoskeletal: No Clubbing, No Cyanosis and No Edema
Skin: Negative Rash
Neuro: Nonfocal/Grossly Intact
[2023-10-26] MEDS: RISPERDAL 2 MG PO (21:49)
[2023-10-26 23:36] VITALS: BP 116/44
[2023-10-26] MEDS: TYLENOL 650 MG PO (23:55)
[2023-10-27] MEDS: RISPERDAL M-TAB (ORALLY DISINTEGRATING) 0.25 MG PO (00:44)
[2023-10-27 07:25] VITALS: BP 100/72
[2023-10-27] MEDS: MIRALAX 17 GRAMS PO (08:25)
[2023-10-27] MEDS: VITAMIN B1 100 MG PO ×2 (08:25→19:59)
[2023-10-27] MEDS: ASPIR LOW (ENTERIC COATED) 81 MG PO (08:25)
[2023-10-27] MEDS: FOLVITE 1 MG PO (08:25)
[2023-10-27] MEDS: RISPERDAL 0.5 MG PO (08:26)
[2023-10-27 11:07] VITALS: BP 111/60; PULSE 108
--- NOTE | 2023-10-27 12:53 | CM ---
GRANT spoke with Marilee @ [facility] via phone
Bed will be available tomorrow
Plan: Discharge to [facility] tomorrow, 10/28/23
Report: #[phone]
[2023-10-27 15:30] VITALS: BP 100/47
[2023-10-27] MEDS: TYLENOL 650 MG PO (16:40)
[2023-10-27] MEDS: STERILE WATER FOR INJECTION 10 ML IV (16:41)
[2023-10-27] MEDS: ROCEPHIN 1000 MG IV (16:42)
[2023-10-27] MEDS: LOVENOX 40 MG SC (17:04)
[2023-10-27] MEDS: LIPITOR 40 MG PO (17:04)
--- NOTE | 2023-10-27 17:56 | W.PN.HOSP.TC ---
Today's Communication/Plan
-
Recurrent episode of fever /8
Found to have UTI
Urine culture with sensitive Klebsiella
Tmax 10/1099.5
Continue ceftriaxone monitor for recurrent fever
Bladder scan.
If afebrile can transition to oral antibiotics prior to discharge to acute rehab
Assessment / Plan
Assessment / Plan
CTA head and neck showed:
Bilateral carotid bulb and proximal internal carotid artery atherosclerosis, left greater than right, without hemodynamically significant proximal internal carotid artery stenosis.
No findings to suggest internal carotid artery or vertebral artery dissection bilaterally. Dominant right vertebral artery.
No findings to suggest proximal intracranial arterial stenosis bilaterally.
MRI brain showed:
Cluster of small acute, nonhemorrhagic infarcts in the left insula. There is also a tiny acute nonhemorrhagic infarct in the left parietal lobe posteriorly.
Cerebral atrophy along with chronic small vessel ischemia in cerebral white matter
Old lacunar infarcts in the centrum semiovale bilaterally and right frontal subcortical white matter.
IMPRESSION:
78 years old with a history of hypertension, hyperlipidemia, aortic stenosis status post TAVR presented with mild confusion and slurred speech which resolved, MRI brain shows acute CVA neurology consulted, vision consulted and plan for DANYA today.
PLAN:
Acute CVA (Wernicke's aphasia)
CT head done in the ER showed: No acute abnormality.
MRI of the brain was positive for acute infarcts
CTA was negative for acute stenosis
Echo was performed Overall preserved left ventricular function. Estimated LV ejection fraction is 55% . Lateral hypokinesis.
continue with Aspirin/atorvastatin,
Hemoglobin A1c 5.3, LDL 40.
PT/OT consulted.
DANYA with normal biventricular size and systolic function without regional wall motion abnormality. Bioprosthetic aortic valve with severe paravalvular regurgitation. Aortic root thickening cannot rule out aortic root abscess. Cannot rule out the
presence of small sessile vegetation on the anterior leaflet. Mild to moderate regurgitation mitral. No evidence of left atrial appendage, right atrial appendage thrombus.
Overall his neurologic exam with no focal findings. Confusion and agitation likely represent delirium with underlying and possibly alcohol-related toxic metabolic encephalopathy.
Toxic metabolic encephalopathy likely multifactorial due to acute CVA, alcohol withdrawals and suspected delirium with behavioral disturbances
Delirium multifactorial secondary to DT and possibly chronic cognitive deficit
Alcohol abuse.
Daily alcohol use.
Last used 2 days prior to arrival
Patient given thiamine IV in the ER, will continue while in the hospital, then discharge on oral thiamine
Folic acid
Precedex drip intermittent use for agitation. Now off.
Haldol has been discontinued
Patient remains lethargic after administered lorazepam
Not agitated. Significant improvement in behavioral disturbances
continue current dose of Risperdal 2 mg nightly with 0.5 mg daily and 0.25mg PRN
Patient is off one-to-one and TeleSitter
Appreciate psych recs
Recurrent episode of fever 10/22
Found to have UTI
Urine culture with sensitive Klebsiella
Tmax 10/1099.5
Continue ceftriaxone monitor for recurrent fever
Bladder scan.
TAVR with severe AI was moderate before unclear timeline
Suspected endocarditis
blood cultures are negative x 72hours
Antibiotics as per infectious disease
Continue vancomycin. Zosyn discontinued.
Additional blood work ordered with Bartonella and Q fever and rheumatoid
Discussed with infectious service
Given negative cultures, and patient being afebrile antibiotic/vancomycin has been discontinued on 10/10. Monitor closely.
Dysphagia
Initially on pur�ed diet and now on soft and bite-size diet
Shock likely secondary to sedation and decreased p.o. intake versus low likelihood of related to infection/sepsis
Discontinue phenobarbital
BP improved
See individual problem as above
Off Levophed, shock resolved.
RUE with superficial vein thrombosis
IV removed
Primary hypertension
Cont to Hold home amlodipine for now
Well-controlled off medication
Chronic low back pain -try to set up bed into a chair to help alleviate his back pain.
Hypokalemia -will replete.
CODE STATUS: Full code
Discussed with spouse at bedside in detail.
PT/OT acute rehab. PM&R re-consulted for eval on 10/22.
Anticipated Discharge: Within 24 hours
Subjective/Interval History
-
Date of Service: October 27, 2023
Objective Data
-
Vital Signs:
Vital Signs
Temp Pulse Resp BP Pulse Ox
98.8 F 89 16 100/47 98
10/27/23 15:30 10/27/23 15:30 10/27/23 15:30 10/27/23 15:30 10/27/23 15:30
I&O
10/26/23 10/27/23 10/28/23
06:59 06:59 06:59
Intake Total 570 / 570 540 / 540 360 / 360
Output Total 980 / 980 500 / 500 475 / 475
Balance -410 / -410 40 / 40 -115 / -115
Physical Exam
-
General: Well Developed and No Apparent Distress
HEENT: Normocephalic, Atraumatic and Moist Mucous Membranes
Respiratory: Clear to Auscultation
Cardiac: Regular Rhythm and S1/S2; Negative Murmur, Rub or Gallop
GI: Soft, Nontender, Nondistended and Normal Bowel Sounds; Negative Organomegaly
Rectal: Deferred by Provider
Musculoskeletal: No Clubbing, No Cyanosis and No Edema
Skin: Negative Rash
Neuro: Nonfocal/Grossly Intact
[2023-10-27] MEDS: RISPERDAL 2 MG PO (21:49)
[2023-10-27 23:45] VITALS: BP 130/58
[2023-10-28] MEDS: RISPERDAL M-TAB (ORALLY DISINTEGRATING) 0.25 MG PO ×2 (04:03→15:41)
[2023-10-28 07:15] VITALS: BP 105/62
[2023-10-28 07:41] LABS: % Basophils 1.2 % (0-2); % Immature Granulocytes 0.3 % (0-0.5); % Lymphocytes 17.8 % (20.5-51.1); % Neutrophils 56.7 % (42.2-75.2); Absolute Eosinophils 0.2 10^3/uL (0-0.7); Absolute Lymphocytes 0.6 10^3/uL (1.2-3.4); Absolute Monocytes 0.6 10^3/uL (0.1-0.6); Absolute Neutrophils 1.9 10^3/uL (1.4-6.5); Hematocrit 30.6 % (39.0-52.0); Hemoglobin 10.3 g/dL (13.0-18.0); Mean Corp Hgb Conc. 33.7 g/dL (33.0-37.0); Mean Corpuscular Hgb 32.1 pg (27.0-31.0); Mean Corpuscular Volume 95.3 fL (80.0-94.0); Mean Platelet Volume 10.2 fL (7.4-10.4); Nucleated Red Blood Cells % 0 % (-); Platelet Count 240 10^3/uL (130-400); Red Blood Cell Count 3.21 10^6/uL (4.70-6.10); Red Cell Dist. Width 13.6 % (11.5-14.5); White Blood Cell Count 3.4 10^3/uL (4.8-10.8)
[2023-10-28 07:53] LABS: Blood Urea Nitrogen 10 mg/dl (9-20); Calcium 9.2 mg/dl (8.4-10.2); Carbon Dioxide 22 mmol/L (22-30); Chloride 105 mmol/L (98-107); Estimated Creatinine Clearance 114 ml/min; Glucose 100 mg/dl (70-99); Potassium 4.4 mmol/L (3.5-5.1); Sodium 138 mmol/L (135-145); eGFR > 60.00
[2023-10-28] MEDS: VITAMIN B1 100 MG PO ×2 (09:26→19:29)
[2023-10-28] MEDS: MIRALAX 17 GRAMS PO (09:26)
[2023-10-28] MEDS: RISPERDAL 0.5 MG PO (09:26)
[2023-10-28] MEDS: FOLVITE 1 MG PO (09:26)
[2023-10-28] MEDS: ASPIR LOW (ENTERIC COATED) 81 MG PO (09:26)
--- NOTE | 2023-10-28 11:07 | W.DS.TRANS ---
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
-
Discharge Instructions:
Discharge Diagnosis/Procedures Acute CVA.
Diet Regular
Instructions:
Stand-Alone Forms:
Changes to Home Medications: Yes
Discharge Medications:
DC Medications w/original date entered in [employer]
aspirin 81 mg chewable tablet 81 mg PO DAILY Blood Clot Prevention/Tx 02/13/19
acetaminophen 325 mg tablet 650 mg (2 x 325 mg) PO Q4HPRN PRN mild pain/SCOTT/temp> 100.4F #30 tabs 10/28/23
atorvastatin 40 mg tablet 40 mg PO QPM #30 tabs 10/28/23
bisacodyl 10 mg rectal suppository 10 mg IL [id number] PRN constipation #10 ea 10/28/23
cephalexin 500 mg capsule 500 mg PO QID #20 caps 10/28/23
polyethylene glycol 3350 17 gram oral powder packet (HealthyLax) 17 g PO DAILY #10 ea 10/28/23
risperidone 0.5 mg disintegrating tablet 0.25 mg (1/2 x 0.5 mg) PO BIDPRN PRN agitation #30 tabs 10/28/23
risperidone 0.5 mg tablet 0.5 mg PO DAILY #30 tabs 10/28/23
risperidone 1 mg tablet 2 mg (2 x 1 mg) PO HS #30 tabs 10/28/23
sennosides 8.6 mg-docusate sodium 50 mg tablet (Stool Softener-Laxative) 1 tab PO BIDPRN PRN constipation #30 tabs 10/28/23
Home Medication Changes
Risperdal started
Lipitor dose increased
Antibiotics for UT for additional 5 days
Pending Results: No
[2023-10-28] MEDS: KEFLEX 500 MG PO ×3 (12:14→21:43)
--- NOTE | 2023-10-28 13:18 | CM ---
SW received call from Kristyn in [facility].
Transport was cancelled due to agitation and 1:1 status.
Per Kristyn they would re evaluate and put in med sitter/1:1 if necessary, but that it could not be set up over the weekend.
Check back in Monday morning about needs and pt status.
--- NOTE | 2023-10-28 14:08 | W.PN.HOSP.TC ---
Today's Communication/Plan
-
Patient remains afebrile
Transition to oral antibiotics through 11/01 to complete course of treatment for UTI.
Mental status/cognitive status has been stable for days while on current titrated dose of Risperdal.
Ongoing disposition efforts in regards to acute rehab.
Assessment / Plan
Assessment / Plan
CTA head and neck showed:
Bilateral carotid bulb and proximal internal carotid artery atherosclerosis, left greater than right, without hemodynamically significant proximal internal carotid artery stenosis.
No findings to suggest internal carotid artery or vertebral artery dissection bilaterally. Dominant right vertebral artery.
No findings to suggest proximal intracranial arterial stenosis bilaterally.
MRI brain showed:
Cluster of small acute, nonhemorrhagic infarcts in the left insula. There is also a tiny acute nonhemorrhagic infarct in the left parietal lobe posteriorly.
Cerebral atrophy along with chronic small vessel ischemia in cerebral white matter
Old lacunar infarcts in the centrum semiovale bilaterally and right frontal subcortical white matter.
IMPRESSION:
78 years old with a history of hypertension, hyperlipidemia, aortic stenosis status post TAVR presented with mild confusion and slurred speech which resolved, MRI brain shows acute CVA neurology consulted, vision consulted and plan for DANYA today.
PLAN:
Acute CVA (Wernicke's aphasia)
CT head done in the ER showed: No acute abnormality.
MRI of the brain was positive for acute infarcts
CTA was negative for acute stenosis
Echo was performed Overall preserved left ventricular function. Estimated LV ejection fraction is 55% . Lateral hypokinesis.
continue with Aspirin/atorvastatin,
Hemoglobin A1c 5.3, LDL 40.
PT/OT consulted.
DANYA with normal biventricular size and systolic function without regional wall motion abnormality. Bioprosthetic aortic valve with severe paravalvular regurgitation. Aortic root thickening cannot rule out aortic root abscess. Cannot rule out the
presence of small sessile vegetation on the anterior leaflet. Mild to moderate regurgitation mitral. No evidence of left atrial appendage, right atrial appendage thrombus.
Overall his neurologic exam with no focal findings. Confusion and agitation likely represent delirium with underlying and possibly alcohol-related toxic metabolic encephalopathy.
Toxic metabolic encephalopathy likely multifactorial due to acute CVA, alcohol withdrawals and suspected delirium with behavioral disturbances
Delirium multifactorial secondary to DT and possibly chronic cognitive deficit
Alcohol abuse.
Daily alcohol use.
Last used 2 days prior to arrival
Patient given thiamine IV in the ER, will continue while in the hospital, then discharge on oral thiamine
Folic acid
Precedex drip intermittent use for agitation. Now off.
Haldol has been discontinued
Patient remains lethargic after administered lorazepam
Not agitated. Significant improvement in behavioral disturbances
continue current dose of Risperdal 2 mg nightly with 0.5 mg daily and 0.25mg PRN
Patient is off one-to-one and TeleSitter
Appreciate psych recs
Recurrent episode of fever 10/22
Found to have UTI
Urine culture with sensitive Klebsiella
Initiated on ceftriaxone
Fever trending down and patient has been afebrile.
Transition to Keflex for additional 5 days therapy through 11/01.
TAVR with severe AI was moderate before unclear timeline
Suspected endocarditis
blood cultures are negative x 72hours
Antibiotics as per infectious disease
Continue vancomycin. Zosyn discontinued.
Additional blood work ordered with Bartonella and Q fever and rheumatoid
Discussed with infectious service
Given negative cultures, and patient being afebrile antibiotic/vancomycin has been discontinued on 10/10. Monitor closely.
Dysphagia
Initially on pur�ed diet and now on soft and bite-size diet
Shock likely secondary to sedation and decreased p.o. intake versus low likelihood of related to infection/sepsis
Discontinue phenobarbital
BP improved
See individual problem as above
Off Levophed, shock resolved.
RUE with superficial vein thrombosis
IV removed
Primary hypertension
Cont to Hold home amlodipine for now
Well-controlled off medication
Chronic low back pain -try to set up bed into a chair to help alleviate his back pain.
Hypokalemia -will replete.
CODE STATUS: Full code
Discussed with spouse at bedside in detail.
PT/OT acute rehab. PM&R re-consulted for eval on 10/22.
Anticipated Discharge: Within 24 hours
Subjective/Interval History
-
Date of Service: October 28, 2023
Objective Data
-
Labs:
Laboratory Results
10/28/23
06:26
WBC 3.4 L
Hgb 10.3 L
Hct 30.6 L
Plt Count 240
Sodium 138
Potassium 4.4
Chloride 105
Carbon Dioxide 22
BUN 10
Creatinine 0.6 L
Glucose 100 H
Calcium 9.2
Vital Signs:
Vital Signs
Temp Pulse Resp BP Pulse Ox
98.6 F 87 16 105/62 98
10/28/23 07:15 10/28/23 07:15 10/28/23 07:15 10/28/23 07:15 10/28/23 07:15
I&O
10/27/23 10/28/23 10/29/23
06:59 06:59 06:59
Intake Total 540 / 540 780 / 780
Output Total 500 / 500 1025 / 1025
Balance 40 / 40 -245 / -245
Physical Exam
-
General: Well Developed and No Apparent Distress
HEENT: Normocephalic, Atraumatic and Moist Mucous Membranes
Respiratory: Clear to Auscultation
Cardiac: Regular Rhythm and S1/S2; Negative Murmur, Rub or Gallop
GI: Soft, Nontender, Nondistended and Normal Bowel Sounds; Negative Organomegaly
Rectal: Deferred by Provider
Musculoskeletal: No Clubbing, No Cyanosis and No Edema
Skin: Negative Rash
Neuro: Nonfocal/Grossly Intact
[2023-10-28 15:25] VITALS: BP 128/52
[2023-10-28] MEDS: LOVENOX 40 MG SC (17:09)
[2023-10-28] MEDS: LIPITOR 40 MG PO (17:10)
--- NOTE | 2023-10-28 17:31 | PTCARENOTE ---
Patient remains restless and impulsive this shift, getting out of bed and chair multiple times every hour. Med-sitter in pt room and bed/chair alarms utilized for pt safety. Pt took 3 walks around unit this shift and his visited him. [facility] could
not accept patient due to his need for constant supervision.
[2023-10-28] MEDS: RISPERDAL 2 MG PO (21:41)
[2023-10-28 23:13] VITALS: BP 123/70
[2023-10-29 07:41] VITALS: BP 129/93
[2023-10-29] MEDS: MIRALAX 17 GRAMS PO (08:37)
[2023-10-29] MEDS: VITAMIN B1 100 MG PO ×2 (08:37→19:39)
[2023-10-29] MEDS: FOLVITE 1 MG PO (08:37)
[2023-10-29] MEDS: ASPIR LOW (ENTERIC COATED) 81 MG PO (08:37)
[2023-10-29] MEDS: RISPERDAL 0.5 MG PO (08:37)
[2023-10-29] MEDS: KEFLEX 500 MG PO ×4 (08:37→21:02)
--- NOTE | 2023-10-29 10:33 | W.PN.HOSP.TC ---
Today's Communication/Plan
-
Continue current care
Assessment / Plan
Assessment / Plan
Gen-AAOx3, NAD
HEENT-NC, AT, anicteric, clear oral mm
Neck-supple
CV-reg, no M, +S1/S2
Lungs-clear B/L
Abd-soft, NT, ND
Ext-no edema
Musculoskeletal-no cyanosis, clubbing
Skin-warm and dry
Neuro-grossly non-focal
Psych-calm, cooperative
CTA head and neck showed:
Bilateral carotid bulb and proximal internal carotid artery atherosclerosis, left greater than right, without hemodynamically significant proximal internal carotid artery stenosis.
No findings to suggest internal carotid artery or vertebral artery dissection bilaterally. Dominant right vertebral artery.
No findings to suggest proximal intracranial arterial stenosis bilaterally.
MRI brain showed:
Cluster of small acute, nonhemorrhagic infarcts in the left insula. There is also a tiny acute nonhemorrhagic infarct in the left parietal lobe posteriorly.
Cerebral atrophy along with chronic small vessel ischemia in cerebral white matter
Old lacunar infarcts in the centrum semiovale bilaterally and right frontal subcortical white matter.
IMPRESSION:
78 years old with a history of hypertension, hyperlipidemia, aortic stenosis status post TAVR presented with mild confusion and slurred speech which resolved, MRI brain shows acute CVA neurology consulted, vision consulted and plan for DANYA today.
PLAN:
Acute CVA (Wernicke's aphasia)
CT head done in the ER showed: No acute abnormality.
MRI of the brain was positive for acute infarcts
CTA was negative for acute stenosis
Echo was performed Overall preserved left ventricular function. Estimated LV ejection fraction is 55% . Lateral hypokinesis.
continue with Aspirin/atorvastatin,
Hemoglobin A1c 5.3, LDL 40.
PT/OT consulted.
DANYA with normal biventricular size and systolic function without regional wall motion abnormality. Bioprosthetic aortic valve with severe paravalvular regurgitation. Aortic root thickening cannot rule out aortic root abscess. Cannot rule out the
presence of small sessile vegetation on the anterior leaflet. Mild to moderate regurgitation mitral. No evidence of left atrial appendage, right atrial appendage thrombus.
Overall his neurologic exam with no focal findings. Confusion and agitation likely represent delirium with underlying and possibly alcohol-related toxic metabolic encephalopathy.
Toxic metabolic encephalopathy likely multifactorial due to acute CVA, alcohol withdrawals and suspected delirium with behavioral disturbances
Delirium multifactorial secondary to DT and possibly chronic cognitive deficit
Alcohol abuse.
Daily alcohol use.
Last used 2 days prior to arrival
Patient given thiamine IV in the ER, will continue while in the hospital, then discharge on oral thiamine
Folic acid
Precedex drip intermittent use for agitation. Now off.
Haldol has been discontinued
Patient remains lethargic after administered lorazepam
Not agitated. Significant improvement in behavioral disturbances
continue current dose of Risperdal 2 mg nightly with 0.5 mg daily and 0.25mg PRN
Patient is off one-to-one and TeleSitter
Appreciate psych recs
Recurrent episode of fever 10/22
Found to have UTI
Urine culture with sensitive Klebsiella
Initiated on ceftriaxone
Fever trending down and patient has been afebrile.
Transition to Keflex for additional 5 days therapy through 11/01.
TAVR with severe AI was moderate before unclear timeline
Suspected endocarditis
blood cultures are negative x 72hours
Antibiotics as per infectious disease
Continue vancomycin. Zosyn discontinued.
Additional blood work ordered with Bartonella and Q fever and rheumatoid
Discussed with infectious service
Given negative cultures, and patient being afebrile antibiotic/vancomycin has been discontinued on 10/10. Monitor closely.
Dysphagia
Initially on pur�ed diet and now on soft and bite-size diet
Shock likely secondary to sedation and decreased p.o. intake versus low likelihood of related to infection/sepsis
Discontinue phenobarbital
BP improved
See individual problem as above
Off Levophed, shock resolved.
RUE with superficial vein thrombosis
IV removed
Primary hypertension
Cont to Hold home amlodipine for now
Well-controlled off medication
Chronic low back pain -try to set up bed into a chair to help alleviate his back pain.
Hypokalemia -resolved.
CODE STATUS: Full code
Discussed with spouse at bedside in detail.
PT/OT acute rehab. PM&R re-consulted for eval on 10/22.
Anticipated Discharge: Within 24 hours
Subjective/Interval History
-
Date of Service: October 29, 2023
Patient seen and examined. No complaints.
Objective Data
-
Vital Signs:
Vital Signs
Temp Pulse Resp BP Pulse Ox
98.3 F 97 14 129/93 94
10/29/23 07:41 10/29/23 07:41 10/29/23 07:41 10/29/23 07:41 10/29/23 07:41
I&O
10/28/23 10/29/23 10/30/23
06:59 06:59 06:59
Intake Total 780 / 780 1740 / 1740
Output Total 1025 / 1025 650 / 650
Balance -245 / -245 1090 / 1090
Review of Systems
-
History Source: Patient
All other systems: Reviewed and negative
--- NOTE | 2023-10-29 11:24 | PTCARENOTE ---
pt taken out of restraints this AM by this nurse. pt very restless overnight but per shift report pt has not slept in days. pt currently sleeping after having a full breakfast and taking his morning medications. pt remains on medsitter at this time.
--- NOTE | 2023-10-29 16:29 | PTCARENOTE ---
Pt continued to be confused through the shift, not following commands, resisting care, becoming more agitated as day went on. A code purple was called on this patient while this nurse was discharging someone to the lobby due to no transport on
weekends. when returning to the floor the patient was settled back in his chair. pt very agitated at bedside. MD and cross coverage made aware
[2023-10-29 16:37] VITALS: BP 118/63
[2023-10-29] MEDS: LIPITOR 40 MG PO (17:21)
[2023-10-29] MEDS: LOVENOX SC (17:21)
[2023-10-29] MEDS: RISPERDAL 2 MG PO (21:02)
[2023-10-29 23:12] VITALS: BP 114/52
[2023-10-30 07:20] VITALS: BP 103/51
[2023-10-30] MEDS: MIRALAX 17 GRAMS PO (08:11)
[2023-10-30] MEDS: RISPERDAL 0.5 MG PO (08:11)
[2023-10-30] MEDS: FOLVITE 1 MG PO (08:11)
[2023-10-30] MEDS: KEFLEX 500 MG PO ×4 (08:11→21:05)
[2023-10-30] MEDS: VITAMIN B1 100 MG PO ×2 (08:11→20:05)
[2023-10-30] MEDS: ASPIR LOW (ENTERIC COATED) 81 MG PO (08:11)
--- NOTE | 2023-10-30 11:52 | PTCARENOTE ---
Patient very pleasant and following simple commands. Patient worked with pt and resting comfortably in the chair.
--- NOTE | 2023-10-30 13:30 | PTCARENOTE ---
Patient taking pills whole with water and following commands. Patient sitting comfortably in bed. Patient makes no attempts to get OOB unless needing to use the bathroom. at bedside. Call benitez within reach.
[2023-10-30 15:20] VITALS: BP 115/54
--- NOTE | 2023-10-30 16:43 | CM ---
Patient with behaviors on 10/29/23 and [facility] not willing to accept patient. [facility] [place] [facility] Met with patient and and discussed the need to explore STR options. not pleased and prefers acute.
She feels patient had behaviors due to UTI. Per her request, updated referrals were forwarded to the above noted facilities. Attending notified.
--- NOTE | 2023-10-30 16:43 | W.PN.HOSP.TC ---
Today's Communication/Plan
-
Cognitive and behavioral status compensated with no impulsivity reported over the last 24 hours.
Continue Risperdal
Continue oral antibiotics to complete course of treatment for UTI through 11/01.
Disposition efforts
Assessment / Plan
Assessment / Plan
CTA head and neck showed:
Bilateral carotid bulb and proximal internal carotid artery atherosclerosis, left greater than right, without hemodynamically significant proximal internal carotid artery stenosis.
No findings to suggest internal carotid artery or vertebral artery dissection bilaterally. Dominant right vertebral artery.
No findings to suggest proximal intracranial arterial stenosis bilaterally.
MRI brain showed:
Cluster of small acute, nonhemorrhagic infarcts in the left insula. There is also a tiny acute nonhemorrhagic infarct in the left parietal lobe posteriorly.
Cerebral atrophy along with chronic small vessel ischemia in cerebral white matter
Old lacunar infarcts in the centrum semiovale bilaterally and right frontal subcortical white matter.
IMPRESSION:
78 years old with a history of hypertension, hyperlipidemia, aortic stenosis status post TAVR presented with mild confusion and slurred speech which resolved, MRI brain shows acute CVA neurology consulted, vision consulted and plan for DANYA today.
PLAN:
Acute CVA (Wernicke's aphasia)
CT head done in the ER showed: No acute abnormality.
MRI of the brain was positive for acute infarcts
CTA was negative for acute stenosis
Echo was performed Overall preserved left ventricular function. Estimated LV ejection fraction is 55% . Lateral hypokinesis.
continue with Aspirin/atorvastatin,
Hemoglobin A1c 5.3, LDL 40.
PT/OT consulted.
DANYA with normal biventricular size and systolic function without regional wall motion abnormality. Bioprosthetic aortic valve with severe paravalvular regurgitation. Aortic root thickening cannot rule out aortic root abscess. Cannot rule out the
presence of small sessile vegetation on the anterior leaflet. Mild to moderate regurgitation mitral. No evidence of left atrial appendage, right atrial appendage thrombus.
Overall his neurologic exam with no focal findings. Confusion and agitation likely represent delirium with underlying and possibly alcohol-related toxic metabolic encephalopathy.
Toxic metabolic encephalopathy likely multifactorial due to acute CVA, alcohol withdrawals and suspected delirium with behavioral disturbances
Delirium multifactorial secondary to DT and possibly chronic cognitive deficit
Alcohol abuse.
Daily alcohol use.
Last used 2 days prior to arrival
Patient given thiamine IV in the ER, will continue while in the hospital, then discharge on oral thiamine
Folic acid
Precedex drip intermittent use for agitation. Now off.
Haldol has been discontinued
Patient remains lethargic after administered lorazepam
Not agitated. Significant improvement in behavioral disturbances
continue current dose of Risperdal 2 mg nightly with 0.5 mg daily and 0.25mg PRN
Patient is off one-to-one and TeleSitter
Appreciate psych recs
Recurrent episode of fever 10/22
Found to have UTI
Urine culture with sensitive Klebsiella
Initiated on ceftriaxone
Fever trending down and patient has been afebrile.
Transition to Keflex for additional 5 days therapy through 11/01.
TAVR with severe AI was moderate before unclear timeline
Suspected endocarditis
blood cultures are negative x 72hours
Antibiotics as per infectious disease
Continue vancomycin. Zosyn discontinued.
Additional blood work ordered with Bartonella and Q fever and rheumatoid
Discussed with infectious service
Given negative cultures, and patient being afebrile antibiotic/vancomycin has been discontinued on 10/10. Monitor closely.
Dysphagia
Initially on pur�ed diet and now on soft and bite-size diet
Shock likely secondary to sedation and decreased p.o. intake versus low likelihood of related to infection/sepsis
Discontinue phenobarbital
BP improved
See individual problem as above
Off Levophed, shock resolved.
RUE with superficial vein thrombosis
IV removed
Primary hypertension
Cont to Hold home amlodipine for now
Well-controlled off medication
Chronic low back pain -try to set up bed into a chair to help alleviate his back pain.
Hypokalemia -resolved.
CODE STATUS: Full code
Discussed with spouse at bedside in detail.
PT/OT acute rehab. PM&R re-consulted for eval on 10/22.
Anticipated Discharge: 24 - 48 hours
Subjective/Interval History
-
Date of Service: October 30, 2023
Objective Data
-
Vital Signs:
Vital Signs
Temp Pulse Resp BP Pulse Ox
98.3 F 78 18 115/54 97
10/30/23 15:20 10/30/23 15:20 10/30/23 15:20 10/30/23 15:20 10/30/23 15:20
I&O
10/29/23 10/30/23 10/31/23
06:59 06:59 06:59
Intake Total 1740 / 1740 1580 / 1580
Output Total 650 / 650 250 / 250
Balance 1090 / 1090 1330 / 1330
Physical Exam
-
General: Well Developed and No Apparent Distress
HEENT: Normocephalic, Atraumatic and Moist Mucous Membranes
Respiratory: Clear to Auscultation
Cardiac: Regular Rhythm and S1/S2; Negative Murmur, Rub or Gallop
GI: Soft, Nontender, Nondistended and Normal Bowel Sounds; Negative Organomegaly
Rectal: Deferred by Provider
Musculoskeletal: No Clubbing, No Cyanosis and No Edema
Skin: Negative Rash
Neuro: Nonfocal/Grossly Intact
[2023-10-30] MEDS: LIPITOR 40 MG PO (17:01)
[2023-10-30] MEDS: LOVENOX 40 MG SC (17:01)
[2023-10-30] MEDS: RISPERDAL 2 MG PO (21:05)
[2023-10-30 23:31] VITALS: BP 126/60
[2023-10-31 07:20] VITALS: BP 125/58
[2023-10-31] MEDS: RISPERDAL 0.5 MG PO (08:10)
[2023-10-31] MEDS: MIRALAX 17 GRAMS PO (08:10)
[2023-10-31] MEDS: FOLVITE 1 MG PO (08:10)
[2023-10-31] MEDS: KEFLEX 500 MG PO ×4 (08:10→21:15)
[2023-10-31] MEDS: ASPIR LOW (ENTERIC COATED) 81 MG PO (08:10)
[2023-10-31] MEDS: VITAMIN B1 100 MG PO ×2 (08:10→21:15)
--- NOTE | 2023-10-31 13:28 | CM ---
Patient scheduled for discharge to [facility] on 11/01/23. Must be off medsitter x 24 hours. Medsitter removed from room at 8:00 AM on this date.
NURSE TO NURSE REPORT # [phone]
FAX # [phone]
--- NOTE | 2023-10-31 14:15 | W.PN.HOSP.TC ---
Today's Communication/Plan
-
Medically cleared for discharge to acute rehab pending acceptance.
Assessment / Plan
Assessment / Plan
CTA head and neck showed:
Bilateral carotid bulb and proximal internal carotid artery atherosclerosis, left greater than right, without hemodynamically significant proximal internal carotid artery stenosis.
No findings to suggest internal carotid artery or vertebral artery dissection bilaterally. Dominant right vertebral artery.
No findings to suggest proximal intracranial arterial stenosis bilaterally.
MRI brain showed:
Cluster of small acute, nonhemorrhagic infarcts in the left insula. There is also a tiny acute nonhemorrhagic infarct in the left parietal lobe posteriorly.
Cerebral atrophy along with chronic small vessel ischemia in cerebral white matter
Old lacunar infarcts in the centrum semiovale bilaterally and right frontal subcortical white matter.
IMPRESSION:
78 years old with a history of hypertension, hyperlipidemia, aortic stenosis status post TAVR presented with mild confusion and slurred speech which resolved, MRI brain shows acute CVA neurology consulted, vision consulted and plan for DANYA today.
PLAN:
Acute CVA (Wernicke's aphasia)
CT head done in the ER showed: No acute abnormality.
MRI of the brain was positive for acute infarcts
CTA was negative for acute stenosis
Echo was performed Overall preserved left ventricular function. Estimated LV ejection fraction is 55% . Lateral hypokinesis.
continue with Aspirin/atorvastatin,
Hemoglobin A1c 5.3, LDL 40.
PT/OT consulted.
DANYA with normal biventricular size and systolic function without regional wall motion abnormality. Bioprosthetic aortic valve with severe paravalvular regurgitation. Aortic root thickening cannot rule out aortic root abscess. Cannot rule out the
presence of small sessile vegetation on the anterior leaflet. Mild to moderate regurgitation mitral. No evidence of left atrial appendage, right atrial appendage thrombus.
Overall his neurologic exam with no focal findings. Confusion and agitation likely represent delirium with underlying and possibly alcohol-related toxic metabolic encephalopathy.
Toxic metabolic encephalopathy likely multifactorial due to acute CVA, alcohol withdrawals and suspected delirium with behavioral disturbances
Delirium multifactorial secondary to DT and possibly chronic cognitive deficit
Alcohol abuse.
Daily alcohol use.
Last used 2 days prior to arrival
Patient given thiamine IV in the ER, will continue while in the hospital, then discharge on oral thiamine
Folic acid
Precedex drip intermittent use for agitation. Now off.
Haldol has been discontinued
Patient remains lethargic after administered lorazepam
Not agitated. Significant improvement in behavioral disturbances
continue current dose of Risperdal 2 mg nightly with 0.5 mg daily and 0.25mg PRN
Patient is off one-to-one and TeleSitter
Appreciate psych recs
Recurrent episode of fever 10/22
Found to have UTI
Urine culture with sensitive Klebsiella
Initiated on ceftriaxone
Fever trending down and patient has been afebrile.
Transition to Keflex for additional 5 days therapy through 11/01.
TAVR with severe AI was moderate before unclear timeline
Suspected endocarditis
blood cultures are negative x 72hours
Antibiotics as per infectious disease
Continue vancomycin. Zosyn discontinued.
Additional blood work ordered with Bartonella and Q fever and rheumatoid
Discussed with infectious service
Given negative cultures, and patient being afebrile antibiotic/vancomycin has been discontinued on 10/10. Monitor closely.
Dysphagia
Initially on pur�ed diet and now on soft and bite-size diet
Shock likely secondary to sedation and decreased p.o. intake versus low likelihood of related to infection/sepsis
Discontinue phenobarbital
BP improved
See individual problem as above
Off Levophed, shock resolved.
RUE with superficial vein thrombosis
IV removed
Primary hypertension
Cont to Hold home amlodipine for now
Well-controlled off medication
Chronic low back pain -try to set up bed into a chair to help alleviate his back pain.
Hypokalemia -resolved.
CODE STATUS: Full code
Discussed with spouse at bedside in detail.
PT/OT acute rehab. PM&R re-consulted for eval on 10/22.
Anticipated Discharge: 24 - 48 hours
Subjective/Interval History
-
Date of Service: October 31, 2023
Objective Data
-
Vital Signs:
Vital Signs
Temp Pulse Resp BP Pulse Ox
98.4 F 88 18 125/58 96
10/31/23 07:20 10/31/23 07:20 10/31/23 07:20 10/31/23 07:20 10/31/23 07:20
I&O
10/30/23 10/31/23 11/01/23
06:59 06:59 06:59
Intake Total 1580 / 1580 1380 / 1380
Output Total 250 / 250 800 / 800
Balance 1330 / 1330 580 / 580
Physical Exam
-
General: Well Developed and No Apparent Distress
HEENT: Normocephalic, Atraumatic and Moist Mucous Membranes
Respiratory: Clear to Auscultation
Cardiac: Regular Rhythm and S1/S2; Negative Murmur, Rub or Gallop
GI: Soft, Nontender, Nondistended and Normal Bowel Sounds; Negative Organomegaly
Rectal: Deferred by Provider
Musculoskeletal: No Clubbing, No Cyanosis and No Edema
Skin: Negative Rash
Neuro: Nonfocal/Grossly Intact
[2023-10-31 15:00] VITALS: BP 123/66; PULSE 93
[2023-10-31 15:04] VITALS: BP 123/66; PULSE 93
[2023-10-31 15:25] VITALS: BP 126/66
[2023-10-31] MEDS: LOVENOX 40 MG SC (17:19)
[2023-10-31] MEDS: LIPITOR 40 MG PO (17:19)
[2023-10-31] MEDS: RISPERDAL 2 MG PO (21:15)
[2023-10-31 23:16] VITALS: BP 108/53
[2023-11-01 03:25] VITALS: BP 128/84
--- NOTE | 2023-11-01 03:34 | DOWNTIME ---
There was a [employer] Downtime on 11/01/2023 from 0100 to 11/01/2023 at 0255. Downtime documentation of patient's care, including medication administrations, has been reconciled in the electronic record per guidelines. Refer to the
patient's paper chart under the miscellaneous tab to see printed paper medication records and downtime forms.
[2023-11-01 07:20] VITALS: BP 121/61
[2023-11-01] MEDS: KEFLEX 500 MG PO (08:01)
[2023-11-01] MEDS: RISPERDAL 0.5 MG PO (08:01)
[2023-11-01] MEDS: MIRALAX 17 GRAMS PO (08:01)
[2023-11-01] MEDS: ASPIR LOW (ENTERIC COATED) 81 MG PO (08:01)
[2023-11-01] MEDS: VITAMIN B1 100 MG PO (08:01)
[2023-11-01] MEDS: FOLVITE 1 MG PO (08:02)
--- NOTE | 2023-11-01 10:24 | CM ---
CM following re: discharge planning.
Reviewed pt's chart, met with pt.
Discharge order is noted. Pt is aware, expressed her agreement with discharge. per CM note a plan is - [facility].
CM spoke t [facility] coordinator and she confirmed that pt is accepted for admission today.
NURSE TO NURSE REPORT # [phone]
Discharge instructions FAX # [phone]
D/C plan: [facility]
[2023-11-01 11:30] VITALS: BP 119/57
== END 2023-11-01 11:38 | DRG 64 ==
LOC: 2 NORTH 12:25
PROVIDERS: Emergency Medicine; Hospitalist; Internal Medicine Cardiovascular Disease; Nurse Practitioner Primary Care; ADMITTING PHYSICIAN General Practice; ATTENDING PHYSICIAN Internal Medicine; CONSULT PHYSICIAN Internal Medicine Cardiovascular Disease; CONSULT PHYSICIAN Student in an Organized Health Care Education/Training Program; CONSULT PHYSICIAN Thoracic Surgery (Cardiothoracic Vascular Surgery); EMERGENCY PHYSICIAN Emergency Medicine; FAMILY PHYSICIAN Family Medicine; OTHER PHYSICIAN Internal Medicine Pulmonary Disease; OTHER PHYSICIAN Physical Medicine & Rehabilitation; OTHER PHYSICIAN Psychiatry & Neurology Psychiatry
PROC: B24BZZ4 Ultrasonography of Heart with Aorta, Transesophageal (ICD-10-PCS; 2023-10-06)
PROC: 5A09357 Assistance with Respiratory Ventilation, Less than 24 Consecutive Hours, Continuous Positive Airway Pressure (ICD-10-PCS; 2023-11-01)
DX: I63.9 Cerebral infarction, unspecified (principal); G92.8 Other toxic encephalopathy; J69.0 Pneumonitis due to inhalation of food and vomit; F10.231 Alcohol dependence with withdrawal delirium; I82.611 Acute embolism and thrombosis of superficial veins of right upper extremity; R57.9 Shock, unspecified; E44.1 Mild protein-calorie malnutrition; N39.0 Urinary tract infection, site not specified; T82.03XA Leakage of heart valve prosthesis, initial encounter; I10 Essential (primary) hypertension; E78.5 Hyperlipidemia, unspecified; F80.2 Mixed receptive-expressive language disorder; I25.10 Atherosclerotic heart disease of native coronary artery without angina pectoris; E66.01 Morbid (severe) obesity due to excess calories; G31.9 Degenerative disease of nervous system, unspecified; R13.10 Dysphagia, unspecified; D64.9 Anemia, unspecified; F32.A Depression, unspecified; R50.9 Fever, unspecified; I34.0 Nonrheumatic mitral (valve) insufficiency; E87.6 Hypokalemia; G89.29 Other chronic pain; B96.1 Klebsiella pneumoniae [K. pneumoniae] as the cause of diseases classified elsewhere; M54.50 Low back pain, unspecified; I35.2 Nonrheumatic aortic (valve) stenosis with insufficiency; E78.00 Pure hypercholesterolemia, unspecified; R45.87 Impulsiveness; K57.90 Diverticulosis of intestine, part unspecified, without perforation or abscess without bleeding; Y71.2 Prosthetic and other implants, materials and accessory cardiovascular devices associated with adverse incidents; Y92.9 Unspecified place or not applicable; Z78.1 Physical restraint status; Z95.2 Presence of prosthetic heart valve; Z79.82 Long term (current) use of aspirin; Z79.02 Long term (current) use of antithrombotics/antiplatelets; Z82.49 Family history of ischemic heart disease and other diseases of the circulatory system; Z85.828 Personal history of other malignant neoplasm of skin; Z68.32 Body mass index [BMI] 32.0-32.9, adult
CPT/HCPCS: 70450; 70496; 70498; 70551; 71045; 80048; 80053; 80061; 80202; 80306; 81003; 81015; 82077; 82140; 82962; 83036; 83735; 84100; 84484; 85025; 85027; 85610; 85730; 86430; 86611; 86638; 87040; 87077; 87086; 87186; 92507; 92523; 92526; 92610; 93005; 93306; 93312; 93320; 93325; 93971; 96374; 96375; 97112; 97116; 97129; 97163; 97167; 97530; 97535; 97550; 99285; Q9950; Q9967

== ENCOUNTER 2023-11-01 18:41 | Inpatient (IN) | payer MEDICARE, OTHER, SELFPAY ==
[2023-11-01 16:27] VITALS: BP 148/91
[2023-11-01] MEDS: HALDOL 2 MG IM (16:35)
[2023-11-01 17:55] VITALS: BP 126/56
--- NOTE | 2023-11-01 17:56 | ED.GENMED ---
History of Present Illness
General
Chief Complaint: Psychiatric Problem
Time Seen by Provider: 11/01/23 16:30
History of Present Illness
History of Present Illness:
70-year-old male presents to the emergency department as a code purple from [facility] due to acute agitation. Patient was admitted to this hospital from October 04 until this morning due to alcohol withdrawal and Warnicke's encephalopathy with severe
behavioral disturbances and agitation. He was discharged this morning to [facility] and abruptly became agitated and physically aggressive toward staff after his family departed. On arrival he is agitated and thrashing, he is markedly aphasic and
speech is essentially unintelligible
Past History
Past History
ED Past Medical History: HTN and Other ( Aortic stenosis)
ED Past Surgical History: None
Social History
Tobacco: Non-smoker
Alcohol: Chronic alcoholic
Drug: None
Personal:
Living: with family
Review of Systems
Review of Systems
Allergies reviewed?: Yes
All Other Systems: ROS reviewed and negative except as documented in HPI and ROS
Phy Exam
Physical Exam
Physical Exam:
GEN: Agitated and thrashing, repetitive speech pattern
HEENT: Oral mucosa moist, no scleral icterus
Cardiac: Regular rate
Lung: No respiratory distress, no tachypnea
MSK: No gross deformity or injuries
Skin: Good color, no pallor or jaundice, no rashes
Neuro: Alert, does not follow commands, markedly aphasic
Psych: Calm, cooperative
Course
Orders/Labs/Results
Orders:
Orders
11/01/23 16:32
Haloperidol Lactate [Haldol] 2 mg IM NOW STA
11/01/23 17:30
One to One Observation - Suicide/Violent [1:1 Observation - Suicide/ Violent Behavior] As Directed
11/01/23 17:58
Admit/Transfer Patient As Directed
Co-Sign Provider:
Level of Care: Inpatient admission
Assign to:: Medical/Surgical
Physician / Group: Asif
Diagnosis: CVA, encephalopathy with behavioral disturbances.
Reason for Hospitalization: Above
Expected length of stay greater than two midnights?: Yes
ELOS- Estimated Length of Stay in days: 2
I certify the patient meets the requirements for IP care: Yes
PRN Pain Medication Management As Directed
May give lesser potent ordered pain med per pt: Yes
preference::
Protocol:: Medication orders for pain may be administered in a
manner that supports deferring to patient preference
when the pt is:
-Requesting an ordered lesser potent pain medication.
Least to most potent pain medications are defined as:
acetaminophen < NSAID < tramadol < opioids (morphine,
oxycodone, hydromorphone).
- Requesting a lesser dose of the same medication IF
ORDERED.
- Requesting a less intrusive route of administration
if both routes are prescribed by the provider (PO <
IV).
11/01/23 18:01
Code Status As Directed
Resuscitation Status: Full Code
Vital Signs
Initial and Last Documented VS:
Initial Vital Signs
Temp Pulse Resp BP Pulse Ox
97.6 F 117 22 148/91 97
11/01/23 16:27 11/01/23 16:27 11/01/23 16:27 11/01/23 16:27 11/01/23 16:27
Last Documented Vital Signs
Temp Pulse Resp BP Pulse Ox
97.6 F 81 21 125/56 94
11/01/23 16:27 11/01/23 18:00 11/01/23 18:00 11/01/23 18:00 11/01/23 18:00
MDM/Problems Addressed
MDM/Problems Addressed:
Case was reviewed with [facility] attending physician who feels that the patient is not suitable for readmission to [facility]. Discussed with Dr. Gold who would be the patient's primary attending physician upstairs and we will readmit him medically
for further behavioral management and placement considerations
*Critical Care Note
Total Time (30-74mins, 75-104mins- exclusive of procedures): Not Applicable
ED Attending Note
-
Portions of this chart may have been created with voice recognition software.� Occasional wrong word or��sound alike� substitutions may have occurred due to the inherent limitations of voice recognition software.
Discharge Plan
Departure
Patient Disposition: Admit
Date of Disposition: 11/01/23
Time of Disposition: 17:56
Presentation/result/management discussed w/ accepting MD/DO: Hospitalist
Discharge Problem:
Agitation
Prescriptions:
No Action
aspirin 81 MG tablet,chewable
81 mg PO DAILY
acetaminophen 325 mg Tablet
650 mg PO Q4HPRN PRN (Reason: mild pain/SCOTT/temp> 100.4F) Qty: 30 0RF
sennosides-docusate sodium [Stool Softener-Laxative] 8.6-50 mg Tablet
1 tab PO BIDPRN PRN (Reason: constipation) Qty: 30 0RF
bisacodyl 10 mg Suppository
10 mg [place] [id number] PRN (Reason: constipation) Qty: 10 0RF
risperidone 0.5 mg Tablet,Disintegrating
0.25 mg PO BIDPRN PRN (Reason: agitation) Qty: 30 0RF
atorvastatin 40 mg tablet
40 mg PO QPM
polyethylene glycol 3350 [HealthyLax] 17 gram powder in packet
17 g PO DAILY
cephalexin 500 mg capsule
500 mg PO QID
risperidone 1 mg tablet
2 mg PO HS
risperidone 0.5 mg tablet
0.5 mg PO DAILY
Referrals:
UNKNOWN - PT NOT,INTERVIEWE [Family Provider] -
Interventions
Interventions:
*Risk Screen - Suicide Last Done: 11/01/23 16:27
*General Assessment Last Done: 11/01/23 16:27
*Neglect/Abuse Screening Last Done: 11/01/23 16:27
ED- Fall Risk Assessment Last Done: 11/01/23 16:45
*ED COVID-19 Vaccine History Last Done: 11/01/23 16:38
ED-Psychological Assessment Last Done: 11/01/23 16:45
Discharge Date and Time
Print Language: BRUNEIAN
[2023-11-01 17:59] VITALS: BMI 29.3
[2023-11-01 18:00] VITALS: BP 125/56
--- NOTE | 2023-11-01 18:02 | HPS.HSE ---
Family Physician
-
Family Physician: INTER[facility]IEWE UNKNOWN - PT NOT
Chief Complaint
-
Agitation
History of Present Illness
Patient is a 78 years old male who was discharged just today to acute rehab after prolonged hospitalization for CVA with encephalopathy and behavioral disturbances with periodic agitation. Patient was initiated on Risperdal with fairly good
behavioral control, 1 patient was able to participate with physical therapy. He was taking off sitter monitoring for the last 48 hours with no agitation or impulsiveness. He was accepted to [place] [facility] and unfortunately had episode of agitation
with change of environment. Patient was sent back to the emergency room. While in the emergency room patient is calm with mental status back to baseline which is expressive aphasia and disorientation. Rest of the neurologic examination unchanged.
Medical History
Past Medical History
Past Medical History: Reports CVA and Other (Aortic insufficiency status post TAVR)
Past Surgical History: Reports Other (Status post TAVR)
Social History
Tobacco: Non-smoker
Personal:
Living: With Family
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
Family History
Family History: Not pertinent
Allergies / Home Medications
Allergies reflects when Allergies were last updated in [facility] [employer].
Home Medications with original date entered in [employer]
Allergy/Medication List:
Allergies
Allergy/AdvReac Type Severity Reaction Status Date / Time
pollen extracts Allergy Intermediate RUNNY NOSE Verified 11/01/23 16:22
AND
SNEEZING
Home Medications
aspirin 81 mg chewable tablet 81 mg PO DAILY Blood Clot Prevention/Tx 02/13/19
acetaminophen 325 mg tablet 650 mg (2 x 325 mg) PO Q4HPRN PRN mild pain/SCOTT/temp> 100.4F #30 tabs 10/28/23
bisacodyl 10 mg rectal suppository 10 mg FL [id number] PRN constipation #10 ea 10/28/23
risperidone 0.5 mg disintegrating tablet 0.25 mg (1/2 x 0.5 mg) PO BIDPRN PRN agitation #30 tabs 10/28/23
sennosides 8.6 mg-docusate sodium 50 mg tablet (Stool Softener-Laxative) 1 tab PO BIDPRN PRN constipation #30 tabs 10/28/23
atorvastatin 40 mg tablet 40 mg PO QPM High Cholesterol 11/01/23
cephalexin 500 mg capsule 500 mg PO QID Infection 11/01/23
polyethylene glycol 3350 17 gram oral powder packet (HealthyLax) 17 g PO DAILY Constipation 11/01/23
risperidone 0.5 mg tablet 0.5 mg PO DAILY Mental Health 11/01/23
risperidone 1 mg tablet 2 mg PO HS Mental Health 11/01/23
Review of Systems
-
Unable to obtain full review of systems at this time due to: Dementia
Physical Exam
Vital Signs
Vital Signs
Temp Pulse Resp BP Pulse Ox
97.6 F 81 21 125/56 94
11/01/23 16:27 11/01/23 18:00 11/01/23 18:00 11/01/23 18:00 11/01/23 18:00
Physical Exam
General: Well Developed, Well Nourished, No Apparent Distress, Comfortable and Good Appetite; No Pain, Chills or Sweats
HEENT: NormoCephalic, Moist mucous membranes, Atraumatic, Good Dentition, PERRLA, Nose Appears Normal and Ears Appear Normal
Respiratory: Clear
Cardiac: S1/S2 and Regular Rhythm
Breast: Deferred by me
GI: Soft, Non Tender, Non Distended and Normal Bowel Sounds
Genito-urinary: Deferred by me
Musculoskeletal: No Clubbing, No Cyanosis and No Edema
Skin: Warm; No Rash, Jaundice, Ulcers, Lesions or Decubitus Ulcers
Neuro: Awake, Alert, Oriented, AO x 3, No Motor Deficits, Nonfocal/grossly intact and Cranial Nerves Intact
Hematologic/Lymphatic: No Lymphadenopathy
Psych: Calm
Impression/Plan
-
IMPRESSION:
Agitation and impulsiveness
Recent CVA
Aortic insufficiency status post TAVR.
Uncomplicated UTI.
Essential hypertension
Chronic back pain
PLAN:
Agitation and impulsiveness likely combination of recent CVA with expressive aphasia as well as underlying cognitive disorder.
No focal neurologic abnormalities
Continue Risperdal
Consider reconsult psychiatry for other recommendations in terms of behavioral control regimen, although would avoid oversedation.
Recent CVA.
MRI of the brain with cluster of small acute, nonhemorrhagic infarcts in the left insula. Underlying cerebral atrophy and lacunar infarcts old.
Neurologic sequela with expressive aphasia and impulsiveness.
Continue aspirin
Continue statin
Continue physical therapy.
Essential hypertension.
Currently normotensive off antihypertensive medications.
Monitor blood pressure trend
Uncomplicated UTI.
Urine culture with Klebsiella pneumonia
Completing course of antibiotics through 11/01.
Aortic insufficiency status post TAVR
Recent echocardiogram/DANYA with normal biventricular size and systolic function.
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
Noted aortic root thickening with initial concern for vegetation/abscess although clinically with no evidence of endovascular infection given patient temperature curve as well as negative blood cultures. Initially on antibiotic therapy that was
discontinued for close monitoring.
Full code
Continue physical therapy assessment with consideration of acute rehab versus [facility] facility.
--- NOTE | 2023-11-01 19:15 | PTCARENOTE ---
Pt received from ED to rm [id number]. Pt oriented to room and call benitez.
[2023-11-01 19:54] VITALS: BP 119/50; BMI 29.1
[2023-11-01] MEDS: LIPITOR 40 MG PO (20:03)
[2023-11-01] MEDS: LOVENOX 40 MG SC (20:03)
[2023-11-01] MEDS: RISPERDAL 2 MG PO (21:28)
[2023-11-01] MEDS: KEFLEX 500 MG PO (21:28)
[2023-11-01 23:41] VITALS: BP 108/75
[2023-11-02] MEDS: RISPERDAL M-TAB (ORALLY DISINTEGRATING) 0.25 MG PO ×2 (00:31→17:18)
[2023-11-02 07:20] VITALS: BP 111/45
[2023-11-02] MEDS: RISPERDAL 0.5 MG PO (08:00)
[2023-11-02] MEDS: LOW STRENGTH ASPIRIN 81 MG PO (08:00)
[2023-11-02] MEDS: KEFLEX 500 MG PO ×4 (08:00→21:20)
[2023-11-02] MEDS: MIRALAX 17 GRAMS PO (08:00)
[2023-11-02] MEDS: ATIVAN 0.5 MG PO (10:25)
--- NOTE | 2023-11-02 12:04 | W.PN.HOSP.TC ---
Today's Communication/Plan
-
psychiatry consult
DC planning
Assessment / Plan
Assessment / Plan
IMPRESSION:
Agitation and impulsiveness suspect sec to Wernicke's aphasia
Recent CVA
Aortic insufficiency status post TAVR.
Uncomplicated UTI.
Essential hypertension
Chronic back pain
PLAN:
Agitation and impulsiveness likely combination of recent CVA with expressive aphasia as well as underlying cognitive disorder.
No focal neurologic abnormalities
Continue Risperdal
consult psychiatry for other recommendations in terms of behavioral control regimen
Recent CVA.
MRI of the brain with cluster of small acute, nonhemorrhagic infarcts in the left insula. Underlying cerebral atrophy and lacunar infarcts old.
Neurologic sequela with expressive aphasia and impulsiveness.
Continue aspirin
Continue statin
Continue physical therapy.
Essential hypertension.
Currently normotensive off antihypertensive medications.
Monitor blood pressure trend
Uncomplicated UTI.
Urine culture with Klebsiella pneumonia
Completing course of antibiotics through 11/01.
Aortic insufficiency status post TAVR
Recent echocardiogram/DANYA with normal biventricular size and systolic function.
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
Noted aortic root thickening with initial concern for vegetation/abscess although clinically with no evidence of endovascular infection given patient temperature curve as well as negative blood cultures. Initially on antibiotic therapy that was
discontinued for close monitoring.
Full code
Continue physical therapy assessment with consideration of acute rehab versus [facility] facility.
Anticipated Discharge: Within 24 hours
Subjective/Interval History
-
Date of Service: November 02, 2023
Patient with history of Wernicke's aphasia-today's talking a storm with neologisms and incomprehensible words sometimes.
No agitation
Moving all 4 limbs
Oriented to person ,
Objective Data
-
Vital Signs:
Vital Signs
Temp Pulse Resp BP Pulse Ox
98.4 F 80 18 111/45 92
11/02/23 07:20 11/02/23 07:20 11/02/23 07:20 11/02/23 07:20 11/02/23 07:20
I&O
11/01/23 11/02/23 11/03/23
06:59 06:59 06:59
Intake Total 480 / 480
Output Total 300 / 300
Balance 180 / 180
Review of Systems
-
Unable to obtain full review of systems at this time due to: Other (aphasia)
Physical Exam
-
General: Comfortable
Respiratory: Non Labored Respirations; Negative Accessory Resp Muscle Use
Cardiac: Regular Rhythm and S1/S2
GI: Soft
Neuro: Awake, Alert, Oriented and Other (receptive aphasia)
Psych: Calm (currently but noted to be agitated at times by RN)
--- NOTE | 2023-11-02 12:09 | CM ---
Addendum entered by Becca Vaughn 11/02/23 16:15:
Rehab referral sent
requested speech consultation..
PT/OT evals completed.
Original Note:
Patient seen bedside.
[facility] same d/c as d/c due to agitation.
Currently on 1:1.
Patient with expressive aphasia and confusion.
Prior to last hospitalization patient lives with spouse in a 2SH, 2 steps to enter, has supportive daughter.
Patients spouse stated patient was independent prior to admission, able to dress himself, feed himself, and they went out to dinner shortly before admission.
No history of DME, VN or SNF.
PT/OT evals today.
Spoke with [facility], they will evaluate.
Spoke with spouse about rehabs, will place referrals to [facility].
PCP: Tor[facility]rack[facility]
Pharmacy: [facility]
Plan: rehab once accepted and off 04/17 x 24 hours.
--- NOTE | 2023-11-02 12:17 | CON.MD ---
Addendum entered and electronically signed by Jesse Willingham MD 11/03/23 11:42:
have been asked to clarify type of encephalopathy. several factors may contribute to encephalopathy here including cva, hx of alcoholism and patient also recentlly rx for uti. (see urine culture result. ) uti was treated but encephalopathy does not
necessarily remit at the same moment infection is treated.
Addendum entered and electronically signed by Jesse Willingham MD 11/03/23 10:30:
please amend dx to wernicke's aphasia. would also add dx of encephalopathy. this is a complex picture that also contains an element of an encephalopathy as there is a prominent paranoid flavor to his confabulation which has caused signficant
irritability/agitation/aggression as exemplified by recent code purple. this patient does not have a prior hx of psychotic thought process.
Original Note:
Consultation - Medical
-
patient seen chart reviewed. discussed w nursing and and with dr black. the patient is known to me from prior admission . he was seen by psychiatry initial eval and followup in admit that began on october 07 and continued until dc to [facility] on 10/[facility].
the patient was admitted on the last occasion given delirium/ etoh wd and was found to have had a cva in the left temp/parietal area of the brain. he was noted to be suffering from among other things a wernicke's aphasia. he was oversedated from
phenobarb intially ordered for detox . the phenobarb was dc'ed and he was continued on msas. sedation continued at times to be an issue but he recovered sufficiently to be tf to [facility]. with whom i spoke felt he looked very well on the day of dc
yesterday until he became agitated and combative later in the day after tf to [facility] and was brought to ER and readmitted. he was maintained on antipsychotics which seem to have helped w delirium risperdal o.5 q am 2 mg q hs with a prn of 0.25 mg. at
this point no hx can be obtained from patient who talks non stop verbalizing very paranoid material which included references to others trying to gain entry to his room, there was discussion of dog excrement and other words that made no logical
sense. he was however generally calm as he said these things. he seems to remain calmer when is in the room. patient did not sleep well last night although i cannot say he looked sedated when i saw him. dr black ordered a one time dose of
ativan today for him although has expressed trepidation about use of ativan. tells me that cm has suggested alternatives to [facility] as he is not deemed appropriate to return.
please see prior evaluations done on the last admit for further details re patient history. medically he does have hx of cva see above w resultant wernickes also a consequence of etoh abuse. patient w hx hld htn aortic sten w tavr repair obesity
cad skin ca dvt tr ue fever secondary to uti in the past. 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
mse alert but not oriented to place or time. thought process/speech rambling and tangential filled w bizarre paranoid material patient does not appear depressed but he is irritable not overtly suicidal intelligence impaired by neurocognitive
deficits insight judgment lacking
dx wernicke's encephalopathy
recommendations for now will leave risperdal and prn as is. may need to inc standing dose of risperdal try to avoid ativan given 's concerns not clear whether paranoia is separate from the confabulation of aphasia and how well it will
respond to antipsychotics. will follow
[2023-11-02 14:55] VITALS: BP 117/56
[2023-11-02 15:38] VITALS: BP 129/66; PULSE 94; O2SAT 96
[2023-11-02] MEDS: LIPITOR 40 MG PO (17:18)
[2023-11-02] MEDS: LOVENOX SC (17:19)
[2023-11-02] MEDS: RISPERDAL 2 MG PO (21:20)
[2023-11-02] MEDS: TYLENOL 650 MG PO (21:21)
[2023-11-02 22:20] VITALS: BP 101/59
[2023-11-03 07:14] LABS: Glucose - Point of Care 106 mg/dl (70-99)
[2023-11-03 07:58] VITALS: BP 115/59
[2023-11-03] MEDS: LOW STRENGTH ASPIRIN 81 MG PO (08:51)
[2023-11-03] MEDS: MIRALAX 17 GRAMS PO (08:51)
[2023-11-03] MEDS: RISPERDAL 0.5 MG PO (08:51)
[2023-11-03] MEDS: KEFLEX 500 MG PO (08:51)
--- NOTE | 2023-11-03 10:10 | PTOTSP ---
Speech Therapy Assessment
Patient continues to present with a severe Wernicke's aphasia. Verbal expression is fluent but majority of output contains jargon, other paraphasic errors and perseverations. Occasional appropriate/accurate phrases generated within the context of a
task. He is unable to follow simple directions or respond to yes/no questions with any consistency. Reading/writing at single word level is not functional.
Overall, there is no meaningful, reliable means of communication beyond patient's gross ability to express some basic needs (ie: bathroom, thirst etc).
Recommend
Speak slowly and with very short direct statements.
Allow time for patient to process information.
Use gestures when able to assist with comprehension.
*ST will follow up with patient as able during acute stay with focus on developing functional basic communication, though acute care setting not most conducive environment for such.
*Intensive ST at next level of care.
--- NOTE | 2023-11-03 10:10 | CM ---
Addendum entered by Becca Vaughn 11/03/23 10:53:
TCB from [place] [facility], reviewed with their MDR, unable to accept.
Original Note:
Patient remains on 1:1.
Patient ambulating in room.
Patient declined by [facility].
TC to [facility] at [facility], they will review.
Plan: acute Rehab once accepted.
--- NOTE | 2023-11-03 11:03 | PN.CDI ---
CDI
- -
CDI:
Physician Documentation Request
Admit Date: 11/01/23 18:41
Dear Doctor Tarsha,
Please review the following and provide your response in the progress notes.
Clinical Indicators:
- 11/02 Psychiatry note 'add dx of encephalopathy'
- 'this is a complex picture that also contains an element of an encephalopathy as there is a prominent paranoid flavor to his confabulation'
Please specify the known or suspected type of the documented encephalopathy.
Metabolic
Toxic
Toxic metabolic
Alcoholic
Due to a specified condition (such as UTI, hyponatremia, CVA etc)
Other
Use of terms such as suspected, likely, concern for, or probable (associated with a specific diagnosis that is being evaluated, monitored, or treated as if it exists) are acceptable and can be coded in the inpatient setting, when documented at the
time of discharge.
Thank you,
Corina Polanco RN
CDI Specialist
Please use your independent medical judgment in providing your response.
--- NOTE | 2023-11-03 11:32 | W.PN.HOSP.TC ---
Today's Communication/Plan
-
DC planning
Assessment / Plan
Assessment / Plan
IMPRESSION:
Agitation and impulsiveness suspect sec to Wernicke's aphasia
Recent CVA
Aortic insufficiency status post TAVR.
Uncomplicated UTI.
Essential hypertension
Chronic back pain
PLAN:
Agitation and impulsiveness likely combination of recent CVA with expressive aphasia as well as underlying cognitive disorder.
No focal neurologic abnormalities
Continue Risperdal
consulted psychiatry for other recommendations in terms of behavioral control regimen -cw risperidal
Recent CVA.
MRI of the brain with cluster of small acute, nonhemorrhagic infarcts in the left insula. Underlying cerebral atrophy and lacunar infarcts old.
Neurologic sequela with expressive aphasia and impulsiveness.
Continue aspirin
Continue statin
Continue physical therapy.
Essential hypertension.
Currently normotensive off antihypertensive medications.
Monitor blood pressure trend
Uncomplicated UTI.
Urine culture with Klebsiella pneumonia
Completed course of antibiotics through 11/01.
Aortic insufficiency status post TAVR
Recent echocardiogram/DANYA with normal biventricular size and systolic function.
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
Noted aortic root thickening with initial concern for vegetation/abscess although clinically with no evidence of endovascular infection given patient temperature curve as well as negative blood cultures. Initially on antibiotic therapy that was
discontinued for close monitoring.
Full code
Patient has disabling Wenicke's aphasia which is making difficult to communicate with him which i suspect in turn is making him restless and impulsive.Hopefully able to DC 1:1 today .CAROL RN today.
Diffiuclt situation as he cant go home and he needs rehab.
[facility] B[facility]NS who is going to present to rehabs his case.
Medically stable for DC
Anticipated Discharge: 24 - 48 hours
Subjective/Interval History
-
Date of Service: November 03, 2023
Pt remains with receptive aphasia.
He is not agitated and seems impulsive and restless a bit and i suspect his receptive aphasia has a role to play.
No motor deficits, no tremors, no gait issues. Not agitated but needing 1:1 due to impulsive nature.
Objective Data
-
Vital Signs:
Vital Signs
Temp Pulse Resp BP Pulse Ox
98.5 F 88 17 115/59 96
11/03/23 07:58 11/03/23 07:58 11/03/23 07:58 11/03/23 07:58 11/03/23 07:58
I&O
11/02/23 11/03/23 11/04/23
06:59 06:59 06:59
Intake Total 480 / 480 1600 / 1600 100 / 100
Output Total 300 / 300
Balance 180 / 180 1600 / 1600 100 / 100
Review of Systems
-
Unable to obtain full review of systems at this time due to: Other (due to aphasia)
Physical Exam
-
General: No Apparent Distress
HEENT: Moist Mucous Membranes
Respiratory: Non Labored Respirations; Negative Accessory Resp Muscle Use
Cardiac: Regular Rhythm and S1/S2
GI: Soft
Neuro: Awake and Alert; Negative No Motor Deficits or Tremors
Psych: Calm
--- NOTE | 2023-11-03 12:11 | W.PN.UPDATE ---
Update Note
Progress Note Update
patient seen chart reviewed. discussed w nursing. the patient is better in terms of agitation irritability but he remains confused and unable to carry on a conversation. he did answer some of my ? appropriately at the start but then would veer off
into stream of consciousness that was not organized or relevant. 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 i asked him about that experience but it is unfortunately not something he could elaborate upon . i also asked him about flying a
commercial plane....but again he couldn't really describe much although for a brief few minutes there was exchange of (albeit incoherent) conversation. he received two prn's of risperdal yesterday . i would hold off on stopping one to one and
would consider it if he remains without use of prn's tomorrow. will follow
[2023-11-03 14:36] VITALS: BP 100/53; PULSE 100
[2023-11-03 15:29] VITALS: BP 122/65
[2023-11-03 16:30] VITALS: BP 117/65; PULSE 91; O2SAT 93
[2023-11-03] MEDS: LIPITOR 40 MG PO (17:21)
[2023-11-03] MEDS: LOVENOX SC (17:21)
[2023-11-03] MEDS: RISPERDAL 2 MG PO (21:57)
[2023-11-03 23:00] VITALS: BP 113/52
[2023-11-04] MEDS: TYLENOL 650 MG PO (04:58)
[2023-11-04 07:04] VITALS: BP 127/68
[2023-11-04] MEDS: MIRALAX 17 GRAMS PO (09:18)
[2023-11-04] MEDS: LOW STRENGTH ASPIRIN 81 MG PO (09:20)
[2023-11-04] MEDS: RISPERDAL 0.5 MG PO (09:21)
--- NOTE | 2023-11-04 10:10 | W.PN.HOSP.TC ---
Today's Communication/Plan
-
medically stable for placement; CM aware
Assessment / Plan
Assessment / Plan
IMPRESSION:
Agitation and impulsiveness suspect sec to Wernicke's aphasia
Recent CVA
Aortic insufficiency status post TAVR.
Uncomplicated UTI.
Essential hypertension
Chronic back pain
PLAN:
Agitation and impulsiveness likely combination of recent CVA with expressive aphasia as well as underlying cognitive disorder.
No focal neurologic abnormalities
continue Risperdal
consulted psychiatry for other recommendations in terms of behavioral control regimen - continue Risperdal
remains on 1:1, psych to decide when to remove
Recent CVA.
MRI of the brain with cluster of small acute, nonhemorrhagic infarcts in the left insula. Underlying cerebral atrophy and lacunar infarcts old.
Neurologic sequela with expressive aphasia and impulsiveness.
Continue aspirin
Continue statin
Continue physical therapy.
Essential hypertension.
Currently normotensive off antihypertensive medications.
Monitor blood pressure trend
Uncomplicated UTI.
Urine culture with Klebsiella pneumonia
Completed course of antibiotics through 11/01.
Aortic insufficiency status post TAVR
Recent echocardiogram/DANYA with normal biventricular size and systolic function.
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
Noted aortic root thickening with initial concern for vegetation/abscess although clinically with no evidence of endovascular infection given patient temperature curve as well as negative blood cultures. Initially on antibiotic therapy that was
discontinued for close monitoring.
Full code
Patient has disabling Wernicke's aphasia which is making difficult to communicate with him which i suspect in turn is making him restless and impulsive.Hopefully able to DC 1:1 today .CAROL RN today.
Diffiuclt situation as he cant go home and he needs rehab.
CAROL CM who is going to present to rehabs his case.
Medically stable for DC
Anticipated Discharge: > 48 hours
Subjective/Interval History
-
Date of Service: November 04, 2023
no overnight events
remains on 1:1
Objective Data
-
Vital Signs:
Vital Signs
Temp Pulse Resp BP Pulse Ox
98.0 F 101 16 127/68 94
11/04/23 07:04 11/04/23 07:04 11/04/23 07:04 11/04/23 07:04 11/04/23 07:04
I&O
11/03/23 11/04/23 11/05/23
06:59 06:59 06:59
Intake Total 1600 / 1600 1180 / 1180
Balance 1600 / 1600 1180 / 1180
Physical Exam
-
General: No Apparent Distress
HEENT: Normocephalic and Atraumatic
Respiratory: Negative Wheezes
Cardiac: Regular Rhythm and S1/S2
GI: Soft
Musculoskeletal: No Edema
Neuro: Awake
Psych: Calm
Data Reviewed
-
Total Time Spent with Patient (in minutes): 47
Labs: Labs Reviewed by me
--- NOTE | 2023-11-04 15:00 | W.PN.UPDATE ---
Update Note
Progress Note Update
Pt seen with family present. He is not agitated today, only for brief moments per family. Pt alert, sitting up in chair, talkative- rambling, irrelevant, unable to answer questions. Pt reportedly walking well, regaining strength quickly.
However, family concerned about pt's need for brain rehab/ OT after stroke. No signs of side effects on Risperidone.
Imp: Wernicke's aphasia after Left temporal and parietal strokes, readmitted for episode of severe agitation at [facility]. Pt now calm, manageable
Alcohol use disorder, severe
Rec: continue current Risperidone, appears to be helping agitation with no apparent side effects
will follow
[2023-11-04] MEDS: LOVENOX 40 MG SC (17:11)
[2023-11-04] MEDS: LIPITOR 40 MG PO (17:11)
[2023-11-04] MEDS: HALDOL 2 MG IV (17:33)
[2023-11-04 18:09] VITALS: BP 152/78
[2023-11-04] MEDS: RISPERDAL 2 MG PO (21:06)
[2023-11-04 22:27] VITALS: BP 134/63
--- NOTE | 2023-11-05 02:00 | PTCARENOTE ---
Pt disoriented with expressive aphasia. Pt calm and cooperative. all four restraints removed. 1:1 observation maintained.
[2023-11-05 07:13] VITALS: BP 133/64
[2023-11-05] MEDS: RISPERDAL 0.5 MG PO (09:21)
[2023-11-05] MEDS: MIRALAX 17 GRAMS PO (09:21)
[2023-11-05] MEDS: LOW STRENGTH ASPIRIN 81 MG PO (09:21)
--- NOTE | 2023-11-05 09:48 | W.PN.HOSP.TC ---
Today's Communication/Plan
-
continue Risperdal, 1:1
prn Haldol if agitated
Assessment / Plan
Assessment / Plan
IMPRESSION:
Agitation and impulsiveness suspect sec to Wernicke's aphasia
Recent CVA
Aortic insufficiency status post TAVR.
Uncomplicated UTI.
Essential hypertension
Chronic back pain
PLAN:
Agitation and impulsiveness likely combination of recent CVA with expressive aphasia as well as underlying cognitive disorder.
No focal neurologic abnormalities
continue Risperdal
consulted psychiatry for other recommendations in terms of behavioral control regimen - continue Risperdal
remains on 1:1, psych to decide when to remove
Recent CVA.
MRI of the brain with cluster of small acute, nonhemorrhagic infarcts in the left insula. Underlying cerebral atrophy and lacunar infarcts old.
Neurologic sequela with expressive aphasia and impulsiveness.
Continue aspirin
Continue statin
Continue physical therapy.
Essential hypertension.
Currently normotensive off antihypertensive medications.
Monitor blood pressure trend
Uncomplicated UTI.
Urine culture with Klebsiella pneumonia
Completed course of antibiotics through 11/01.
Aortic insufficiency status post TAVR
Recent echocardiogram/DANYA with normal biventricular size and systolic function.
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
Noted aortic root thickening with initial concern for vegetation/abscess although clinically with no evidence of endovascular infection given patient temperature curve as well as negative blood cultures. Initially on antibiotic therapy that was
discontinued for close monitoring.
Full code
Patient has disabling Wernicke's aphasia which is making difficult to communicate with him which i suspect in turn is making him restless and impulsive.Hopefully able to DC 1:1 today .CAROL MONTAÑO today.
Diffiuclt situation as he cant go home and he needs rehab.
CAROL BURNS who is going to present to rehabs his case.
Medically stable for DC
Anticipated Discharge: > 48 hours
Anticipated Discharge: 24 - 48 hours
Subjective/Interval History
-
Date of Service: November 05, 2023
code purple yesterday requiring restraints and IV Haldol
this morning off restraints, more calm and playing checkers with 1:1
Objective Data
-
Vital Signs:
Vital Signs
Temp Pulse Resp BP Pulse Ox
98 F 92 16 133/64 95
11/05/23 07:13 11/05/23 07:13 11/05/23 07:13 11/05/23 07:13 11/05/23 07:13
I&O
11/04/23 11/05/23 11/06/23
06:59 06:59 06:59
Intake Total 1180 / 1180 600 / 600 600 / 600
Output Total 1200 / 1200 300 / 300
Balance 1180 / 1180 -600 / -600 300 / 300
Physical Exam
-
General: No Apparent Distress
HEENT: Normocephalic and Atraumatic
Respiratory: Negative Wheezes
Cardiac: Regular Rhythm and S1/S2
GI: Soft
Genito-urinary: No Costovertebral Tender
Neuro: AO x 3
Psych: Calm
Data Reviewed
-
Total Time Spent with Patient (in minutes): 41
Labs: Labs Reviewed by me
[2023-11-05 14:55] VITALS: BP 131/65
[2023-11-05] MEDS: LIPITOR 40 MG PO (17:18)
[2023-11-05] MEDS: LOVENOX 40 MG SC (17:18)
[2023-11-05] MEDS: RISPERDAL 2 MG PO (21:08)
[2023-11-05 21:20] VITALS: BP 113/51
[2023-11-06 07:23] VITALS: BP 113/53
[2023-11-06] MEDS: MIRALAX 17 GRAMS PO (09:12)
[2023-11-06] MEDS: RISPERDAL 0.5 MG PO (09:18)
[2023-11-06] MEDS: LOW STRENGTH ASPIRIN 81 MG PO (09:18)
[2023-11-06 10:19] LABS: Hematocrit 31.6 % (39.0-52.0); Hemoglobin 10.7 g/dL (13.0-18.0); Mean Corp Hgb Conc. 33.9 g/dL (33.0-37.0); Mean Corpuscular Hgb 33.2 pg (27.0-31.0); Mean Corpuscular Volume 98.1 fL (80.0-94.0); Mean Platelet Volume 10.3 fL (7.4-10.4); Platelet Count 214 10^3/uL (130-400); Red Blood Cell Count 3.22 10^6/uL (4.70-6.10); Red Cell Dist. Width 14.3 % (11.5-14.5); White Blood Cell Count 4.6 10^3/uL (4.8-10.8)
--- NOTE | 2023-11-06 10:30 | CM ---
Addendum entered by Kristyn Durham 11/06/23 15:12:
at bedside. Patient's was informed that [facility] declined referral. asked that CM place referrals to [facility]. Referrals placed via [facility]. She confirmed that she wants the referrals for STR, not LTC.
Addendum entered by Kristyn Durham 11/06/23 10:53:
CM called . Introduced self and role. Update that the 3 facilities that referrals were sent to all declined patient. She was agreeable to having a referral sent to [facility]. Referral sent via [facility].
Original Note:
CM reviewed patient's chart. CM introduced self and role. Patient has been readmitted to hospital due to agitation. Patient is currently a 1:1. Patient has been denied re-admission to [facility] or admission to [facility]. CM will call and
discuss other options.
DISCHARGE DISPOSITION:
To be determined. Will need 's preferences for STR.
[2023-11-06 10:52] LABS: Blood Urea Nitrogen 13 mg/dl (9-20); Calcium 9.1 mg/dl (8.4-10.2); Carbon Dioxide 22 mmol/L (22-30); Chloride 107 mmol/L (98-107); Estimated Creatinine Clearance 76 ml/min; Glucose 116 mg/dl (70-99); Potassium 4.4 mmol/L (3.5-5.1); Sodium 140 mmol/L (135-145); eGFR > 60.00
[2023-11-06 15:00] VITALS: BP 150/74; BP 157/57; PULSE 108; O2SAT 97
--- NOTE | 2023-11-06 16:06 | W.PN.HOSP.TC ---
Today's Communication/Plan
-
Continue Risperdal
Continue protective interventions monitoring for impulsivity, although safe to increase activity as tolerates.
Disposition efforts.
Assessment / Plan
Assessment / Plan
IMPRESSION:
Agitation and impulsiveness suspect sec to Wernicke's aphasia
Recent CVA
Aortic insufficiency status post TAVR.
Uncomplicated UTI.
Essential hypertension
Chronic back pain
PLAN:
Agitation and impulsiveness likely combination of recent CVA with expressive aphasia as well as underlying cognitive disorder.
No focal neurologic abnormalities
continue Risperdal
consulted psychiatry for other recommendations in terms of behavioral control regimen - continue Risperdal
remains on 1:1, psych to decide when to remove
Recent CVA.
MRI of the brain with cluster of small acute, nonhemorrhagic infarcts in the left insula. Underlying cerebral atrophy and lacunar infarcts old.
Neurologic sequela with expressive aphasia and impulsiveness.
Continue aspirin
Continue statin
Continue physical therapy.
Essential hypertension.
Currently normotensive off antihypertensive medications.
Monitor blood pressure trend
Uncomplicated UTI.
Urine culture with Klebsiella pneumonia
Completed course of antibiotics through 11/01.
Aortic insufficiency status post TAVR
Recent echocardiogram/DANYA with normal biventricular size and systolic function.
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
Noted aortic root thickening with initial concern for vegetation/abscess although clinically with no evidence of endovascular infection given patient temperature curve as well as negative blood cultures. Initially on antibiotic therapy that was
discontinued for close monitoring.
Full code
Patient has disabling Wernicke's aphasia which is making difficult to communicate with him which i suspect in turn is making him restless and impulsive.Hopefully able to DC 1:1 today .CAROL MONTAÑO today.
Diffiuclt situation as he cant go home and he needs rehab.
CAROL BURNS who is going to present to rehabs his case.
Medically stable for DC
Anticipated Discharge: > 48 hours
Anticipated Discharge: 24 - 48 hours
Subjective/Interval History
-
Date of Service: November 06, 2023
Objective Data
-
Labs:
Laboratory Results
11/06/23
09:40
WBC 4.6 L
Hgb 10.7 L
Hct 31.6 L
Plt Count 214
Sodium 140
Potassium 4.4
Chloride 107
Carbon Dioxide 22
BUN 13
Creatinine 0.8
Glucose 116 H
Calcium 9.1
Vital Signs:
Vital Signs
Temp Pulse Resp BP Pulse Ox
98.5 F 96 18 113/53 95
11/06/23 07:23 11/06/23 07:23 11/06/23 07:23 11/06/23 07:23 11/06/23 07:23
I&O
11/05/23 11/06/23 11/07/23
06:59 06:59 06:59
Intake Total 600 / 600 2180 / 2180
Output Total 1200 / 1200 1679 / 1679
Balance -600 / -600 501 / 501
Physical Exam
-
General: Well Developed and No Apparent Distress
HEENT: Normocephalic, Atraumatic and Moist Mucous Membranes
Respiratory: Clear to Auscultation
Cardiac: Regular Rhythm and S1/S2; Negative Murmur, Rub or Gallop
GI: Soft, Nontender, Nondistended and Normal Bowel Sounds; Negative Organomegaly
Rectal: Deferred by Provider
Musculoskeletal: No Clubbing, No Cyanosis and No Edema
Skin: Negative Rash
Neuro: Awake, Alert, Oriented, Nonfocal/Grossly Intact and Other (Expressive aphasia)
[2023-11-06] MEDS: LIPITOR 40 MG PO (17:58)
[2023-11-06] MEDS: LOVENOX 40 MG SC (17:58)
[2023-11-06] MEDS: RISPERDAL 2 MG PO (21:29)
[2023-11-06 23:00] VITALS: BP 116/56
[2023-11-07 06:50] VITALS: BP 130/62
[2023-11-07] MEDS: MIRALAX PO (08:19)
[2023-11-07] MEDS: LOW STRENGTH ASPIRIN 81 MG PO (08:40)
[2023-11-07] MEDS: TYLENOL 650 MG PO ×2 (08:40→14:28)
[2023-11-07] MEDS: RISPERDAL 0.5 MG PO (08:41)
--- NOTE | 2023-11-07 10:13 | W.PN.UPDATE ---
Update Note
Progress Note Update
Patient seen sitting up in the chair, 1:1 staff present, chart reviewed, discussed with staff. Mr. Addison reportedly did not sleep well through the night. No severe agitation since Monday night. He is out f restraints. Remains impulsive. It is
reported that his can be a trigger as they often bicker and she questions him constantly causing him to become irritated. Seems to be tolerating Risperdal with no overt daytime sleepiness observed.
Impression/Recommendations: Wernicke's aphasia s/p Left temporal and parietal strokes; Alcohol use disorder, severe - Re-admitted after severe agitation reported at [facility], currently calm. Would continue Risperidone, efforts to redirect and
provide safety while allowing a level of independence.
[2023-11-07 15:01] VITALS: BP 118/56
--- NOTE | 2023-11-07 15:23 | CM ---
Spoke with spouse bedside.
Patient sitting in chair eating.
Patient remains on 1:1 monitoring.
Will add additional referrals for skilled/memory care.
Plan: skilled when stable.
--- NOTE | 2023-11-07 16:32 | W.PN.HOSP.TC ---
Today's Communication/Plan
-
Placement
Assessment / Plan
Assessment / Plan
IMPRESSION:
Agitation and impulsiveness suspect sec to Wernicke's aphasia
Recent CVA
Aortic insufficiency status post TAVR.
Uncomplicated UTI.
Essential hypertension
Chronic back pain
PLAN:
Agitation and impulsiveness likely combination of recent CVA with expressive aphasia as well as underlying cognitive disorder.
No focal neurologic abnormalities
continue Risperdal
consulted psychiatry for other recommendations in terms of behavioral control regimen - continue Risperdal
remains on 1:1, psych to decide when to remove
Recent CVA.
MRI of the brain with cluster of small acute, nonhemorrhagic infarcts in the left insula. Underlying cerebral atrophy and lacunar infarcts old.
Neurologic sequela with expressive aphasia and impulsiveness.
Continue aspirin
Continue statin
Continue physical therapy.
Essential hypertension.
Currently normotensive off antihypertensive medications.
Monitor blood pressure trend
Uncomplicated UTI.
Urine culture with Klebsiella pneumonia
Completed course of antibiotics through 11/01.
Aortic insufficiency status post TAVR
Recent echocardiogram/DANYA with normal biventricular size and systolic function.
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
Noted aortic root thickening with initial concern for vegetation/abscess although clinically with no evidence of endovascular infection given patient temperature curve as well as negative blood cultures. Initially on antibiotic therapy that was
discontinued for close monitoring.
Full code
Patient has disabling Wernicke's aphasia which is making difficult to communicate with him which i suspect in turn is making him restless and impulsive.Hopefully able to DC 1:1 today .CAROL MONTAÑO today.
Diffiuclt situation as he cant go home and he needs rehab.
CAROL BURNS who is going to present to rehabs his case.
Medically stable for DC
Anticipated Discharge: > 48 hours
Anticipated Discharge: 24 - 48 hours
Subjective/Interval History
-
Date of Service: November 07, 2023
Objective Data
-
Vital Signs:
Vital Signs
Temp Pulse Resp BP Pulse Ox
97.7 F 97 16 118/56 95
11/07/23 15:01 11/07/23 15:01 11/07/23 15:01 11/07/23 15:01 11/07/23 15:01
I&O
11/06/23 11/07/23 11/08/23
06:59 06:59 06:59
Intake Total 2180 / 2180 1800 / 1800 720 / 720
Output Total 1679 / 1679 690 / 690
Balance 501 / 501 1110 / 1110 720 / 720
Physical Exam
-
General: Well Developed and No Apparent Distress
HEENT: Normocephalic, Atraumatic and Moist Mucous Membranes
Respiratory: Clear to Auscultation
Cardiac: Regular Rhythm and S1/S2; Negative Murmur, Rub or Gallop
GI: Soft, Nontender, Nondistended and Normal Bowel Sounds; Negative Organomegaly
Rectal: Deferred by Provider
Musculoskeletal: No Clubbing, No Cyanosis and No Edema
Skin: Negative Rash
Neuro: Awake, Alert, Oriented, Nonfocal/Grossly Intact and Other (Expressive aphasia)
[2023-11-07] MEDS: LOVENOX 40 MG SC (17:46)
[2023-11-07] MEDS: LIPITOR 40 MG PO (17:46)
[2023-11-07] MEDS: MELATONIN 5 MG PO (21:47)
[2023-11-07] MEDS: RISPERDAL 2 MG PO (21:47)
[2023-11-07 23:03] VITALS: BP 125/55
[2023-11-08] MEDS: BENADRYL 25 MG PO (02:59)
[2023-11-08] MEDS: TYLENOL 650 MG PO (05:06)
[2023-11-08 07:42] VITALS: BP 125/62
[2023-11-08] MEDS: RISPERDAL 0.5 MG PO (08:00)
[2023-11-08] MEDS: LOW STRENGTH ASPIRIN 81 MG PO (08:00)
[2023-11-08] MEDS: MIRALAX 17 GRAMS PO (08:00)
--- NOTE | 2023-11-08 11:14 | CM ---
Spoke with patient ad bedside.
[facility] with no beds for skilled rehab, [facility] no beds, [facility] ([facility]
Mary [facility] is reviewing.
Patient remains on 1:1. Ambulting in [place] with RW.
Plan; skilled rehab once bed available.
--- NOTE | 2023-11-08 12:28 | W.PN.UPDATE ---
Update Note
Progress Note Update
patient seen chart reviewed. spoke with . the patient was walking the halls w excort and appeared to be doing pretty well. his face seemed to have lost the look of anguish. the irritable paranoid flair was gone. he has not required a prn since
11/01 for agitation. tells me he is not sleeping. there was a benadryl prn given at 2 am. felt he still did not sleep. he does have melatonin ordered. could try trazodone although his bp is on the low side and sometimes trazodone can
cause orthostasis. will see how he does tonight and reassess tomorrow. have dc'ed prn haldol. had discussed with and she says he was very sedated after haldol prn in the past and at this point would not use im as it is painful. he does have a
risperdal prn.
[2023-11-08 13:41] VITALS: BP 131/64; PULSE 83; O2SAT 99
[2023-11-08 15:24] VITALS: BP 127/58
--- NOTE | 2023-11-08 16:00 | W.PN.HOSP.TC ---
Today's Communication/Plan
-
Monitor behavioral and neurologic status
Continue Risperdal
With concern of history of oversedation avoid Haldol.
Physical therapy for
Placement to [facility] facility
Assessment / Plan
Assessment / Plan
IMPRESSION:
Agitation and impulsiveness suspect sec to Wernicke's aphasia
Recent CVA
Aortic insufficiency status post TAVR.
Uncomplicated UTI.
Essential hypertension
Chronic back pain
PLAN:
Agitation and impulsiveness likely combination of recent CVA with expressive aphasia as well as underlying cognitive disorder.
No focal neurologic abnormalities
continue Risperdal
consulted psychiatry for other recommendations in terms of behavioral control regimen - continue Risperdal
remains on 1:1, psych to decide when to remove
Recent CVA.
MRI of the brain with cluster of small acute, nonhemorrhagic infarcts in the left insula. Underlying cerebral atrophy and lacunar infarcts old.
Neurologic sequela with expressive aphasia and impulsiveness.
Continue aspirin
Continue statin
Continue physical therapy.
Essential hypertension.
Currently normotensive off antihypertensive medications.
Monitor blood pressure trend
Uncomplicated UTI.
Urine culture with Klebsiella pneumonia
Completed course of antibiotics through 11/01.
Aortic insufficiency status post TAVR
Recent echocardiogram/DANYA with normal biventricular size and systolic function.
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
Noted aortic root thickening with initial concern for vegetation/abscess although clinically with no evidence of endovascular infection given patient temperature curve as well as negative blood cultures. Initially on antibiotic therapy that was
discontinued for close monitoring.
Full code
Patient has disabling Wernicke's aphasia which is making difficult to communicate with him which i suspect in turn is making him restless and impulsive.Hopefully able to DC 1:1 today .CAROL MONTAÑO today.
Diffiuclt situation as he cant go home and he needs rehab.
CAROL BURNS who is going to present to rehabs his case.
Medically stable for DC
Anticipated Discharge: > 48 hours
Anticipated Discharge: 24 - 48 hours
Subjective/Interval History
-
Date of Service: November 08, 2023
Objective Data
-
Vital Signs:
Vital Signs
Temp Pulse Resp BP Pulse Ox
98.6 F 95 20 127/58 96
11/08/23 15:24 11/08/23 15:24 11/08/23 15:24 11/08/23 15:24 11/08/23 15:24
I&O
11/07/23 11/08/23 11/09/23
06:59 06:59 06:59
Intake Total 1800 / 1800 1440 / 1440 780 / 780
Output Total 690 / 690 200 / 200
Balance 1110 / 1110 1240 / 1240 780 / 780
Physical Exam
-
General: Well Developed and No Apparent Distress
HEENT: Normocephalic, Atraumatic and Moist Mucous Membranes
Respiratory: Clear to Auscultation
Cardiac: Regular Rhythm and S1/S2; Negative Murmur, Rub or Gallop
GI: Soft, Nontender, Nondistended and Normal Bowel Sounds; Negative Organomegaly
Rectal: Deferred by Provider
Musculoskeletal: No Clubbing, No Cyanosis and No Edema
Skin: Negative Rash
Neuro: Awake, Alert, Oriented, Nonfocal/Grossly Intact and Other (Expressive aphasia)
[2023-11-08] MEDS: LOVENOX 40 MG SC (17:13)
[2023-11-08] MEDS: LIPITOR 40 MG PO (17:14)
[2023-11-08] MEDS: RISPERDAL M-TAB (ORALLY DISINTEGRATING) 0.25 MG PO (18:12)
--- NOTE | 2023-11-08 19:06 | W.PN.UPDATE ---
Update Note
Progress Note Update
Cross Coverage Update
Patient was Code Purple in evening requiring restraints, combative with staff. Noted earlier prn Haldol discontinued d/t concerns oversedation.
Non-violent wrist restraints bilateral ordered.
case discussed with patient's nurse and primary attending, daily prn IV haldol 1mg ordered as last resort (if patient agitated and unwilling/unable to accept prn risperdal).
Patient otherwise appears calmer at this time following code purple and application of restraints.
--- NOTE | 2023-11-08 19:21 | PTCARENOTE ---
When 1:1 left at around 6:00 pm, pt was getting extremely agitated and wanted to walk around the unit. While walking, pt was screaming into pt's rooms and saying, ' Please call the police.' While walking pt began to get more aggressive squeezing my
hand and arm. After getting back to the room, Pt pushed over is water and iced tea on the ground and got severely aggressive with the nurse trying to calm him down.
Pt placed within restraints and 1:1 assigned again to watch him.
Restraints ordered as well as 1:1
[2023-11-08] MEDS: MELATONIN 5 MG PO (21:33)
[2023-11-08] MEDS: RISPERDAL 2 MG PO (21:33)
[2023-11-08 23:00] VITALS: BP 116/59
[2023-11-09 07:09] VITALS: BP 135/58
[2023-11-09] MEDS: LOW STRENGTH ASPIRIN 81 MG PO (08:05)
[2023-11-09] MEDS: RISPERDAL 0.5 MG PO (08:05)
[2023-11-09] MEDS: MIRALAX PO (08:06)
--- NOTE | 2023-11-09 13:16 | W.PN.UPDATE ---
Update Note
Progress Note Update
patient seen chart reviewed. discussed w nursing. present at bedside. the patient had a difficult evening yesterday he became very agitated requiring several prns in the evening and was in restraints for a time. we discussed increasing am
risperdal to one mg and moving hs risperdal to 4 pm to avoid ing . the patient today was notably more irritable not infrequently snapping at his solicitous . no overt ill effects noted from risperdal.
--- NOTE | 2023-11-09 14:49 | PTCARENOTE ---
pt on 1:1 to help pt and decrease the threat risk when pt was put on a virtual monitor. Pt kept walking into other pt's rooms and got aggressive when not with a 1:1. We needed the 1:1 to help redirect thoughts and sayings of the pt.
[2023-11-09] MEDS: RISPERDAL 2 MG PO (15:12)
[2023-11-09 15:14] VITALS: BP 103/60
--- NOTE | 2023-11-09 15:15 | CM ---
Spoke with Liaison, [facility] for [facility].
She is reviewing clinicals and aware patient remains on 1:1.
Rodolfo will do a site visit on patient tomorrow to see if they can accept the patient.
Rodolfo will contact this CM when she arrives (10 am).
Continues with medication adjustments.
Plan: skilled placement when bed available.
--- NOTE | 2023-11-09 16:22 | W.PN.HOSP.TC ---
Today's Communication/Plan
-
Remains with episodes of agitation, suspect sundowning
Dose and timing of Risperdal being adjusted
Attempt to avoid Haldol given prior oversedation.
Placement.
Assessment / Plan
Assessment / Plan
IMPRESSION:
Agitation and impulsiveness suspect sec to Wernicke's aphasia
Recent CVA
Aortic insufficiency status post TAVR.
Uncomplicated UTI.
Essential hypertension
Chronic back pain
PLAN:
Agitation and impulsiveness likely combination of recent CVA with expressive aphasia as well as underlying cognitive disorder.
No focal neurologic abnormalities
continue Risperdal
consulted psychiatry for other recommendations in terms of behavioral control regimen - continue Risperdal
remains on 1:1, psych to decide when to remove
Recent CVA.
MRI of the brain with cluster of small acute, nonhemorrhagic infarcts in the left insula. Underlying cerebral atrophy and lacunar infarcts old.
Neurologic sequela with expressive aphasia and impulsiveness.
Continue aspirin
Continue statin
Continue physical therapy.
Essential hypertension.
Currently normotensive off antihypertensive medications.
Monitor blood pressure trend
Uncomplicated UTI.
Urine culture with Klebsiella pneumonia
Completed course of antibiotics through 11/01.
Aortic insufficiency status post TAVR
Recent echocardiogram/DANYA with normal biventricular size and systolic function.
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
Noted aortic root thickening with initial concern for vegetation/abscess although clinically with no evidence of endovascular infection given patient temperature curve as well as negative blood cultures. Initially on antibiotic therapy that was
discontinued for close monitoring.
Full code
Patient has disabling Wernicke's aphasia which is making difficult to communicate with him which i suspect in turn is making him restless and impulsive.Hopefully able to DC 1:1 today .CAROL MONTAÑO today.
Diffiuclt situation as he cant go home and he needs rehab.
CAROL BURNS who is going to present to rehabs his case.
Medically stable for DC
Anticipated Discharge: > 48 hours
Anticipated Discharge: 24 - 48 hours
Subjective/Interval History
-
Date of Service: November 09, 2023
Objective Data
-
Vital Signs:
Vital Signs
Temp Pulse Resp BP Pulse Ox
98.4 F 109 18 103/60 95
11/09/23 15:14 11/09/23 15:14 11/09/23 15:14 11/09/23 15:14 11/09/23 15:14
I&O
11/08/23 11/09/23 11/10/23
06:59 06:59 06:59
Intake Total 1440 / 1440 1140 / 1140
Output Total 200 / 200 400 / 400
Balance 1240 / 1240 740 / 740
Physical Exam
-
General: Well Developed and No Apparent Distress
HEENT: Normocephalic, Atraumatic and Moist Mucous Membranes
Respiratory: Clear to Auscultation
Cardiac: Regular Rhythm and S1/S2; Negative Murmur, Rub or Gallop
GI: Soft, Nontender, Nondistended and Normal Bowel Sounds; Negative Organomegaly
Rectal: Deferred by Provider
Musculoskeletal: No Clubbing, No Cyanosis and No Edema
Skin: Negative Rash
Neuro: Awake, Alert, Oriented, Nonfocal/Grossly Intact and Other (Expressive aphasia)
[2023-11-09] MEDS: LOVENOX 40 MG SC (17:14)
[2023-11-09] MEDS: LIPITOR 40 MG PO (17:14)
[2023-11-09] MEDS: MELATONIN 5 MG PO (21:12)
[2023-11-09 22:00] VITALS: BP 104/40
[2023-11-09] MEDS: RISPERDAL M-TAB (ORALLY DISINTEGRATING) 0.25 MG PO (22:54)
[2023-11-10 07:01] VITALS: BP 126/63
[2023-11-10] MEDS: LOW STRENGTH ASPIRIN 81 MG PO (07:35)
[2023-11-10] MEDS: RISPERDAL 1 MG PO (07:35)
[2023-11-10] MEDS: MIRALAX 17 GRAMS PO (07:35)
--- NOTE | 2023-11-10 12:06 | W.PN.UPDATE ---
Update Note
Progress Note Update
patient seen chart reviewed. spoke with nursing and with dr thurston. today so far is a relatively good day. he did have one prn of risperdal in the a past 24 hours yesterday evening. nursing reports he slept through the night. patient appears
well rested and is neat clean and pleasant. he does remain confused and his words do not generally construct coherent conversation . he did sleep well. he continues w good appetite. nursing suggests that while the earlier risperdal did help him
get through the night he was a little sedated at dinner time and this is risky re aspiration ...patient tends to gobble his food. yesterday encouraging him to eat more slowly and take smaller bites. will move the evening risperdal to six pm.
psych will follow
--- NOTE | 2023-11-10 13:41 | W.PN.HOSP.TC ---
Today's Communication/Plan
-
Continue Risperdal per
Pending placement
Assessment / Plan
Assessment / Plan
IMPRESSION:
Agitation and impulsiveness suspect sec to Wernicke's aphasia
Recent CVA
Aortic insufficiency status post TAVR.
Uncomplicated UTI.
Essential hypertension
Chronic back pain
PLAN:
Agitation and impulsiveness likely combination of recent CVA with expressive aphasia as well as underlying cognitive disorder.
No focal neurologic abnormalities
continue Risperdal
consulted psychiatry for other recommendations in terms of behavioral control regimen - continue Risperdal
remains on 1:1, psych to decide when to remove
Recent CVA.
MRI of the brain with cluster of small acute, nonhemorrhagic infarcts in the left insula. Underlying cerebral atrophy and lacunar infarcts old.
Neurologic sequela with expressive aphasia and impulsiveness.
Continue aspirin
Continue statin
Continue physical therapy.
Essential hypertension.
Currently normotensive off antihypertensive medications.
Monitor blood pressure trend
Uncomplicated UTI.
Urine culture with Klebsiella pneumonia
Completed course of antibiotics through 11/01.
Aortic insufficiency status post TAVR
Recent echocardiogram/DANYA with normal biventricular size and systolic function.
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
Noted aortic root thickening with initial concern for vegetation/abscess although clinically with no evidence of endovascular infection given patient temperature curve as well as negative blood cultures. Initially on antibiotic therapy that was
discontinued for close monitoring.
Full code
Patient has disabling Wernicke's aphasia which is making difficult to communicate with him which i suspect in turn is making him restless and impulsive.Hopefully able to DC 1:1 today .CAROL RN today.
Diffiuclt situation as he cant go home and he needs rehab.
CAROL BURNS who is going to present to rehabs his case.
Medically stable for DC
Anticipated Discharge: > 48 hours
Anticipated Discharge: 24 - 48 hours
Subjective/Interval History
-
Date of Service: November 10, 2023
Objective Data
-
Vital Signs:
Vital Signs
Temp Pulse Resp BP Pulse Ox
98.4 F 95 18 126/63 96
11/10/23 07:01 11/10/23 07:01 11/10/23 07:01 11/10/23 07:01 11/10/23 10:08
I&O
11/09/23 11/10/23 11/11/23
06:59 06:59 06:59
Intake Total 1140 / 1140 1860 / 1860
Output Total 400 / 400 605 / 605
Balance 740 / 740 1255 / 1255
Physical Exam
-
General: Well Developed and No Apparent Distress
HEENT: Normocephalic, Atraumatic and Moist Mucous Membranes
Respiratory: Clear to Auscultation
Cardiac: Regular Rhythm and S1/S2; Negative Murmur, Rub or Gallop
GI: Soft, Nontender, Nondistended and Normal Bowel Sounds; Negative Organomegaly
Rectal: Deferred by Provider
Musculoskeletal: No Clubbing, No Cyanosis and No Edema
Skin: Negative Rash
Neuro: Awake, Alert, Oriented, Nonfocal/Grossly Intact and Other (Expressive aphasia)
--- NOTE | 2023-11-10 14:40 | CM ---
Spoke with liaison form [facility] they will not be able to come see today, will see Monday.
[facility] and [facility].
Patient remains on 1:1.
Medications adjusted.
Spouse updated.
CM left VM with Inocencio from [facility] to see if they would be able to review patients info for admission. await TCB.
Left VM for Jv at [facility] re appropriateness for admission.
Plan: skilled rehab when stable and bed available.
[2023-11-10 14:59] VITALS: BP 113/54
[2023-11-10] MEDS: LIPITOR 40 MG PO (17:37)
[2023-11-10] MEDS: LOVENOX 40 MG SC (17:37)
[2023-11-10] MEDS: RISPERDAL 2 MG PO (17:38)
[2023-11-10] MEDS: MELATONIN 5 MG PO (21:00)
[2023-11-10 23:30] VITALS: BP 123/58
[2023-11-11 07:00] VITALS: BP 128/56
[2023-11-11] MEDS: RISPERDAL 1 MG PO (08:05)
[2023-11-11] MEDS: LOW STRENGTH ASPIRIN 81 MG PO (08:05)
[2023-11-11] MEDS: MIRALAX 17 GRAMS PO (08:05)
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
--- NOTE | 2023-11-11 14:07 | W.PN.HOSP.TC ---
Today's Communication/Plan
-
Attempting to establish care in behavior unit
Assessment / Plan
Assessment / Plan
IMPRESSION:
Agitation and impulsiveness suspect sec to Wernicke's aphasia
Recent CVA
Aortic insufficiency status post TAVR.
Uncomplicated UTI.
Essential hypertension
Chronic back pain
PLAN:
Agitation and impulsiveness likely combination of recent CVA with expressive aphasia as well as underlying cognitive disorder.
No focal neurologic abnormalities
continue Risperdal
consulted psychiatry for other recommendations in terms of behavioral control regimen - continue Risperdal
remains on 1:1, psych to decide when to remove
Recent CVA.
MRI of the brain with cluster of small acute, nonhemorrhagic infarcts in the left insula. Underlying cerebral atrophy and lacunar infarcts old.
Neurologic sequela with expressive aphasia and impulsiveness.
Continue aspirin
Continue statin
Continue physical therapy.
Essential hypertension.
Currently normotensive off antihypertensive medications.
Monitor blood pressure trend
Uncomplicated UTI.
Urine culture with Klebsiella pneumonia
Completed course of antibiotics through 11/01.
Aortic insufficiency status post TAVR
Recent echocardiogram/DANYA with normal biventricular size and systolic function.
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
Noted aortic root thickening with initial concern for vegetation/abscess although clinically with no evidence of endovascular infection given patient temperature curve as well as negative blood cultures. Initially on antibiotic therapy that was
discontinued for close monitoring.
Full code
Patient has disabling Wernicke's aphasia which is making difficult to communicate with him which i suspect in turn is making him restless and impulsive.Hopefully able to DC 1:1 today .CAROL RN today.
Diffiuclt situation as he cant go home and he needs rehab.
CAROL BURNS who is going to present to rehabs his case.
Medically stable for DC
Anticipated Discharge: > 48 hours
Anticipated Discharge: > 48 hours
Subjective/Interval History
-
Date of Service: November 11, 2023
Objective Data
-
Vital Signs:
Vital Signs
Temp Pulse Resp BP Pulse Ox
97.6 F 94 18 128/56 99
11/11/23 07:00 11/11/23 07:00 11/11/23 07:00 11/11/23 07:00 11/11/23 08:05
I&O
11/10/23 11/11/23 11/12/23
06:59 06:59 06:59
Intake Total 1860 / 1860 1000 / 1000
Output Total 605 / 605
Balance 1255 / 1255 1000 / 1000
Review of Systems
-
Unable to obtain full review of systems at this time due to: Dementia
History Source: Patient
All other systems: Reviewed and negative
Physical Exam
-
General: Well Developed and Well Nourished
HEENT: Normocephalic and Atraumatic
Respiratory: Clear to Auscultation
Cardiac: Regular Rhythm
GI: Soft, Nontender and Nondistended
Neuro: Awake and Alert
Psych: Apparent Dementia
--- NOTE | 2023-11-11 14:17 | CM ---
Addendum entered by Becca Vaughn 11/13/23 14:41:
Lisa from [facility] out to see patient and speak with spouse.
Lisa is waiting on welfare administrator approval prior to offering bed.
Spouse to tour facility in am.
Plan: possible transfer to [facility] tomorrow.
Original Note:
CM reviewed chart, patient remains on 1:1[facility] liaison will be out to evaluation patient on Monday, 11/12. CM will continue to follow for all discharge planning needs.
Plan; SNF pending accepting facility, when stable.
[2023-11-11 15:29] VITALS: BP 149/94
--- NOTE | 2023-11-11 16:24 | PTCARENOTE ---
Per request of , 'safe tray' removed from diet order. She brought in 'real' utensils for him to use.
[2023-11-11] MEDS: LIPITOR 40 MG PO (16:52)
[2023-11-11] MEDS: RISPERDAL 2 MG PO (16:53)
[2023-11-11] MEDS: LOVENOX 40 MG SC (16:53)
[2023-11-11] MEDS: MELATONIN 5 MG PO (21:00)
[2023-11-11 23:25] VITALS: BP 113/53
[2023-11-12] MEDS: MIRALAX 17 GRAMS PO (07:41)
[2023-11-12] MEDS: LOW STRENGTH ASPIRIN 81 MG PO (07:41)
[2023-11-12] MEDS: RISPERDAL 1 MG PO (07:41)
[2023-11-12 07:42] VITALS: BP 132/56
--- NOTE | 2023-11-12 10:43 | W.PN.HOSP.TC ---
Today's Communication/Plan
-
restarted thiamine
Assessment / Plan
Assessment / Plan
IMPRESSION:
Agitation and impulsiveness suspect sec to Wernicke's aphasia
Recent CVA
Aortic insufficiency status post TAVR.
Uncomplicated UTI.
Essential hypertension
Chronic back pain
PLAN:
Agitation and impulsiveness likely combination of recent CVA with expressive aphasia as well as underlying cognitive disorder.
No focal neurologic abnormalities
continue Risperdal
consulted psychiatry for other recommendations in terms of behavioral control regimen - continue Risperdal
remains on 1:1, psych to decide when to remove
Recent CVA.
MRI of the brain with cluster of small acute, nonhemorrhagic infarcts in the left insula. Underlying cerebral atrophy and lacunar infarcts old.
Neurologic sequela with expressive aphasia and impulsiveness.
Continue aspirin
Continue statin
Continue physical therapy.
Essential hypertension.
Currently normotensive off antihypertensive medications.
Monitor blood pressure trend
Uncomplicated UTI.
Urine culture with Klebsiella pneumonia
Completed course of antibiotics through 11/01.
Aortic insufficiency status post TAVR
Recent echocardiogram/DANYA with normal biventricular size and systolic function.
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
Noted aortic root thickening with initial concern for vegetation/abscess although clinically with no evidence of endovascular infection given patient temperature curve as well as negative blood cultures. Initially on antibiotic therapy that was
discontinued for close monitoring.
Full code
Patient has disabling Wernicke's aphasia which is making difficult to communicate with him which i suspect in turn is making him restless and impulsive.Hopefully able to DC 1:1 today .CAROL RN today.
Diffiuclt situation as he cant go home and he needs rehab.
CAROL BURNS who is going to present to rehabs his case.
Medically stable for DC
Anticipated Discharge: > 48 hours
Anticipated Discharge: Within 24 hours
Subjective/Interval History
-
Date of Service: November 12, 2023
Objective Data
-
Vital Signs:
Vital Signs
Temp Pulse Resp BP Pulse Ox
98.8 F 88 16 132/56 94
11/12/23 07:42 11/12/23 07:42 11/12/23 07:42 11/12/23 07:42 11/12/23 07:42
I&O
11/11/23 11/12/23 11/13/23
06:59 06:59 06:59
Intake Total 1000 / 1000 820 / 820 480 / 480
Balance 1000 / 1000 820 / 820 480 / 480
Review of Systems
-
Unable to obtain full review of systems at this time due to: Dementia
Physical Exam
-
General: No Apparent Distress
Psych: Calm and Apparent Dementia
[2023-11-12] MEDS: VITAMIN B1 100 MG PO (10:56)
[2023-11-12 14:09] VITALS: BP 118/70
[2023-11-12 15:09] VITALS: BP 118/70
--- NOTE | 2023-11-12 15:29 | W.PN.UPDATE ---
Update Note
Progress Note Update
Is now medically stable for discharge per hospitalist. He remains on 1:1 as was my recommendation yesterday. visiting in room. Pt. is calm and seated in chair. His language is much improved. While he still said occasional nonsensical
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
he is responding well to standing doses of Risperdal. He has not been aggressive, but can be restless. After his evening dose of medication will discontinue 1:1 and use MedSitter. May use diphenhydramine PRN for sedation which will also help any
akathisia from Risperdal.
To be evaluated for placement tomorrow.
Psychiatry will follow.
[2023-11-12] MEDS: LOVENOX 40 MG SC (17:07)
[2023-11-12] MEDS: RISPERDAL 2 MG PO (17:07)
[2023-11-12] MEDS: LIPITOR 40 MG PO (17:08)
[2023-11-12] MEDS: MELATONIN 5 MG PO (22:28)
[2023-11-12 23:27] VITALS: BP 130/60
[2023-11-13 07:24] VITALS: BP 130/66
[2023-11-13] MEDS: MIRALAX 17 GRAMS PO (10:33)
[2023-11-13] MEDS: LOW STRENGTH ASPIRIN 81 MG PO (10:33)
[2023-11-13] MEDS: VITAMIN B1 100 MG PO (10:35)
[2023-11-13] MEDS: RISPERDAL 1 MG PO (10:35)
--- NOTE | 2023-11-13 11:49 | W.PN.UPDATE ---
Update Note
Progress Note Update
Pt seen, chart reviewed. Pt sitting up in chair, present, with med-sitter. Pt alert, calm, with no apparent side effects on Risperidone 1 mg AM and 2 mg at 4 pm. Pt was tried off of 1:1 supervision and reportedly was trying to leave. Pt has
had extended hospitalization, and wish/impulse to leave is an expected reaction. Pt continues to have expressive aphasia, tries to converse, but make irrelevant/loose statements. No agitation this morning. reports Haldol was too sedating;
she states pt is better/calmer with the most recent dose increase/adjustment of Risperidone.
Imp: Wernicke's aphasia after Left temporal and parietal strokes, with intermittent agitation, appears to be improving on Risperidone
Alcohol use disorder, severe
Rec: continue current Risperidone, allow more time for full effect. Will continue to follow
[2023-11-13] MEDS: TYLENOL 650 MG PO (13:17)
--- NOTE | 2023-11-13 16:03 | CM ---
Patient seen bedside.
Ambulating in halls.
Remains on 1:1.
Lisa from [facility] out to see patient and evaluate today.
Spouse to tour facility in am.
Plan: bev skilled rehab at [place] tomorrow.
--- NOTE | 2023-11-13 16:41 | W.PN.HOSP.TC ---
Today's Communication/Plan
-
Continue Risperdal.
Ongoing disposition efforts with [facility] facility placement.
Assessment / Plan
Assessment / Plan
IMPRESSION:
Agitation and impulsiveness suspect sec to Wernicke's aphasia
Recent CVA
Aortic insufficiency status post TAVR.
Uncomplicated UTI.
Essential hypertension
Chronic back pain
PLAN:
Agitation and impulsiveness likely combination of recent CVA with expressive aphasia as well as underlying cognitive disorder.
No focal neurologic abnormalities
continue Risperdal
consulted psychiatry for other recommendations in terms of behavioral control regimen - continue Risperdal
remains on 1:1, psych to decide when to remove
Recent CVA.
MRI of the brain with cluster of small acute, nonhemorrhagic infarcts in the left insula. Underlying cerebral atrophy and lacunar infarcts old.
Neurologic sequela with expressive aphasia and impulsiveness.
Continue aspirin
Continue statin
Continue physical therapy.
Essential hypertension.
Currently normotensive off antihypertensive medications.
Monitor blood pressure trend
Uncomplicated UTI.
Urine culture with Klebsiella pneumonia
Completed course of antibiotics through 11/01.
Aortic insufficiency status post TAVR
Recent echocardiogram/DANYA with normal biventricular size and systolic function.
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
Noted aortic root thickening with initial concern for vegetation/abscess although clinically with no evidence of endovascular infection given patient temperature curve as well as negative blood cultures. Initially on antibiotic therapy that was
discontinued for close monitoring.
Full code
Patient has disabling Wernicke's aphasia which is making difficult to communicate with him which i suspect in turn is making him restless and impulsive.Hopefully able to DC 1:1 today .CAROL MONTAÑO today.
Diffiuclt situation as he cant go home and he needs rehab.
CAROL BURNS who is going to present to rehabs his case.
Medically stable for DC
Anticipated Discharge: > 48 hours
Anticipated Discharge: 24 - 48 hours
Subjective/Interval History
-
Date of Service: November 13, 2023
Objective Data
-
Vital Signs:
Vital Signs
Temp Pulse Resp BP Pulse Ox
99.6 F 104 16 130/66 96
11/13/23 07:24 11/13/23 07:24 11/13/23 07:24 11/13/23 07:24 11/13/23 07:24
I&O
11/12/23 11/13/23 11/14/23
06:59 06:59 06:59
Intake Total 820 / 820 1080 / 1080 1500 / 1500
Output Total 600 / 600
Balance 820 / 820 480 / 480 1500 / 1500
Physical Exam
-
General: No Apparent Distress
Psych: Calm and Apparent Dementia
[2023-11-13] MEDS: LOVENOX 40 MG SC (18:05)
[2023-11-13] MEDS: LIPITOR 40 MG PO (18:06)
[2023-11-13] MEDS: RISPERDAL 2 MG PO (18:06)
[2023-11-13 22:23] VITALS: BP 137/71
[2023-11-13] MEDS: MELATONIN 5 MG PO (23:07)
[2023-11-14 06:51] VITALS: BP 123/54
[2023-11-14] MEDS: LOW STRENGTH ASPIRIN 81 MG PO (08:10)
[2023-11-14] MEDS: VITAMIN B1 100 MG PO (08:10)
[2023-11-14] MEDS: RISPERDAL 1 MG PO (08:10)
[2023-11-14] MEDS: MIRALAX 17 GRAMS PO (08:10)
--- NOTE | 2023-11-14 11:48 | W.PN.UPDATE ---
Update Note
Progress Note Update
Patient seen returning to bed after taking a walk around the unit, 1:1 staff present, chart reviewed, discussed with staff. Mr. Addison is reportedly much more pleasant especially since taking multiple walks throughout the day. He has no reported
agitation recently. Remains confused and impulsive at times hence 1:1 present for safety. Seems to be tolerating Risperdal with no overt daytime sleepiness observed. Attempts to obtain SNF placement continue.
Impression/Recommendations: Wernicke's aphasia s/p Left temporal and parietal strokes; Alcohol use disorder, severe; Presented with agitation, currently calm. Would continue Risperidone 1mg in Am & 2mg in PM, efforts to redirect and provide safety
while allowing a level of independence to continue.
--- NOTE | 2023-11-14 12:04 | CM ---
Addendum entered by Parul Wagoner 11/14/23 12:11:
IMM signed by & placed in chart.
Original Note:
Spoke to Lisa from [facility] & bed still available for today.
went to tour this am. Agreeable with plan
TT Dr. Gold plan for discharge - will write order.
Transportation forms filled out.
PLAN: Discharge today to [facility].
Transportation Acute Care ambulance set up for 4pm.
Report #: [phone]
Fax #: [phone]
--- NOTE | 2023-11-14 12:54 | W.DS.TRANS ---
DC Summary - [facility]
-
Discharge Instructions:
Discharge Diagnosis/Procedures Agitation and impulsiveness suspect sec to
Wernicke's aphasia
Recent CVA
Aortic insufficiency status post TAVR.
Uncomplicated UTI.
Essential hypertension
Chronic back pain
Diet Regular
Instructions:
Stand-Alone Forms:
Changes to Home Medications: No
Discharge Medications:
DC Medications w/original date entered in [employer]
aspirin 81 mg chewable tablet 81 mg PO DAILY Blood Clot Prevention/Tx 02/13/19
acetaminophen 325 mg tablet 650 mg (2 x 325 mg) PO Q4HPRN PRN mild pain/SCOTT/temp> 100.4F #30 tabs 10/28/23
bisacodyl 10 mg rectal suppository 10 mg CA [id number] PRN constipation #10 ea 10/28/23
sennosides 8.6 mg-docusate sodium 50 mg tablet (Stool Softener-Laxative) 1 tab PO BIDPRN PRN constipation #30 tabs 10/28/23
atorvastatin 40 mg tablet 40 mg PO QPM High Cholesterol 11/01/23
polyethylene glycol 3350 17 gram oral powder packet (HealthyLax) 17 g PO DAILY Constipation 11/01/23
risperidone 1 mg tablet 2 mg PO HS Mental Health 11/01/23
diphenhydramine HCl 25 mg capsule 25 mg PO HSPRN PRN Insomnia #30 caps 11/14/23
melatonin 5 mg tablet 5 mg PO HS #30 tabs 11/14/23
risperidone 0.5 mg disintegrating tablet 0.25 mg (1/2 x 0.5 mg) PO BIDPRN PRN agitation #30 tabs 11/14/23
risperidone 1 mg tablet 1 mg PO DAILY #30 tabs 11/14/23
thiamine HCl (vitamin B1) 100 mg tablet 100 mg PO DAILY #3 tabs 11/14/23
Home Medication Changes
Pending Results: No
[2023-11-14 14:45] VITALS: BP 120/62
== END 2023-11-14 15:22 | DRG 886 ==
LOC: 4 WEST ACU 18:41
PROVIDERS: Internal Medicine; ADMITTING PHYSICIAN Internal Medicine; CONSULT PHYSICIAN Psychiatry & Neurology Psychiatry; EMERGENCY PHYSICIAN Emergency Medicine; FAMILY PHYSICIAN Student in an Organized Health Care Education/Training Program
DX: F80.2 Mixed receptive-expressive language disorder (principal); N39.0 Urinary tract infection, site not specified; G93.40 Encephalopathy, unspecified; I69.315 Cognitive social or emotional deficit following cerebral infarction; I69.320 Aphasia following cerebral infarction; I35.2 Nonrheumatic aortic (valve) stenosis with insufficiency; I10 Essential (primary) hypertension; G89.29 Other chronic pain; M54.9 Dorsalgia, unspecified; F10.20 Alcohol dependence, uncomplicated
CPT/HCPCS: 80048; 82962; 85027; 92507; 92523; 93005; 96372; 97110; 97116; 97163; 97167; 97530; 97535; 99284

== ENCOUNTER → 2023-12-04 12:43 | Outpatient (REF) | payer MEDICARE, OTHER, SELFPAY | LOC: RAD 12:43 | PROVIDERS: ATTENDING PHYSICIAN Thoracic Surgery (Cardiothoracic Vascular Surgery); FAMILY PHYSICIAN Student in an Organized Health Care Education/Training Program | DX: I35.0 Nonrheumatic aortic (valve) stenosis (principal); Z95.2 Presence of prosthetic heart valve | CPT/HCPCS: 70450 ==

== ENCOUNTER → 2023-12-07 08:12 | Outpatient (REF) | payer MEDICARE, OTHER, SELFPAY | LOC: RCS 08:12 | PROVIDERS: ATTENDING PHYSICIAN Thoracic Surgery (Cardiothoracic Vascular Surgery); FAMILY PHYSICIAN Student in an Organized Health Care Education/Training Program; REFERRING PHYSICIAN Internal Medicine Cardiovascular Disease | DX: I35.1 Nonrheumatic aortic (valve) insufficiency (principal); Z95.2 Presence of prosthetic heart valve | CPT/HCPCS: 93306 ==

== ENCOUNTER → 2024-08-30 14:54 | Outpatient (REF) | payer MEDICARE, OTHER, SELFPAY | LOC: HWRCS 14:54 | PROVIDERS: ATTENDING PHYSICIAN Internal Medicine; FAMILY PHYSICIAN Student in an Organized Health Care Education/Training Program | DX: I35.1 Nonrheumatic aortic (valve) insufficiency (principal); I10 Essential (primary) hypertension; Z95.2 Presence of prosthetic heart valve | CPT/HCPCS: 93306 ==

== ENCOUNTER 2024-11-21 19:44 | Inpatient (IN) | payer MEDICARE, OTHER, SELFPAY ==
[2024-11-21] VITALS (23 sets, daily range): BP systolic 93–170; BP diastolic 52–146; PULSE 2–134; BMI 31.3; BMI 30.6
[2024-11-21] MEDS: DUONEB 9 ML INH (16:38)
[2024-11-21 16:55] LABS: Hematocrit 34.7 % (39.0-52.0); Hemoglobin 11.2 g/dL (13.0-18.0); Mean Corp Hgb Conc. 32.3 g/dL (33.0-37.0); Mean Corpuscular Volume 101.5 fL (80.0-94.0); Nucleated Red Blood Cells % 0.4 % (-); Platelet Count 269 10^3/uL (130-400); Red Cell Dist. Width 15.9 % (11.5-14.5)
[2024-11-21] MEDS: ATIVAN 1 MG IV (17:04)
[2024-11-21 17:15] LABS: ALT (SGPT) 19 U/L (0-50); AST (SGOT) 33 U/L (17-59); Albumin 4.8 g/dl (3.5-5.0); Alkaline Phosphatase 104 U/L (38-126); Blood Urea Nitrogen 15 mg/dl (9-20); Calcium 9.3 mg/dl (8.4-10.2); Carbon Dioxide 24 mmol/L (22-30); Chloride 104 mmol/L (98-107); Estimated Creatinine Clearance 98 ml/min; Glucose 123 mg/dl (70-99); Potassium 5.3 mmol/L (3.5-5.1); Sodium 137 mmol/L (135-145); Total Protein 7.5 g/dl (6.3-8.2); eGFR > 60.00
[2024-11-21 17:35] LABS: Troponin I 0.496 ng/ml
--- NOTE | 2024-11-21 17:52 | ED.GENMED ---
History of Present Illness
General
Chief Complaint: Breathing Problem
Time Seen by Provider: 11/21/24 16:34
History of Present Illness
History of Present Illness:
79-year-old male with history of CVA and Warnicke's aphasia, history of severe aortic stenosis with prior history of TAVR, hyperlipidemia, hypertension presenting to the emergency department for shortness of breath. Patient arrives from nursing
facility where he was noted to be short of breath prior to arrival. Per medics, patient was hypoxic, placed on nonrebreather. No known pulmonary history. Patient is a very limited historian given his Warnicke's aphasia, unable to answer direct
questioning. arrived, notes that yesterday he had some chest congestion which is not uncommon for him. Symptoms improved after Mucinex. She got a call from the facility today that after patient was eating lunch, seemed very anxious, was
short of breath. She went to go see him and try to give him some Mucinex again, however no improvement so patient was brought to the hospital.
Past History
Past History
ED Past Medical History: HTN and Other ( Aortic stenosis)
ED Past Surgical History: None
Social History
Tobacco: Non-smoker
Alcohol: Chronic alcoholic
Drug: None
Personal:
Living: with family
Phy Exam
Physical Exam
Physical Exam:
General: Tachypneic and diaphoretic
HEENT: protecting airway
Neck: appears supple
CV: Tachycardic, regular rhythm, no evidence of cyanosis
Resp: Tachypneic, retractions, increased work of breathing with diminished breath sounds bilaterally
Abd: Soft and non-distended, no tenderness to palpation, normal bowel sounds
Extremities: No deformities, +1 lower extremity edema
Neuro: alert, no focal neurologic deficit
: deferred
Rectal: deferred
Psych: Normal affect
Skin: Intact
Scores
Heart Failure Risk
Heart Failure Risk Score: Yes
History of Stroke or TIA: Yes
History of intubation for respiratory distress: No
Heart rate on ED arrival >/= 110: Yes
SaO2 <90% on arrival on room air: Yes
HR >/=110 during 3min walk test (or too ill to perform test): Yes
ECG has acute ischemic changes: Yes
Urea >/=12mmol/L (BUN 33.6mg/dL): No
Serum CO2>/=35mmol/L: No
Troponin I or T elevated to [place] Level (0.4mg/dL): Yes
NT-proBNP >/=5,000ng/L (5,000pg/ml): Yes
HF Risk Score: 9
Admission Status: VERY HIGH RISK 89% Consider admission to hospital
Sepsis
Sepsis Screening
Sepsis Assessment: Sepsis Ruled Out
Sepsis Screen
Sepsis Screen: Sepsis Ruled Out
Date: 11/21/24
Time: 23:02
Course
Orders/Labs/Results
Orders:
Orders
11/21/24 Dinner
Cholesterol Lowering
At Your Request: Full Participation
Cholesterol Lowering: Sodium, 2 Gram
11/21/24 16:27
Electrocardiogram (*1) Urgent
Reason for Study: Hypertension, Benign
11/21/24 16:28
EKG- Treatment ONCE
11/21/24 16:35
Ipratropium/Albuterol Sulfate [Duoneb] 9 ml INH R NOW STA
CR Chest Portable - 1 View Urgent
Comment:
Reason For Exam: SOB
Reason Study Needs to be Portable: Patient Unstable
11/21/24 16:36
Lactic Acid Q4H
Comment: CANCEL 2nd LACTIC ACID IF 1st LACTIC ACID IS LESS THAN 2
11/21/24 16:45
COVID-19 Antigen Urgent
Source: Nasal Swab
Complete Blood Count/With Diff Urgent
Comprehensive Metabolic Panel Urgent
NT-proBNP Urgent
Troponin I Urgent
Influenza A+B Rapid Molecular Urgent
ANTOINE Source: Nasal Swab
Specimen Description:
11/21/24 16:52
Blood Culture Urgent
ANTOINE Source: Blood/Venous
Specimen Description:
11/21/24 16:57
Lorazepam [Ativan] 1 mg IV NOW STA
11/21/24 18:01
Furosemide [Lasix] 40 mg IV NOW STA
11/21/24 18:51
Admit/Transfer Patient As Directed
Co-Sign Provider:
Level of Care: Inpatient admission
Assign to:: IMU- Intermediate Care
Physician / Group: Elsa Hutchinson
Diagnosis: acute hypoxic respiratory distress, acute CHF
Reason for Hospitalization: acute hypoxic respiratory distress, acute CHF
Expected length of stay greater than two midnights?: Yes
ELOS- Estimated Length of Stay in days: 3
I certify the patient meets the requirements for IP care: Yes
PRN Pain Medication Management As Directed
May give lesser potent ordered pain med per pt: Yes
preference::
Protocol:: Medication orders for pain may be administered in a
manner that supports deferring to patient preference
when the pt is:
- Requesting an ordered lesser potent pain medication.
Least to most potent pain medications are defined
as: acetaminophen < NSAID < tramadol < opioids
(morphine, oxycodone, hydromorphone).
- Requesting a lesser dose of the same medication IF
ORDERED.
- Requesting a less intrusive route of administration
if both routes are prescribed by the provider (PO <
IV).
11/21/24 18:53
Code Status As Directed
Resuscitation Status: Full Code
11/21/24 20:55
Risperidone Disintegrating [Risperdal M-Tab (Orally Disintegrating)] 0.25 mg PO BIDPRN PRN agitation
11/21/24 20:55
CARDIOLOGY CONSULT Routine
Consulting Provider: Andrea Tanner
Was physician already notified: Yes
HF DIETARY CONSULT Routine
HF EDUCATOR CONSULT Routine
Comment:
Activity As Directed
Activity Level: As Tolerated
Intake/ Output As Directed
Frequency: Per unit guidelines
Patient Education As Directed
Type: CHF folder
Comment: give on admission. Document in Interdisciplinary Education record
Sleep Apnea Assessment by RN As Directed
Comment:
Physician Instructions:
Vital Signs As Directed
Frequency: Per unit guidelines
Weight As Directed
Frequency: Daily
Type of Scale: Standing Scale
Comment: Daily morning weight. If unable to stand, use balanced bed scale.
Weight As Directed
Frequency: Once
Type of Scale: Standing Scale
Comment: Upon Admission. If unable to stand, use balanced bed scale.
Bipap [RESP] Routine
Patient to use own unit?: No
Inspiratory Pressure (cm H2O): 10
Expiratory Pressure (cm H2O): 5
Instructions: titrate settings as needed
O2 Therapy [RESP] Routine
Titrate/Wean O2 to maintain O2 sat greater than (%): 93
Special Instructions: wean as tolerated
Pulse Ox/cont/shift [RESP] Routine
Quantity: 1
Special Instructions: Daily pulse oximetry at rest. If greater than 92% at rest also obtain pulse oximetry
while ambulating as tolerated.
DX Deep Vein Thrombosis Video Routine
11/21/24 21:43
Troponin I Q6H
Comment: at admission & every 6 hours x 2 (3 total), ECG to be done with each level
11/21/24 22:00
Melatonin 3 mg PO HS
Risperidone [Risperdal] 0.5 mg PO HS
11/22/24 00:00
Heparin 5,000 units SC Q8
11/22/24 02:55
Troponin I Q6H
Comment: at admission & every 6 hours x 2 (3 total), ECG to be done with each level
11/22/24 06:00
Basic Metabolic Panel IN AM
Cardiovascular Evaluation IN AM
Complete Blood Count/No Diff IN AM
TSH Reflex To Free T4 IN AM
11/22/24 08:00
Aspirin Chewable [Low Strength Aspirin] 81 mg PO DAILY
Fluoxetine HCl [Prozac] 30 mg PO DAILY
Furosemide [Lasix] 40 mg IV DAILY
11/22/24 08:55
Troponin I Q6H
Comment: at admission & every 6 hours x 2 (3 total), ECG to be done with each level
11/22/24 18:00
Atorvastatin [Lipitor] 20 mg PO QPM
11/23/24 06:00
Basic Metabolic Panel IN AM
11/24/24 06:00
Basic Metabolic Panel IN AM
Abnormal Lab Results
11/21/24 11/21/24
16:36 16:45
RBC 3.42 L 10^6/uL
(4.70-6.10)
Hgb 11.2 L g/dL
(13.0-18.0)
Hct 34.7 L %
(39.0-52.0)
MCV 101.5 H fL
(80.0-94.0)
MCH 32.7 H pg
(27.0-31.0)
MCHC 32.3 L g/dL
(33.0-37.0)
RDW 15.9 H %
(11.5-14.5)
MPV 10.8 H fL
(7.4-10.4)
Abs Immat Gran (auto) 0.1 H 10^3/uL
(0-0.05)
Absolute Neuts (auto) 7.3 H 10^3/uL
(1.4-6.5)
Absolute Monos (auto) 1.3 H 10^3/uL
(0.1-0.6)
Lymphocytes % 13.2 L %
(20.5-51.1)
Monocytes % 12.4 H %
(1.7-9.3)
Potassium 5.3 H mmol/L
(3.5-5.1)
Glucose 123 H mg/dl
(70-99)
Lactic Acid 2.3 H mmol/L
(0.7-2.0)
Troponin I 0.496 H* ng/ml
11/21/24 16:45
11/21/24 16:45
Vital Signs
Initial and Last Documented VS:
Initial Vital Signs
Pulse Resp Pulse Ox
118 36 84
11/21/24 16:23 11/21/24 16:23 11/21/24 16:23
Last Documented Vital Signs
Temp Pulse Resp BP Pulse Ox
98 F 85 21 109/59 99
11/21/24 22:07 11/21/24 20:15 11/21/24 20:15 11/21/24 20:15 11/21/24 22:01
MDM/Problems Addressed
MDM/Problems Addressed:
79-year-old male with history of CVA and Warnicke's aphasia, history of severe aortic stenosis with prior history of TAVR, hyperlipidemia, hypertension presenting for difficulty breathing. Vital signs on arrival significant for hypoxia and
tachypnea with tachycardia.
On exam, patient with moderate increased work of breathing and respiratory distress. Respiratory called to bedside for BiPAP. Diminished air movement bilaterally. Differential considerations include pneumonia versus flash pulmonary edema versus
PE versus reactive airway disease. Patient very diaphoretic. Patient placed on BiPAP with improvement of saturations, however continued to have increased work of breathing. Upon 's arrival, notes that symptoms started after eating lunch, with
aspiration being a consideration. However she also notes new lower extremity edema and history of CHF. Chest x-ray obtained upon patient's arrival, does show some pulmonary edema and pleural effusion, so at this time more suspicious for congestive
heart failure. She does the patient has issues with agitation and anxiety with his Warnicke's. He is not able to communicate. Suspect that panic and anxiety could be contributing to patient's symptoms. Will administer a dose of Ativan. However
did discuss with given patient's respiratory status. Patient at this time is full code.
18:10 - Patient much improved after Ativan, resting comfortably with improvement of work of breathing and saturations as well as heart rate. EKG obtained on arrival, appears abnormal, however suspect to be rate dependent. EKG repeated, does again
show some abnormal changes, however without STEMI criteria. Patient is unable to tell me if he is having chest pain. Troponin did come back at 0.49. Case discussed with Dr. Tanner and EKG is interpreted, agrees that not STEMI. Suspect at this time
that patient symptoms are more consistent with CHF, ischemic demand, moderate to severe aortic stenosis. He advises to trend trops and treat as CHF. Plan for admission. Lasix ordered. Patient's lactate is noted to be elevated, however no
leukocytosis. No present source of infection. Without present concern for sepsis.
*Pulse Oximetry
SaO2: 96
Oxygen Mode of Delivery: Room air
Patient hypoxic: yes
*EKG
Interpreted by ED Provider?: Yes
EKG Intrepretation Date: 11/21/24
EKG Intrepretation Time: 18:03
Interpretation: abnormal
Comparison EKG: changes noted (12/12/23)
Heart Rate: 104
Rate: normal
Rhythm: sinus
[employer]: right axis deviation
Interval: normal interval
QRS Pattern: right bundle branch block
Ischemia: non-specific ST changes
*Critical Care Note
Total Time (30-74mins, 75-104mins- exclusive of procedures): 61
comment:
The high probability of a clinically significant, sudden or life threatening deterioration of the cardiopulmonary system(s) required my full and direct attention, intervention and personal management. The aggregate critical care time was 62 minutes.
This time is in addition to time spent performing reported procedures but includes the following:
[x] Data Review and interpretation
[x] Patient assessment and monitoring of vital signs
[x] Documentation
[x] Medication orders and management
ED Attending Note
-
Portions of this chart may have been created with voice recognition software.� Occasional wrong word or��sound alike� substitutions may have occurred due to the inherent limitations of voice recognition software.
Discharge Plan
Departure
Patient Disposition: Admit
Date of Disposition: 11/21/24
Time of Disposition: 18:15
Presentation/result/management discussed w/ accepting MD/DO: Hospitalist
Condition: Critical
Discharge Problem:
Congestive heart failure (CHF), Acute respiratory distress
Interventions
Interventions:
*General Assessment Last Done: 11/21/24 16:55
*ED- Fall Risk Assessment Last Done: 11/21/24 16:55
*ED COVID-19 Vaccine History Last Done: 11/21/24 21:21
*Nursing Disposition Last Done: 11/21/24 21:10
ED- Cardiac Assessment Last Done: 11/21/24 16:34
ED- Pulmonary Assessment Last Done: 11/21/24 16:32
Discharge Date and Time
Discharge Date/Time: 11/21/24 21:11
--- NOTE | 2024-11-21 18:17 | HPS.HSE ---
Family Physician
-
Family Physician: Ramirez Meza, DO
Chief Complaint
-
shortness of breath
History of Present Illness
Patient is a 79-year-old male with past medical history significant for hypertension, hyperlipidemia, CVA, Warnicke's aphasia and aortic insufficiency s/p TAVR who presented to [facility] ED for evaluation of shortness of breath. Patient is poor
historian, HPI from ED documentation. Patient was transported from nursing facility via EMS with hypoxia and NRB in place. Patient reported that patient had chest congestion yesterday and improved with a dose of mucinex. was notified from
facility that following lunch patient was anxious and short of breath. She went to see patient and he had no improvement so was sent to ED for evaluation.
Medical History
Past Medical History
Past Medical History: Reports Other
Additional Past Medical History:
hypertension
hyperlipidemia
depression
CVA
Warnicke's aphasia
aortic insufficiency
Past Surgical History: Reports Other
Additional Past Surgical History:
TAVR
Social History
Tobacco: Non-smoker
Personal:
Living: Penitentiary
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
Family History
Family History: Not pertinent
Allergies / Home Medications
Allergies reflects when Allergies were last updated in [employer].
Home Medications with original date entered in [employer]
Allergy/Medication List:
Allergies
Allergy/AdvReac Type Severity Reaction Status Date / Time
pollen extracts Allergy Intermediate RUNNY NOSE Verified 12/08/23 10:29
AND
SNEEZING
Home Medications
aspirin 81 mg chewable tablet 81 mg PO DAILY Blood Clot Prevention/Tx 02/13/19
risperidone 0.5 mg disintegrating tablet 0.25 mg (1/2 x 0.5 mg) PO BIDPRN PRN agitation #30 tabs 11/14/23
acetaminophen 500 mg tablet (Tylenol Extra Strength) 1,000 mg PO Q6HPRN PRN mild pain 11/21/24
atorvastatin 20 mg tablet (Lipitor) 20 mg PO QPM 11/21/24
fluoxetine 10 mg tablet 30 mg PO DAILY 11/21/24
melatonin 3 mg tablet 3 mg PO HS 11/21/24
risperidone 1 mg tablet 0.5 mg PO HS 11/21/24
Review of Systems
-
History Source: Family and Penit[facility]iary
Constitutional: Denies Fever
Respiratory: Reports Trouble Breathing
Cardiac: Denies Chest Pain or Diaphoresis
Abdomen/GI: Denies Nausea, Vomiting or Diarrhea
Physical Exam
Vital Signs
Vital Signs
Temp Pulse Resp BP Pulse Ox
99.3 F 97 20 101/60 96
11/21/24 17:32 11/21/24 17:45 11/21/24 17:45 11/21/24 17:45 11/21/24 17:57
Physical Exam
General: Well Developed, Well Nourished, No Apparent Distress and Obese
HEENT: NormoCephalic, Moist mucous membranes and Atraumatic
Respiratory: Clear, Non Labored Respirations and Decreased Breath Sounds
Cardiac: S1/S2, Regular Rhythm and Tachycardia; No Murmur, Rub or Gallop
GI: Soft, Non Tender, Non Distended and Normal Bowel Sounds; No Organomegaly
Rectal: Deferred by Provider
Musculoskeletal: No Clubbing, No Cyanosis, Edema, Left Lower Extremity and Edema, Right Lower Extremity
Skin: Warm and IV/Catheter Site
Neuro: Alert and Nonfocal/grossly intact
Psych: Calm
Laboratory Results
-
11/21/24 16:45
11/21/24 16:45
Laboratory Results
Lactic Acid 2.3 mmol/L (0.7-2.0) H 11/21/24 16:36
Total Bilirubin 1.0 mg/dl (0.2-1.3) 11/21/24 16:45
AST 33 U/L (17-59) 11/21/24 16:45
ALT 19 U/L (0-50) 11/21/24 16:45
Alkaline Phosphatase 104 U/L (38-126) 11/21/24 16:45
Troponin I 0.496 ng/ml H* 11/21/24 16:45
Data Reviewed
-
CT Scan: Report Reviewed by me (CXR: Cardiomegaly with findings favored to represent mild pulmonary edema with a small left pleural effusion and bibasilar atelectasis.)
Lab Data: Labs Reviewed by me (trop 0.496, pBNP 6340)
Impression/Plan
-
IMPRESSION/PLAN:
#hypoxia 2/2 acute heart failure vs. aspiration
trop 0.496, pBNP 6340
CXR: Cardiomegaly with findings favored to represent mild pulmonary edema with a small left pleural effusion and bibasilar atelectasis.
EKG: Critical Test Result: STEMI
ATRIAL FLUTTER WITH 2:1 A-V CONDUCTION
INFERIOR INFARCT ANTEROLATERAL INFARCT ACUTE ME / STEMI
ECHO (08/30/2024): Normal biventricular size and systolic function without regional wall motion abnormality. Estimated LVEF 55-60%.
#26 mm Monroe Almaz TAVR. Severe stenosis. Peak/mean gradients across the aortic valve of 68/41 mmHg, respectively.
Severe aortic regurgitation.
Compared to 12/07/23: severe AR is known. has progressed from moderate to severe.
- Admit to IMU
- Consult cardiology
- trend troponin
- IV Lasix 40mg daily
- I & Os
- daily weights
#hyperlipidemia
- continue atorvastatin
#depression
- continue fluoxetine, melatonin and risperidone
#hypertension
#CVA
#Warnicke's aphasia
#aortic insufficiency
s/p TAVR
Code status: full code
DVT prophylaxis: heparin sq
--- NOTE | 2024-11-21 19:55 | W.PN.UPDATE ---
Update Note
Progress Note Update
This is an addendum to H&P written by Porsha Molina on 11/21/2024. �Patient seen and examined independently with [employer].
79-year-old male past medical history of CVA, Wernicke's aphasia, severe aortic stenosis status post TAVR, severe aortic regurgitation, hypertension, chronic back pain, presenting with shortness of breath. �Chest congestion yesterday improved with
Mucinex.
Vital signs show tachycardia. �Patient hypoxemic and started on BiPAP.
Labs show potassium 5.3. �Troponin 0.496. �BNP of 6300. �Chest x-ray shows cardiomegaly favored to represent mild pulmonary edema and small left pleural effusion and bibasilar atelectasis. �EKG shows ST elevations in leads III, aVF.
Patient with hypoxemic respiratory failure likely secondary to acute CHF exacerbation/severe aortic regurgitation. Less likely aspiration.� Patient also with nonischemic myocardial injury/potential NSTEMI. �Cardiology did not feel EKG changes were
felt to be secondary to STEMI. �Also hyperkalemia likely related to heart failure.
�40 IV Lasix daily. �Patient recently had echocardiogram.� Trend Troponins, cardiology consulted.
[2024-11-21 21:06] LABS: COVID-19 Antigen Negative (Negative)
[2024-11-21] MEDS: MELATONIN PO (21:50)
[2024-11-21] MEDS: RISPERDAL PO (21:50)
--- NOTE | 2024-11-21 21:55 | PTCARENOTE ---
received patient from ED via stretcher. Patient' at bedside. Patient on bipap. Patient received Ativan in ED. patient is still drowsy, will open eyes to verbal but goes right back to sleep. Holding PO meds due to patient being drowsy, patient's
also expressed concern for him to be able to swallow pills right now. communicated with [employer] about holding PO meds at the moment. patient resting in bed with call benitez in reach.
[2024-11-21 22:19] LABS: Troponin I 0.461 ng/ml
[2024-11-21] MEDS: HEPARIN 5000 UNITS SC (23:20)
[2024-11-22] VITALS (15 sets, daily range): BP systolic 98–154; BP diastolic 63–125; PULSE 2–86; BMI 30.3
[2024-11-22 03:57] LABS: Hematocrit 28.6 % (39.0-52.0); Hemoglobin 9.7 g/dL (13.0-18.0); Mean Corp Hgb Conc. 33.9 g/dL (33.0-37.0); Mean Corpuscular Volume 99.7 fL (80.0-94.0); Platelet Count 205 10^3/uL (130-400); Red Cell Dist. Width 15.9 % (11.5-14.5)
[2024-11-22 04:18] LABS: Blood Urea Nitrogen 12 mg/dl (9-20); Calcium 8.8 mg/dl (8.4-10.2); Carbon Dioxide 23 mmol/L (22-30); Chloride 108 mmol/L (98-107); Estimated Creatinine Clearance 113 ml/min; Glucose 95 mg/dl (70-99); HDL Cholesterol 31 mg/dl; LDL Cholesterol, Calculated 30 mg/dl; Potassium 4.7 mmol/L (3.5-5.1); Sodium 136 mmol/L (135-145); Very Low Density Lipoprotein 12 mg/dl (0-30); eGFR > 60.00
[2024-11-22 04:28] LABS: Troponin I 0.490 ng/ml
--- NOTE | 2024-11-22 08:17 | W.PN.HOSP.TC ---
Today's Communication/Plan
-
Wean oxygen
IV Lasix
cardiology consult
PT/OT
Assessment / Plan
Assessment / Plan
Gen-AAOx3, NAD
HEENT-NC, AT, anicteric, clear oral mm
Neck-supple
CV-reg, no M, +S1/S2
Lungs-clear B/L
Abd-soft, NT, ND
Ext-no edema
Musculoskeletal-no cyanosis, clubbing
Skin-warm and dry
Neuro-grossly non-focal
Psych-calm, cooperative
Acute hypoxic respiratory failure -due to acute heart failure exacerbation. Requiring BiPAP on admission. Currently stable on nasal cannula oxygen 5L. Wean down as able.
Acute on chronic heart failure preserved EF -clinically improving, less symptoms. Continue IV Lasix. Cardiology consulted.
Last echocardiogram was August 2024, LVEF 55 to 60%, severe aortic stenosis of TAVR. Severe AR. Suspect this contributed to his heart failure exacerbation. Cardiology to address.
Admission chest x-ray with pulmonary edema, small left pleural effusion. Bibasilar atelectasis. BNP 6340.
Troponin elevation -unclear if patient had chest pain. His Wernicke's aphasia makes it very difficult to get a good history. Admission EKG with sinus tachycardia, right bundle branch block, signs of old inferior & lateral infarct
Differential diagnosis of NSTEMI versus acute nonischemic myocardial injury. Cardiology to comment.
Lactic acidosis -Mild, present on admission. Resolved. Unclear etiology.
Hyperkalemia -present on admission, resolved.
History of stroke -with resultant Wernicke's aphasia.
Essential hypertension -stable.
Hyperlipidemia -atorvastatin.
Aortic stenosis -s/p TAVR.
Chronic anemia -macrocytic.
Depression
Obesity due to excess calories
Full code
PT/OT
Anticipated Discharge: > 48 hours
Subjective/Interval History
-
Date of Service: November 22, 2024
Patient seen and examined. Feels better, less short of breath.
Objective Data
-
Labs:
Laboratory Results
11/22/24
03:36
WBC 5.6
Hgb 9.7 L
Hct 28.6 L
Plt Count 205 D
Sodium 136
Potassium 4.7
Chloride 108 H
Carbon Dioxide 23
BUN 12
Creatinine 0.6 L
Glucose 95
Calcium 8.8
Vital Signs:
Vital Signs
Temp Pulse Resp BP Pulse Ox
98.0 F 73 18 113/67 98
11/22/24 07:54 11/22/24 04:45 11/22/24 04:45 11/22/24 04:00 11/22/24 04:45
I&O
11/21/24 11/22/24 11/23/24
06:59 06:59 06:59
Output Total 750 / 750 225 / 225
Balance -750 / -750 -225 / -225
Review of Systems
-
History Source: Patient
All other systems: Reviewed and negative
--- NOTE | 2024-11-22 09:19 | CON.CAR ---
Addendum entered and electronically signed by Jesse Gibbons MD 11/22/24 12:17:
I saw and examined the patient.
The [employer]'s note was reviewed and I agree with the note.
Cardiology: Gilberto
Comment: 79 yo male with severe aortic stenosis status-post TAVR (03/2019) and subsequent progressive severe aortic regurgitation/possible endocarditis (conservative management due to recent CVA with residual cognitive deficits), hypertension,
hyperlipidemia, obesity, and alcohol abuse, who presented to the ER for acute sob. He and his (Kerri adds to the history). He had been develping le edema gradually when he developed acute shortness of breath. He is sensitive to air
quality she attributed to this first but in no improvement with treatment, she sought care. Currently he is feeling much better. He and she both deny any episodes of chest pain. On exam he is calm. He has a regular rate and rhythm with an S1-S2
2 out of 6 systolic murmur heard in all areas, lungs mild end expiratory wheezes. Trace to 1+ pitting edema bilaterally. EKG reveals sinus rhythm with new inferior infarct pattern and right bundle branch block. Troponin was 0.49 on arrival there
has been no further rise.
Catheterization in 2019 did show 40 to 50% RCA lesion.
Overall I suspect acute ischemia (type I non-STEMI) as etiology of his acute pulmonary edema. Given the overall picture of his cognitive deficits, severe progressive valve disease with no plan for intervention, we will plan to manage this
conservatively. Will start heparin for 48 hours, add clopidogrel which should be continued for 1 year. Continue with IV diuresis. Will update echocardiogram as this may help with prognosis.
Will follow.
Original Note:
Consultation
Consultation Request
Date/Time Consultation Requested: 11/21/24 8:55p
Date/Time Consultation Performed: 11/22/24 9a
Requesting Provider: LENARD Flores
Performing Provider: LENARD Castro for Dr. Gibbons
Reason for Consultation: acute HFpEF
Medical History
-
Chief Complaint: sob
History of Present Illness:
Mr. Addison is a 79 yo male with severe aortic stenosis status-post TAVR (03/2019) and subsequent progressive severe aortic regurgitation/possible endocarditis (conservative management due to recent CVA with residual cognitive deficits),
hypertension, hyperlipidemia, obesity, and alcohol abuse, who presented to the ER for acute heart failure from assisted living facility, [facility]. He is admitted to the hospitalist service and we are consulted for acute HFpEF. He has severe of
TAVR on echo 08/2024, plan for conservative management per Dr. Macias and family due to his aphasia/mental status. CXR with small left pleural effusion and mild pulmonary edema. He is receiving IV Lasix with improvement of SOB. His Kerri
is at his bedside, history was obtained from her due to his aphasia.
Past Medical History
Past Medical History: Other (as above)
Past Surgical History: Other (as above)
Social History
Tobacco: Non-Smoker
Personal:
Living: Assisted Living
Family History
Family History: Reviewed & Not Pertinent
Allergies / Home Medications
Allergy/AdvReac Type Severity Reaction Status Date / Time
pollen extracts Allergy Intermediate RUNNY NOSE Verified 12/08/23 10:29
AND
SNEEZING
�Medication �Instructions �Recorded �Confirmed �Type
aspirin 81 mg chewable tablet 81 mg PO DAILY Blood Clot 02/13/19 11/21/24 History
Prevention/Tx
risperidone 0.5 mg disintegrating 0.25 mg (1/2 x 0.5 mg) PO BIDPRN 11/14/23 11/21/24 Rx
tablet PRN agitation #30 tabs
acetaminophen 500 mg tablet 1,000 mg PO Q6HPRN PRN mild pain 11/21/24 11/21/24 History
(Tylenol Extra Strength)
atorvastatin 20 mg tablet (Lipitor) 20 mg PO QPM 11/21/24 11/21/24 History
fluoxetine 10 mg tablet 30 mg PO DAILY 11/21/24 11/21/24 History
melatonin 3 mg tablet 3 mg PO HS 11/21/24 11/21/24 History
risperidone 1 mg tablet 0.5 mg PO HS 11/21/24 11/21/24 History
Review of Systems
-
Unable to obtain full review of systems at this time due to: Dementia
History Source: Patient and Family (, Kerri)
All other systems: Negative unless noted
Physical Exam
Vital Signs
Temp Pulse Resp BP Pulse Ox
98.0 F 86 23 128/71 100
11/22/24 07:54 11/22/24 08:45 11/22/24 08:45 11/22/24 08:00 11/22/24 08:45
Lab Results
11/22/24 03:36
11/22/24 03:36
Troponin I 0.490 ng/ml H* 11/22/24 03:36
Dvc-B-Waobqjulbdl Pept 6340 pg/ml 11/21/24 16:45
Physical Exam
General: Well Developed, Well Nourished and Comfortable
HEENT: Normocephalic, Anicteric and Moist Mucous Membranes
Respiratory: Crackles (Mild bibasilar, decreased left base)
Cardiac: S1/S2, Regular Rhythm and Peripheral Edema (Trace bilateral lower extremities)
Breast: Deferred by me
GI: Soft, Non Tender, Non Distended and Normal Bowel Sounds
Rectal: Deferred by Provider
Genito-urinary: Clear Urine
Musculoskeletal: No Clubbing and No Cyanosis
Skin: Warm and Dry
Neuro: Awake, Alert and Other (Has aphasia and is confused at times)
Hematologic/Lymphatic: No Lymphadenopathy
Psych: Calm
Impression / Plan
-
HFpEF - acute.
- threat to life and requires IV diuresis with monitoring.
- secondary to severe valvular heart disease.
- continue IV Lasix 40mg daily, monitor daily weights and BMP.
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
- now with severe stenosis of TAVR on echo 08/2024.
- conservative management per Dr. Macias and family.
- acute HFpEF requiring diuresis.
Non-ischemic myocardial injury - acute, due to acute HFpEF.
- troponin trend 0.496, 0.461, 0.490, 0.433.
- EKG with SR with inferior infarct, new RBBB.
- continue IV diuresis.
HTN - stable on medical therapy, continue.
CVA - residual cognitive deficits.
Echo 08/30/24:
Normal biventricular size and systolic function without regional wall motion abnormality. EF 55-60%.
#26 mm Monroe Almaz TAVR. Severe stenosis. Peak/mean gradients across the aortic valve of 68/41 mmHg, respectively.
Severe aortic regurgitation.
Compared to 12/07/23 echo, severe AR is known. has progressed from moderate to severe.
Data Reviewed
-
EKG: Tracing Personally Visualized and interpreted (SR with RBBB, inferior infarct )
Radiology: Report Reviewed by me (CXR: mild pulmonary edema with a small left pleural effusion and bibasilar atelectasis.)
Labs: Labs Reviewed by me
Old Records: Reviewed
[2024-11-22 11:04] LABS: Troponin I 0.433 ng/ml
--- NOTE | 2024-11-22 11:14 | CM ---
Patient seen at bedside in IMU, patient asking for mother and unable to verbalize requests. CM called to [facility]; personal care. Per Domenico, nurse at [facility]. Patient is normally independent of walking with no assistive devices; patient
has a wide, staggered gait with hands out at sides but normally walks for a long time with . Patient is aphasic and has a strong routine at the facility, normally comes between 11-noon and patient has a tablet to use for communication along
with an apple watch. That he worries about, uncertain if patient has these items at . Patient would be able to return to personal care if patient close to baseline. CM will need to review with and continue to communicate with [facility]. Watch
for possible SNF needs pending PT/OT assessment and medical treatment plan. CM will continue to follow for discharge planning needs.
Plan; return to [facility] with VN vs SNF; pending assessments/medical treatment plan
[2024-11-22] MEDS: HEPARIN 5000 UNITS SC (11:23)
[2024-11-22] MEDS: LASIX 40 MG IV (11:24)
[2024-11-22] MEDS: PROZAC 30 MG PO (11:24)
[2024-11-22] MEDS: LOW STRENGTH ASPIRIN 81 MG PO (11:24)
[2024-11-22] MEDS: PLAVIX 600 MG PO (13:06)
[2024-11-22 14:05] LABS: APTT 28.4 Sec (23.4-35.0)
--- NOTE | 2024-11-22 14:30 | CARDSERVLU ---
Echocardiogram with Lumason completed after protocol screening completed. Allergies verified.
Patent IV site: __L hand___
IV site flushed with 0.9% NaCl pre and post administration.
Diluted bolus method utilized to enhance visualization of ventricular nicholson.
Total volume given: _3.5___ mL
Patient tolerated all procedures well without complications.
[2024-11-22] MEDS: HEPARIN 4000 UNITS IV (14:35)
[2024-11-22] MEDS: HEPARIN 25000 UNITS/250 ML IV (14:47)
--- NOTE | 2024-11-22 17:00 | PTCARENOTE ---
Patient with severe expressive aphagia, very anxious. When his is not in the room he is more anxious and calls out. Easily calmed by staff with soft voice. He dies not like to be alone in the room. at bedside for most of the day.
Risperdal and prozac helps his anxiety. Heparin drip started today at 1000units/10mls/hr. Starting PTT 28.4. Next PTT at 21:00. Patient using urinal with assistance. Patient was weaned off of o2 during the day. Currently on room air. Pulse o2
92-93%. No BM today.
[2024-11-22] MEDS: LIPITOR 20 MG PO (17:09)
[2024-11-22] MEDS: MELATONIN 3 MG PO (21:09)
[2024-11-22] MEDS: RISPERDAL 0.5 MG PO (21:09)
[2024-11-22 21:42] LABS: APTT 44.4 Sec (23.4-35.0)
[2024-11-23] VITALS (11 sets, daily range): BP systolic 96–139; BP diastolic 39–79; PULSE 94–99; O2SAT 93–99; BMI 29.5
[2024-11-23 04:18] LABS: APTT 55.7 Sec (23.4-35.0)
[2024-11-23 04:34] LABS: Blood Urea Nitrogen 18 mg/dl (9-20); Calcium 9.1 mg/dl (8.4-10.2); Carbon Dioxide 24 mmol/L (22-30); Chloride 105 mmol/L (98-107); Estimated Creatinine Clearance 86 ml/min; Glucose 103 mg/dl (70-99); Potassium 4.0 mmol/L (3.5-5.1); Sodium 135 mmol/L (135-145); eGFR > 60.00
[2024-11-23] MEDS: LOW STRENGTH ASPIRIN 81 MG PO (07:31)
[2024-11-23] MEDS: LASIX 40 MG IV (07:31)
[2024-11-23] MEDS: PROZAC 30 MG PO (07:31)
[2024-11-23] MEDS: PLAVIX 75 MG PO (07:33)
--- NOTE | 2024-11-23 08:00 | W.PN.HOSP.TC ---
Addendum entered and electronically signed by Sebastian Heart DO 11/23/24 13:35:
Updated patient's on the phone. All questions answered.
Potential discharge tomorrow back to assisted living facility if stable. Updated case management.
Original Note:
Today's Communication/Plan
-
Continue IV heparin
IV Lasix
Assessment / Plan
Assessment / Plan
Gen-AAOx3, NAD
HEENT-NC, AT, anicteric, clear oral mm
Neck-supple
CV-reg, no M, +S1/S2
Lungs-clear B/L
Abd-soft, NT, ND
Ext-no edema
Musculoskeletal-no cyanosis, clubbing
Skin-warm and dry
Neuro-grossly non-focal
Psych-calm, cooperative
Acute hypoxic respiratory failure -due to acute heart failure exacerbation. Requiring BiPAP on admission. Currently stable on nasal cannula oxygen 1.5L. Wean down as able.
Acute on chronic heart failure preserved EF -clinically improving, less symptoms. Continue IV Lasix. Improving clinically. Weight coming down. I's and O's negative.
Echocardiogram from 11/22 shows EF 45 to 50%, multiple LV wall motion abnormalities, stage II diastolic dysfunction. TAVR intact with severe AR, mild to moderate MR.
Admission chest x-ray with pulmonary edema, small left pleural effusion. Bibasilar atelectasis. BNP 6340.
NSTEMI -unclear if patient had chest pain. His Wernicke's aphasia makes it very difficult to get a good history. Admission EKG with sinus tachycardia, right bundle branch block, signs of old inferior & lateral infarct
Cardiology following, recommending medical management. IV heparin for 48 hours, add clopidogrel for 1 year.
Lactic acidosis -Mild, present on admission. Resolved. Unclear etiology.
Glans penis laceration -using urinal. Minor bleeding noted. Discussed with nursing, use Vaseline.
Hyperkalemia -present on admission, resolved.
History of stroke -with resultant Wernicke's aphasia.
Essential hypertension -stable.
Hyperlipidemia -atorvastatin.
Aortic stenosis -s/p TAVR.
Chronic anemia -macrocytic.
Depression
Obesity due to excess calories
Full code
PT/OT
Anticipated Discharge: 24 - 48 hours
Subjective/Interval History
-
Date of Service: November 23, 2024
Patient seen and examined. No complaints.
Objective Data
-
Labs:
Laboratory Results
11/22/24 11/23/24 11/23/24
21:16 03:57 10:30
APTT 44.4 H 55.7 H Pending
Sodium 135
Potassium 4.0
Chloride 105
Carbon Dioxide 24
BUN 18
Creatinine 0.7
Glucose 103 H
Calcium 9.1
Vital Signs:
Vital Signs
Temp Pulse Resp BP Pulse Ox
98.4 F 91 19 113/39 95
11/23/24 03:03 11/23/24 07:31 11/23/24 06:00 11/23/24 07:31 11/23/24 06:00
I&O
11/22/24 11/23/24 11/24/24
06:59 06:59 06:59
Intake Total 940 / 940
Output Total 750 / 750 2825 / 2825
Balance -750 / -750 -1885 / -1885
Review of Systems
-
Unable to obtain full review of systems at this time due to: Other (Receptive aphasia)
History Source: Patient
All other systems: Reviewed and negative
--- NOTE | 2024-11-23 08:13 | W.PN.CD ---
Today's Communication / Plan
-
Start Aldactone
Transition to p.o. Lasix in the a.m.
Complete 48 hours of heparin
Impression / Plan
-
NSTEMI:
-- threat to life and
-acuter sob, ecg with new inferior infarct and new regional wall motion abn on ech
-given total clinicial picture, using noninvasive strategy of care
-heparin for 48 hours
-Aspirin/plavix/statin (LDL 30)
-adding GDMT
- troponin trend 0.496 peak
HFpEF - acute. EF 45-50%
-requires IV diuresis with monitoring. Transition to po tomorrow.
- secondary to ischemia and severe valvular heart disease.
GDMT:
-BOBBI/ARB/ARNI: pardo Entresto
-SGLTi:pardo with CM
-MRA: will add today
-BB:avoid with severe AR
Diuretic: On IV diuresis
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
- now with severe regurgitation and moderate stenosis of TAVR
- conservative management per Dr. Macias and family.
HTN - stable on medical therapy, continue.
CVA - residual cognitive deficits.
Subjective:
he is feeling well without complaint outside of excessive urination
Data:
SUMMARY
1. Normal left ventricular cavity size. Mildly reduced systolic function.
2. Ejection fraction is 45-50% by Phelan's method of discs.
3. LV Wall Motion: mid and apical inferior wall, apex, entire anterior wall, mid and apical inferior septum, apical lateral segment, and basal inferior segment are abnormal, as described below.
4. Normal right ventricular size and systolic function.
5. Stage II diastolic dysfunction suggestive of abnormal relaxation and increased filling pressures.
6. 26 mm Monroe Amlaz TAVR with peak/mean gradients of 47/28 mmHg. Severe aortic regurgitation.
7. Mild to moderate mitral regurgitation.
8. Compared to the prior on 12/07/2023, regional wall motion abnormalities are new, LVEF has decreased from 55 to 60% to 45 to 50%. Otherwise the findings are similar.
Echo 08/30/24:
Normal biventricular size and systolic function without regional wall motion abnormality. EF 55-60%.
#26 mm Monroe Almaz TAVR. Severe stenosis. Peak/mean gradients across the aortic valve of 68/41 mmHg, respectively.
Severe aortic regurgitation.
Compared to 12/07/23 echo, severe AR is known. has progressed from moderate to severe.
Physical Exam
Vital Signs/Labs
Vital Signs
Temp Pulse Resp BP Pulse Ox
98.4 F 91 19 113/39 95
11/23/24 03:03 11/23/24 07:31 11/23/24 06:00 11/23/24 07:31 11/23/24 06:00
11/22/24 11/23/24 11/24/24
06:59 06:59 06:59
Actual Weight 205 lb 1.6 oz 199 lb 14.4 oz
11/22/24 03:36
11/23/24 03:57
APTT 55.7 Sec (23.4-35.0) H 11/23/24 03:57
Triglycerides 61 mg/dl (10-149) 11/22/24 03:36
LDL Cholesterol, Calc 30 mg/dl 11/22/24 03:36
VLDL Cholesterol, Calc 12 mg/dl (0-30) 11/22/24 03:36
HDL Cholesterol 31 mg/dl 11/22/24 03:36
11/21/24
16:45
Xvr-S-Kwkszqnemzz Pept 6340
LAB Results
11/21/24 11/21/24 11/22/24
16:45 21:43 03:36
Troponin I 0.496 H* 0.461 H* 0.490 H*
11/22/24
10:16
Troponin I 0.433 H*
Physical Exam
Constitutional: No acute distress
Cardiovascular: Rhythm & rate is regular and Systolic murmur present (2 out of 6 systolic ejection murmur in all areas)
Respiratory: Respiratory effort normal, Lungs clear to auscul., Wheeze Absent, Crackles Absent and Rhonchi Absent
Neuro/Psych: AO x 3
Data Reviewed
-
Date of Service: November 23, 2024
Medical Decision Making: Review of Case with other Provider (Updated Dr. Quintero about plan of diuretic changes. Updated nurse will complete 48 hours of heparin drip. Continue today.)
EKG: Other (Telemetry sinus rhythm with brief NSVT.)
--- NOTE | 2024-11-23 08:15 | PTCARENOTE ---
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 Patient resting comfortably in bed. AAOx1-2, mostly to self. Wernicke's encephalopathy VSS. No events noted overnight. No complaints of pain at this time. Patient wore BiPAP for approx. 30 min overnight per
production supervisor off shift, currently on 2L N/C, will wean as tolerated. Heparin gtt @ 1400 units, next PTT at 1030. Possible for downgrade? No testing scheduled at this time. Call benitez in reach.
--- NOTE | 2024-11-23 09:48 | PTCARENOTE ---
Report called to Courtney MONTAÑO, [address] [place] [address]. Waiting to transferred after getting 1030 ptt. PT/OT in room with patient currently.
[2024-11-23] MEDS: ALDACTONE 12.5 MG PO (10:22)
[2024-11-23] MEDS: HEPARIN 25000 UNITS/250 ML IV (10:24)
--- NOTE | 2024-11-23 11:29 | PTCARENOTE ---
Patient transported to [address] [place] [address] via stretcher. Patients at bedside. Patient left with all known belongings.
[2024-11-23 11:39] LABS: APTT 36.7 Sec (23.4-35.0)
--- NOTE | 2024-11-23 13:56 | W.PN.UPDATE ---
Update Note
Progress Note Update
PHarmacy calling me, SGLT2 either around 50 dollars after he meets deducatible, around 400 for the first fill. Entresto not covered would need prior auth.
--- NOTE | 2024-11-23 14:55 | CM ---
CM following re: discharge planning.
Reviewed pt's chart, met with pt and spoke to pt's spouse over the phone to update on discharge plan progress.
According to pt will be ready for discharge tomorrow. Both pt and his spouse are aware, expressed their agreement. IMM reviewed, placed on chart, pt has a copy.
A referral to [facility] made, pt is accepted for admission tomorrow and morning discharge time requested.
[facility] to arrange [facility] transport B[facility] for tomorrow 11/24/24. [facility] completed and left with [facility] nursing report: [phone]
Discharge instructions fax: [phone]
D/C plan: return back to [facility] personal care tomorrow 11/24/24.
[2024-11-23] MEDS: LIPITOR 20 MG PO (17:24)
[2024-11-23 18:07] LABS: APTT 72.6 Sec (23.4-35.0)
--- NOTE | 2024-11-23 19:26 | PTCARENOTE ---
Pt transferred from IMU at aprox 1130 this am. Pt arrived with heparin drip infusing. Increased rate per protocol to 1600 units per hour. Vitals stable. SR with BBC on monitor. Bed alarm and chair alarm placed. Instructed to ring for assistance.
in room with him.
[2024-11-23] MEDS: MELATONIN 3 MG PO (21:33)
[2024-11-23] MEDS: RISPERDAL 0.5 MG PO (21:33)
[2024-11-24 01:11] LABS: APTT 26.6 Sec (23.4-35.0)
[2024-11-24] MEDS: HEPARIN 25000 UNITS/250 ML IV (01:37)
[2024-11-24 03:48] VITALS: BP 123/67
[2024-11-24 06:00] VITALS: BMI 28.9
[2024-11-24 07:22] LABS: Hematocrit 28.6 % (39.0-52.0); Hemoglobin 9.9 g/dL (13.0-18.0); Mean Corp Hgb Conc. 34.6 g/dL (33.0-37.0); Mean Corpuscular Volume 96.6 fL (80.0-94.0); Platelet Count 210 10^3/uL (130-400); Red Cell Dist. Width 15.7 % (11.5-14.5)
[2024-11-24 07:44] LABS: APTT 86.4 Sec (23.4-35.0)
[2024-11-24 08:18] LABS: Blood Urea Nitrogen 16 mg/dl (9-20); Calcium 8.8 mg/dl (8.4-10.2); Carbon Dioxide 23 mmol/L (22-30); Chloride 105 mmol/L (98-107); Estimated Creatinine Clearance 86 ml/min; Glucose 101 mg/dl (70-99); Potassium 4.4 mmol/L (3.5-5.1); Sodium 135 mmol/L (135-145); eGFR > 60.00
[2024-11-24 08:28] VITALS: BP 119/60
[2024-11-24] MEDS: RISPERDAL M-TAB (ORALLY DISINTEGRATING) 0.25 MG PO (08:48)
[2024-11-24] MEDS: PROZAC 30 MG PO (08:50)
[2024-11-24] MEDS: LOW STRENGTH ASPIRIN 81 MG PO (08:50)
[2024-11-24] MEDS: ALDACTONE 12.5 MG PO (08:50)
[2024-11-24] MEDS: PLAVIX 75 MG PO (08:51)
--- NOTE | 2024-11-24 09:42 | W.PN.HOSP.TC ---
Today's Communication/Plan
-
Discharge
Assessment / Plan
Assessment / Plan
Gen-awake, alert, NAD
HEENT-NC, AT, anicteric, clear oral mm
Neck-supple
CV-reg, no M, +S1/S2
Lungs-clear B/L
Abd-soft, NT, ND
Ext-no edema
Musculoskeletal-no cyanosis, clubbing
Skin-warm and dry
Neuro-grossly non-focal
Psych-calm, cooperative
Acute hypoxic respiratory failure -due to acute heart failure exacerbation. Requiring BiPAP on admission. Oxygenation improved, now on room air.
Acute on chronic heart failure preserved EF -clinically improving, less symptoms. Received IV Lasix for the past couple days. Start oral Lasix today. Improving clinically. Weight down 5 kg. I's and O's negative.
Echocardiogram from 11/22 shows EF 45 to 50%, multiple LV wall motion abnormalities, stage II diastolic dysfunction. TAVR intact with severe AR, mild to moderate MR.
Admission chest x-ray with pulmonary edema, small left pleural effusion. Bibasilar atelectasis. BNP 6340.
NSTEMI -unclear if patient had chest pain. His Wernicke's aphasia makes it very difficult to get a good history. Admission EKG with sinus tachycardia, right bundle branch block, signs of old inferior & lateral infarct
Cardiology following, recommending medical management. IV heparin for 48 hours, add clopidogrel for 1 year.
Lactic acidosis -Mild, present on admission. Resolved. Unclear etiology.
Glans penis laceration -using urinal. Minor bleeding noted. Discussed with nursing, use Vaseline.
Hyperkalemia -present on admission, resolved.
History of stroke -with resultant Wernicke's aphasia.
Essential hypertension -stable.
Hyperlipidemia -atorvastatin.
Aortic stenosis -s/p TAVR.
Chronic anemia -macrocytic.
Depression
Obesity due to excess calories
Full code
PT/OT
Dispo - appears medically stable for discharge back to assisted living facility today, awaiting cardiology clearance. Outpatient follow-up.
32-minute spent in discharge process.
Anticipated Discharge: Today
Subjective/Interval History
-
Date of Service: November 24, 2024
Patient seen and examined. No complaints.
Objective Data
-
Labs:
Laboratory Results
11/24/24 11/24/24 11/24/24
00:53 07:15 15:00
WBC 7.3
Hgb 9.9 L
Hct 28.6 L
Plt Count 210
APTT 26.6 86.4 H Pending
Sodium 135
Potassium 4.4
Chloride 105
Carbon Dioxide 23
BUN 16
Creatinine 0.7
Glucose 101 H
Calcium 8.8
Vital Signs:
Vital Signs
Temp Pulse Resp BP Pulse Ox
99.2 F 95 18 119/60 94
11/24/24 08:28 11/24/24 08:50 11/24/24 08:28 11/24/24 08:50 11/24/24 08:28
I&O
11/23/24 11/24/24 11/25/24
06:59 06:59 06:59
Intake Total 940 / 940 620 / 620
Output Total 2825 / 2825 1550 / 1550
Balance -1885 / -1885 -930 / -930
Review of Systems
-
Unable to obtain full review of systems at this time due to: Other (Receptive aphasia)
History Source: Patient
All other systems: Reviewed and negative
--- NOTE | 2024-11-24 09:51 | W.DS.TRANS ---
DC Summary - [employer]
-
Discharge Instructions:
Sleep Apnea Risk Low
Discharge Diagnosis/Procedures Acute heart failure exacerbation
Diet 2 Gram Sodium,Low Fat,Low Cholesterol
Activity With assistance,As tolerated
Driving Restrictions No driving
Bathing Restrictions None
Blood Work BMP in 1 week
Instructions:
Stand-Alone Forms:
Changes to Home Medications: No
Discharge Medications:
DC Medications w/original date entered in [employer]
aspirin 81 mg chewable tablet 81 mg PO DAILY Blood Clot Prevention/Tx 02/13/19
risperidone 0.5 mg disintegrating tablet 0.25 mg (1/2 x 0.5 mg) PO BIDPRN PRN agitation #30 tabs 11/14/23
acetaminophen 500 mg tablet (Tylenol Extra Strength) 1,000 mg PO Q6HPRN PRN mild pain 11/21/24
atorvastatin 20 mg tablet (Lipitor) 20 mg PO QPM High Cholesterol 11/21/24
fluoxetine 10 mg tablet 30 mg PO DAILY Mental Health/Anxiety 11/21/24
melatonin 3 mg tablet 3 mg PO HS Sleep 11/21/24
risperidone 1 mg tablet 0.5 mg PO HS agitation 11/21/24
clopidogrel 75 mg tablet 75 mg PO DAILY #30 tabs 11/23/24
sacubitril 24 mg-valsartan 26 mg tablet (Entresto) 1 tab PO BID #60 tabs 11/23/24
spironolactone 25 mg tablet 12.5 mg (1/2 x 25 mg) PO DAILY #30 tabs 11/23/24
furosemide 40 mg tablet (Lasix) 40 mg PO DAILY #30 tabs 11/24/24
Home Medication Changes
Pending Results: No
--- NOTE | 2024-11-24 10:06 | CM ---
Addendum entered by Srinath Birch 11/24/24 10:57:
Pt's spouse came and she is requested to transport her to the [facility].
Ambulance transport has been cancelled.
Original Note:
CM following re: discharge planning.
Reviewed pt's chart, met with pt and spoke to pt's spouse over the phone to update on discharge plan progress.
Discharge order noted. both pt and his spouse are aware, expressed their agreement. IMM reviewed yesterday.
[facility] accepted for admission today.
to arrange ambulance transport BLS. [facility] nursing report: [phone]
Discharge instructions fax: [phone]
D/C plan: return back to [facility] personal care.
--- NOTE | 2024-11-24 10:44 | W.PN.CD ---
Today's Communication / Plan
-
home on 40mg po furosemided
also new this admission:
clopidogrel 75mg daily
aldactone 12.5mg daily
our office will arrange post hospital follow up and reach out to Kerri
Impression / Plan
-
NSTEMI:
-- threat to life
-acuter sob, ecg with new inferior infarct and new regional wall motion abn on ech
-given total clinicial picture, using noninvasive strategy of care
-heparin for 48 hours--completed
-Aspirin/plavix/statin (LDL 30)
- troponin trend 0.496 peak
HFpEF - acute. EF 45-50%
-ok for discharge on po furosemide 40 mg daily
- secondary to ischemia and severe valvular heart disease.
GDMT:
-BOBBI/ARB/ARNI: Entresto needs prior auth, will need to consider as an op
-SGLTi: currrently too costly
-MRA: added, needs renal panel in 1 week, our office will send order
-BB:avoid with severe AR
Diuretic: transition to furosemide 40mg a day
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
- now with severe regurgitation and moderate stenosis of TAVR
- conservative management per Dr. Macias and family.
HTN - stable on medical therapy, continue.
CVA - residual cognitive deficits.
Subjective:
he is feeling well without complaint. Kerri at bedside discussed instructions for discharge
Data:
SUMMARY
1. Normal left ventricular cavity size. Mildly reduced systolic function.
2. Ejection fraction is 45-50% by Phelan's method of discs.
3. LV Wall Motion: mid and apical inferior wall, apex, entire anterior wall, mid and apical inferior septum, apical lateral segment, and basal inferior segment are abnormal, as described below.
4. Normal right ventricular size and systolic function.
5. Stage II diastolic dysfunction suggestive of abnormal relaxation and increased filling pressures.
6. 26 mm Monroe Almaz TAVR with peak/mean gradients of 47/28 mmHg. Severe aortic regurgitation.
7. Mild to moderate mitral regurgitation.
8. Compared to the prior on 12/07/2023, regional wall motion abnormalities are new, LVEF has decreased from 55 to 60% to 45 to 50%. Otherwise the findings are similar.
Echo 08/30/24:
Normal biventricular size and systolic function without regional wall motion abnormality. EF 55-60%.
#26 mm Monroe Almaz TAVR. Severe stenosis. Peak/mean gradients across the aortic valve of 68/41 mmHg, respectively.
Severe aortic regurgitation.
Compared to 12/07/23 echo, severe AR is known. has progressed from moderate to severe.
Physical Exam
Vital Signs/Labs
Vital Signs
Temp Pulse Resp BP Pulse Ox
99.2 F 95 18 119/60 94
11/24/24 08:28 11/24/24 08:50 11/24/24 08:28 11/24/24 08:50 11/24/24 10:04
11/23/24 11/24/24 11/25/24
06:59 06:59 06:59
Actual Weight 199 lb 14.4 oz 195 lb 14.4 oz
11/24/24 07:15
11/24/24 07:15
APTT 86.4 Sec (23.4-35.0) H 11/24/24 07:15
Triglycerides 61 mg/dl (10-149) 11/22/24 03:36
LDL Cholesterol, Calc 30 mg/dl 11/22/24 03:36
VLDL Cholesterol, Calc 12 mg/dl (0-30) 11/22/24 03:36
HDL Cholesterol 31 mg/dl 11/22/24 03:36
11/21/24
16:45
Lhm-U-Feyuezwmahv Pept 6340
LAB Results
11/21/24 11/21/24 11/22/24
16:45 21:43 03:36
Troponin I 0.496 H* 0.461 H* 0.490 H*
11/22/24
10:16
Troponin I 0.433 H*
Physical Exam
Constitutional: No acute distress
Cardiovascular: Rhythm & rate is regular, Pedal edema is absent, JVD pressure is normal, Diastolic murmur absent and Systolic murmur present (in all areas)
Respiratory: Respiratory effort normal, Lungs clear to auscul., Wheeze Absent, Crackles Absent and Rhonchi Absent
Neuro/Psych: AO x 3
Data Reviewed
-
Date of Service: November 24, 2024
Medical Decision Making: Review of Case with other Provider (discharge meds and follow up with Dr Heart)
EKG: Other
--- NOTE | 2024-11-24 11:02 | W.DS.TRANS ---
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
-
Discharge Instructions:
Sleep Apnea Risk Low
Discharge Diagnosis/Procedures Acute heart failure exacerbation
Diet 2 Gram Sodium,Low Fat,Low Cholesterol
Activity With assistance,As tolerated
Driving Restrictions No driving
Bathing Restrictions None
Blood Work BMP in 1 week
Instructions:
Stand-Alone Forms:
Changes to Home Medications: No
Discharge Medications:
DC Medications w/original date entered in [facility]
aspirin 81 mg chewable tablet 81 mg PO DAILY Blood Clot Prevention/Tx 02/13/19
risperidone 0.5 mg disintegrating tablet 0.25 mg (1/2 x 0.5 mg) PO BIDPRN PRN agitation #30 tabs 11/14/23
acetaminophen 500 mg tablet (Tylenol Extra Strength) 1,000 mg PO Q6HPRN PRN mild pain 11/21/24
atorvastatin 20 mg tablet (Lipitor) 20 mg PO QPM High Cholesterol 11/21/24
fluoxetine 10 mg tablet 30 mg PO DAILY Mental Health/Anxiety 11/21/24
melatonin 3 mg tablet 3 mg PO HS Sleep 11/21/24
risperidone 1 mg tablet 0.5 mg PO HS agitation 11/21/24
clopidogrel 75 mg tablet 75 mg PO DAILY #30 tabs 11/23/24
spironolactone 25 mg tablet 12.5 mg (1/2 x 25 mg) PO DAILY #30 tabs 11/23/24
furosemide 40 mg tablet (Lasix) 40 mg PO DAILY #30 tabs 11/24/24
Home Medication Changes
Pending Results: No
[2024-11-24 11:16] VITALS: BP 115/55
--- NOTE | 2024-11-24 11:31 | CHAP ---
Mr. Addison was sitting in the chair, speaking some of his thoughts. Emotional support provided.
== END 2024-11-24 12:42 | disposition home or self-care (01) | DRG 280 ==
LOC: 2 NORTH 19:44
PROVIDERS: Emergency Medicine; Internal Medicine; Nurse Practitioner; Nurse Practitioner Family; ADMITTING PHYSICIAN Hospitalist; ATTENDING PHYSICIAN Hospitalist; EMERGENCY PHYSICIAN Student in an Organized Health Care Education/Training Program; FAMILY PHYSICIAN Student in an Organized Health Care Education/Training Program; OTHER PHYSICIAN Internal Medicine Cardiovascular Disease
PROC: 5A09357 Assistance with Respiratory Ventilation, Less than 24 Consecutive Hours, Continuous Positive Airway Pressure (ICD-10-PCS; 2024-11-21)
DX: I11.0 Hypertensive heart disease with heart failure (principal); I50.33 Acute on chronic diastolic (congestive) heart failure; I21.4 Non-ST elevation (NSTEMI) myocardial infarction; J96.01 Acute respiratory failure with hypoxia; I63.9 Cerebral infarction, unspecified; E87.20 Acidosis, unspecified; Z11.52 Encounter for screening for COVID-19; E87.5 Hyperkalemia; R13.0 Aphagia; Z95.2 Presence of prosthetic heart valve; I35.1 Nonrheumatic aortic (valve) insufficiency; E66.9 Obesity, unspecified; Z68.28 Body mass index [BMI] 28.0-28.9, adult; E78.5 Hyperlipidemia, unspecified; F32.A Depression, unspecified; Z79.82 Long term (current) use of aspirin; Z79.899 Other long term (current) drug therapy; F10.11 Alcohol abuse, in remission
CPT/HCPCS: 71045; 80048; 80053; 80061; 83605; 83880; 84443; 84484; 85025; 85027; 85730; 87040; 87502; 87811; 93005; 93306; 94640; 94660; 96374; 96375; 97163; 97167; 99291

== ENCOUNTER 2024-11-26 09:12 | Emergency (ER) | payer MEDICARE, OTHER, SELFPAY ==
[2024-11-26 09:20] VITALS: BP 116/74
[2024-11-26 11:40] VITALS: BP 107/78
--- NOTE | 2024-11-26 11:50 | ED.GENMED ---
History of Present Illness
General
Chief Complaint: Fall
Source: patient and spouse
Exam Limitations: none
Time Seen by Provider: 11/26/24 11:29
History of Present Illness
History of Present Illness:
Patient tripped and fell. Lost his balance. No syncope. Hit his left head. Abrasion of the left elbow. Tetanus less than 10. Fell yesterday for different reason. No specific complaints denying severe headache neck pain chest pain shortness of
breath abdominal pain etc. Has ambulated and appears fine per his
Past History
Past History
ED Past Medical History: HTN and Other ( Aortic stenosis)
ED Past Surgical History: None
Social History
Tobacco: Non-smoker
Alcohol: Chronic alcoholic
Drug: None
Personal:
Living: with family
Review of Systems
Review of Systems
All Other Systems: Not applicable
Phy Exam
Physical Exam
Physical Exam:
TRAUMA EXAM:
VITAL SIGNS: Vital signs reviewed, cooperative
DISTRESS: No active disease
EYES: Pupils reactive, no orbital trauma
NOSE: No deformity or epistaxis
FACE AND SCALP: No scalp trauma, external canals no blood. 3 cm laceration left eyebrow
NECK: Supple nontender
BACK: Back nontender, pelvis stable to compression
RESPIRATORY: No distress, breath sounds normal, no tender chest wall
CARDIAC: No murmur, pulses equal and strong
ABDOMEN: Soft nontender bowel sounds normal
SKIN: Abrasion left arm. Dressing to the right elbow old. Bandage to the right knee with abrasion old.
EXTREMITIES: Nontender
NEUROLOGICAL: Alert, oriented, no motor deficits
PSYCH: Mood affect normal
Course
Orders/Labs/Results
Orders:
Orders
11/26/24 09:25
CT Head W/o Iv Contrast Urgent
Comment:
Reason For Exam: fall, +head strike on plavix
Vital Signs
Initial and Last Documented VS:
Initial Vital Signs
Temp Pulse Resp BP Pulse Ox
98.9 F 85 18 116/74 98
11/26/24 09:20 11/26/24 09:20 11/26/24 09:20 11/26/24 09:20 11/26/24 09:20
Last Documented Vital Signs
Temp Pulse Resp BP Pulse Ox
98.9 F 76 17 107/78 97
11/26/24 09:20 11/26/24 11:40 11/26/24 11:40 11/26/24 11:40 11/26/24 11:40
Procedures
Laceration Closure
Left upper eyebrow:
Status of Wound: clean
Size of Wound in cm: 3
Description of Wound Edges: ragged
Preparation: cleaned with saline and cleaned with Betadine
Anesthesia: 1% Lidocaine with epi
Revision/Debridement: routine- no revision
Wound exploration: explored to base- no FB
Type of Closure: single layer closure
Skin Closure Material: 5-0 nylon
Number of sutures: 5
MDM/Problems Addressed
Differential Diagnosis Includes:
Patient not describing syncope. 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 No other signs of major trauma. Medically stable for discharge
*Radiology
Radiology exam reviewed: radiology read reviewed (No acute findings)
*Pulse Oximetry
SaO2: 97
Oxygen Mode of Delivery: Room air
Patient hypoxic: no (98)
*Critical Care Note
Total Time (30-74mins, 75-104mins- exclusive of procedures): Not Applicable
ED Attending Note
-
Portions of this chart may have been created with voice recognition software.� Occasional wrong word or��sound alike� substitutions may have occurred due to the inherent limitations of voice recognition software.
Discharge Plan
Departure
Patient Disposition: Home (Routine Discharge)
Date of Disposition: 11/26/24
Time of Disposition: 11:53
Patient with high blood pressure during this ER visit?: No
Discharge Problem:
Fall/head injury, Facial laceration, Multiple abrasions
Instructions: Head Injury in Adults (DC), Laceration Repair With Stitches (DC), Preventing falls in adults, Skin Abrasions (DC)
Prescriptions:
No Action
aspirin 81 MG tablet,chewable
81 mg PO DAILY
risperidone 0.5 mg Tablet,Disintegrating
0.25 mg PO BIDPRN PRN (Reason: agitation) Qty: 30 0RF
atorvastatin [Lipitor] 20 mg Tablet
20 mg PO QPM
fluoxetine 10 mg Tablet
30 mg PO DAILY
melatonin 3 mg Tablet
3 mg PO HS
acetaminophen [Tylenol Extra Strength] 500 mg Tablet
1,000 mg PO Q6HPRN PRN (Reason: mild pain)
risperidone 1 mg tablet
0.5 mg PO HS
clopidogrel 75 mg Tablet
75 mg PO DAILY Qty: 30 0RF
spironolactone 25 mg Tablet
12.5 mg PO DAILY Qty: 30 0RF
furosemide [Lasix] 40 mg tablet
40 mg PO DAILY Qty: 30 0RF
Activity Restrictions/Additional Instructions:
Suture removal in about a week
Interventions
Interventions:
*Risk Screen - Suicide Last Done: 11/26/24 09:20
*General Assessment Last Done: 11/26/24 09:20
*Neglect/Abuse Screening Last Done: 11/26/24 11:41
*ED COVID-19 Vaccine History Last Done: 11/26/24 11:41
ED-Musculoskeletal Assessment Last Done: 11/26/24 11:41
ED- Neurological Assessment Last Done: 11/26/24 11:41
ED-Skin Assessment Last Done: 11/26/24 11:41
Discharge Date and Time
Print Language: CROATIAN
== END 2024-11-26 12:36 | disposition home or self-care (01) ==
LOC: EMR 09:12
PROVIDERS: EMERGENCY PHYSICIAN Emergency Medicine; FAMILY PHYSICIAN Family Medicine
DX: S09.90XA Unspecified injury of head, initial encounter (principal); S01.112A Laceration without foreign body of left eyelid and periocular area, initial encounter; S50.312A Abrasion of left elbow, initial encounter; I35.0 Nonrheumatic aortic (valve) stenosis; I10 Essential (primary) hypertension; F10.20 Alcohol dependence, uncomplicated; Z79.82 Long term (current) use of aspirin; Z79.02 Long term (current) use of antithrombotics/antiplatelets; Z86.73 Personal history of transient ischemic attack (TIA), and cerebral infarction without residual deficits; W01.10XA Fall on same level from slipping, tripping and stumbling with subsequent striking against unspecified object, initial encounter
CPT/HCPCS: 99284; 12011; 70450

== ENCOUNTER 2025-01-02 12:26 | Inpatient (IN) | payer MEDICARE, OTHER, SELFPAY ==
[2025-01-02] VITALS (14 sets, daily range): BP systolic 91–119; BP diastolic 55–73; BMI 32.3; BMI 31.0
--- NOTE | 2025-01-02 09:28 | ED.GENMED ---
History of Present Illness
General
Chief Complaint: Breathing Problem
Source: patient
Exam Limitations: none
Time Seen by Provider: 01/02/25 09:07
Nursing documentation reviewed up to this point in time: agreed with
History of Present Illness
History of Present Illness:
Patient with history of CVA and October 2024, on aspirin and Plavix, and congestive heart failure on Lasix, presents to ED secondary to worsening shortness of breath with increased leg swelling, despite increasing dose of Lasix at home. Denies chest
pain. Denies dizziness. Denies fever or chills. Denies vomiting or diarrhea. Denies dizziness. reports approximately 15 pound weight gain since being discharged in the hospital last month, as well as approximately 5 pound weight gain since
yesterday.
Past History
Past History
ED Past Medical History: HTN and Other ( Aortic stenosis)
ED Past Surgical History: None
Social History
Tobacco: Non-smoker
Alcohol: Chronic alcoholic
Drug: None
Personal:
Living: with family
Review of Systems
Review of Systems
Allergies reviewed?: Yes
All Other Systems: ROS reviewed and negative except as documented in HPI and ROS
Constitutional: Reports no symptoms
Respiratory: Reports trouble breathing; Denies cough
Cardiac: Reports no symptoms; Denies chest pain or palpitations
ABD/GI: Reports no symptoms; Denies vomiting or diarrhea
Musculoskeletal: Reports edema
Skin: Reports no symptoms
Neurological: Reports no symptoms; Denies dizzy
Phy Exam
Physical Exam
Physical Exam:
Physical Exam
General: mild respiratory distress, not acutely ill. afebrile.
Head: nc/at. eomi
Neck: supple. no meningeal signs.
Heart: s1/s2 regular rate and rhythm
Lungs: mild respiratory distress. diminished breath sounds bilaterally
Abdomen: normal bowel sounds. not tender.
Neuro: alert and oriented x 3. no focal neurological deficits
Skin: no rash
Psychiatric: well kept. interactive and cooperative
Extremities: LE b/l, pitting edema. no calf tenderness.
Scores
Heart Failure Risk
Heart Failure Risk Score: Yes
History of Stroke or TIA: No
History of intubation for respiratory distress: No
Heart rate on ED arrival >/= 110: No
SaO2 <90% on arrival on room air: No
HR >/=110 during 3min walk test (or too ill to perform test): No
ECG has acute ischemic changes: No
Urea >/=12mmol/L (BUN 33.6mg/dL): No
Serum CO2>/=35mmol/L: No
Troponin I or T elevated to GA Level (0.4mg/dL): No
NT-proBNP >/=5,000ng/L (5,000pg/ml): Yes
HF Risk Score: 1
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
Course
Orders/Labs/Results
Orders:
Orders
01/02/25 Breakfast
Cholesterol Lowering
At Your Request: Full Participation
Does patient need a safe tray?: No
Cholesterol Lowering: Sodium, 2 Gram
01/02/25 09:10
Electrocardiogram (*1) Urgent
Reason for Study: Shortness of Breath
EKG- Treatment ONCE
01/02/25 09:11
CR Chest - 2 Views Urgent
Comment:
Reason For Exam: sob
01/02/25 09:26
CT Head W/o Iv Contrast Urgent
Comment:
Reason For Exam: speech impairment/gait abnormality
01/02/25 09:28
Furosemide [Lasix] 40 mg IV NOW STA
01/02/25 09:48
Complete Blood Count/With Diff Urgent
01/02/25 10:58
CARDIOLOGY CONSULT Routine
Consulting Provider: Bob Prescott
Was physician already notified: Yes
Reason for consult: CHF
Basic Metabolic Panel Urgent
NT-proBNP Urgent
Troponin I Urgent
01/02/25 11:40
Admit/Transfer Patient As Directed
Co-Sign Provider:
Level of Care: Inpatient admission
Assign to:: IVU
Physician / Group: Franco
Diagnosis: CHF
Reason for Hospitalization: CHF
Expected length of stay greater than two midnights?: Yes
ELOS- Estimated Length of Stay in days: 5
I certify the patient meets the requirements for IP care: Yes
PRN Pain Medication Management As Directed
May give lesser potent ordered pain med per pt: Yes
preference::
Protocol:: Medication orders for pain may be administered in a
manner that supports deferring to patient preference
when the pt is:
- Requesting an ordered lesser potent pain medication.
Least to most potent pain medications are defined
as: acetaminophen < NSAID < tramadol < opioids
(morphine, oxycodone, hydromorphone).
- Requesting a lesser dose of the same medication IF
ORDERED.
- Requesting a less intrusive route of administration
if both routes are prescribed by the provider (PO <
IV).
01/02/25 11:41
Code Status As Directed
Resuscitation Status: Do not resuscitate
Reached after discussion with pt or family/Healthcare POA: Yes
DNR Bracelet Application ONCE
01/02/25 12:07
Echo Follow-up Study Routine
Reason for Study: SOB, CHF
Comment: Per RM: last echo 11/22/24- reassess EF, assess for effusion, hx TAVR
01/02/25 13:25
Ferritin Routine
Folate Routine
Iron Routine
Rfdkj-Gobl-Mlumrys Routine
Magnesium Routine
Potassium Routine
Total Iron Binding Routine
Vitamin B12 Routine
01/02/25 17:01
Heparin 5,000 units SC Q8
Risperidone Disintegrating [Risperdal M-Tab (Orally Disintegrating)] 0.25 mg PO DAILYPRN PRN agitation
01/02/25 17:01
HF DIETARY CONSULT Routine
HF EDUCATOR CONSULT Routine
Comment:
Activity As Directed
Activity Level: Out of Bed-Early Mobility
Intake/ Output As Directed
Frequency: Per unit guidelines
Patient Education As Directed
Type: CHF folder
Comment: give on admission. Document in Interdisciplinary Education record
Sleep Apnea Assessment by RN As Directed
Comment:
Physician Instructions:
Vital Signs As Directed
Frequency: Other
Additional Instructions:: Q12 or per unit guidelines if more frequent.
Weight As Directed
Frequency: Daily
Type of Scale: Standing Scale
Comment: Daily morning weight. If unable to stand, use balanced bed scale.
Weight As Directed
Frequency: Once
Type of Scale: Standing Scale
Comment: Upon Admission. If unable to stand, use balanced bed scale.
Pulse Ox/cont/shift [RESP] Routine
Quantity: 1
Special Instructions: Daily pulse oximetry at rest. If greater than 92% at rest also obtain pulse oximetry
while ambulating as tolerated.
DX Deep Vein Thrombosis Video Routine
01/02/25 20:00
Risperidone [Risperdal] 0.5 mg PO BID
01/02/25 22:00
Melatonin 6 mg PO HS
01/03/25 05:30
Basic Metabolic Panel IN AM
Complete Blood Count/With Diff IN AM
Magnesium IN AM
Phosphorus IN AM
TSH Reflex To Free T4 IN AM
01/03/25 08:00
Aspirin Chewable [Low Strength Aspirin] 81 mg PO DAILY
Clopidogrel Bisulfate [Plavix] 75 mg PO DAILY
Dapagliflozin [Farxiga] 10 mg PO DAILY
01/04/25 06:00
Basic Metabolic Panel IN AM
01/05/25 06:00
Basic Metabolic Panel IN AM
Abnormal Lab Results
01/02/25 01/02/25
09:48 10:58
RBC 3.07 L 10^6/uL
(4.70-6.10)
Hgb 10.0 L g/dL
(13.0-18.0)
Hct 31.4 L %
(39.0-52.0)
MCV 102.3 H fL
(80.0-94.0)
MCH 32.6 H pg
(27.0-31.0)
MCHC 31.8 L g/dL
(33.0-37.0)
RDW 18.6 H %
(11.5-14.5)
MPV 10.6 H fL
(7.4-10.4)
Absolute Lymphs (auto) 0.6 L 10^3/uL
(1.2-3.4)
Absolute Monos (auto) 0.7 H 10^3/uL
(0.1-0.6)
Neutrophils % 78.0 H %
(42.2-75.2)
Lymphocytes % 9.0 L %
(20.5-51.1)
Monocytes % 11.5 H %
(1.7-9.3)
BUN 27 H mg/dl
(9-20)
Troponin I 0.046 H* ng/ml
01/02/25 09:48
01/02/25 10:58
Vital Signs
Initial and Last Documented VS:
Initial Vital Signs
Temp Pulse Resp BP Pulse Ox
98.6 F 94 18 91/64 93
01/02/25 09:03 01/02/25 09:03 01/02/25 09:03 01/02/25 09:03 01/02/25 09:03
Last Documented Vital Signs
Temp Pulse Resp BP Pulse Ox
97.8 F 89 18 94/63 89
01/03/25 07:12 01/03/25 08:16 01/03/25 07:12 01/03/25 08:16 01/03/25 08:00
MDM/Problems Addressed
MDM/Problems Addressed:
History and exam concerning for recurrent fluid overload, despite medication adjustment as an outpatient. As such, patient will be admitted for further eval and treatment, including IV diuresis.
*Pulse Oximetry
SaO2: 93
Oxygen Mode of Delivery: Room air
Patient hypoxic: no
*EKG
Interpreted by ED Provider?: Yes
EKG Intrepretation Date: 01/02/25
Heart Rate: 90
Rate: normal
Rhythm: sinus
[place]: normal axis
Interval: normal interval
Ischemia: T-wave inversion
*Critical Care Note
Total Time (30-74mins, 75-104mins- exclusive of procedures): Not Applicable
ED Attending Note
-
Portions of this chart may have been created with voice recognition software.� Occasional wrong word or��sound alike� substitutions may have occurred due to the inherent limitations of voice recognition software.
Discharge Plan
Departure
Patient Disposition: Admit
Date of Disposition: 01/02/25
Time of Disposition: 10:30
Admit to: Telemetry
Presentation/result/management discussed w/ accepting MD/DO: Hospitalist
Discharge Problem:
Acute exacerbation of CHF (congestive heart failure)
Interventions
Interventions:
*Risk Screen - Suicide Last Done: 01/02/25 09:03
*General Assessment Last Done: 01/02/25 09:03
*Neglect/Abuse Screening Last Done: 01/02/25 09:03
*ED- Fall Risk Assessment Last Done: 01/02/25 09:27
*ED COVID-19 Vaccine History Last Done: 01/02/25 09:27
*Nursing Disposition Last Done: 01/02/25 16:38
ED- Cardiac Assessment Last Done: 01/02/25 15:03
ED- Pulmonary Assessment Last Done: 01/02/25 15:03
Discharge Date and Time
Discharge Date/Time: 01/02/25 16:40
--- NOTE | 2025-01-02 09:41 | PHANOTE ---
med rec note-called care home at [phone] for missing paperwork to be faxed over
[2025-01-02] MEDS: LASIX 40 MG IV (09:52)
[2025-01-02 10:12] LABS: Hematocrit 31.4 % (39.0-52.0); Hemoglobin 10.0 g/dL (13.0-18.0); Mean Corp Hgb Conc. 31.8 g/dL (33.0-37.0); Mean Corpuscular Volume 102.3 fL (80.0-94.0); Nucleated Red Blood Cells % 0.5 % (-); Platelet Count 161 10^3/uL (130-400); Red Cell Dist. Width 18.6 % (11.5-14.5)
[2025-01-02 11:21] LABS: Blood Urea Nitrogen 27 mg/dl (9-20); Calcium 9.4 mg/dl (8.4-10.2); Carbon Dioxide 25 mmol/L (22-30); Chloride 107 mmol/L (98-107); Estimated Creatinine Clearance 87 ml/min; Glucose 98 mg/dl (70-99); Sodium 141 mmol/L (135-145); eGFR > 60.00
[2025-01-02 11:36] LABS: Troponin I 0.046 ng/ml
--- NOTE | 2025-01-02 11:47 | HPS.HSE ---
Family Physician
-
Family Physician: Ramirez Meaz, DO
Chief Complaint
-
SOB
History of Present Illness
79yo M with PMHx of CVA with Wernicke aphasia and dementia, Hx of s/p Almaz mechanical valve, HLD, recent admission 1.5mo ago for NSTEMI and CHF exacerbation, severe regurgitation though Almaz valve brought by due to worsening SOB on
exertion and weight gain of 15lbs (5lbs of which gained over past 24h before admission). Patient cannot provide comprehensive Hx due to expressive aphasia.
Due to advanced neurological deterioration previsously family agreed with non-invasive approach of his and NSTEMI.
Medical History
Past Medical History
Past Medical History: Reports Other
Additional Past Medical History:
See above
Past Surgical History: Reports Other
Additional Past Surgical History:
See Above
Social History
Unable to obtain full social history at this time due to: Other (aphasia)
Tobacco: Non-smoker
Alcohol: None
Family History
Family History: Not pertinent
Allergies / Home Medications
Allergies reflects when Allergies were last updated in [facility].
Home Medications with original date entered in [employer]
Allergy/Medication List:
Allergies
Allergy/AdvReac Type Severity Reaction Status Date / Time
pollen extracts Allergy Intermediate RUNNY NOSE Verified 01/02/25 09:03
AND
SNEEZING
Home Medications
aspirin 81 mg chewable tablet 81 mg PO DAILY Blood Clot Prevention/Tx 02/13/19
acetaminophen 500 mg tablet (Tylenol Extra Strength) 1,000 mg PO Q6HPRN PRN mild pain 11/21/24
atorvastatin 20 mg tablet (Lipitor) 20 mg PO QPM High Cholesterol 11/21/24
melatonin 3 mg tablet 6 mg PO HS Sleep 11/21/24
risperidone 1 mg tablet 0.5 mg PO BID agitation 11/21/24
clopidogrel 75 mg tablet 75 mg PO DAILY #30 tabs 11/23/24
spironolactone 25 mg tablet 12.5 mg (1/2 x 25 mg) PO DAILY #30 tabs 11/23/24
empagliflozin 10 mg tablet (Jardiance) 10 mg PO DAILY 01/02/25
fluoxetine 40 mg capsule 40 mg PO DAILY 01/02/25
furosemide 80 mg tablet (Lasix) 80 mg PO BID 01/02/25
risperidone 0.5 mg disintegrating tablet 0.25 mg PO DAILYPRN PRN agitation 01/02/25
Review of Systems
-
Unable to obtain full review of systems at this time due to: Other (aphasia)
History Source: Patient
Cardiac: Denies Chest Pain
Abdomen/GI: Denies Abdominal Pain
Physical Exam
Vital Signs
Vital Signs
Temp Pulse Resp BP Pulse Ox
98.6 F 90 38 94/71 93
01/02/25 09:03 01/02/25 10:45 01/02/25 10:45 01/02/25 10:00 01/02/25 10:45
Physical Exam
General: Well Nourished, No Apparent Distress and Obese
HEENT: NormoCephalic, Anicteric and Moist mucous membranes
Respiratory: Clear; No Wheezes or Rhonchi
Cardiac: S1/S2, Regular Rhythm and Murmur; No Tachycardia
GI: Soft, Non Tender and Non Distended
Genito-urinary: No costovertebral tender
Musculoskeletal: No Clubbing, No Cyanosis, Edema, Left Lower Extremity and Edema, Right Lower Extremity
Skin: Warm; No Rash or Jaundice
Neuro: Awake, Alert and Other (Aphasia, expressive )
Psych: Calm
Laboratory Results
-
01/02/25 09:48
01/02/25 10:58
Laboratory Results
Total Bilirubin Cancelled 01/02/25 10:58
AST Cancelled 01/02/25 10:58
ALT Cancelled 01/02/25 10:58
Alkaline Phosphatase Cancelled 01/02/25 10:58
Troponin I 0.046 ng/ml H* 01/02/25 10:58
Data Reviewed
-
Lab Data: Labs Reviewed by me
Impression/Plan
-
A/P:
#Acute on chronic HFmrEF
# s/p Almaz valve @2019
#CAD, stable
Echo on 11/22/24 with Ef 45-50%, LV Wall Motion: mid and apical inferior wall, apex, entire anterior wall, mid and apical inferior septum, apical lateral segment, and basal inferior segment are abnormal, 26 mm Monroe Almaz TAVR with peak/mean
gradients of 47/28 mmHg. Severe aortic regurgitation, Mild to moderate mitral regurgitation, Stage II diastolic dysfunction
troponin improved comparing to prior, curtrent increase most likely 2/2 CHF (non-ischemic myocardial injury). Follow trop
cont ASA, Plavix, statin, BB
LAsix as per card, daily weights, follow electrolytes and Cr
hold Aldactone due to hypotension on admission
Chest XR:Cardiomegaly with mild interstitial edema and a new small/moderate right-sided pleural effusion with adjacent atelectasis
#GOC
readmission with failure for outpatient mgmt and poor functional status for invasive procedures as agreed with family
If no significant improvement - might be for palliative care as [id number] cardiac disease suspected
#Obesity
BMI 32.3
decrease calorie intake
#CVA with residual Wernikie aphasia
#HLD
cont home meds
Head CT with no acute pathology
patient with slow cognitive, speech and gait deterioration over past monthes
#CHronic anemia
check for deficiencies
DVT ppx hep
DNR/DNI - discussed in details with bedside
I have spent at least 76min reviewign chart, test results, communication with consultants, family and providing direct patient care
--- NOTE | 2025-01-02 12:00 | W.PN.CD ---
Addendum entered and electronically signed by Bob Prescott MD 01/02/25 12:29:
I saw and examined the patient.
The TANK SETTER's note was reviewed and I agree with the note.
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
[place]. He is and is with him at the bedside. Patient's had progressive shortness of breath over the last 2 weeks and increased edema and weight gain. There has been adjustments in his diuretics and he also was given some metolazone
earlier this week without improvement. Patient seen in the office today. Due to failed outpatient treatment of of acute on chronic left heart failure patient is now being admitted to the hospital. Currently he is not in respiratory distress he is
awake and cooperative he follows some commands but has significant aphasia. He has bilateral lower extremity edema extending up through the thighs. He appears to have asymptomatic low blood pressure with systolics in low 90s. Challenging
management issue with the patient continuing to have weight gain despite diuretic therapy. He also has severe aortic regurgitation and suspected obstructive coronary disease with medically managed NSTEMI on last hospitalization. It appears based
on last hospitalization that is the patient and the 's wishes that he does not have invasive procedures. I confirm this in discussion with his Kerri today. Based on the above we will try to optimize medical therapy for CAD, valvular
heart disease and left heart failure. We will continue to assess his response to treatment and also will assess long-term treatment goals.
- IV Lasix 80 mg twice daily
- Follow-up echocardiogram to reassess left ventricular function and to see if there is any further reduction since last hospitalization.
- Monitor weights and renal function
- Monitor blood pressure with diuresis
- If patient does not have significant output with IV Lasix then would add metolazone
Original Note:
Today's Communication / Plan
-
Will add IV lasix (after potassium comes back)
repeat follow-up echo study
Impression / Plan
-
79-year-old male (patient of Dr. Macias) with severe aortic stenosis status-post TAVR (03/2019) and subsequent progressive severe aortic regurgitation, CVA, hypertension, and hyperlipidemia. He was hospitalized about 1 month ago with CHF (treated
with diureses) and NSTEMI (plan for medical management) who came to the cardiology office today and there was weight gain, SOB, and edema despite increase in OP diuretics. He was sent to the ER for further evaluation. Full H and P uploaded to chart.
Qichd-hh-zinppkj HFmEF: severe exacerbation, requiring hospitalization (failed OP management)
-echo 11/22/24: EF 45-50%, mid and apical inferior wall, apex, entire anterior wall, mid and apical inferior septum, apical lateral segment, and basal inferior segment are abnormal, stage II diastolic dysfunction suggestive of abnormal relaxation and
increased filling pressures, 26 mm Monroe Almaz TAVR with peak/mean gradients of 47/28 mmHg. Severe aortic regurgitation. Mild to moderate mitral regurgitation.
-Lasix 80 mg IV BID (will order after potassium is back); BP is borderline so will need to monitor closely. IV Lasix requires intensive monitoring.
-regarding CM (likely ICM)- continue MRA as BP will tolerate, continue Jardiance. Avoiding BB with severe AR.
-will repeat follow-up echo study here
Recent NSTEMI:
-no CP
-continue ASA, Plavix, statin
-treated medically as noted
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
-now with severe regurgitation and moderate stenosis of TAVR
-conservative management per Dr. Macias and family.
HTN:
-BP on low side in ER
-monitor with diuresis
CVA: residual cognitive deficits
Abnormal troponin:
-likely acute non-ischemic myocardial injury in setting of CHF
-trend
-obtain echo
-no CP
Physical Exam
Vital Signs/Labs
Vital Signs
Temp Pulse Resp BP Pulse Ox
98.6 F 90 38 94/71 93
01/02/25 09:03 01/02/25 10:45 01/02/25 10:45 01/02/25 10:00 01/02/25 10:45
01/01/25 01/02/25 01/03/25
06:59 06:59 06:59
Actual Weight 99.1 kg
01/02/25 09:48
Magnesium Cancelled 01/02/25 10:58
01/02/25 01/02/25
09:48 10:58
Itx-L-Kvqlhvppwde Pept Cancelled 0694
LAB Results
01/02/25 01/02/25
09:48 10:58
Troponin I Cancelled 0.046 H*
Physical Exam
Constitutional: No acute distress
EENT: Anicteric
Cardiovascular: Rhythm & rate is regular, Pedal edema present and Diastolic murmur present
Respiratory: Respiratory effort normal and Lungs clear to auscul.
Neuro/Psych: Alert
Data Reviewed
-
Date of Service: January 02, 2025
EKG: Tracing Personally Visualized and interpreted (SR with RBBB, T wave inversions anterolaterally) and Other (SR)
Echo: Report Reviewed by me and Ordered by me
Labs: Labs Reviewed by me
[2025-01-02 13:48] LABS: Potassium 4.1 mmol/L (3.5-5.1)
[2025-01-02 14:47] LABS: Troponin I 0.045 ng/ml
[2025-01-02 14:58] LABS: ALT (SGPT) 16 U/L (0-50); AST (SGOT) 24 U/L (17-59); Albumin 4.1 g/dl (3.5-5.0); Alkaline Phosphatase 78 U/L (38-126); Iron 97 ug/dl (49-181); Magnesium 2.3 mg/dl (1.6-2.3); Total Protein 6.5 g/dl (6.3-8.2)
[2025-01-02 15:07] LABS: Total Iron Binding Capacity 308 ug/dl (261-462)
[2025-01-02 16:13] LABS: Ferritin 130.0 ng/ml (17.9-464.0)
[2025-01-02 17:12] LABS: Folate 13.6 ng/ml (2.76-20); Vitamin B12 276 pg/ml (239-931)
[2025-01-02] MEDS: HEPARIN 5000 UNITS SC ×2 (17:36→22:54)
[2025-01-02] MEDS: FLUSH (NSS) 2 FLUSH IV (17:37)
[2025-01-02] MEDS: LASIX 80 MG IV (17:37)
[2025-01-02] MEDS: RISPERDAL M-TAB (ORALLY DISINTEGRATING) 0.25 MG PO (17:47)
--- NOTE | 2025-01-02 18:16 | PTCARENOTE ---
Received the patient from the ED in a stretcher. The patient could only tell me his name and birthday. He was unable to tell me where he was or the date. He ambulated to the bed x1 assist. He has generalized weakness. He was dyspneic when ambulating
to the bed. His RR was 28 and his breaths were labored. He was 91-93% on RA. His lungs were coarse with crackles on the right 1/[address] way up. NSR was noted on the monitor. He has expressive aphasia. His voice becomes louder when he is asked questions
and became agitated. PRN Risperdal given as ordered as his , who is a retired RN, stated that he has not has his Risperdal today.
[2025-01-02] MEDS: RISPERDAL 0.5 MG PO (19:58)
[2025-01-02] MEDS: MELATONIN 6 MG PO (22:54)
[2025-01-02 23:24] LABS: Troponin I 0.051 ng/ml
--- NOTE | 2025-01-02 23:39 | PTCARENOTE ---
Received pt @ change of shift. Awake and alert, oriented to person only. Bed alarm in place for patient safety. Pt tachypneic and increases with anxiety. Becomes very frustrated and agitated at times. BP, HR and 02 stable-- NSR w/ PVCs and
occasional bigeminy. Trending trops. Discussed plan of care with pt and , bedside. Verbalizes understanding. Call benitez within reach.
[2025-01-03] VITALS (10 sets, daily range): BP systolic 91–132; BP diastolic 56–81; PULSE 82–85; BMI 30.8
[2025-01-03] MEDS: LASIX 80 MG IV ×2 (05:15→16:33)
[2025-01-03] MEDS: MORPHINE SULFATE 1 MG IV (05:37)
[2025-01-03 05:45] LABS: Hematocrit 33.0 % (39.0-52.0); Hemoglobin 10.5 g/dL (13.0-18.0); Mean Corp Hgb Conc. 31.8 g/dL (33.0-37.0); Mean Corpuscular Volume 102.2 fL (80.0-94.0); Nucleated Red Blood Cells % 0.8 % (-); Platelet Count 162 10^3/uL (130-400); Red Cell Dist. Width 18.3 % (11.5-14.5)
[2025-01-03 05:59] LABS: B.E. 1.5 mmol/L; HCO3 26.6 mmol/L (21-28); O2 Saturation % 98.1 % (94-98); PCO2 43 mmHg (35-48); PO2 99 mmHg (83-108)
--- NOTE | 2025-01-03 06:07 | W.PN.UPDATE ---
Update Note
Progress Note Update
Nursing reports increased oxygen requirement of 4 L NC to maintain saturation of 94% (previously on room air) Lasix 80 mg IV x1, morphine 1mg IV for increased work of breathing. PCXR and ABG added. call worker CBC Adenaike aware via TT.
[2025-01-03 06:16] LABS: Blood Urea Nitrogen 25 mg/dl (9-20); Calcium 8.7 mg/dl (8.4-10.2); Carbon Dioxide 23 mmol/L (22-30); Chloride 107 mmol/L (98-107); Estimated Creatinine Clearance 76 ml/min; Glucose 133 mg/dl (70-99); Magnesium 2.2 mg/dl (1.6-2.3); Potassium 4.1 mmol/L (3.5-5.1); Sodium 138 mmol/L (135-145); eGFR > 60.00
[2025-01-03 06:22] LABS: Troponin I 0.050 ng/ml
--- NOTE | 2025-01-03 06:28 | PTCARENOTE ---
@ 0515, pt called out to RN. Pt was tachypneic (resp. 30), sweating, less responsive and O2 level was 86%. Audible wheezing and wet sounding. BP 132/78. Denies chest pain and feeling SOB, although RN observed stats above. RN put 4L NC, sat pt more
upright in bed, and reached out to Elsy Heredia NP. Elsy came to see pt, ordered chest x-ray, EKG, ABG, morphine and directed RN to give 0800 Lasix now-- see MAR. [employer] notified by Elsy Heredia. Awaiting results at this time.
[2025-01-03] MEDS: PLAVIX 75 MG PO (08:22)
[2025-01-03] MEDS: HEPARIN 5000 UNITS SC ×3 (08:22→22:57)
[2025-01-03] MEDS: LOW STRENGTH ASPIRIN 81 MG PO (08:22)
[2025-01-03] MEDS: RISPERDAL 0.5 MG PO ×2 (08:22→19:37)
[2025-01-03] MEDS: FARXIGA 10 MG PO (08:22)
--- NOTE | 2025-01-03 08:26 | W.PN.HOSP.TC ---
Today's Communication/Plan
-
se PN
Assessment / Plan
Assessment / Plan
79yo M with PMHx of CVA with Wernicke aphasia and dementia, Hx of s/p Almaz mechanical valve, HLD, recent admission 1.5mo ago for NSTEMI and CHF exacerbation, severe regurgitation though Almaz valve brought by due to worsening SOB, managed
for HFrEF exacerbation and worsening paravalvular regurgitation via Almaz AV.
A/P:
#Acute hypoxic respiratory failure 2/2 Acute on chronic HFmrEF
# s/p Almaz valve @2019
#CAD, stable
Echo on 11/22/24 with Ef 45-50%, LV Wall Motion: mid and apical inferior wall, apex, entire anterior wall, mid and apical inferior septum, apical lateral segment, and basal inferior segment are abnormal, 26 mm Monroe Almaz TAVR with peak/mean
gradients of 47/28 mmHg. Severe aortic regurgitation, Mild to moderate mitral regurgitation, Stage II diastolic dysfunction
troponin improved comparing to prior, curtrent increase most likely 2/2 CHF (non-ischemic myocardial injury). Follow trop remained stable without further increase
cont ASA, Plavix, statin, BB
LAsix as per card, daily weights, follow electrolytes and Cr
hold Aldactone due to hypotension on admission
Chest XR:Cardiomegaly with mild interstitial edema and a new small/moderate right-sided pleural effusion with adjacent atelectasis
Echo: EF 30-35%, TAVR with eccentric paravalvular aortic regurgitation. Overall based on current images the aortic regurgitation appears moderate in severity. Difference from Nov 2024 most likely 2/2 use of Echo contrast
#GOC
readmission with failure for outpatient mgmt and poor functional status for invasive procedures as agreed with family
If no significant improvement - might be for palliative care as cfo-hi-chkjm cardiac disease suspected
#Obesity
BMI 32.3
decrease calorie intake
#CVA with residual Wernikie aphasia
#HLD
cont home meds
Head CT with no acute pathology
patient with slow cognitive, speech and gait deterioration over past monthes
#Mild indirect bilirubinemia
#CHronic anemia
#Relative b12 deficiency
Replete B12
check LDH, haptoglobin
suspect cell destruction 2/2 AR and Almaz valve
DVT ppx hep
DNR/DNI - discussed in details with bedside
I have spent at least 56min reviewign chart, test results, communication with consultants, family and providing direct patient care
Anticipated Discharge: > 48 hours
Subjective/Interval History
-
Date of Service: January 03, 2025
Objective Data
-
Labs:
Laboratory Results
01/03/25 01/03/25
05:30 05:49
WBC 6.5
Hgb 10.5 L
Hct 33.0 L
Plt Count 162
HCO3 26.6
Sodium 138
Potassium 4.1
Chloride 107
Carbon Dioxide 23
BUN 25 H
Creatinine 0.9
Glucose 133 H
Calcium 8.7
Vital Signs:
Vital Signs
Temp Pulse Resp BP Pulse Ox
97.8 F 89 18 94/63 89
01/03/25 07:12 01/03/25 08:16 01/03/25 07:12 01/03/25 08:16 01/03/25 08:00
I&O
01/02/25 01/03/25 01/04/25
06:59 06:59 06:59
Intake Total 240 / 240
Output Total 6575 / 6575
Balance -6335 / -6335
Review of Systems
-
Unable to obtain full review of systems at this time due to: Other (aphasia)
History Source: Patient
Physical Exam
-
General: No Apparent Distress
Respiratory: Clear to Auscultation
Cardiac: Regular Rhythm
GI: Soft, Nontender and Nondistended
Musculoskeletal: No Clubbing, No Cyanosis, Edema, Right Lower Extrem and Edema, Left Lower Extrem
Neuro: Awake, Alert, Oriented and AO x 3
Psych: Calm
--- NOTE | 2025-01-03 08:57 | PTCARENOTE ---
Assumed care at 0700. Patient alert to self, expressive aphasia, follows commands, cooperative. NSR BB, murmur, +3 pedal edema, +2 b/l lower legs. Condom catheter in place, yellow urine. Oxygen 4 liters NC 97% , crackles at left bases, RR 25-30 at
rest, BP 94/63. Breakfast ordered, call benitez in reach
[2025-01-03 08:58] LABS: LDH 333 U/L (120-246)
--- NOTE | 2025-01-03 09:08 | W.PN.CD ---
Today's Communication / Plan
-
-Continue Lasix 80 mg IV BID.
-Continue conservative management; palliative care has been recommended.
Impression / Plan
-
79-year-old male (patient of Dr. Macias) with severe aortic stenosis status-post TAVR (03/2019) and subsequent progressive severe aortic regurgitation, CVA, hypertension, and hyperlipidemia. He was hospitalized about 1 month ago with CHF (treated
with diureses) and NSTEMI (plan for medical management) who came to the cardiology office today and there was weight gain, SOB, and edema despite increase in OP diuretics. He was sent to the ER for further evaluation. Full H and P uploaded to chart.
Nrcoj-yb-yxivobs HFmEF (EF 30-35%):
-severe exacerbation, requiring hospitalization (failed OP management)
-Continue Lasix 80 mg IV BID, requires intensive monitoring.
-regarding CM (likely ICM)- continue MRA as BP will tolerate, continue Jardiance. Avoiding BB with severe AR.
-Futher GDMT limited by blood pressure.
-No SGLT2i secondary to concern with compliance and cost.
-Continue conservative management; palliative care has been recommended.
Pleural Effusion:
-Noted on Echo.
-Patient likely not be cooperative fror thoracentesis.
-Continue Lasix.
Recent NSTEMI:
-no CP
-continue ASA, Plavix, statin
-treated medically as noted
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
-now with severe regurgitation and moderate stenosis of TAVR
-Cotninue conservative management per Dr. Macias and family.
HTN:
-BP on low side
-Continue to monitor with diuresis
CVA: Significant residual cognitive deficits; unable to answer questions appropriately.
Abnormal troponin:
-likely acute non-ischemic myocardial injury in setting of CHF
Physical Exam
Vital Signs/Labs
Vital Signs
Temp Pulse Resp BP Pulse Ox
97.8 F 89 18 94/63 89
01/03/25 07:12 01/03/25 08:16 01/03/25 07:12 01/03/25 08:16 01/03/25 08:00
01/02/25 01/03/25 01/04/25
06:59 06:59 06:59
Actual Weight 94.6 kg
01/03/25 05:30
01/03/25 05:30
Magnesium 2.2 mg/dl (1.6-2.3) 01/03/25 05:30
01/02/25 01/02/25
09:48 10:58
Yfs-N-Corbqbvtwgc Pept Cancelled 8470
LAB Results
01/02/25 01/02/25 01/02/25
09:48 10:58 14:00
Troponin I Cancelled 0.046 H* 0.045 H*
01/02/25 01/02/25 01/03/25
20:45 22:50 05:30
Troponin I Cancelled 0.051 H* 0.050 H*
Physical Exam
Constitutional: No acute distress and Comfortable
EENT: Anicteric
Cardiovascular: Rhythm & rate is regular, Pedal edema present (1-2+), Systolic murmur present (1/6) and S1S2 is normal
Respiratory: Respiratory effort normal and Lungs clear to auscul.
GI: Soft
Neuro/Psych: Alert
Other: Skin (warm, dry)
Data Reviewed
-
Date of Service: January 03, 2025
EKG: Tracing Personally Visualized and interpreted (Telemetry: Sinus rhythm)
Echo: Report Reviewed by me (EF 30-35%)
Labs: Labs Reviewed by me
[2025-01-03] MEDS: CYANOCOBALAMIN 1000 MCG IM (10:52)
--- NOTE | 2025-01-03 11:51 | CM ---
Chart reviewed. I spoke to Domenico at the [facility], patient lives in [place], ambulates independently without any DME. I asked for a PT evaluation to assess patient's functional needs. Plan is for the patient to return to the [facility]
SNF. CM to follow
[2025-01-03] MEDS: MELATONIN 6 MG PO (22:57)
[2025-01-04] VITALS (7 sets, daily range): BP systolic 80–109; BP diastolic 46–67
--- NOTE | 2025-01-04 00:47 | PTCARENOTE ---
Received pt @ change of shift. Arouses to verbal and tactile stimuli, oriented to person only. VSS on 2L NC-- tachypneic @ times. NSR w/ BBB and PVCs on monitor. Bed alarm in place for patient safety. Discussed plan of care. Pt verbalizes
understanding. Call benitez within reach.
[2025-01-04 05:45] LABS: Blood Urea Nitrogen 28 mg/dl (9-20); Calcium 8.8 mg/dl (8.4-10.2); Carbon Dioxide 24 mmol/L (22-30); Chloride 106 mmol/L (98-107); Estimated Creatinine Clearance 84 ml/min; Glucose 97 mg/dl (70-99); Magnesium 2.5 mg/dl (1.6-2.3); Potassium 4.6 mmol/L (3.5-5.1); Sodium 137 mmol/L (135-145); eGFR > 60.00
--- NOTE | 2025-01-04 09:08 | W.PN.CD ---
Today's Communication / Plan
-
Edema improving.
Respiratory status stable.
Continue IV diuretic with close monitoring of renal function.
GDMT limited by blood pressure.
Impression / Plan
-
79-year-old male (patient of Dr. Macias) with severe aortic stenosis status-post TAVR (03/2019) and subsequent progressive severe aortic regurgitation, CVA, hypertension, and hyperlipidemia. He was hospitalized about 1 month ago with CHF (treated
with diureses) and NSTEMI (plan for medical management) who came to the cardiology office today and there was weight gain, SOB, and edema despite increase in OP diuretics. He was sent to the ER for further evaluation. Full H and P uploaded to chart.
Fhfxk-ts-csxnoec HFmEF (EF 30-35%):
- Presumed ischemic cardiomyopathy with severely reduced left ventricular function
-severe exacerbation, requiring hospitalization (failed OP management)
-Continue Lasix 80 mg IV BID, requires intensive monitoring.
-regarding CM (likely ICM)- continue MRA as BP will tolerate, continue Jardiance. Avoiding BB with severe AR.
-Futher GDMT limited by blood pressure.
-No SGLT2i secondary to concern with compliance and cost.
- As per Dr. Macias .continue conservative management; palliative care has been recommended.
Pleural Effusion:
-Noted on Echo.
-Patient likely not be cooperative fror thoracentesis.
-Continue Lasix.
Recent NSTEMI:
-no CP
-continue ASA, Plavix, statin
-treated medically as noted
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
- Not on previous echoes to have severe aortic regurgitation. Last echo with eccentric aortic regurgitation and was more challenging to grade.
- Continue plan for conservative management
.
Wide-complex tachycardia. NSVT versus apparent SVT. Not ICD candidate. Blood pressure limiting meds will consider low-dose beta-nadiya but at this point blood pressure is limiting meds.
Although amiodarone could be considered it may impact his other meds. Would require reductions in risperidone. In addition would be to monitor closely if used with Prozac. Considering all the issues above we will see if low-dose beta-nadiya can
be added.
CVA: Significant residual cognitive deficits; unable to answer questions appropriately.
Abnormal troponin:
-likely acute non-ischemic myocardial injury in setting of CHF
Physical Exam
Vital Signs/Labs
Vital Signs
Temp Pulse Resp BP Pulse Ox
97.4 F 85 20 104/67 99
01/04/25 07:48 01/04/25 08:00 01/04/25 07:48 01/04/25 07:51 01/04/25 07:51
01/03/25 01/04/25 01/05/25
06:59 06:59 06:59
Actual Weight 94.6 kg 92.2 kg
01/03/25 05:30
01/04/25 04:42
Magnesium 2.5 mg/dl (1.6-2.3) H 01/04/25 04:42
01/02/25 01/02/25
09:48 10:58
Lvg-I-Yluhdnnvawp Pept Cancelled 8870
LAB Results
01/02/25 01/02/25 01/02/25
09:48 10:58 14:00
Troponin I Cancelled 0.046 H* 0.045 H*
01/02/25 01/02/25 01/03/25
20:45 22:50 05:30
Troponin I Cancelled 0.051 H* 0.050 H*
Physical Exam
Constitutional: No acute distress
Cardiovascular: Rhythm & rate is regular
Respiratory: Respiratory effort normal
GI: Soft and Non tender
Neuro/Psych: Alert
Data Reviewed
-
Date of Service: January 04, 2025
X-Ray/CT/US/MRI/NUC/PET: Report Reviewed by me
Medical Tests (PFT, Pathology etc): Report Reviewed by me
Labs: Labs Reviewed by me
[2025-01-04] MEDS: LASIX 80 MG IV ×2 (09:46→16:39)
[2025-01-04] MEDS: RISPERDAL 0.5 MG PO ×2 (09:47→20:59)
[2025-01-04] MEDS: PLAVIX 75 MG PO (09:47)
[2025-01-04] MEDS: HEPARIN 5000 UNITS SC ×3 (09:47→23:26)
[2025-01-04] MEDS: FARXIGA 10 MG PO (09:47)
[2025-01-04] MEDS: CYANOCOBALAMIN 1000 MCG IM (09:47)
[2025-01-04] MEDS: LOW STRENGTH ASPIRIN 81 MG PO (09:47)
--- NOTE | 2025-01-04 10:30 | W.PN.HOSP.TC ---
Today's Communication/Plan
-
weight approprietly decreased
wean off O2
cont diuresis guided by cardiology
Assessment / Plan
Assessment / Plan
79yo M with PMHx of CVA with Wernicke aphasia and dementia, Hx of s/p Almaz mechanical valve, HLD, recent admission 1.5mo ago for NSTEMI and CHF exacerbation, severe regurgitation though Almaz valve brought by due to worsening SOB, managed
for HFrEF exacerbation and worsening paravalvular regurgitation via Almaz AV.
A/P:
#Acute hypoxic respiratory failure 2/2 Acute on chronic HFmrEF
# s/p Almaz valve @2019
#CAD, stable
Echo on 11/22/24 with Ef 45-50%, LV Wall Motion: mid and apical inferior wall, apex, entire anterior wall, mid and apical inferior septum, apical lateral segment, and basal inferior segment are abnormal, 26 mm Monroe Almaz TAVR with peak/mean
gradients of 47/28 mmHg. Severe aortic regurgitation, Mild to moderate mitral regurgitation, Stage II diastolic dysfunction
troponin improved comparing to prior, curtrent increase most likely 2/2 CHF (non-ischemic myocardial injury). Follow trop remained stable without further increase
cont ASA, Plavix, statin, BB
LAsix as per card, daily weights, follow electrolytes and Cr
hold Aldactone due to hypotension on admission
Chest XR:Cardiomegaly with mild interstitial edema and a new small/moderate right-sided pleural effusion with adjacent atelectasis
Echo: EF 30-35%, TAVR with eccentric paravalvular aortic regurgitation. Overall based on current images the aortic regurgitation appears moderate in severity. Difference from Nov 2024 most likely 2/2 use of Echo contrast
#GOC
readmission with failure for outpatient mgmt and poor functional status for invasive procedures as agreed with family
If no significant improvement - might be for palliative care as hke-xg-cykak cardiac disease suspected
#Obesity
BMI 32.3
decrease calorie intake
#CVA with residual Wernikie aphasia
#HLD
cont home meds
Head CT with no acute pathology
patient with slow cognitive, speech and gait deterioration over past monthes
#Mild indirect bilirubinemia
#CHronic anemia
#Relative b12 deficiency
Replete B12
check LDH, haptoglobin
suspect cell destruction 2/2 AR and Almaz valve
DVT ppx hep
DNR/DNI - discussed in details with bedside
I have spent at least 56min reviewign chart, test results, communication with consultants, family and providing direct patient care
Anticipated Discharge: > 48 hours
Subjective/Interval History
-
Date of Service: January 04, 2025
Objective Data
-
Labs:
Laboratory Results
01/04/25
04:42
Sodium 137
Potassium 4.6
Chloride 106
Carbon Dioxide 24
BUN 28 H
Creatinine 0.8
Glucose 97
Calcium 8.8
Vital Signs:
Vital Signs
Temp Pulse Resp BP Pulse Ox
97.4 F 85 20 104/67 99
01/04/25 07:48 01/04/25 08:00 01/04/25 07:48 01/04/25 07:51 01/04/25 07:51
I&O
01/03/25 01/04/25 01/05/25
06:59 06:59 06:59
Intake Total 240 / 240 120 / 120
Output Total 6575 / 6575 2775 / 2775
Balance -6335 / -6335 -2655 / -2655
Review of Systems
-
Unable to obtain full review of systems at this time due to: Other (dysphasia)
Physical Exam
-
General: No Apparent Distress
HEENT: Moist Mucous Membranes
Respiratory: Crackles
GI: Soft, Nontender and Nondistended
Musculoskeletal: No Clubbing, No Cyanosis, Edema, Right Lower Extrem and Edema, Left Lower Extrem
Psych: Calm
[2025-01-04] MEDS: TYLENOL 650 MG PO (16:38)
[2025-01-04] MEDS: FLUSH (NSS) 2 FLUSH IV (16:39)
--- NOTE | 2025-01-04 20:30 | PTCARENOTE ---
Received pt @ change of shift. Awake and alert-- oriented to self only. VSS-- NSR w/ BBB and PVCs on monitor. Denies SOB and visibly breathing comfortable on room air. Bed alarm in place for pt safety. Discussed plan of care. Pt verbalizes
understanding. Call benitez within reach.
[2025-01-04] MEDS: MELATONIN 6 MG PO (20:59)
[2025-01-05] VITALS (13 sets, daily range): BP systolic 78–116; BP diastolic 34–68; BMI 29.9
[2025-01-05 04:37] LABS: Blood Urea Nitrogen 29 mg/dl (9-20); Calcium 8.7 mg/dl (8.4-10.2); Carbon Dioxide 30 mmol/L (22-30); Chloride 99 mmol/L (98-107); Estimated Creatinine Clearance 75 ml/min; Glucose 100 mg/dl (70-99); Potassium 3.6 mmol/L (3.5-5.1); Sodium 135 mmol/L (135-145); eGFR > 60.00
--- NOTE | 2025-01-05 07:12 | W.PN.CD ---
Today's Communication / Plan
-
HF improving. resp status improved. Still with edema.
he was on lasix 40mg last discharge and was lasix 80mg BID as outpatient prior to admit. would transtion to Torsemide 40mg cwhen changing to oral . Change from IV lasix to oral torsemide in next 24 - 48 hours
CXR tomorrow
Impression / Plan
-
79-year-old male (patient of Dr. Macias) with severe aortic stenosis status-post TAVR (03/2019) and subsequent progressive severe aortic regurgitation, CVA, hypertension, and hyperlipidemia. He was hospitalized about 1 month ago with CHF (treated
with diureses) and NSTEMI (plan for medical management) who came to the cardiology office today and there was weight gain, SOB, and edema despite increase in OP diuretics. He was sent to the ER for further evaluation. Full H and P uploaded to chart.
Cvxjz-hd-lzhciep HFmEF (EF 30-35%):
- Presumed ischemic cardiomyopathy with severely reduced left ventricular function
-severe exacerbation, requiring hospitalization (failed OP management)
-Continue Lasix 80 mg IV BID, requires intensive monitoring. possible transition to ora diretic. he waas on lasix 40mg last discharge nad was lasix 80mg BID as outpatient. would transtion to Torsemide 40mg l in next 24 - 48 hours
-regarding CM (likely ICM)- continue MRA as BP will tolerate, continue Jardiance. Avoiding BB with severe AR.
-Futher GDMT limited by blood pressure.
-No SGLT2i secondary to concern with compliance and cost.
- As per Dr. Macias .continue conservative management; palliative care has been recommended.
Pleural Effusion:
-Noted on Echo.
-Patient likely not be cooperative fror thoracentesis.
-Continue Lasix.
- FOLLOW UP cxr
Recent NSTEMI:
-no CP
-continue ASA, Plavix, statin
-treated medically as noted
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
- Not on previous echoes to have severe aortic regurgitation. Last echo with eccentric aortic regurgitation and was more challenging to grade.
- Continue plan for conservative management
.
Wide-complex tachycardia. NSVT versus abbarent SVT one run earlier in admit 16 beats. No recurrence . PVCs and ome venticular triplets. Not ICD candidate. Blood pressure limiting meds will consider low-dose beta-nadiya but at this point blood
pressure is limiting meds. will see if low-dose beta-nadiya can be added. If more runs could consider amiodarone bu would need to modifiy Risperidoen dosing. i know in the past it was a challenging getting the right meds balancing behavior and
sedation on meds.
CVA: Significant residual cognitive deficits; unable to answer questions appropriately.
Abnormal troponin:
-likely acute non-ischemic myocardial injury in setting of CHF
Physical Exam
Vital Signs/Labs
Vital Signs
Temp Pulse Resp BP Pulse Ox
98.7 F 81 18 96/58 95
01/05/25 03:23 01/05/25 03:07 01/05/25 03:23 01/05/25 03:07 01/05/25 03:23
01/04/25 01/05/25 01/06/25
06:59 06:59 06:59
Actual Weight 92.2 kg
01/03/25 05:30
01/05/25 03:17
Magnesium 2.5 mg/dl (1.6-2.3) H 01/04/25 04:42
01/02/25 01/02/25
09:48 10:58
Zka-L-Uvzknhjwcfy Pept Cancelled 8870
LAB Results
01/02/25 01/02/25 01/02/25
09:48 10:58 14:00
Troponin I Cancelled 0.046 H* 0.045 H*
01/02/25 01/02/25 01/03/25
20:45 22:50 05:30
Troponin I Cancelled 0.051 H* 0.050 H*
Physical Exam
Constitutional: No acute distress
Cardiovascular: Rhythm & rate is regular
Respiratory: Wheeze Absent and Rhonchi Absent
GI: Soft and Non tender
Neuro/Psych: Alert
Data Reviewed
-
Date of Service: January 05, 2025
Medical Decision Making: Reviewed Test Results
X-Ray/CT/US/MRI/NUC/PET: Report Reviewed by me
Medical Tests (PFT, Pathology etc): Discussed with Physician
Labs: Labs Reviewed by me
--- NOTE | 2025-01-05 09:23 | W.PN.HOSP.TC ---
Today's Communication/Plan
-
weaned off O2
cont diuresis following labs
Assessment / Plan
Assessment / Plan
79yo M with PMHx of CVA with Wernicke aphasia and dementia, Hx of s/p Almaz mechanical valve, HLD, recent admission 1.5mo ago for NSTEMI and CHF exacerbation, severe regurgitation though Almaz valve brought by due to worsening SOB, managed
for HFrEF exacerbation and worsening paravalvular regurgitation via Almaz AV.
A/P:
#Acute hypoxic respiratory failure 2/2 Acute on chronic HFmrEF
# s/p Almaz valve @2019
#CAD, stable
Echo on 11/22/24 with Ef 45-50%, LV Wall Motion: mid and apical inferior wall, apex, entire anterior wall, mid and apical inferior septum, apical lateral segment, and basal inferior segment are abnormal, 26 mm [place] Almaz TAVR with peak/mean
gradients of 47/28 mmHg. Severe aortic regurgitation, Mild to moderate mitral regurgitation, Stage II diastolic dysfunction
troponin improved comparing to prior, curtrent increase most likely 2/2 CHF (non-ischemic myocardial injury). Follow trop remained stable without further increase
cont ASA, Plavix, statin, BB
Torsemide as per card, daily weights, follow electrolytes and Cr
hold Aldactone due to hypotension on admission
Chest XR:Cardiomegaly with mild interstitial edema and a new small/moderate right-sided pleural effusion with adjacent atelectasis
Echo: EF 30-35%, TAVR with eccentric paravalvular aortic regurgitation. Overall based on current images the aortic regurgitation appears moderate in severity. Difference from Nov 2024 most likely 2/2 use of Echo contrast
#GOC
readmission with failure for outpatient mgmt and poor functional status for invasive procedures as agreed with family
If no significant improvement - might be for palliative care as nch-xq-njezj cardiac disease suspected
#Obesity
BMI 32.3
decrease calorie intake
#CVA with residual Wernikie aphasia
#HLD
cont home meds
Head CT with no acute pathology
patient with slow cognitive, speech and gait deterioration over past monthes
#Mild indirect bilirubinemia
#CHronic anemia
#Relative b12 deficiency
Replete B12
check LDH, haptoglobin
suspect cell destruction 2/2 AR and Almaz valve
DVT ppx hep
DNR/DNI - discussed in details with bedside
I have spent at least 51min reviewign chart, test results, communication with consultants, family and providing direct patient care
Anticipated Discharge: 24 - 48 hours
Subjective/Interval History
-
Date of Service: January 05, 2025
Objective Data
-
Labs:
Laboratory Results
01/05/25
03:17
Sodium 135
Potassium 3.6
Chloride 99
Carbon Dioxide 30
BUN 29 H
Creatinine 0.9
Glucose 100 H
Calcium 8.7
Vital Signs:
Vital Signs
Temp Pulse Resp BP Pulse Ox
98.3 F 79 16 101/55 92
01/05/25 07:44 01/05/25 08:00 01/05/25 07:44 01/05/25 07:47 01/05/25 07:44
I&O
01/04/25 01/05/25 01/06/25
06:59 06:59 06:59
Intake Total 120 / 120 1040 / 1040
Output Total 2775 / 2775 192 / 192
Balance -2655 / -2655 -885 / -885
Review of Systems
-
Unable to obtain full review of systems at this time due to: Other (dysphasia)
History Source: Patient
Physical Exam
-
General: No Apparent Distress
HEENT: Normocephalic
GI: Soft, Nontender and Nondistended
Musculoskeletal: No Clubbing, No Cyanosis, Edema, Right Lower Extrem and Edema, Left Lower Extrem
Neuro: Awake and Alert
Psych: Calm
[2025-01-05] MEDS: FLUSH (NSS) 2 FLUSH IV (09:50)
[2025-01-05] MEDS: LOW STRENGTH ASPIRIN 81 MG PO (09:50)
[2025-01-05] MEDS: CYANOCOBALAMIN IM (09:50)
[2025-01-05] MEDS: FARXIGA 10 MG PO (09:50)
[2025-01-05] MEDS: PLAVIX 75 MG PO (09:50)
[2025-01-05] MEDS: RISPERDAL 0.5 MG PO ×2 (09:50→19:39)
[2025-01-05] MEDS: LASIX 80 MG IV (09:50)
[2025-01-05] MEDS: HEPARIN 5000 UNITS SC ×3 (09:51→23:01)
[2025-01-05] MEDS: RISPERDAL M-TAB (ORALLY DISINTEGRATING) 0.25 MG PO (11:43)
[2025-01-05] MEDS: LASIX IV ×2 (17:58→18:14)
[2025-01-05] MEDS: TYLENOL 650 MG PO (17:59)
--- NOTE | 2025-01-05 20:33 | PTCARENOTE ---
Received patient at change of shift. SR on the monitor, HR in the 70s. Oriented to self only, bed and chair alarm in place. No complaints from pt at this time, call benitez within reach.
[2025-01-05] MEDS: MELATONIN 6 MG PO (23:01)
[2025-01-06] VITALS (11 sets, daily range): BP systolic 93–150; BP diastolic 52–123; PULSE 84–104; O2SAT 98; BMI 29.7
[2025-01-06 03:34] LABS: Blood Urea Nitrogen 25 mg/dl (9-20); Calcium 9.1 mg/dl (8.4-10.2); Carbon Dioxide 28 mmol/L (22-30); Chloride 102 mmol/L (98-107); Estimated Creatinine Clearance 75 ml/min; Glucose 104 mg/dl (70-99); Magnesium 2.3 mg/dl (1.6-2.3); Potassium 3.9 mmol/L (3.5-5.1); Sodium 136 mmol/L (135-145); eGFR > 60.00
--- NOTE | 2025-01-06 08:07 | W.PN.CD ---
Today's Communication / Plan
-
- Patient had lower pressures in the afternoon and evening yesterday. The afternoon dose of Lasix held. Patient has mild edema but respiratory status stable. This point we will transition to oral diuretic and monitor response. Starting
torsemide this morning. Will observe response and observe pressures today and if stable plan for discharge tomorrow
Impression / Plan
-
79-year-old male (patient of Dr. Macias) with severe aortic stenosis status-post TAVR (03/2019) and subsequent progressive severe aortic regurgitation, CVA, hypertension, and hyperlipidemia. He was hospitalized about 1 month ago with CHF (treated
with diureses) and NSTEMI (plan for medical management) who came to the cardiology office today and there was weight gain, SOB, and edema despite increase in OP diuretics. He was sent to the ER for further evaluation. Full H and P uploaded to chart.
Mlpzh-vn-ukndskn HFmEF (EF 30-35%):
- Presumed ischemic cardiomyopathy with severely reduced left ventricular function
-severe exacerbation, requiring hospitalization (failed OP management)
- Patient had lower pressures in the afternoon and evening yesterday. The afternoon dose of Lasix held. Patient has mild edema but respiratory status stable. This point we will transition to oral diuretic and monitor response.
-regarding CM (likely ICM)- continue MRA as BP will tolerate, continue Jardiance. Avoiding BB with severe AR.
-Futher GDMT limited by blood pressure.
-No SGLT2i secondary to concern with compliance and cost.
- As per Dr. Macias .continue conservative management; palliative care has been recommended.
Pleural Effusion:
-Noted on Echo.
-Patient likely not be cooperative fror thoracentesis.
-Continue Lasix.
- FOLLOW UP cxr
Recent NSTEMI:
-no CP
-continue ASA, Plavix, statin
-treated medically as noted
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
- Not on previous echoes to have severe aortic regurgitation. Last echo with eccentric aortic regurgitation and was more challenging to grade.
- Continue plan for conservative management
.
NSVT versus abbarent SVT one run earlier in admit 16 beats. No recurrence . PVCs and some venticular triplets. Not ICD candidate. Blood pressure limiting meds will consider low-dose beta-nadiya but at this point blood pressure is limiting meds.
will see if low-dose beta-nadiya can be added. If more runs could consider amiodarone bu would need to modifiy Risperidoen dosing. i know in the past it was a challenging getting the right meds balancing behavior and sedation on meds.
CVA: Significant residual cognitive deficits; unable to answer questions appropriately.
Abnormal troponin:
-likely acute non-ischemic myocardial injury in setting of CHF
Physical Exam
Vital Signs/Labs
Vital Signs
Temp Pulse Resp BP Pulse Ox
98.5 F 80 18 102/65 95
01/06/25 02:20 01/06/25 05:00 01/06/25 02:20 01/06/25 02:13 01/06/25 02:20
01/05/25 01/06/25 01/07/25
06:59 06:59 06:59
Actual Weight 91.3 kg
01/03/25 05:30
01/06/25 02:18
Magnesium 2.3 mg/dl (1.6-2.3) 01/06/25 02:18
01/02/25 01/02/25 01/06/25
09:48 10:58 02:18
Poh-P-Tsrrlqeqegw Pept Cancelled [id number]
Physical Exam
Constitutional: No acute distress
Cardiovascular: Rhythm & rate is regular
Respiratory: Wheeze Absent and Rhonchi Absent
GI: Soft
Neuro/Psych: Alert
Data Reviewed
-
Date of Service: January 06, 2025
Medical Decision Making: Reviewed Test Results
X-Ray/CT/US/MRI/NUC/PET: Report Reviewed by me
Medical Tests (PFT, Pathology etc): Report Reviewed by me
Labs: Labs Reviewed by me
[2025-01-06] MEDS: CYANOCOBALAMIN 1000 MCG IM (08:19)
[2025-01-06] MEDS: HEPARIN 5000 UNITS SC ×3 (08:20→23:03)
[2025-01-06] MEDS: FARXIGA 10 MG PO (08:22)
[2025-01-06] MEDS: RISPERDAL 0.5 MG PO ×2 (08:22→20:26)
[2025-01-06] MEDS: LOW STRENGTH ASPIRIN 81 MG PO (08:22)
[2025-01-06] MEDS: PLAVIX 75 MG PO (08:22)
[2025-01-06] MEDS: DEMADEX 40 MG PO (09:13)
[2025-01-06] MEDS: LASIX IV (09:13)
--- NOTE | 2025-01-06 12:24 | W.PN.HOSP.TC ---
Today's Communication/Plan
-
Possible DC in am according to Cardiology
Assessment / Plan
Assessment / Plan
79-year-old with shortness of breath and CHF. Patient has history of TAVR and subsequent progressive AI. He was hospitalized here with CHF a month and month and a half ago
Echo 01/02/2025-moderate to severe reduced LV SF. EF 30 to 35%. TAVR with eccentric paravalvular aortic regurgitation. Moderate MR. Pleural effusion.
Chest x-ray reviewed by me improved opacities compared to the previous
CVS: S1-S2 normal, sm at apex
Chest: CTA B/L, decerased
Abdomen: Soft, NT / Bowel sounds present
Extremities: Mild right lower extremity edema
# Acute hypoxic respiratory failure secondary to CHF
# Acute on chronic HFmref, acute on chronic HFpEF
Currently he may also qualify for acute HFrEF given reduction in EF
Likely has ischemic cardiomyopathy
Continue torsemide
Daily weights and intake output charting and follow electrolytes
Continue SGLT2 inhibitors
Goal-directed medical therapy limited because of low blood pressures
proBNP 01/02/2025 8870 and today 5660
CXR improved
Diuretics changed to PO
# Coronary disease-continue aspirin, Plavix, statin
# Valvular heart disease
Aortic stenosis status post TAVR 2018
Severe AI, mild to moderate MR
# History of CVA with residual aphasia-continue Plavix, statin, aspirin
# Hyperlipidemia-continue statin
# Chronic anemia
# Obesity with a BMI of 29
# Diverticulosis
# Depression-continue Prozac, risperidone for agitation
# Ambulatory dysfunction
# DVT prophylaxis-subcutaneous heparin
D/W RN at bed side
Part of this note was created using voice recognition system. Occasional wrong word or��sound alike� substitutions may have inadvertently occurred due to the inherent limitations of voice recognition software. If noted kindly bring it to my
attention for correction.
Anticipated Discharge: Within 24 hours
Subjective/Interval History
-
Date of Service: January 06, 2025
Objective Data
-
Labs:
Laboratory Results
01/06/25
02:18
Sodium 136
Potassium 3.9
Chloride 102
Carbon Dioxide 28
BUN 25 H
Creatinine 0.8
Glucose 104 H
Calcium 9.1
Vital Signs:
Vital Signs
Temp Pulse Resp BP Pulse Ox
97.6 F 84 16 105/67 97
01/06/25 08:00 01/06/25 11:07 01/06/25 08:00 01/06/25 11:07 01/06/25 11:07
I&O
01/05/25 01/06/25 01/07/25
06:59 06:59 06:59
Intake Total 1040 / 1040 1010 / 1010 240 / 240
Output Total 1924 / 1924 2049 / 2049 650 / 650
Balance -885 / -885 -1040 / -1040 -410 / -410
--- NOTE | 2025-01-06 13:49 | CM ---
Chart reviewed. Patient lives [place] in [place] at [facility], 0 DME, current with [facility]? PT evaluation recommending SNF. at bedside. Patient's concerned new placement will throw him off even more cognitively. Patient's and RN to walk
patient to see if he is at his baseline. Patient's prefers patient to go back to the [place] with VN and PT. CM to follow
--- NOTE | 2025-01-06 14:48 | PTCARENOTE ---
Patient alert to self, expressive aphasia. +1 edema lower extremities. Using urinal with assistance. Walked in halls with rolling walker with stand by assistance. Bed and chair alarms audible, using call benitez for assistance
[2025-01-06] MEDS: DESENEX/MITRAZOL/ZEASORB 1 APPLIC TOPICAL (21:09)
[2025-01-06] MEDS: MELATONIN 6 MG PO (23:03)
--- NOTE | 2025-01-06 23:35 | PTCARENOTE ---
Received patient at change of shift. SR on the monitor, HR in the 70s. Oriented to self only, bed alarm in place. Pt itching bilateral groins, skin intact, Desenex powder ordered and administered. No complaints from pt at this time, call benitez within
reach.
[2025-01-07 01:59] VITALS: BP 98/66
[2025-01-07] MEDS: TYLENOL 650 MG PO ×2 (02:33→08:16)
[2025-01-07 06:00] VITALS: BMI 29.4
--- NOTE | 2025-01-07 07:53 | W.PN.CD ---
Today's Communication / Plan
-
-Continue torsemide 40 mg PO daily.
-Conservative management--poor candidate for aggressive measures; palliative care recommended.
-Outpatient follow-up with Cardiology.
Impression / Plan
-
79-year-old male (patient of Dr. Macias) with severe aortic stenosis status-post TAVR (03/2019) and subsequent progressive severe aortic regurgitation, CVA, hypertension, and hyperlipidemia. He was hospitalized about 1 month ago with CHF (treated
with diureses) and NSTEMI (plan for medical management) who came to the cardiology office today and there was weight gain, SOB, and edema despite increase in OP diuretics. He was sent to the ER for further evaluation. Full H and P uploaded to chart.
Miady-lc-umducsz HFmEF (EF 30-35%):
- Presumed ischemic cardiomyopathy with severely reduced left ventricular function
-severe exacerbation, requiring hospitalization (failed OP management)
-regarding CM (likely ICM)- continue MRA as BP will tolerate, continue Jardiance; avoiding BB with previous severe AR (blood pressure will not allow also).
-Continue torsemide 40 mg PO daily.
-Futher GDMT limited by blood pressure.
-No SGLT2i secondary to concern with compliance and cost.
-Conservative management--poor candidate for aggressive measures; palliative care recommended.
Pleural Effusion:
-Noted on Echo.
-Patient likely not be cooperative for thoracentesis.
- Continue torsemide.
Recent NSTEMI:
-no CP
-continue ASA, Plavix, statin
-treated medically as noted
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
- Moderate AR.
- Continue torsemide; conservative management.
NSVT versus aberrant SVT:
-Conservative management.
-No beta-nadiya secondary to blood pressure limitations.
-Not ICD candidate.
CVA: Significant residual cognitive deficits; unable to answer questions appropriately.
Abnormal troponin:
-likely acute non-ischemic myocardial injury in setting of CHF
Physical Exam
Vital Signs/Labs
Vital Signs
Temp Pulse Resp BP Pulse Ox
98.5 F 71 18 98/66 95
01/07/25 02:00 01/07/25 05:00 01/07/25 02:00 01/07/25 01:59 01/07/25 02:00
01/06/25 01/07/25 01/08/25
06:59 06:59 06:59
Actual Weight 91.3 kg 90.1 kg
01/03/25 05:30
01/06/25 02:18
Magnesium 2.3 mg/dl (1.6-2.3) 01/06/25 02:18
01/02/25 01/02/25 01/06/25
09:48 10:58 02:18
Mmq-L-Bvqsavzxmkr Pept Cancelled [id number]
Physical Exam
Constitutional: No acute distress and Comfortable
EENT: Anicteric
Cardiovascular: Rhythm & rate is regular, Systolic murmur absent (2-3/6), Pedal edema present (Trace-1+), Diastolic murmur present (1/4) and S1S2 is normal
Respiratory: Respiratory effort normal and Lungs clear to auscul.
GI: Soft
Neuro/Psych: Alert
Other: Skin (Warm, dry)
Data Reviewed
-
Date of Service: January 07, 2025
EKG: Tracing Personally Visualized and interpreted (Telemetry: Sinus rhythm, brief runs of NSVT (6 and 8 beats))
Echo: Report Reviewed by me (EF 30-35%; moderate AR)
Labs: Labs Reviewed by me
[2025-01-07 07:56] VITALS: BP 107/59
[2025-01-07] MEDS: VITAMIN B-12 1000 MCG PO (07:56)
[2025-01-07] MEDS: LOW STRENGTH ASPIRIN 81 MG PO (07:56)
[2025-01-07] MEDS: DEMADEX 40 MG PO (07:56)
[2025-01-07] MEDS: FARXIGA 10 MG PO (07:56)
[2025-01-07] MEDS: PLAVIX 75 MG PO (07:56)
[2025-01-07] MEDS: HEPARIN 5000 UNITS SC (07:56)
[2025-01-07] MEDS: RISPERDAL 0.5 MG PO (07:57)
[2025-01-07] MEDS: DESENEX/MITRAZOL/ZEASORB 1 APPLIC TOPICAL (09:18)
--- NOTE | 2025-01-07 11:18 | W.PN.HOSP.TC ---
Today's Communication/Plan
-
Discharge
Assessment / Plan
Assessment / Plan
79-year-old with shortness of breath and CHF. Patient has history of TAVR and subsequent progressive AI. He was hospitalized here with CHF a month and month and a half ago
Echo 01/02/2025-moderate to severe reduced LV SF. EF 30 to 35%. TAVR with eccentric paravalvular aortic regurgitation. Moderate MR. Pleural effusion.
Chest x-ray reviewed by me improved opacities compared to the previous
CVS: S1-S2 normal, sm at apex
Chest: CTA B/L
Abdomen: Soft, NT / Bowel sounds present
Extremities: Mild right lower extremity edema
# Acute hypoxic respiratory failure secondary to CHF-Off O2
# Acute on chronic HFmref, acute on chronic HFpEF
Currently he may also qualify for acute HFrEF given reduction in EF
Likely has ischemic cardiomyopathy
Continue torsemide
Daily weights and intake output charting and follow electrolytes
Continue SGLT2 inhibitors
Goal-directed medical therapy limited because of low blood pressures
ProBNP 01/02/2025 8870 and 5660 on 01/06/25
CXR improved
Diuretics changed to PO
# Coronary disease-continue aspirin, Plavix, statin
# Valvular heart disease
Aortic stenosis status post TAVR 2018
Severe AI, mild to moderate MR
# History of CVA with residual aphasia-continue Plavix, statin, aspirin
# Hyperlipidemia-continue statin
# Chronic anemia
# Obesity with a BMI of 29
# Diverticulosis
# Depression-continue Prozac, risperidone for agitation
# Ambulatory dysfunction
# DVT prophylaxis-subcutaneous heparin
D/W RN at bed side
D/W Cards
OK for discharge
Called and updated. She does not want visiting nurse or physical therapy as she wants to use the same services that he was using at bed just prior to admission.
More than 30 minutes spent in discharge including
Final examination of the patient
Summarizing hospital stay
Instructions for continuing care to all relevant caregivers
Preparation of discharge records, prescriptions, and referral forms
Part of this note was created using voice recognition system. Occasional wrong word or��sound alike� substitutions may have inadvertently occurred due to the inherent limitations of voice recognition software. If noted kindly bring it to my
attention for correction.
Anticipated Discharge: Today
Subjective/Interval History
-
Date of Service: January 07, 2025
Objective Data
-
Vital Signs:
Vital Signs
Temp Pulse Resp BP Pulse Ox
97.6 F 71 18 98/66 97
01/07/25 08:38 01/07/25 05:00 01/07/25 08:38 01/07/25 01:59 01/07/25 08:38
I&O
01/06/25 01/07/25 01/08/25
06:59 06:59 06:59
Intake Total 1010 / 1010 490 / 490
Output Total 2049 / 2049 1450 / 1450 175 / 175
Balance -1040 / -1040 -960 / -960 -175 / -175
--- NOTE | 2025-01-07 11:41 | PTCARENOTE ---
Assumed care. Patient alert to self, expressive aphasia. Left base fine crackles. Right ankle +1 edema, improved, trace on left. Using urinal with assistance. Walked in the halls with staff with rolling walker. Bed and chair alarms in place.
--- NOTE | 2025-01-07 11:54 | CM ---
Chart reviewed. Patient lives [place] at the [facility] at [place], staggered gait but 0 DME. Patient is current with [facility]. Referral sent to [facility] for VN and PT/OT. Patient's and son in law to transport patient back to the [facility]. Plan
is for the patient to go to [facility] with [facility] and [facility].
[2025-01-07 12:06] VITALS: BP 89/50
[2025-01-07 12:08] VITALS: BP 96/52
[2025-01-07] MEDS: PROZAC 40 MG PO (12:47)
--- NOTE | 2025-01-07 13:34 | W.DS.TRANS ---
Addendum entered and electronically signed by Ghislaine Ozuna MD 01/07/25 14:47:
Dictation- [id number]
Original Note:
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
-
Discharge Instructions:
Sleep Apnea Risk High
Discharge Diagnosis/Procedures Acute hypoxic respiratory failure
Acute on chronic heart failure
Coronary artery disease
Valvular heart disease
History of CVA with aphasia
Hyperlipidemia
Chronic anemia
Diverticulosis
Depression
Ambulatory dysfunction
Diet Restrict fluids to 48 oz,2 Gram Sodium
Activity As tolerated,With assistance
Driving Restrictions No driving
Other Services PT,OT,VN
Instructions:
Stand-Alone Forms:
Changes to Home Medications: Yes
Discharge Medications:
DC Medications w/original date entered in [employer]
aspirin 81 mg chewable tablet 81 mg PO DAILY Blood Clot Prevention/Tx 02/13/19
acetaminophen 500 mg tablet (Tylenol Extra Strength) 1,000 mg PO Q6HPRN PRN mild pain 11/21/24
atorvastatin 20 mg tablet (Lipitor) 20 mg PO QPM High Cholesterol 11/21/24
melatonin 3 mg tablet 6 mg PO HS Sleep 11/21/24
risperidone 1 mg tablet 0.5 mg PO BID agitation 11/21/24
fluoxetine 40 mg capsule 40 mg PO DAILY Mental Health/Anxiety 01/02/25
risperidone 0.5 mg disintegrating tablet 0.25 mg PO DAILYPRN PRN agitation 01/02/25
clopidogrel 75 mg tablet 75 mg PO DAILY Blood clot prevention/tx #30 tabs 01/07/25
cyanocobalamin (vitamin B-12) 500 mcg tablet (Vitamin B-12) 1,000 mcg (2 x 500 mcg) PO DAILY low normal level #30 tabs 01/07/25
empagliflozin 10 mg tablet (Jardiance) 10 mg PO DAILY Heart disease/condition #0 tabs 01/07/25
torsemide 20 mg tablet 40 mg (2 x 20 mg) PO DAILY Fluid retention/Swelling #60 tabs 09/23/25
Home Medication Changes
lasix and Aldactone stopped
Torsamide new
Pending Results: No
--- NOTE | 2025-01-07 14:10 | PTCARENOTE ---
Patient discharged to [facility]. Spoke with Dipesh and gave her verbal report and discharge packet sent with his spouse and faxed. Patient escorted to main lobby and assisted into the car.
== END 2025-01-07 15:01 | disposition home or self-care (01) | DRG 291 ==
LOC: IVU 12:26
PROVIDERS: Nurse Practitioner; Registered Nurse; ADMITTING PHYSICIAN Internal Medicine; ATTENDING PHYSICIAN Hospitalist; CONSULT PHYSICIAN Internal Medicine Cardiovascular Disease; EMERGENCY PHYSICIAN Emergency Medicine; FAMILY PHYSICIAN Student in an Organized Health Care Education/Training Program
DX: I11.0 Hypertensive heart disease with heart failure (principal); I50.23 Acute on chronic systolic (congestive) heart failure; J96.01 Acute respiratory failure with hypoxia; I47.20 Ventricular tachycardia, unspecified; I25.10 Atherosclerotic heart disease of native coronary artery without angina pectoris; I08.0 Rheumatic disorders of both mitral and aortic valves; E66.9 Obesity, unspecified; Z68.32 Body mass index [BMI] 32.0-32.9, adult; I25.5 Ischemic cardiomyopathy; Z66 Do not resuscitate; E78.5 Hyperlipidemia, unspecified; D64.9 Anemia, unspecified; F03.90 Unspecified dementia, unspecified severity, without behavioral disturbance, psychotic disturbance, mood disturbance, and anxiety; F80.2 Mixed receptive-expressive language disorder; I69.320 Aphasia following cerebral infarction; R26.2 Difficulty in walking, not elsewhere classified; K57.90 Diverticulosis of intestine, part unspecified, without perforation or abscess without bleeding; F32.A Depression, unspecified; E78.00 Pure hypercholesterolemia, unspecified; I5A Non-ischemic myocardial injury (non-traumatic); Z79.899 Other long term (current) drug therapy; Z95.4 Presence of other heart-valve replacement; E53.8 Deficiency of other specified B group vitamins; I25.2 Old myocardial infarction
CPT/HCPCS: 36600; 70450; 71045; 71046; 80048; 80076; 82607; 82728; 82746; 82805; 83010; 83540; 83550; 83615; 83735; 83880; 84100; 84132; 84443; 84484; 85025; 87070; 93005; 93308; 96374; 97163; 97166; 97530; 97535; 99285